=== PATIENT | female | born 1965 | race Caucasian/White ===

== ENCOUNTER 2016-11-21 22:14 | Emergency (ER) | payer SELFPAY ==
[2016-11-21] VITALS (10 sets, daily range): BP systolic 124–202; BP diastolic 68–98; PULSE 52–111; RESP 16–18; TEMP 97.3; O2SAT 96–100
[~2016-11-21] VITALS: Ht 165.1 cm; Wt 67.5 kg
[~2016-11-21 22:14] MED LIST: CIPR-9 PO; HYDR-3533 PO
[2016-11-21] MEDS ORDERED: levETIRAcetam INJ 500 MG in SODIUM CHLORIDE 0.9% INJ 100 ML IV SCH (22:30)
[2016-11-21] MEDS ORDERED: ETOMIDATE 20 MG/10 ML VIAL IV PUSH ONE (22:30)
[2016-11-21] MEDS ORDERED: SUCCINYLCHOLINE CHLORIDE 200 MG/10 ML VIAL IV PUSH ONE (22:30)
[2016-11-21] MEDS ORDERED: SODIUM CHLORIDE 0.9% FLUSH 10 ML FLUSH IVF PRN (22:30)
[2016-11-21] MEDS ORDERED: PROPOFOL 1000 MG/100 ML INJ 100 ML ONE (22:34)
--- NOTE | 2016-11-21 22:34 | RADRPT ---
EXAM DATE/TIME: 11/21/2016 22:20 [facility] COMPARISON: No previous studies available for comparison. INDICATIONS : Stroke alert. Left sided weakness. RADIATION DOSE: 56.77 CTDIvol (mGy) This report was called by Theron Nation at 2223 MEDICAL HISTORY : Non-responsive. SURGICAL HISTORY : Non-responsive. ENCOUNTER: Initial ACUITY: 1 day PAIN SCALE: 0/10 LOCATION: cranial TECHNIQUE: Multiple contiguous axial images were obtained of the head. Using automated exposure control and adj ustment of the mA and/or kV according to patient size, radiation dose was kept as low as reasonably a chievable to obtain optimal diagnostic quality images. FINDINGS: Significant intracranial hemorrhage is observed. The largest component is intraparenchymal in nature involving the right temporal lobe. There is subarachnoid hemorrhage overlying the right frontal lobe and left frontal lobe. Subarachnoid hemorrhage is seen filling the suprasellar cistern. A thin acute subdural hematoma is also seen overlying the right frontoparietal lobe reaching a maximum thickness o f 7 mm. There is right to left midline shift of 10 mm. The ventricles remain normal in size. The calv arium is intact. CONCLUSION: 1. Intraparenchymal, subarachnoid, and right-sided subdural hematoma with 10 mm of [id number] midl ine shift. Collin Crump Jr., MD on November 21, 2016 at 22:27 Board Certified Radiologist. This report was verified electronically.
[2016-11-21] MEDS ORDERED: IOHEXOL 350 MG/ML 10 ML VIAL (for RAD DIAG) IV ONE (22:39)
[2016-11-21 22:41] LABS: AUTOMATED NEUTROPHIL # 6.4 TH/MM3 (1.8-7.7); BASOPHIL # 0.1 TH/MM3 (0-0.2); BASOPHIL % 0.6 % (0.0-2.0); EOSINOPHIL # 0.2 TH/MM3 (0-0.4); HEMATOCRIT 37.4 % (35.0-46.0); HEMO FLAGS DIFF FINAL; LYMPH % 33.1 % (9.0-44.0); LYMPHOCYTE # 3.9 TH/MM3 (1.0-4.8); MEAN CELL VOLUME 110.7 FL (80.0-100.0); MEAN CORPUSCULAR HEMOGLOBIN 37.4 PG (27.0-34.0); MEAN CORPUSCULAR HGB CONC 33.8 % (32.0-36.0); MONO % 9.2 % (0.0-8.0); NEUT % 55.1 % (16.0-70.0); PLATELET COUNT 215 TH/MM3 (150-450); RED BLOOD COUNT 3.38 MIL/MM3 (4.00-5.30); WHITE BLOOD COUNT 11.7 TH/MM3 (4.0-11.0)
[2016-11-21] MEDS ORDERED: PROPOFOL 1000 MG/100 ML INJ 100 ML IV SCH (22:45)
[2016-11-21] MEDS ORDERED: levETIRAcetam 1000 MG INJ 100 ML IV ONE (22:45)
[2016-11-21] MEDS ORDERED: niCARdipine INJ 25 MG in SODIUM CHLOR 0.9% 250 ML INJ 250 ML IV SCH (22:45)
[2016-11-21] MEDS ORDERED: LIDOCAINE HCL 2% 100 MG/5 ML SYRINGE IV PUSH ONE (22:45)
[2016-11-21 22:48] LABS: I-STAT POTASSIUM 2.8 MMOL/L (3.5-4.9)
[2016-11-21 22:50] LABS: APTT (PATIENT) 22.2 SEC (24.3-30.1); PROTHROMBIN TIME - PATIENT 11.1 SEC (9.8-11.6)
--- NOTE | 2016-11-21 22:50 | MB ---
cc: MEHNAZ OVIEDO M.D. DATE OF CONSULTATION: 11/21/2016 REASON FOR CONSULTATION: Stroke alert HISTORY OF PRESENT ILLNESS Ms. Marino is a 51-year-old female previously healthy until this evening when she suddenly developed a severe headache began staring blankly into space and then had some what appeared to be seizure-like activity. She developed left-sided weakness. [facility] was called and found her to be hemiplegic on the left side. She had some witnessed activity which appeared to be seizure-like. PAST MEDICAL HISTORY: 1. History of nephrolithiasis. 2. Hypertension. ALLERGIES: NONE KNOWN. MEDICATIONS: Unknown at this time. NEUROLOGICAL EXAMINATION: Her blood pressure is 202/93, pulse 67, respiratory rate 18. Temperature is pending. Neurologic. She is minimally responive. She does follow simple commands. Cranial nerves: The right pupil is about 3 millimeter, left pupil 2 millimeters, right pupil is minimally reactive to light. She has mild ptosis on the right. She has left facial droop. On motor exam, she has severe weakness, left arm and left leg graded at 0/5 with normal strength on the right. Reflexes are symmetric. CT of the brain shows a large intraparenchymal hemorrhage as well as extensive subarachnoid hemorrhage. There is a 1.04 cm midline shift, right to left. There does appear to be some early uncal herniation as well. There does appear to be some subdural hematoma as well on the right hand side. LABORATORY DATA: Currently pending. IMPRESSION: Large subarachnoid hemorrhage as well as right temporal/parietal intraparenchymal hemorrhage and subdural hematoma. Rule out AVM, rule out aneurysm. RECOMMENDATIONS: Will obtain a stat CT angiogram of the brain, also recommend neurosurgical consultation. Although the patient did come in as a stroke alert she is obviously not a candidate for thrombolytic therapy given the extensive hemorrhage. Will also recommend blood pressure control per neurosurgery's recommendations. Will start the patient on Keppra as well for seizure prophylaxis. MD GRACE Meza/RIC /10:38 PM /10:44 PM
[2016-11-21] MEDS ORDERED: MANNITOL INJ 50 ML ONE (22:55)
[2016-11-21] MEDS ORDERED: MANNITOL 12.5 GM/50 ML VIAL IV ONE (23:00)
[2016-11-21] MEDS ORDERED: niMODipine 30 MG CAP OG-TUBE ONE (23:00)
--- NOTE | 2016-11-21 23:00 | PD ---
HPI Chief Complaint: Stroke Alert Time Seen by Provider: 22:21 Travel History International Travel<30 days: No Contact w/Intl Traveler<30days: No Traveled to known affect area: No History of Present Illness HPI The patient is a 51-year-old female who presents to the emergency department via EMS after an apparent seizure, altered mental status, and then was called a stroke alert in the field. According to EMS the patient had a staring episode approximately 9 PM tonight he complained of a headache to her coworkers at the [employer] where she works. The patient then had some lethargy and altered mental status, after one hour EMS was called. EMS arrived and stated the patient was incontinent of urine and appeared to be postictal, however, they noted she had a left facial droop and was not moving her left arm. Therefore, stroke alert was called in the field. According to EMS patient has no medical history and takes no chronic medications, however, upon arrival the patient is unable to answer any questions. No further information is obtained from the patient. [facility] Past Medical History Medical History: Unable to Obtain Hypertension: Yes Past Surgical History Surgical History: Unable to Obtain Section: Yes Social History Alcohol Use: Yes (daily) Tobacco Use: Yes (1 ppd) Substance Use: No Allergies-Medications (Allergen,Severity, Reaction): Coded Allergies: No Known Allergies (Unverified , 11/21/16) Reported Meds & Prescriptions Reported Meds & Active Scripts Active No Active Prescriptions or Reported Medications Review of Systems ROS Limitations: Clinical Condition, Altered Mental Status, Unresponsive Except as stated in HPI: all other systems reviewed are Neg Neurologic: Positive: Focal Abnormalities, Change in Mentation Physical Exam Narrative GENERAL: 51-year-old female who arrives with her eyes closed, nonverbal, only withdraws to pain. SKIN: Focused skin assessment warm/dry. HEAD: Atraumatic. Normocephalic. EYES: Right pupils 5 mm, left pupil is 2 mm, unable to assess EOMs.. ENT: No nasal bleeding or discharge. Snoring respirations. NECK: Trachea midline. No JVD. CARDIOVASCULAR: Regular rate and rhythm. No murmur appreciated. Heart rate in the 80s. RESPIRATORY: No accessory muscle use. Clear to auscultation. Breath sounds equal bilaterally. GASTROINTESTINAL: Abdomen soft, non-tender, nondistended. No obvious distention. MUSCULOSKELETAL: No obvious deformities. No clubbing. No cyanosis. No edema. NEUROLOGICAL: Eyes closed, nonverbal, withdraws to pain. Left arm is flaccid, minimal withdrawal of the left lower extremity. Withdrawals right upper extremity and right lower extremity to pain. There appears to be a left facial droop. PSYCHIATRIC: Unable to assess. Data Data Last Documented VS Vital Signs Date Time Temp Pulse Resp B/P Pulse Ox O2 Delivery O2 Flow Rate FiO2 11/21/16 23:59 111 16 124/68 100 Ventilator 50 11/21/16 22:59 97.3 11/21/16 22:[address] Brain W/O Iv Contrast(Rout) (11/21/16 ) Levetiracetam Inj (Keppra Inj) (11/21/16 22:30) Electrocardiogram (11/21/16 22:25) Prothrombin Time / Inr (Pt) (11/21/16 22:25) Act Partial Throm Time (Ptt) (11/21/16 22:25) Complete Blood Count With Diff (11/21/16 22:25) Comprehensive Metabolic Panel (11/21/16 22:25) Creatine Kinase (Cpk) (11/21/16 22:25) Troponin I (11/21/16 22:25) Cta Brain W Iv Contrast W 3d (11/21/16 22:25) Cta Neck W Iv Contrast W 3d (11/21/16 22:25) Chest, Single Ap (11/21/16 22:25) Ecg Monitoring (11/21/16 22:25) Iv Access Insert/Monitor (11/21/16 22:25) Oximetry (11/21/16 22:25) Sodium Chloride 0.9% Flush (Ns Flush) (11/21/16 22:30) Etomidate Inj (Amidate Inj) (11/21/16 22:30) Succinylcholine Inj (Quelicin Inj) (11/21/16 22:30) Lidocaine 2% Inj (Xylocaine 2% Inj) (11/21/16 22:45) Propofol 1000 Mg/100 Ml Inj (Diprivan 10 (11/21/16 22:34) I-Stat Creatinine (11/21/16 22:15) I-Stat Profile (11/21/16 22:15) Iohexol 350 Inj (Omnipaque 350 Inj) (11/21/16 22:39) Levetiracetam Inj (Keppra Inj) (11/22/16 00:00) Levetiracetam 1000 Mg Inj (Keppra 1000 M (11/21/16 22:45) Nicardipine Inj (Cardene Inj) (11/21/16 22:41) Propofol 1000 Mg/100 Ml Inj (Diprivan 10 (11/21/16 22:45) ^ Infusion (11/21/16 22:42) RASS (11/21/16 22:42) Neurological Rass Scale ARNOLD.Q2H (11/21/16 22:42) Nicardipine Inj (Cardene Inj) (11/21/16 22:45) Urinary Catheter Insert/Apply (11/21/16 22:42) Gertrude-Gastric Tube Insert/Mon (11/21/16 22:42) Mannitol Inj (Mannitol Inj) (11/21/16 23:00) Mannitol Inj (Mannitol Inj) (11/22/16 00:00) Nimodipine (Nimotop) (11/21/16 23:00) Mannitol Inj (Mannitol Inj) (11/21/16 22:55) Radiology Film Requests (11/21/16 ) Resp Ventilation- Volume (11/21/16 ) Potassium Chloride Eff (K-Lyte Cl Eff) (11/21/16 23:45) Potassium Chlor 20 Meq Premix (Kcl 20 Me (11/21/16 23:45) Radiology Film Requests (11/21/16 ) Arterial Blood Gas (Abg) (11/21/16 23:20) Mannitol Inj (Mannitol Inj) (11/22/16 00:22) Labs Laboratory Tests Test 11/21/16 11/21/16 22:15 23:20 White Blood Count 11.7 TH/MM3 Red Blood Count 3.38 MIL/MM3 Hemoglobin 12.6 GM/DL Bedside Hemoglobin 13.5 G/DL Hematocrit 37.4 % Bedside Hematocrit 40.0 % Mean Corpuscular Volume 110.7 FL Mean Corpuscular Hemoglobin 37.4 PG Mean Corpuscular Hemoglobin 33.8 % Concent Red Cell Distribution Width 14.0 % Platelet Count 215 TH/MM3 Mean Platelet Volume 8.7 FL Neutrophils (%) (Auto) 55.1 % Lymphocytes (%) (Auto) 33.1 % Monocytes (%) (Auto) 9.2 % Eosinophils (%) (Auto) 2.0 % Basophils (%) (Auto) 0.6 % Neutrophils # (Auto) 6.4 TH/MM3 Lymphocytes # (Auto) 3.9 TH/MM3 Monocytes # (Auto) 1.1 TH/MM3 Eosinophils # (Auto) 0.2 TH/MM3 Basophils # (Auto) 0.1 TH/MM3 CBC Comment DIFF FINAL Differential Comment Prothrombin Time 11.1 SEC Prothromb Time International 1.0 RATIO Ratio Activated Partial 22.2 SEC Thromboplast Time Bedside Sodium 133 MMOL/L Sodium Level 134 MEQ/L Bedside Potassium 2.8 MMOL/L Potassium Level 2.8 MEQ/L Bedside Chloride 95 MMOL/L Chloride Level 95 MEQ/L Carbon Dioxide Level 22.8 MEQ/L Anion Gap 16 MEQ/L Bedside Blood Urea Nitrogen 5 MG/DL Blood Urea Nitrogen 6 MG/DL Creatinine 0.57 MG/DL Bedside Creatinine 0.7 MG/DL Estimat Glomerular Filtration 112 ML/MIN Rate Bedside Glucose 162 MG/DL Random Glucose 155 MG/DL Calcium Level 8.4 MG/DL Total Bilirubin 0.5 MG/DL Aspartate Amino Transf 145 U/L (AST/SGOT) Alanine Aminotransferase 85 U/L (ALT/SGPT) Alkaline Phosphatase 163 U/L Total Creatine Kinase 109 U/L Troponin I LESS THAN 0.02 NG/ML Total Protein 7.2 GM/DL Albumin 3.4 GM/DL Blood Gas Puncture Site RT RADIAL Blood Gas Patient Temperature 98.6 Blood Gas HCO3 22 mmol/L Blood Gas Base Excess -2.5 mmol/L Blood Gas Oxygen Saturation 97 % Arterial Blood pH 7.41 Arterial Blood Partial 35 mmHg Pressure CO2 Arterial Blood Partial 169 mmHG Pressure O2 Arterial Blood Oxygen Content 17.7 Vol % Arterial Blood 2.1 % Carboxyhemoglobin Arterial Blood Methemoglobin 0.5 % Blood Gas Hemoglobin 12.8 G/DL Oxygen Delivery Device VENTILATOR Blood Gas Ventilator Setting AC/16/500/PEEP 5 Blood Gas Inspired Oxygen 50 % [facility] Medical Decision Making Medical Screen Exam Complete: Yes Emergency Medical Condition: Yes Medical Record Reviewed: Yes Interpretation(s) EKG reveals normal sinus rhythm with marked sinus arrhythmia. Nonspecific T- wave abnormality. Last Impressions Head CT 11/21/16 0000 Signed Impressions: Service Date/Time: Monday, November 21, 2016 22:20 - CONCLUSION: 1. Intraparenchymal, subarachnoid, and right-sided subdural hematoma with 10 mm of [id number] midline shift. Collin Crump Jr., MD CTA the head reveals bilateral posterior communicating artery aneurysms. A millimeter on the right and 7 mm on the left. Given the distribution of the hemorrhage the right aneurysm is likely the offending aneurysm. Differential Diagnosis Differential diagnoses includes CVA, TIA, intracranial hemorrhage, subarachnoid hemorrhage, aneurysmal bleed, complicated migraine, seizure. Narrative Course IV was established, labs are drawn and sent, and the patient was placed on cardiac telemetry monitoring continuous pulse ox imaging monitoring. A stroke alert was called prior to the patient's arrival, however, after assessment appear the patient was going to have an intracranial hemorrhage. The patient went immediately to CT which revealed subarachnoid hemorrhage, subdural hemorrhage, and intraparenchymal hemorrhage with possible aneurysmal bleed. Therefore, CT was performed which reveals bilateral aneurysm, possible right aneurysmal bleed based on the patient's intraparenchymal hemorrhage. I discussed the CT findings and CT findings with the radiologist, Dr. Crump. The patient was intubated using lidocaine, etomidate, succinylcholine, via rapid sequence intubation. The head of bed was placed up at 30, the patient was placed on propofol drip, Cardene drip, and administered Nimotop 60 mg via NG. I discussed the patient with the on-call neurosurgeon, Dr. Young, who recommends mannitol 50 mg intravenously every 6. Therefore, mannitol 50 mg was administered. A Maldonado catheter was placed. The patient had a postintubation chest x-ray obtained. Dr. Young called back at 2304 after reviewing the CTs and stated that the patient needs to be transferred to [facility] in [place] to the neurosurgeon, Dr. Crystal, as the aneurysms are too complicated for [facility] [place]. Therefore, a call was placed to Dr. Crystal at [facility] in [place], [place]. I discussed the patient with the neurosurgeon, Dr. Nam, who agrees with transfer emergently via helicopter. The patient will be transferred to [facility] in [place], [place]. The patient's potassium was replaced via NG and intravenously. The patient was placed on maintenance IV fluids. The Cardene was titrated down as the patient' s systolic blood pressure came down into the 140s. Air flight was unable to take the patient due to weather conditions, therefore, EMS and [facility] was notified for transfer. The patient will be transferred with the nurse secondary to complexity of illness and IV drips. Critical Care Narrative Aggregate critical care time was 45 minutes. Time to perform other separately billable procedures was not included in the critical care time. My time did not include minutes spent treating any other patients simultaneously or on activities that did not directly contribute to the patient's treatment. The services I provided to this patient were to treat and/or prevent clinically significant deterioration that could result in: Anoxia, hypoxia, aspiration, herniation, . I provided critical care services requiring my management, as noted below: Chart data review, documentation time, medication orders and management, vital sign assessments/reviewing monitor data, ordering and reviewing lab tests, ordering and interpreting/reviewing x-rays and diagnostic studies, care of the patient and discussion of the patient with the admitting physicians. Procedures Procedure Narrative INTUBATION: The patient was put in optimal position for the procedure. The patient was administered 100 mg of lidocaine intravenously. Rapid sequence intubation was initiated by me using 20 milligrams of etomidate IV and 100 milligrams of succinylcholine IV. The patient was intubated with a 7-5 cuffed endotracheal tube. Tube placement was confirmed by visualization of the tube and balloon passing through the cords, capnometry and subsequent chest x-ray. Breath sounds were equal and well aerated bilaterally postintubation. No breath sounds over stomach. Patient tolerated procedure well. Diagnosis Primary Impression: Subarachnoid hemorrhage Additional Impressions: Aneurysm Intraparenchymal hemorrhage of brain Scripts No Active Prescriptions or Reported Meds Disposition: 70 TRANSFER TO OTHER FACILITY Condition: Critical Brett Nation MD November 21, 2016 23:00
[2016-11-21 23:24] LABS: ALKALINE PHOSPHATASE 163 U/L (45-117); ALT (GPT) 85 U/L (10-53); ANION GAP 16 MEQ/L (5-15); AST (GOT) 145 U/L (15-37); BICARBONATE 22.8 MEQ/L (21.0-32.0); BLOOD UREA NITROGEN 6 MG/DL (7-18); CHLORIDE 95 MEQ/L (98-107); CREATINE KINASE 109 U/L (26-192); GLOMERULAR FILTRATION RATE 112 ML/MIN (>89); SODIUM (NA) 134 MEQ/L (136-145); TOTAL BILIRUBIN ADULT 0.5 MG/DL (0.2-1.0)
[2016-11-21 23:32] LABS: POTASSIUM 2.8 MEQ/L (3.5-5.1)
[2016-11-21] MEDS ORDERED: POTASSIUM CHLOR 20 MEQ PREMIX 100 ML IV ONE (23:45)
[2016-11-21] MEDS ORDERED: POTASSIUM CHLORIDE 25 MEQ EFFERVESCENT TAB NG SCH (23:45)
[2016-11-21 23:53] LABS: BLOOD GAS BASE EXCESS -2.5 mmol/L (-2-2); BLOOD GAS CARBOXYHEMOGLOBIN 2.1 % (0-4); BLOOD GAS HCO3 22 mmol/L (22-26); BLOOD GAS METHEMOGLOBIN 0.5 % (0-2); BLOOD GAS O2 HGB SATURATION 97 % (90-100); BLOOD GAS OXYGEN CONTENT 17.7 Vol % (12.0-20.0); BLOOD GAS PCO2 35 mmHg (38-42); BLOOD GAS PO2 169 mmHG (61-120); BLOOD GAS TOTAL HGB 12.8 G/DL (12.0-16.0); CRITICAL VALUE NO; OXYGEN DEVICE VENTILATOR; TEMP CORR TO 98.6
[2016-11-21 23:54] LABS: DRAW SITE RT RADIAL; FIO2 50 %; NUMBER OF ARTERIAL PUNCTURES 1; STAT NO; ULNAR PULSE PRESENT; VENT SETTINGS AC/16/500/PEEP 5
[2016-11-22] MEDS ORDERED: MANNITOL 12.5 GM/50 ML VIAL IV SCH
[2016-11-22] MEDS ORDERED: levETIRAcetam INJ 500 MG in SODIUM CHLORIDE 0.9% INJ 100 ML IV SCH ×2
[2016-11-22] MEDS ORDERED: MANNITOL INJ 50 ML ONE (00:22)
[2016-11-22 00:45] VITALS: BP 132/70; PULSE 104; RESP 16; O2SAT 100
[2016-11-22] MEDS ORDERED: SODIUM CHLOR 0.9% 1000 ML INJ 1,000 ML IV SCH (00:45)
[2016-11-22] MEDS ORDERED: SODIUM CHLORID 0.9% 500 ML INJ 500 ML IV ONE (01:00)
[2016-11-22 01:20] VITALS: BP 126/65; PULSE 108; RESP 16; O2SAT 100
[2016-11-22] MEDS ORDERED: ETOMIDATE 20 MG/10 ML VIAL ONE (01:47)
--- NOTE | 2016-11-22 08:23 | RADRPT ---
EXAM DATE/TIME: 11/21/2016 22:25 [facility] COMPARISON: No previous studies available for comparison. INDICATIONS : Stroke alert. Left sided weakness. IV CONTRAST: 85 cc Omnipaque 350 (iohexol) IV ; Cumulative dose for multiple exams. RADIATION DOSE: 15.59 CTDIvol (mGy) ; Combined studies MEDICAL HISTORY : Non-responsive. SURGICAL HISTORY : Non-responsive. ENCOUNTER: Initial ACUITY: 1 day PAIN SCALE: 0/10 LOCATION: cranial TECHNIQUE: Volumetric scanning was performed using a multi-row detector CT scanner. The data was post processed with a variety of visualization algorithms including full volume maximum intensity projection, multi -planar sliding thin slab reformation, curved planar reformation, and surface rendering techniques. Using automated exposure control and adjustment of the mA and/or kV according to patient size, radiat ion dose was kept as low as reasonably achievable to obtain optimal diagnostic quality images. FINDINGS: Bilateral posterior commuting artery aneurysms are observed. On the right this measures 8 x 8 mm and has minor lobulation to its contour. On the left this measures 7 mm x 5 mm and also has microlobulate d she in. No other aneurysms observed. No stenoses appreciated. CONCLUSION: Bilateral posterior communicating artery aneurysms. 8 mm on the right and 7 mm on the left. Given the distribution of the hemorrhage the right aneurysm is likely the offending aneurysm. Collin Crump Jr., MD on November 21, 2016 at 22:37 Board Certified Radiologist. This report was verified electronically.
--- NOTE | 2016-11-22 08:23 | RADRPT ---
EXAM DATE/TIME: 11/21/2016 22:25 [facility] COMPARISON: No previous studies available for comparison. INDICATIONS : Stroke alert; left sided weakness. IV CONTRAST: 85 cc Omnipaque 350 (iohexol) IV ; Cumulative dose for multiple exams. RADIATION DOSE: 15.59 CTDIvol (mGy) ; Combined studies MEDICAL HISTORY : Non-responsive. SURGICAL HISTORY : Non-responsive. ENCOUNTER: Initial ACUITY: 1 day PAIN SCALE: Non-responsive LOCATION: neck Elevated flow velocities and ICA/CCA ratios have been found to correlate with increased degrees of vessel stenosis, calculated as percentage of diameter relative to a normal segment of distal ICA/CCA. TECHNIQUE: Volumetric scanning was performed using a multirow detector CT scanner. The data was post processed with a variety of visualization algorithms including full-volume maximum intensity projection, multip lanar sliding thin-slab reformation, curved-planar reformation, and surface-rendering techniques. Us ing automated exposure control and adjustment of the mA and/or kV according to patient size, radiatio n dose was kept as low as reasonably achievable to obtain optimal diagnostic quality images. FINDINGS: AORTIC ARCH: There is a three-vessel origin of the great vessels from the aorta. No evidence of ostial narrowing. RIGHT CAROTID: The common carotid artery is intact. The carotid bulb has a normal configuration without ulceration o r narrowing. The internal carotid artery lumen is smooth without stenosis. The external carotid pushpa ry is intact. LEFT CAROTID: The common carotid artery is intact. The carotid bulb has a normal configuration without ulceration or narrowing. The internal carotid artery lumen is smooth without stenosis. The vessel pursues a pa rtially retropharyngeal course. The external carotid artery is intact. VERTEBRALS: The vertebral arteries have a symmetric diameter. No stenotic lesions are seen. CONCLUSION: Normal examination. Igor Dquue MD on November 21, 2016 at 23:18 Board Certified Radiologist. This report was verified electronically.
--- NOTE | 2016-11-22 08:23 | RADRPT ---
EXAM DATE/TIME: 11/21/2016 22:54 [facility] COMPARISON: CTA BRAIN W 3D RECON, November 21, 2016, 22:25. INDICATIONS : Stroke alert. MEDICAL HISTORY : Unobtainable. SURGICAL HISTORY : Unobtainable. ENCOUNTER: Initial ACUITY: 1 day PAIN SCORE: Non-responsive. LOCATION: Bilateral chest FINDINGS: Endotracheal tube is present with tip 2-3 cm above the marky. Nasogastric tube descends to the stoma ch. The lungs are symmetrically aerated and grossly clear. Cardiac contours are satisfactory. CONCLUSION: Satisfactory chest appearance Igor Duque MD on November 21, 2016 at 23:17 Board Certified Radiologist. This report was verified electronically.
--- NOTE | 2016-11-22 09:13 | EKG ---
Date Performed: 11/21/2016 Time Performed: 22:56:09 PTAGE: 51 years EKG: Sinus rhythm WITH MARKED SINUS ARRHYTHMIA NONSPECIFIC T-WAVE ABNORMALITY BORDERLINE ECG PREVIOUS TRACING : 11/18/2016 11.28 DOCTOR: Supa Ramirez Interpretating Date/Time 11/22/2016 09:12:07
== END 2016-11-22 01:41 | disposition short-term general hospital (02) ==
LOC: NEPC 22:14
DX: I60.9 Nontraumatic subarachnoid hemorrhage, unspecified (principal); I67.1 Cerebral aneurysm, nonruptured; I61.8 Other nontraumatic intracerebral hemorrhage; R29.810 Facial weakness; R47.01 Aphasia; R94.31 Abnormal electrocardiogram [ECG] [EKG]; I10 Essential (primary) hypertension; F17.200 Nicotine dependence, unspecified, uncomplicated
CPT/HCPCS: 31500; 36600; 51702; 70450; 70496; 70498; 71010; 80053; 82435; 82550; 82565; 82805; 82947; 84132; 84295; 84484; 84520; 85025; 85610; 85730; 93005; 96365; 96366; 96368; 96375; 96376; 99291; J0330; J1953; J2150; J3480; J7030; J7040; J7050; Q9967

== ENCOUNTER 2016-12-25 14:03 | Inpatient (IN) | payer OTHER ==
[2016-12-25] VITALS (7 sets, daily range): BP systolic 140–149; BP diastolic 76–78; PULSE 73–86; RESP 11–21; TEMP 98.7–98.9; O2SAT 98–99
[2016-12-25] MEDS ORDERED: SENNOSIDES 8.6 MG TAB PO PRN (17:30)
[2016-12-25] MEDS ORDERED: MAGNESIUM HYDROXIDE SUSP 30 ML CUP PO PRN (17:30)
[2016-12-25] MEDS ORDERED: LACTULOSE SYRUP 20 GM/30 ML CUP PO PRN (17:30)
[2016-12-25] MEDS ORDERED: BISACODYL 10 MG SUPP RECTAL PRN (17:30)
[2016-12-25] MEDS ORDERED: MISCELLANEOUS NURSING INFORMATION XX SCH (17:30)
[2016-12-25] MEDS ORDERED: ONDANSETRON HCL 4 MG/2 ML VIAL IV PRN (17:30)
[2016-12-25] MEDS ORDERED: CHLORHEXIDINE GLUCONATE 2 % 1 PACK (2 CLOTHS) TOP PRN (17:30)
--- NOTE | 2016-12-25 17:39 | HHI.HP ---
HPI Service Critical Care Medicine Primary Care Physician Unknown Admission Diagnosis S/P Right PCOM aneurysm clipping (HH4/F3/SAH). Bleed 11/21/16, clipping . Course complicated by an oral abscess requiring tooth extraction and left submandibular gland removal. Required V-P shunt for hydrocephalus. Tracheostomy 12/12, PEG 12/13. Right autologous cranioplasty and [employer] shunt 12/21. There was a another PCOM aneurysm on the left side on our initial CTA here at [facility]. Diagnosis: (1) Subarachnoid hemorrhage Diagnosis: Principal (2) Aneurysm Diagnosis: Principal (3) Breast mass, right Diagnosis: Secondary Chief Complaint: S/P operative clipping of PCOM at [facility] [place] [facility] on 11/22/16. Back now for continuing postoperative care. Travel History International Travel<30 Days: No Contact w/Intl Traveler <30 Da: No Traveled to Known Affected Are: No History of Present Illness Presented with SAH 11/21/16. Transferred to [facility] [place] [facility] for clipping 11/22/16. Returned to [facility] today. Right breast mass identified at . No workup to date. Review of Systems Constitutional: DENIES: Diaphoretic episodes, Fatigue, Fever, Weight gain, Weight loss, Chills, Dizziness, Change in appetite, Night Sweats Endocrine: DENIES: Abnorml menstrual pattern, Heat/cold intolerance, Polydipsia , Polyuria, Polyphagia Ears, nose, mouth, throat: DENIES: Tinnitus, Hearing loss, Vertigo, Nasal discharge, Oral lesions, Throat pain, Hoarseness, Ear Pain, Running Nose, Epistaxis, Sinus Pain, Toothache, Odynophagia Respiratory: DENIES: Apneas, Cough, Snoring, Wheezing, Hemoptysis, Sputum production, Shortness of breath Cardiovascular: DENIES: Chest pain, Palpitations, Syncope, Dyspnea on Exertion , PND, Lower Extremity Edema, Orthopnea, Claudication Gastrointestinal: DENIES: Abdominal pain, Black stools, Bloody stools, Constipation, Diarrhea, Nausea, Vomiting, Difficulty Swallowing, Anorexia Immunologic/allergic: DENIES: Eczema, Urticaria Neurologic: DENIES: Abnormal gait, Headache, Localized weakness, Paresthesias, Seizures, Speech Problems, Tremor, Poor Balance Past Family Social History Allergies: Coded Allergies: No Known Allergies (Unverified , 11/21/16) Physical Exam Vital Signs Vital Signs Date Time Temp Pulse Resp B/P Pulse Ox O2 Delivery O2 Flow Rate FiO2 12/25/16 16:46 98 Trach Collar 5.00 28 12/25/16 16:36 100 Trach Collar 28 12/25/16 16:20 86 12/25/16 16:15 98.7 86 11 140/76 99 Physical Exam P 78, SBP 162, R 14 nonlabored, sats 96% Head: Healing right crani scar. Neck: Supple, trach in place. Lungs: Clear, no adventitious sounds. Heart: NL S1S2, no m,r, no JVD. Abdomen: Soft, bs active, PEG in place. Extremities: Warm, well perfused. Neuro: Pupils 2 mm, react. Won't cooperate with cranial nerve exam. Right leg and arm move spontaneously. Left leg and arm weaker. DTRs patellar 4+ carla. No clonus. Opens eyes, tracks intermittently. Assessment and Plan Problem List: (1) Subarachnoid hemorrhage ICD Code: I60.9 Status: Chronic (2) Breast mass, right ICD Code: N63 Status: Acute Assessment and Plan Plan: 1. Continued rehab. 2. Bronchodilators. 3. Trach collar. 4. Pepcid. 5. Heparin 5000 q8h. 6. Keppra 7. Tube feeds. 8. Arrange for followup of right breast mass. Overall impression: Stable hemodynamic and respiratory function following ruptured aneurysm (HH4/F3) on 11/22/16. Right autologous cranioplasty and [employer] shunt 12/21. Gómez Azul MD Dec 25, 2016 17:38
[2016-12-25] MEDS ORDERED: GLUCAGON 1 MG/ML VIAL OTHER PRN (18:15)
[2016-12-25] MEDS ORDERED: DEXTROSE 50% IN WATER 50 ML VIAL(D50) IV PRN (18:15)
[2016-12-25] MEDS: INSULIN ASPART SUPPLEMENTAL SCALE SQ SCH (18:15)
[2016-12-25] MEDS: LANSOPRAZOLE SOLUTAB 30 MG TAB G-TUBE SCH (18:34)
[2016-12-25] MEDS: HEPARIN SODIUM - SQ 10,000 UNITS/ML VIAL SQ SCH (18:34)
[2016-12-25] MEDS: BENEPROTEIN POWDER 1 PACK G-TUBE SCH (18:34)
[2016-12-25] MEDS: DOCUSATE SODIUM 50 MG/SENNA 8.6 MG TAB PO SCH (21:30)
[2016-12-26] VITALS (12 sets, daily range): BP systolic 144–155; BP diastolic 70–97; PULSE 66–85; RESP 17–23; TEMP 97.1–98.8; O2SAT 95–100
[2016-12-26] MEDS: INSULIN ASPART SUPPLEMENTAL SCALE SQ SCH ×5 (00:09→23:58)
[2016-12-26] MEDS: HEPARIN SODIUM - SQ 10,000 UNITS/ML VIAL SQ SCH ×3 (01:53→17:28)
[2016-12-26] MEDS: CHLORHEXIDINE GLUCONATE 2 % 1 PACK (2 CLOTHS) TOP SCH (04:00)
[2016-12-26 06:36] LABS: BACTERIA, URINE MOD /hpf; COMMENT (UR) CATH-CULTURE IND; CULTURE IF INDICATED CATH CULTURE IND; MUCUS URINE FEW /lpf (OCC); RENAL EPITHELIAL CELLS 2 /hpf; SQUAMOUS EPITHELIAL CELL URINE 11 /hpf (0-5)
[2016-12-26 07:08] LABS: BLOOD, URINE SMALL (NEG); GLUCOSE,URINE NEG (NEG); KETONE, URINE NEG (NEG); NITRITE,URINE NEG (NEG); URINE COLOR YELLOW (YELLW/STRAW)
[2016-12-26] MEDS: BENEPROTEIN POWDER 1 PACK G-TUBE SCH ×3 (08:05→16:11)
[2016-12-26] MEDS: DOCUSATE SODIUM 50 MG/SENNA 8.6 MG TAB PO SCH ×2 (08:05→20:32)
[2016-12-26] MEDS: LANSOPRAZOLE SOLUTAB 30 MG TAB G-TUBE SCH (08:05)
--- NOTE | 2016-12-26 12:09 | HHI.PR ---
Subjective Remarks The patient is nonverbal but seems to understand and follows simple commands at bedside non verbal discussed case with RN, no major overnight events SBP in the 150's Objective Vitals Vital Signs Date Time Temp Pulse Resp B/P Pulse Ox O2 Delivery O2 Flow Rate FiO2 12/26/16 10:00 85 12/26/16 08:48 100 Trach Collar 28 12/26/16 08:00 73 12/26/16 08:00 97.1 76 18 144/70 99 12/26/16 07:00 99 Trach Collar 5.00 28 Aerosol Mask 12/26/16 06:00 74 12/26/16 04:00 98.0 66 17 155/72 95 12/26/16 04:00 66 12/26/16 02:00 77 12/26/16 00:00 98.5 79 21 152/97 100 12/25/16 23:23 73 12/25/16 20:19 98 Trach Collar 6.00 28 12/25/16 20:00 98.9 80 21 149/78 99 12/25/16 20:00 80 12/25/16 19:00 100 Trach Collar 28 12/25/16 18:00 85 12/25/16 16:46 98 Trach Collar 5.00 28 12/25/16 16:36 100 Trach Collar 28 12/25/16 16:20 86 12/25/16 16:15 98.7 86 11 140/76 99 I/O 12/25/16 12/25/16 12/25/16 12/26/16 12/26/16 12/26/16 06:59 14:59 22:59 06:59 14:59 22:59 Intake Total 87 ml 617 ml Output Total 300 ml 450 ml Balance -213 ml 167 ml Intake IV Total 0 ml Tube Feeding 37 ml 217 ml Tube Irrigant 50 ml Other 400 ml Output Urine Total 300 ml 450 ml Bladder Scan Volume Amount 596 ml # Bowel Movements 1 1 Objective Remarks Head: Healing right crani scar - no draining or erythema surrounding scar Neck: Supple, trach in place. Lungs: Clear, no adventitious sounds. Heart: NL S1S2, no m,r, no JVD. Abdomen: Soft, bs active, PEG in place, no discharge observed Extremities: Warm, well perfused. Neuro: Pupils 2 mm, react. Won't cooperate with cranial nerve exam. Right leg and arm move spontaneously. Left leg and arm weaker. DTRs patellar 4+ carla. No clonus. Opens eyes, tracks intermittently and seems to have a right gaze deviation. Medications and IVs Current Medications Medications (Trade) Dose Ordered Sig/Conor Route Start Time Stop Time Status Last Admin (Tylenol) 650 mg Q6H PRN PO 12/25/16 17:30 (Prevacid Odt) 30 mg DAILY G-TUBE 12/25/16 18:00 12/26/16 08:05 (Zofran Inj) 4 mg Q6H PRN IV 12/25/16 17:30 (Heparin Inj) 5,000 units Q8H SQ 12/25/16 18:00 12/26/16 08:04 Miscellaneous Information 1 Q361D XX 12/25/16 17:30 12/25/16 17:30 (Chlorhexidine 2% Cloth) 3 pack Taper DAILY@04 TOP 12/26/16 04:00 12/22/17 03:59 12/26/16 04:00 (Chlorhexidine 2% Cloth) 3 pack UNSCH PRN TOP 12/25/16 17:30 (Belen-Colace) 1 tab BID PO 12/25/16 21:00 12/26/16 08:05 (Milk Of Magnesia Liq) 30 ml Q12H PRN PO 12/25/16 17:30 (Senokot) 17.2 mg Q12H PRN PO 12/25/16 17:30 (Dulcolax Supp) 10 mg DAILY PRN RECTAL 12/25/16 17:30 (Lactulose Liq) 30 ml DAILY PRN PO 12/25/16 17:30 (Beneprotein Powder) 1 pack TID G-TUBE 12/25/16 18:00 12/26/16 11:27 (D50w (Vial) Inj) 50 ml UNSCH PRN IV 12/25/16 18:15 (Glucagon Inj) 1 mg UNSCH PRN OTHER 12/25/16 18:15 (NovoLOG SUPPLEMENTAL SCALE) 1 Q6H SQ 12/25/16 18:15 Urinary Catheter: Yes Assessment to: Continue Maldonado insert reason: Prolonged Immobilization Vascular Central Line Catheter: No A/P Problem List: (1) Subarachnoid hemorrhage ICD Code: I60.9 Status: Chronic (2) Aneurysm ICD Code: I72.9 Status: Acute (3) Breast mass, right ICD Code: N63 Status: Acute Assessment and Plan S/P Right PCOM aneurysm clipping (HH4/F3/SAH). Bleed 11/21/16, clipping . Course complicated by an oral abscess requiring tooth extraction and left submandibular gland removal. Required V-P shunt for hydrocephalus. Tracheostomy 12/12, PEG 12/13. Right autologous cranioplasty and RADIO TECHNICIAN shunt 12/21. There was a another PCOM aneurysm on the left side on our initial CTA here at [place]. 1. Subarachnoid hemorrhage. - S/P operative clipping of PCOM at [facility] on 11/22/16. - Continue Keppra. - Sp trach and PEG placement. - Tolerating the feeding, Jevity 1.5 at 45 m/hr. We'll consult dietitian for optimization of nutrition. - Continue trach care 2. Brain aneurysms - Head CTA obtained on 11/21/16 show bilateral posterior communicating artery aneurysms. 8 mm on the right side and 7 mm on the left. - S/P Right PCOM aneurysm clipping (HH4/F3/SAH) - Continue with blood pressure control - BP seems to be slightly elevated with a systolic blood pressure in the 150s. - Will continue to monitor BP and place on IV Vasotec for SBP >160. If BP continues to be elevated might need to have an antihypertensive medication to be started. - Will consult neurosurgery for follow up on 7mm aneurysm on the left which seems have not had definitive treatment. 3. Hyperglycemia - Labs ordered and pending. - Upper review. His records the patient had an elevated blood sugar. I will check hemoglobin A1c. Continue SSI and monitor Accu-Cheks. - Blood sugars stable on this admission. 4. Right Breast mass - Will consult oncology for further workup. - As per Discussion with Dr Barkley this was found accidentally on a CTA chest doen at [facility] however not worked up. 5. HTN - As per review of records patient not on any medications. - Patient's states patient should have been on an antihypertensive but she was not compliant. - Will start patient on Lisinopril 10 mg via PEG daily - Continue to monitor BP. GI Prophylaxis: On Bowel regime for prevention of constipation DVT Prophylaxis: SCD's, no chemoprophylaxis for now until cleared by neurosurgery to be on chemoprophylaxis. Discharge Planning ok to transfer to medical floor. Possible DC in 1 or 2 days. Patient with Mat Hernandez MD Dec 26, 2016 12:09
[2016-12-26] MEDS: LISINOPRIL 10 MG TAB PEG SCH (15:00)
[2016-12-26 16:33] LABS: AUTOMATED NEUTROPHIL # 5.2 TH/MM3 (1.8-7.7); BASOPHIL % 0.3 % (0.0-2.0); EOSINOPHIL # 0.2 TH/MM3 (0-0.4); EOSINOPHIL % 2.4 % (0.0-4.0); HEMATOCRIT 30.2 % (35.0-46.0); HEMO FLAGS DIFF FINAL; LYMPHOCYTE # 1.6 TH/MM3 (1.0-4.8); MEAN CELL VOLUME 98.6 FL (80.0-100.0); MEAN CORPUSCULAR HEMOGLOBIN 32.9 PG (27.0-34.0); MEAN CORPUSCULAR HGB CONC 33.4 % (32.0-36.0); MONO % 7.7 % (0.0-8.0); NEUT % 68.6 % (16.0-70.0); PLATELET COUNT 325 TH/MM3 (150-450); RED BLOOD COUNT 3.07 MIL/MM3 (4.00-5.30); RED CELL DISTRIBUTION WIDTH 15.8 % (11.6-17.2); WHITE BLOOD COUNT 7.6 TH/MM3 (4.0-11.0)
[2016-12-26 16:36] LABS: ANION GAP 7 MEQ/L (5-15); AST (GOT) 14 U/L (15-37); BICARBONATE 28.7 MEQ/L (21.0-32.0); BLOOD UREA NITROGEN 13 MG/DL (7-18); CHLORIDE 101 MEQ/L (98-107); GLOMERULAR FILTRATION RATE 155 ML/MIN (>89); MAGNESIUM 1.6 MG/DL (1.5-2.5); POTASSIUM 3.6 MEQ/L (3.5-5.1); SODIUM (NA) 137 MEQ/L (136-145)
[2016-12-26 16:38] LABS: ALT (GPT) 15 U/L (10-53)
[2016-12-26 16:39] LABS: ALKALINE PHOSPHATASE 119 U/L (45-117); TOTAL BILIRUBIN ADULT 0.3 MG/DL (0.2-1.0)
--- NOTE | 2016-12-26 19:52 | MB ---
cc: WM PERKINS DATE OF CONSULTATION 12/26/16 CHIEF COMPLAINT Breast mass. PATIENT PROFILE It is difficult to obtain a patient profile. The patient has had a subarachnoid and intracerebral hemorrhage. She is able to nod her head yes and no. She is not able to verbally communicate and there is very limited information available in the chart. She has a history of hypertension and presented to the emergency room at [facility] on 11/21/16 with a history of a severe headache, seizure-like activity, and severe left-sided weakness. She had a head CT scan performed on 11/21/2016 showing intraparenchymal and subarachnoid hemorrhage with a right-sided subdural hematoma with 10 mm of right to left midline shift. She had a head CTA and was found to have bilateral posterior communicating artery aneurysms, 8 mm on the right and 7 mm on the left. It was felt that the distribution of the hemorrhage suggested that it came from the right aneurysm. The patient was transferred to [facility] and had a right posterior communicating aneurysm clipping on 11/22/2016. Subsequent to this, she had an oral abscess requiring extraction of a tooth and left submandibular gland. She had a SET UP / OPERATOR shunt for hydronephrosis. She had tracheostomy on 12/12/2016 and a PEG tube on 12/13/2016. She still has a posterior communicating aneurysm on the left side. During the course of her evaluation at [facility], she was found to have radiographic evidence of a mass in the right breast. A consultation has been placed which reads "right breast mass". There is no previous history of a breast mass. The patient appears to not be aware of ever having had a right breast mass. She has had the following radiographic studies: Chest x-ray on 11/21/2016 showing an endotracheal tube and nasogastric tube. There is no notation of any metastatic disease. The x-ray was an AP film. She had a CAT scan of the abdomen and pelvis on 05/04/2016 for left flank pain which revealed a 4 mm calculus at the left ureteral vesicular junction with moderate to severe diffuse left hydroureter and moderate left hydroureter with prominent perinephric stranding. There was a 3.6 cm benign appearing left adrenal mass. There was bilateral sacroiliac joint arthrosis. There was a fat containing periumbilical hernia and hepatic steatosis. The patient cannot provide any information. She is bedridden. She can follow commands. PAST SURGICAL HISTORY 1. Clipping of right posterior communicating artery aneurysm at [facility] I believe November 22. 2. Extraction of tooth for recent oral abscess as well as left submandibular gland. 3. SET UP / OPERATOR shunt 4. Tracheostomy 5. PEG tube 6. Right autologous cranioplasty. PAST MEDICAL HISTORY 1. Subarachnoid intracerebral hemorrhage as described above. 2. Recent discovery of right breast mass at [facility] 3. hypertension 4. History of nephrolithiasis 5. Tobacco history- a pack per day. 6. Alcohol history. I am not sure to what extent. ALLERGIES No known allergies. MEDICATIONS Current, 1. Heparin 5000 units subcu q.8 h to. 2. Prinivil 3. Prevacid 4. Belen-Colace 5. Insulin coverage. 6. Keppra 500 q.12 h through the PEG 7. Lactulose. FAMILY HISTORY Unavailable. REVIEW OF SYSTEMS Unavailable. PHYSICAL EXAMINATION GENERAL: A chronically ill-appearing female. She has a trach. She has a PEG tube. She has a Maldonado catheter. She is able to follow simple commands such as lift right arm, left leg. Beyond that, communication is very difficult. VITAL SIGNS: Blood pressure 140/80, respiratory rate 20, pulse is 80 afebrile. O2 sat 100%. HEENT: Head shows evidence of previous recent surgery. Sclerae are unremarkable. Oropharynx - there may be early thrush. LYMPH NODE: No cervical, supraclavicular, axillary or inguinal adenopathy including careful examination the right axilla. HEART: Regular rhythm. LUNGS: Slightly decreased sounds at the bases. BREASTS: Left breast without masses. Right breast - there is an approximately firm 1 cm mass several centimeters above the areola and slightly medial. There is a small amount of puckering of the skin over the mass. ABDOMEN: Soft without hepatosplenomegaly. EXTREMITIES: No evidence of edema. MUSCULOSKELETAL: No obvious bone pain. NEUROLOGIC: She can move arms and legs but has had significant weakness, more so on the left than on the right. ASSESSMENT The patient is a 51-year-old female who suffered a devastating subarachnoid and intracerebral hemorrhage which has left her bedridden with a PEG tube, Maldonado catheter and a tracheostomy. It appears that she has a breast cancer. She has a firm nodular mass about a centimeter in size with puckering of the skin involving the right breast with a clinically normal axilla. RECOMMENDATIONS I would not recommend a mastectomy given the extent of her current illness. At the same time, I would not leave the cancer in place for any length of time. My inclination would be to do limited surgery removing the mass with an adequate margin and then, if possible, removing several lymph nodes in the axilla. Given her comorbid condition, I would not recommend chemotherapy. I very much doubt that she is a candidate for radiation therapy presently unless the radiation would be limited in scope and time. If the tumor turns out to be ER positive, then one can consider hormonal therapy but I would not entertain chemotherapy. I have placed a consult with general surgery. They can determine if they need any additional radiographic studies. Clinical stage pending path would be [id number]. MD GRISELDA Strong/ /6:53 PM /7:16 PM JORGE
[2016-12-26] MEDS: levETIRAcetam 500 MG/5 ML UDC PEG SCH (20:32)
[2016-12-27] VITALS (9 sets, daily range): BP systolic 142–158; BP diastolic 77–94; PULSE 58–80; RESP 18–24; TEMP 97.7–98.7; O2SAT 94–100
[2016-12-27] MEDS: HEPARIN SODIUM - SQ 10,000 UNITS/ML VIAL SQ SCH ×3 (02:09→18:25)
[2016-12-27] MEDS: CHLORHEXIDINE GLUCONATE 2 % 1 PACK (2 CLOTHS) TOP SCH (04:00)
[2016-12-27] MEDS: INSULIN ASPART SUPPLEMENTAL SCALE SQ SCH ×3 (05:12→18:15)
[2016-12-27] MEDS: levETIRAcetam 500 MG/5 ML UDC PEG SCH ×2 (08:30→20:22)
[2016-12-27] MEDS: BENEPROTEIN POWDER 1 PACK G-TUBE SCH ×3 (08:30→18:00)
[2016-12-27] MEDS: LANSOPRAZOLE SOLUTAB 30 MG TAB G-TUBE SCH (08:30)
[2016-12-27] MEDS: LISINOPRIL 10 MG TAB PEG SCH (08:30)
[2016-12-27] MEDS: DOCUSATE SODIUM 50 MG/SENNA 8.6 MG TAB PO SCH ×2 (09:00→20:22)
--- NOTE | 2016-12-27 11:57 | PD.CONS ---
HPI Service General Surgery Consult Requested By Dr. Acosta Reason for Consult Right breast mass Primary Care Physician Unknown History of Present Illness 51 yo F complicated recent medical history with incidental finding of right breast mass concerning for breast cancer. Her is at the bedside and the history is obtained from him as well as from computer records. At the end of October she was noted to have a subarachnoid hemorrhage and was transferred to [facility] where she underwent aneurysm clipping on 11/22/16. She underwent craniotomy and later cranioplasty with CHIEF OPERATOR LOCK TENDER shunt placement. She had a trach placed on 12/12/16 and PEG on 12/13/16. While at [facility] she underwent a CT of the chest which showed an incidental finding of a spiculated right breast mass. Her is not aware of any recent mammogram. He thinks she may have known about this mass prior to the hospitalization. Dr. Acosta has seen the patient and she'll not be a candidate for chemotherapy, although she could possibly receive endocrine therapy. I've been consulted for further recommendations. She currently is on trach collar and receiving nutrition enterally via PEG tube. Review of Systems ROS Limitations: Clinical Condition Past Family Social History Past Medical History Subarachnoid hemorrhage, brain aneurysm Adrenal mass Newly diagnosed right breast mass Past Surgical History Aneurysm clipping Cranioplasty and CHIEF OPERATOR LOCK TENDER shunt placement Tracheostomy PEG tube Reported Medications Current inpatient medications reviewed Allergies: Coded Allergies: No Known Allergies (Unverified , 11/21/16) Active Ordered Medications Current Medications Medications (Trade) Dose Ordered Sig/Conor Route Start Time Stop Time Status Last Admin (Tylenol) 650 mg Q6H PRN PO 12/25/16 17:30 (Prevacid Odt) 30 mg DAILY G-TUBE 12/25/16 18:00 12/27/16 08:30 (Zofran Inj) 4 mg Q6H PRN IV 12/25/16 17:30 (Heparin Inj) 5,000 units Q8H SQ 12/25/16 18:00 12/27/16 09:30 Miscellaneous Information 1 Q361D XX 12/25/16 17:30 12/25/16 17:30 (Chlorhexidine 2% Cloth) 3 pack Taper DAILY@04 [facility] 12/26/16 04:00 12/22/17 03:59 12/27/16 04:00 (Chlorhexidine 2% Cloth) 3 pack UNSCH PRN TOP 12/25/16 17:30 (Belen-Colace) 1 tab BID PO 12/25/16 21:00 12/26/16 08:05 (Milk Of Magnesia Liq) 30 ml Q12H PRN PO 12/25/16 17:30 (Senokot) 17.2 mg Q12H PRN PO 12/25/16 17:30 (Dulcolax Supp) 10 mg DAILY PRN RECTAL 12/25/16 17:30 (Lactulose Liq) 30 ml DAILY PRN PO 12/25/16 17:30 (Beneprotein Powder) 1 pack TID G-TUBE 12/25/16 18:00 12/27/16 08:30 (D50w (Vial) Inj) 50 ml UNSCH PRN IV 12/25/16 18:15 (Glucagon Inj) 1 mg UNSCH PRN OTHER 12/25/16 18:15 (NovoLOG SUPPLEMENTAL SCALE) 1 Q6H SQ 12/25/16 18:15 (Keppra Liq) 500 mg Q12HR PEG 12/26/16 21:00 12/27/16 08:30 (Prinivil) 10 mg DAILY PEG 12/26/16 13:30 12/27/16 08:30 Family History Noncontributory Social History She is . According to the chart she smoked a pack of cigarettes daily prior to hospitalization. Physical Exam Vital Signs Vital Signs Date Time Temp Pulse Resp B/P Pulse Ox O2 Delivery O2 Flow Rate FiO2 12/27/16 08:00 66 12/27/16 08:00 98.3 66 18 150/84 97 12/27/16 07:00 99 Trach Collar 28 Aerosol Mask 12/27/16 07:00 96 Trach Collar 4.00 28 12/27/16 04:00 98.3 80 22 151/79 95 12/27/16 04:00 80 12/27/16 01:15 94 Trach Collar 5.00 28 12/27/16 01:15 94 Trach Collar 28 Aerosol Mask 12/27/16 00:00 68 12/27/16 00:00 97.7 58 24 158/94 95 12/26/16 21:29 98 Trach Collar 21 12/26/16 21:00 97 Trach Collar Aerosol Mask 12/26/16 20:00 100 Trach Collar 5.00 28 12/26/16 20:00 98.8 72 17 148/77 98 12/26/16 20:00 72 12/26/16 19:00 98 Trach Collar 5.00 28 Aerosol Mask 12/26/16 16:00 80 12/26/16 16:00 98.8 80 23 148/84 100 12/26/16 14:00 85 12/26/16 12:00 97.3 66 19 150/86 100 12/26/16 12:00 66 Physical Exam GENERAL: Awake and alert. She makes eye contact and seems to be responding to interaction. HEAD: Garfield in place overlying cranioplasty incision NECK: Tracheostomy in place CHEST: Lungs clear to auscultation bilaterally with no wheezing or rhonchi. No respiratory distress. CARDIOVASCULAR: Regular rate and rhythm. ABDOMEN: Soft, PEG tube EXTREMITIES: No cyanosis or edema. SKIN: Warm, dry, nonjaundiced. Breast: Right breast with some skin retraction superior to the nipple. Deep to this skin area there is approximately 4 x 4 centimeter firm mass which is mobile. Left breast without abnormality. I was able to palpate one small node in the right axilla. No right supraclavicular nodes. Laboratory Laboratory Tests Test 12/26/16 12/26/16 15:33 15:40 White Blood Count 7.6 Red Blood Count 3.07 Hemoglobin 10.1 Hematocrit 30.2 Mean Corpuscular Volume 98.6 Mean Corpuscular Hemoglobin 32.9 Mean Corpuscular Hemoglobin 33.4 Concent Red Cell Distribution Width 15.8 Platelet Count 325 Mean Platelet Volume 7.9 Neutrophils (%) (Auto) 68.6 Lymphocytes (%) (Auto) 21.0 Monocytes (%) (Auto) 7.7 Eosinophils (%) (Auto) 2.4 Basophils (%) (Auto) 0.3 Neutrophils # (Auto) 5.2 Lymphocytes # (Auto) 1.6 Monocytes # (Auto) 0.6 Eosinophils # (Auto) 0.2 Basophils # (Auto) 0.0 CBC Comment DIFF FINAL Differential Comment Sodium Level 137 Potassium Level 3.6 Chloride Level 101 Carbon Dioxide Level 28.7 Anion Gap 7 Blood Urea Nitrogen 13 Creatinine 0.43 Estimat Glomerular Filtration 155 Rate Random Glucose 112 Calcium Level 9.4 Phosphorus Level 4.8 Magnesium Level 1.6 Total Bilirubin 0.3 Aspartate Amino Transf 14 (AST/SGOT) Alanine Aminotransferase 15 (ALT/SGPT) Alkaline Phosphatase 119 Total Protein 7.7 Albumin 2.7 Date/Time Procedure Status Source Growth 12/26/16 05:50 Urine Culture Received Urine Clean Catch Pending Result Diagram: 12/26/16 1533 12/26/16 1540 Assessment and Plan Assessment and Plan 51-year-old female with recent subarachnoid hemorrhage requiring aneurysm clipping and CHIEF OPERATOR LOCK TENDER shunt placement as well as trach and PEG with incidental right breast mass concerning for breast cancer. I will order an ultrasound of the breast and right axilla. I would like to have a biopsy done for tissue diagnosis. She will not be a candidate for chemotherapy. Based on imaging findings and her overall clinical status she may be a candidate for lumpectomy or mastectomy with possible lymphadenectomy. I will follow-up with further recommendations. Case was discussed in detail with the patient's . Jonny Tineo MD Dec 27, 2016 11:57
[2016-12-27 12:50] LABS: HEMOGLOBIN A1a 1.1 %; HEMOGLOBIN A1b 1.3 %; HEMOGLOBIN Ao 88.1 %; HEMOGLOBIN LA1C 1.2 %; HEMOGLOBIN P3 3.1 %
--- NOTE | 2016-12-27 14:40 | RADRPT ---
EXAM DATE/TIME: 12/27/2016 14:00 [place] COMPARISON: No previous studies available for comparison. INDICATIONS : Enlarged lymph node, right axilla. MEDICAL HISTORY : Hypertension. Subarachnoid hemorrhage. Aneurysm. SURGICAL HISTORY : section. Aneurysm clipping. Crainotomy. MOVIE MACHINE OPERATOR shunt. Trach placment. PEG tube placment. ENCOUNTER: Initial ACUITY: 1 day PAIN SCORE: Nonresponsive. LOCATION: Right axilla. AREA EVALUATED: Right axilla. FINDINGS: MASSES: None. FLUID COLLECTIONS: None. OTHER: There is evidence of several lymph nodes in the axillary area. The largest lymph node measures 2.2 x 1.3 cm. There is a smaller lymph node measuring 1.6 cm. There is a smaller lymph node measuring 1.1 c m. CONCLUSION: Several nonspecific right axillary lymph nodes are demonstrated. Will Rankin MD on December 27, 2016 at 14:36 Board Certified Radiologist. This report was verified electronically.
--- NOTE | 2016-12-27 17:37 | HHI.PR ---
Subjective Remarks Patient laying in bed closed eyes on a track O2 Not waking to verbal stimuli Is comfortable afebrile Objective Vitals Vital Signs Date Time Temp Pulse Resp B/P Pulse Ox O2 Delivery O2 Flow Rate FiO2 12/27/16 16:00 73 12/27/16 16:00 98.2 73 23 142/84 100 12/27/16 12:00 98.4 75 23 149/77 98 12/27/16 12:00 75 12/27/16 08:00 66 12/27/16 08:00 98.3 66 18 150/84 97 12/27/16 07:00 99 Trach Collar 28 Aerosol Mask 12/27/16 07:00 96 Trach Collar 4.00 28 12/27/16 04:00 98.3 80 22 151/79 95 12/27/16 04:00 80 12/27/16 01:15 94 Trach Collar 5.00 28 12/27/16 01:15 94 Trach Collar 28 Aerosol Mask 12/27/16 00:00 68 12/27/16 00:00 97.7 58 24 158/94 95 12/26/16 21:29 98 Trach Collar 21 12/26/16 21:00 97 Trach Collar Aerosol Mask 12/26/16 20:00 100 Trach Collar 5.00 28 12/26/16 20:00 98.8 72 17 148/77 98 12/26/16 20:00 72 12/26/16 19:00 98 Trach Collar 5.00 28 Aerosol Mask I/O 12/26/16 12/26/16 12/26/16 12/27/16 12/27/16 12/27/16 07:00 15:00 23:00 07:00 15:00 23:00 Intake Total 617 ml 400 ml 485 ml 436 ml 393 ml Output Total 450 ml 350 ml 400 ml 675 ml 650 ml Balance 167 ml 50 ml 85 ml -239 ml -257 ml Intake IV Total 2 ml Tube Feeding 217 ml 298 ml 365 ml 316 ml 393 ml Other 400 ml 100 ml 120 ml 120 ml Output Urine Total 450 ml 350 ml 400 ml 675 ml 550 ml Stool Total 100 ml Bladder Scan Volume Amount 596 ml # Bowel Movements 1 2 0 1 2 Result Diagram: 12/26/16 1533 12/26/16 1540 Objective Remarks - - GENERAL: Frail 51 years old female well-developed patient, in no apparent distress. SKIN: No rashes, warm and dry HEAD: Atraumatic. Normocephalic. EYES: Pupils equal round and reactive ENT: Nose without bleeding, NECK: Trach in place CARDIOVASCULAR: Regular rate and rhythm without murmurs, gallops, or rubs. RESPIRATORY: Fair air entry bilaterally. No wheezes, rales, or rhonchi. GASTROINTESTINAL: Abdomen soft, non-tender, nondistended. Positive bowel sounds MUSCULOSKELETAL: Extremities without clubbing, cyanosis, or edema. Pedal pulses appreciated NEUROLOGICAL: Closed eyes not awake me to verbal stimuli, no spontaneous limbs movement to me A/P Problem List: (1) Subarachnoid hemorrhage ICD Code: I60.9 Status: Chronic (2) Aneurysm ICD Code: I72.9 Status: Acute (3) Breast mass, right ICD Code: N63 Status: Acute Assessment and Plan 12/27: No change in clinical situation, closed eyes, continue current care, transfer to [facility] floor A/P: 51 years old female S/P Right PCOM aneurysm clipping (HH4/F3/SAH). Bleed , clipping 11/22/16. Course complicated by an oral abscess requiring tooth extraction and left submandibular gland removal. Required V-P shunt for hydrocephalus. Tracheostomy 12/12, PEG 12/13. Right autologous cranioplasty and SENIOR FINANCIAL ACCOUNTANT shunt 12/21. There was a another PCOM aneurysm on the left side on our initial CTA here at [place]. Subarachnoid hemorrhage. - S/P operative clipping of PCOM at [facility] on 11/22/16. - Continue Keppra. - Sp trach and PEG placement. - Tolerating the feeding, Jevity 1.5 at 45 m/hr. We'll consult dietitian for optimization of nutrition. - Continue trach care Brain aneurysms - Head CTA obtained on 11/21/16 show bilateral posterior communicating artery aneurysms. 8 mm on the right side and 7 mm on the left. - S/P Right PCOM aneurysm clipping (HH4/F3/SAH) - Continue with blood pressure control - BP seems to be slightly elevated with a systolic blood pressure in the 150s. - Will continue to monitor BP and place on IV Vasotec for SBP >160. If BP continues to be elevated might need to have an antihypertensive medication to be started. - Will consult neurosurgery for follow up on 7mm aneurysm on the left which seems have not had definitive treatment. Accidental Right Breast mass finding on CTA of the chest. -Oncology consulted, appreciate their input, general surgery consulted for biopsy, ordered ultrasound showed multiple axillary lymph nodes Klebsiella pneumoniae UTI: Showed on urine culture sensitive to ceftriaxone will start iv HTN on Lisinopril 10 mg via PEG daily - Continue to monitor BP. . Hyperglycemia - Labs ordered and pending. - Upper review. His records the patient had an elevated blood sugar. A1c 4.8. Continue SSI and monitor Accu-Cheks. - Blood sugars stable on this admission GI Prophylaxis: On Bowel regime for prevention of constipation DVT Prophylaxis: SCD's, no chemoprophylaxis for now until cleared by neurosurgery to be on chemoprophylaxis. Severo Valderrama MD Dec 27, 2016 17:37
[2016-12-28] VITALS (10 sets, daily range): BP systolic 116–161; BP diastolic 67–86; PULSE 64–101; RESP 18–24; TEMP 96.7–98.7; O2SAT 96–100
[2016-12-28] MEDS: INSULIN ASPART SUPPLEMENTAL SCALE SQ SCH ×4 (00:03→18:08)
[2016-12-28] MEDS: HEPARIN SODIUM - SQ 10,000 UNITS/ML VIAL SQ SCH ×3 (00:47→17:05)
[2016-12-28] MEDS: CHLORHEXIDINE GLUCONATE 2 % 1 PACK (2 CLOTHS) TOP SCH (04:00)
[2016-12-28] MEDS: BENEPROTEIN POWDER 1 PACK G-TUBE SCH ×3 (09:00→17:05)
[2016-12-28] MEDS: DOCUSATE SODIUM 50 MG/SENNA 8.6 MG TAB PO SCH ×2 (09:14→22:34)
[2016-12-28] MEDS: LANSOPRAZOLE SOLUTAB 30 MG TAB G-TUBE SCH (09:14)
[2016-12-28] MEDS: levETIRAcetam 500 MG/5 ML UDC PEG SCH ×2 (09:14→22:34)
[2016-12-28] MEDS: LISINOPRIL 10 MG TAB PEG SCH (09:14)
[2016-12-28] MEDS: cefTRIAXone INJ 1,000 MG in SODIUM CHLORIDE 0.9% INJ 100 ML IV SCH (17:05)
--- NOTE | 2016-12-28 19:23 | HHI.PR ---
Subjective Remarks Patient open eyes today, no traction Looks comfortable, afebrile Nurse at the bedside Objective Vitals Vital Signs Date Time Temp Pulse Resp B/P Pulse Ox O2 Delivery O2 Flow Rate FiO2 12/28/16 16:00 98.7 86 19 138/83 98 12/28/16 12:00 96.7 82 20 161/86 98 12/28/16 09:26 99 Trach Collar 28 12/28/16 08:20 98 Trach Collar 28 12/28/16 08:00 98.5 80 18 136/77 96 12/28/16 06:26 Trach Collar 28 Aerosol Mask 12/28/16 06:03 98.6 67 18 124/72 99 12/28/16 02:43 97.9 64 18 142/78 97 12/28/16 00:00 73 12/28/16 00:00 98.7 73 24 144/77 100 12/27/16 20:00 98.7 77 20 156/85 100 12/27/16 20:00 77 I/O 12/27/16 12/27/16 12/27/16 12/28/16 12/28/16 12/28/16 07:00 15:00 23:00 07:00 15:00 23:00 Intake Total 436 ml 393 ml 530 ml Output Total 675 ml 650 ml 350 ml 600 ml Balance -239 ml -257 ml 180 ml -600 ml Tube Feeding 316 ml 393 ml 290 ml Other 120 ml 240 ml Output Urine Total 675 ml 550 ml 350 ml 600 ml Stool Total 100 ml Tube Feeding Residual Discard 0 ml # Bowel Movements 1 2 1 2 Result Diagram: 12/26/16 1533 12/26/16 1540 Objective Remarks - - GENERAL: Frail 51 years old female well-developed patient, in no apparent distress. SKIN: No rashes, warm and dry HEAD: Atraumatic. Normocephalic. EYES: Pupils equal round and reactive ENT: Nose without bleeding, NECK: Trach in place CARDIOVASCULAR: Regular rate and rhythm without murmurs, gallops, or rubs. RESPIRATORY: Fair air entry bilaterally. No wheezes, rales, or rhonchi. GASTROINTESTINAL: Abdomen soft, non-tender, nondistended. Positive bowel sounds MUSCULOSKELETAL: Extremities without clubbing, cyanosis, or edema. Pedal pulses appreciated NEUROLOGICAL: Closed eyes not awake me to verbal stimuli, no spontaneous limbs movement to me A/P Problem List: (1) Subarachnoid hemorrhage ICD Code: I60.9 Status: Chronic (2) Aneurysm ICD Code: I72.9 Status: Acute (3) Breast mass, right ICD Code: N63 Status: Acute Assessment and Plan 12/27: No change in clinical situation, closed eyes, continue current care, transfer to [facility] floor 12/28: Open eyes today without tracking, afebrile, continue current care, special bed requested, A1c 4.8 no diabetes, right upper extremity ultrasound showed multiple right axilla lymph node, surgery following for biopsy Klebsiella pneumonia UTI>> start Rocephin A/P: 51 years old female S/P Right PCOM aneurysm clipping (HH4/F3/SAH). Bleed , clipping 11/22/16. Course complicated by an oral abscess requiring tooth extraction and left submandibular gland removal. Required V-P shunt for hydrocephalus. Tracheostomy 12/12, PEG 12/13. Right autologous cranioplasty and HARDWARE ENGINEER shunt 12/21. There was a another PCOM aneurysm on the left side on our initial CTA here at [place]. Subarachnoid hemorrhage. - S/P operative clipping of PCOM at [facility] on 11/22/16. - Continue Keppra. - Sp trach and PEG placement. - Tolerating the feeding, Jevity 1.5 at 45 m/hr. We'll consult dietitian for optimization of nutrition. - Continue trach care Brain aneurysms - Head CTA obtained on 11/21/16 show bilateral posterior communicating artery aneurysms. 8 mm on the right side and 7 mm on the left. - S/P Right PCOM aneurysm clipping (HH4/F3/SAH) - Continue with blood pressure control - BP seems to be slightly elevated with a systolic blood pressure in the 150s. - Will continue to monitor BP and place on IV Vasotec for SBP >160. If BP continues to be elevated might need to have an antihypertensive medication to be started. - Will consult neurosurgery for follow up on 7mm aneurysm on the left which seems have not had definitive treatment. Accidental Right Breast mass finding on CTA of the chest. -Oncology consulted, appreciate their input, general surgery consulted for biopsy, ordered ultrasound showed multiple axillary lymph nodes Klebsiella pneumoniae UTI: Showed on urine culture sensitive to ceftriaxone will start iv HTN on Lisinopril 10 mg via PEG daily - Continue to monitor BP. . Hyperglycemia - Labs ordered and pending. - Upper review. His records the patient had an elevated blood sugar. A1c 4.8. Continue SSI and monitor Accu-Cheks. - Blood sugars stable on this admission GI Prophylaxis: On Bowel regime for prevention of constipation DVT Prophylaxis: SCD's, no chemoprophylaxis for now until cleared by neurosurgery to be on chemoprophylaxis. Severo Valderrama MD Dec 28, 2016 19:23
[2016-12-29] VITALS (8 sets, daily range): BP systolic 133–158; BP diastolic 78–106; PULSE 80–90; RESP 18–20; TEMP 97.1–98.1; O2SAT 95–100
[2016-12-29] MEDS: INSULIN ASPART SUPPLEMENTAL SCALE SQ SCH ×4 (00:15→16:13)
[2016-12-29] MEDS: HEPARIN SODIUM - SQ 10,000 UNITS/ML VIAL SQ SCH ×3 (02:43→17:29)
[2016-12-29] MEDS: CHLORHEXIDINE GLUCONATE 2 % 1 PACK (2 CLOTHS) TOP SCH (04:00)
[2016-12-29] MEDS: cefTRIAXone INJ 1,000 MG in SODIUM CHLORIDE 0.9% INJ 100 ML IV SCH ×2 (05:58→16:10)
[2016-12-29] MEDS: BENEPROTEIN POWDER 1 PACK G-TUBE SCH ×3 (09:00→17:29)
[2016-12-29] MEDS: LISINOPRIL 10 MG TAB PEG SCH (10:27)
[2016-12-29] MEDS: LANSOPRAZOLE SOLUTAB 30 MG TAB G-TUBE SCH (10:27)
[2016-12-29] MEDS: DOCUSATE SODIUM 50 MG/SENNA 8.6 MG TAB PO SCH ×2 (10:27→21:35)
[2016-12-29] MEDS: levETIRAcetam 500 MG/5 ML UDC PEG SCH ×2 (10:28→21:00)
--- NOTE | 2016-12-29 14:42 | HHI.PR ---
Subjective Remarks pt closed eyes today , grimacing to sternal rub afebrile no acute issues Objective Vitals Vital Signs Date Time Temp Pulse Resp B/P Pulse Ox O2 Delivery O2 Flow Rate FiO2 12/29/16 12:00 98.1 90 20 139/83 97 12/29/16 10:30 97 Trach Collar 28 12/29/16 08:00 97.1 86 20 141/80 99 12/29/16 07:00 Trach Collar 28 12/29/16 04:00 97.5 85 18 142/78 95 12/29/16 00:20 Trach Collar 28 12/29/16 00:00 97.4 82 18 142/84 99 12/28/16 21:16 98 T-piece 5.00 28 12/28/16 20:00 96.9 101 18 116/67 96 12/28/16 19:30 97.4 82 18 142/84 99 12/28/16 16:00 98.7 86 19 138/83 98 I/O 12/28/16 12/28/16 12/28/16 12/29/16 12/29/16 12/29/16 07:00 15:00 23:00 07:00 15:00 23:00 Intake Total 445 ml Output Total 600 ml 2200 ml Balance -600 ml -1755 ml Tube Feeding 445 ml Output Urine Total 600 ml 2200 ml Tube Feeding Residual Discard 0 ml # Bowel Movements 2 Result Diagram: 12/26/16 1533 12/26/16 1540 Objective Remarks - - GENERAL: Frail 51 years old female well-developed patient, in no apparent distress. SKIN: No rashes, warm and dry HEAD: Atraumatic. Normocephalic. EYES: Pupils equal round and reactive ENT: Nose without bleeding, NECK: Trach in place CARDIOVASCULAR: Regular rate and rhythm without murmurs, gallops, or rubs. RESPIRATORY: Fair air entry bilaterally. No wheezes, rales, or rhonchi. GASTROINTESTINAL: Abdomen soft, non-tender, nondistended. Positive bowel sounds MUSCULOSKELETAL: Extremities without clubbing, cyanosis, or edema. Pedal pulses appreciated NEUROLOGICAL: Closed eyes not awake me to verbal stimuli, no spontaneous limbs movement to me A/P Problem List: (1) Subarachnoid hemorrhage ICD Code: I60.9 Status: Chronic (2) Aneurysm ICD Code: I72.9 Status: Acute (3) Breast mass, right ICD Code: N63 Status: Acute Assessment and Plan 12/27: No change in clinical situation, closed eyes, continue current care, transfer to [facility] floor 12/28: Open eyes today without tracking, afebrile, continue current care, special bed requested, A1c 4.8 no diabetes, right upper extremity ultrasound showed multiple right axilla lymph node, surgery following for biopsy Klebsiella pneumonia UTI>> start Rocephin A/P: 51 years old female S/P Right PCOM aneurysm clipping (HH4/F3/SAH). Bleed , clipping 11/22/16. Course complicated by an oral abscess requiring tooth extraction and left submandibular gland removal. Required V-P shunt for hydrocephalus. Tracheostomy 12/12, PEG 12/13. Right autologous cranioplasty and CONTOUR BAND SAW OPERATOR VERTICAL shunt 12/21. There was a another PCOM aneurysm on the left side on our initial CTA here at [place]. Subarachnoid hemorrhage. - S/P operative clipping of PCOM at [facility] on 11/22/16. - Continue Keppra. - Sp trach and PEG placement. - Tolerating the feeding, Jevity 1.5 at 45 m/hr. We'll consult dietitian for optimization of nutrition. - Continue trach care Brain aneurysms - Head CTA obtained on 11/21/16 show bilateral posterior communicating artery aneurysms. 8 mm on the right side and 7 mm on the left. - S/P Right PCOM aneurysm clipping (HH4/F3/SAH) - Continue with blood pressure control - BP seems to be slightly elevated with a systolic blood pressure in the 150s. - Will continue to monitor BP and place on IV Vasotec for SBP >160. If BP continues to be elevated might need to have an antihypertensive medication to be started. - Will consult neurosurgery for follow up on 7mm aneurysm on the left which seems have not had definitive treatment. Accidental Right Breast mass finding on CTA of the chest. -Oncology consulted, appreciate their input, general surgery consulted for biopsy, ordered ultrasound showed multiple axillary lymph nodes Klebsiella pneumoniae UTI: Showed on urine culture sensitive to ceftriaxone will start iv HTN on Lisinopril 10 mg via PEG daily - Continue to monitor BP. . Hyperglycemia - Labs ordered and pending. - Upper review. His records the patient had an elevated blood sugar. A1c 4.8. Continue SSI and monitor Accu-Cheks. - Blood sugars stable on this admission GI Prophylaxis: On Bowel regime for prevention of constipation DVT Prophylaxis: SCD's, no chemoprophylaxis for now until cleared by neurosurgery to be on chemoprophylaxis. Severo Valderrama MD Dec 29, 2016 14:42
[2016-12-30] VITALS (8 sets, daily range): BP systolic 138–171; BP diastolic 74–96; PULSE 80–92; RESP 18–20; TEMP 96.6–98; O2SAT 94–99
[2016-12-30] MEDS: INSULIN ASPART SUPPLEMENTAL SCALE SQ SCH ×4 (00:15→17:38)
[2016-12-30] MEDS: HEPARIN SODIUM - SQ 10,000 UNITS/ML VIAL SQ SCH ×3 (01:41→17:24)
[2016-12-30] MEDS: CHLORHEXIDINE GLUCONATE 2 % 1 PACK (2 CLOTHS) TOP SCH (03:39)
[2016-12-30] MEDS: cefTRIAXone INJ 1,000 MG in SODIUM CHLORIDE 0.9% INJ 100 ML IV SCH ×2 (06:58→17:24)
[2016-12-30] MEDS: BENEPROTEIN POWDER 1 PACK G-TUBE SCH ×3 (08:53→17:23)
[2016-12-30] MEDS: LANSOPRAZOLE SOLUTAB 30 MG TAB G-TUBE SCH (08:56)
[2016-12-30] MEDS: levETIRAcetam 500 MG/5 ML UDC PEG SCH ×2 (08:56→21:29)
[2016-12-30] MEDS: DOCUSATE SODIUM 50 MG/SENNA 8.6 MG TAB PO SCH ×2 (08:56→21:00)
[2016-12-30] MEDS: LISINOPRIL 10 MG TAB PEG SCH (08:56)
[2016-12-30] MEDS: RESP: ALBUTEROL 2.5 MG/IPRATROPIUM 0.5 MG NEB (PRN) INH (12:11)
[2016-12-30] MEDS: NYSTATIN 100,000 U/GM PWD 15 GM BTL TOPICAL SCH ×2 (12:43→21:29)
[2016-12-30 13:22] LABS: AUTOMATED NEUTROPHIL # 5.5 TH/MM3 (1.8-7.7); BASOPHIL % 0.6 % (0.0-2.0); EOSINOPHIL # 0.2 TH/MM3 (0-0.4); EOSINOPHIL % 1.9 % (0.0-4.0); HEMATOCRIT 30.3 % (35.0-46.0); HEMO FLAGS DIFF FINAL; LYMPH % 23.1 % (9.0-44.0); LYMPHOCYTE # 1.9 TH/MM3 (1.0-4.8); MEAN CELL VOLUME 97.6 FL (80.0-100.0); MEAN CORPUSCULAR HEMOGLOBIN 33.3 PG (27.0-34.0); MEAN CORPUSCULAR HGB CONC 34.1 % (32.0-36.0); MONO % 8.9 % (0.0-8.0); NEUT % 65.5 % (16.0-70.0); PLATELET COUNT 366 TH/MM3 (150-450); RED CELL DISTRIBUTION WIDTH 15.6 % (11.6-17.2); WHITE BLOOD COUNT 8.4 TH/MM3 (4.0-11.0)
[2016-12-30 13:52] LABS: BICARBONATE 31.8 MEQ/L (21.0-32.0); POTASSIUM 3.3 MEQ/L (3.5-5.1)
--- NOTE | 2016-12-30 14:36 | HHI.PR ---
Subjective Remarks She is more awake and alert today,Nonverbal Discussed with the and the previous boyfriend Also discussed with the nurse She was able to follow simple commands, make a fist, not with her head that She recognize that 2 gentlemen where in the room Objective Vitals Vital Signs Date Time Temp Pulse Resp B/P Pulse Ox O2 Delivery O2 Flow Rate FiO2 12/30/16 12:58 98.0 84 18 166/74 95 12/30/16 08:34 95 T-piece 12/30/16 08:08 97.8 80 18 171/78 96 12/30/16 04:00 97.2 86 18 170/87 98 12/30/16 00:00 97.0 85 20 138/85 94 12/29/16 22:25 96 T-piece 12/29/16 20:00 97.9 86 18 133/86 100 12/29/16 19:00 Trach Collar 12/29/16 16:00 97.9 80 20 137/83 96 I/O 12/29/16 12/29/16 12/29/16 12/30/16 12/30/16 12/30/16 07:00 15:00 23:00 07:00 15:00 23:00 Intake Total 445 ml 484 ml Output Total 2200 ml 975 ml Balance -1755 ml -491 ml Tube Feeding 445 ml 484 ml Output Urine Total 2200 ml 975 ml # Voids 3 # Bowel Movements 3 3 3 Result Diagram: 12/30/16 1253 12/30/16 1253 Objective Remarks - - GENERAL: Frail 51 years old female well-developed patient, in no apparent distress. SKIN: No rashes, warm and dry HEAD: Atraumatic. Normocephalic. EYES: Pupils equal round and reactive ENT: Nose without bleeding, NECK: Trach in place CARDIOVASCULAR: Regular rate and rhythm without murmurs, gallops, or rubs. RESPIRATORY: Fair air entry bilaterally. No wheezes, rales, or rhonchi. GASTROINTESTINAL: Abdomen soft, non-tender, nondistended. Positive bowel sounds MUSCULOSKELETAL: Extremities without clubbing, cyanosis, or edema. Pedal pulses appreciated NEUROLOGICAL: Open eyes nonverbal more alert the day able to follow simple commands A/P Problem List: (1) Subarachnoid hemorrhage ICD Code: I60.9 Status: Chronic (2) Aneurysm ICD Code: I72.9 Status: Acute (3) Breast mass, right ICD Code: N63 Status: Acute Assessment and Plan A/P: 51 years old female S/P Right PCOM aneurysm clipping (HH4/F3/SAH). Bleed , clipping 11/22/16. Course complicated by an oral abscess requiring tooth extraction and left submandibular gland removal. Required V-P shunt for hydrocephalus. Tracheostomy 12/12, PEG 12/13. Right autologous cranioplasty and PSYCHOLOGY DEPARTMENT CHAIR shunt 12/21. There was a another PCOM aneurysm on the left side on our initial CTA here at [place]. Subarachnoid hemorrhage. - S/P operative clipping of PCOM at [facility] on 11/22/16. - Continue Keppra. - Sp trach and PEG placement. - Tolerating the feeding, Jevity 1.5 at 45 m/hr. We'll consult dietitian for optimization of nutrition. - Continue trach care Brain aneurysms - Head CTA obtained on 11/21/16 show bilateral posterior communicating artery aneurysms. 8 mm on the right side and 7 mm on the left. - S/P Right PCOM aneurysm clipping (HH4/F3/SAH) - Continue with blood pressure control - BP seems to be slightly elevated with a systolic blood pressure in the 150s. - Will continue to monitor BP and place on IV Vasotec for SBP >160. If BP continues to be elevated might need to have an antihypertensive medication to be started. - Will consult neurosurgery for follow up on 7mm aneurysm on the left which seems have not had definitive treatment. Accidental Right Breast mass finding on CTA of the chest. -Oncology consulted, appreciate their input, general surgery consulted for biopsy, ordered ultrasound showed multiple axillary lymph nodes Klebsiella pneumoniae UTI: Showed on urine culture sensitive to ceftriaxone will start iv HTN on Lisinopril 10 mg via PEG daily - Continue to monitor BP. . Hyperglycemia - Labs ordered and pending. - Upper review. His records the patient had an elevated blood sugar. A1c 4.8. Continue SSI and monitor Accu-Cheks. - Blood sugars stable on this admission GI Prophylaxis: On Bowel regime for prevention of constipation DVT Prophylaxis: SCD's, no chemoprophylaxis for now until cleared by neurosurgery to be on chemoprophylaxis. Discussed with the , he told me he discussed with the surgeon and plan probably for dissection biopsy with possible lumpectomy Discharge Planning Patient is pending workup for the right breast tumor by surgery will probably need oncology to follow post procedure Severo Valderrama MD Dec 30, 2016 14:35
[2016-12-30 21:41] LABS: C. DIFF EPI 027 PRESUMPTIVE NEGATIVE (NEGATIVE); C. DIFF TOXIN PCR NEGATIVE (NEGATIVE)
[2016-12-31] VITALS (10 sets, daily range): BP systolic 121–170; BP diastolic 67–97; PULSE 70–96; RESP 18–20; TEMP 96.7–98.6; O2SAT 93–100
[2016-12-31] MEDS: INSULIN ASPART SUPPLEMENTAL SCALE SQ SCH ×4 (00:15→18:15)
[2016-12-31] MEDS: HEPARIN SODIUM - SQ 10,000 UNITS/ML VIAL SQ SCH ×3 (02:00→17:21)
[2016-12-31] MEDS: CHLORHEXIDINE GLUCONATE 2 % 1 PACK (2 CLOTHS) TOP SCH (04:00)
[2016-12-31] MEDS: NYSTATIN 100,000 U/GM PWD 15 GM BTL TOPICAL SCH ×3 (05:10→20:54)
[2016-12-31] MEDS: cefTRIAXone INJ 1,000 MG in SODIUM CHLORIDE 0.9% INJ 100 ML IV SCH ×2 (05:10→17:21)
[2016-12-31 07:02] LABS: AUTOMATED NEUTROPHIL # 6.4 TH/MM3 (1.8-7.7); BASOPHIL % 0.4 % (0.0-2.0); EOSINOPHIL # 0.2 TH/MM3 (0-0.4); EOSINOPHIL % 2.5 % (0.0-4.0); HEMATOCRIT 30.1 % (35.0-46.0); HEMO FLAGS DIFF FINAL; LYMPH % 17.3 % (9.0-44.0); LYMPHOCYTE # 1.6 TH/MM3 (1.0-4.8); MEAN CELL VOLUME 96.8 FL (80.0-100.0); MEAN CORPUSCULAR HEMOGLOBIN 32.7 PG (27.0-34.0); MEAN CORPUSCULAR HGB CONC 33.7 % (32.0-36.0); MONO % 11.7 % (0.0-8.0); NEUT % 68.1 % (16.0-70.0); PLATELET COUNT 381 TH/MM3 (150-450); RED BLOOD COUNT 3.11 MIL/MM3 (4.00-5.30); RED CELL DISTRIBUTION WIDTH 15.5 % (11.6-17.2); WHITE BLOOD COUNT 9.4 TH/MM3 (4.0-11.0)
[2016-12-31 07:36] LABS: POTASSIUM 3.4 MEQ/L (3.5-5.1)
[2016-12-31] MEDS: LISINOPRIL 10 MG TAB PEG SCH (08:26)
[2016-12-31] MEDS: BENEPROTEIN POWDER 1 PACK G-TUBE SCH ×3 (08:26→17:20)
[2016-12-31] MEDS: levETIRAcetam 500 MG/5 ML UDC PEG SCH ×2 (08:26→20:54)
[2016-12-31] MEDS: LANSOPRAZOLE SOLUTAB 30 MG TAB G-TUBE SCH (08:26)
[2016-12-31] MEDS: DOCUSATE SODIUM 50 MG/SENNA 8.6 MG TAB PO SCH ×2 (08:26→20:54)
[2016-12-31] MEDS ORDERED: POTASSIUM CHLORIDE 20 MEQ CONTROLLED RELEASE TAB PO ONE (10:00)
--- NOTE | 2016-12-31 10:04 | HHI.PR ---
Subjective Remarks No acute events overnight. Afebrile. Patient remains hypertensive with BP this morning of 170/97. Denies any pain. Follows commands. Able to answer questions with head nods. Objective Vitals Vital Signs Date Time Temp Pulse Resp B/P Pulse Ox O2 Delivery O2 Flow Rate FiO2 12/31/16 08:17 98.0 74 20 170/97 98 12/31/16 04:00 96.9 96 20 165/92 100 12/31/16 00:00 98.6 88 20 141/88 99 12/30/16 21:49 99 T-piece 28 12/30/16 20:00 99 T-Piece 28 12/30/16 20:00 96.6 90 20 166/90 97 12/30/16 16:50 97.0 92 20 160/96 95 12/30/16 12:58 98.0 84 18 166/74 95 I/O 12/30/16 12/30/16 12/30/16 12/31/16 12/31/16 12/31/16 07:00 15:00 23:00 07:00 15:00 23:00 Intake Total 484 ml 300 ml 442 ml Output Total 975 ml 1300 ml 500 ml Balance -491 ml -1000 ml -58 ml Tube Feeding 484 ml 180 ml 322 ml Other 120 ml 120 ml Output Urine Total 975 ml 1300 ml 300 ml Stool Total 200 ml # Bowel Movements 3 3 4 0 Result Diagram: 12/31/16 0607 12/31/16 0607 Objective Remarks GENERAL: 51 years old female well-developed patient, in no apparent distress. SKIN: No rashes, warm and dry HEAD: Atraumatic. Normocephalic. EYES: Pupils equal round and reactive ENT: Nose without bleeding, NECK: Trach in place CARDIOVASCULAR: Regular rate and rhythm without murmurs, gallops, or rubs. RESPIRATORY: Fair air entry bilaterally. No wheezes, rales, or rhonchi. GASTROINTESTINAL: Abdomen soft, non-tender, nondistended. Positive bowel sounds MUSCULOSKELETAL: Extremities without clubbing, cyanosis, or edema. Pedal pulses appreciated NEUROLOGICAL: Able to answer questions with head nods. Follows commands. A/P Problem List: (1) Subarachnoid hemorrhage ICD Code: I60.9 Status: Chronic (2) Aneurysm ICD Code: I72.9 Status: Acute (3) Breast mass, right ICD Code: N63 Status: Acute Assessment and Plan A/P: 51 years old female S/P Right PCOM aneurysm clipping (HH4/F3/SAH). Bleed , clipping 11/22/16. Course complicated by an oral abscess requiring tooth extraction and left submandibular gland removal. Required V-P shunt for hydrocephalus. Tracheostomy 12/12, PEG 12/13. Right autologous cranioplasty and COTTON PULLER shunt 12/21. There was a another PCOM aneurysm on the left side on our initial CTA here at [place]. Subarachnoid hemorrhage. - S/P operative clipping of PCOM at [facility] on 11/22/16. - Continue Keppra. - Sp trach and PEG placement. - Tolerating the feeding, Jevity 1.5 at 45 m/hr. We'll consult dietitian for optimization of nutrition. - Continue trach care Brain aneurysms - Head CTA obtained on 11/21/16 show bilateral posterior communicating artery aneurysms. 8 mm on the right side and 7 mm on the left. - S/P Right PCOM aneurysm clipping (HH4/F3/SAH) - Continue with blood pressure control - BP seems to be slightly elevated with a systolic blood pressure in the 150s. - Will continue to monitor BP and place on IV Vasotec for SBP >160. Added metoprolol as documented below for continued hypertension. - Will consult neurosurgery for follow up on 7mm aneurysm on the left which seems have not had definitive treatment. Accidental Right Breast mass finding on CTA of the chest. -Oncology consulted, appreciate their input, general surgery consulted for biopsy, ordered ultrasound showed multiple axillary lymph nodes. Patient will need biopsy and possible lumpectomy/vasectomy. Klebsiella pneumoniae UTI: Showed on urine culture sensitive to ceftriaxone will start iv (started 12/28) HTN on Lisinopril 10 mg via PEG daily Added metoprolol twice a day Vasotec when necessary SBP greater than 160 - Continue to monitor BP, may need to increase blood pressure meds. GI Prophylaxis: On Bowel regime for prevention of constipation DVT Prophylaxis: SCD's, no chemoprophylaxis for now until cleared by neurosurgery to be on chemoprophylaxis. Wnedy Felipe MD R3 Dec 31, 2016 10:04
[2016-12-31] MEDS ORDERED: PILL SPLITTER OTHER PRN (10:30)
[2016-12-31] MEDS: RESP: ALBUTEROL 2.5 MG/IPRATROPIUM 0.5 MG NEB (SCH) NEB ×3 (12:32→20:16)
[2016-12-31] MEDS: METOPROLOL TARTRATE 25 MG TAB PO SCH (20:54)
[2017-01-01] VITALS (8 sets, daily range): BP systolic 130–172; BP diastolic 75–93; PULSE 71–103; RESP 18–20; TEMP 96.7–99.1; O2SAT 92–100
[2017-01-01] MEDS: INSULIN ASPART SUPPLEMENTAL SCALE SQ SCH ×4 (00:15→17:56)
[2017-01-01] MEDS: ENALAPRILAT 1.25 MG/ML VIAL IV PUSH PRN (01:13)
[2017-01-01] MEDS: HEPARIN SODIUM - SQ 10,000 UNITS/ML VIAL SQ SCH ×3 (02:58→16:29)
[2017-01-01] MEDS: CHLORHEXIDINE GLUCONATE 2 % 1 PACK (2 CLOTHS) TOP SCH (04:00)
[2017-01-01] MEDS: cefTRIAXone INJ 1,000 MG in SODIUM CHLORIDE 0.9% INJ 100 ML IV SCH ×2 (05:59→16:29)
[2017-01-01] MEDS: NYSTATIN 100,000 U/GM PWD 15 GM BTL TOPICAL SCH ×3 (05:59→22:00)
[2017-01-01] MEDS: METOPROLOL TARTRATE 25 MG TAB PO SCH ×3 (08:27→22:25)
[2017-01-01] MEDS: LANSOPRAZOLE SOLUTAB 30 MG TAB G-TUBE SCH (08:28)
[2017-01-01] MEDS: LISINOPRIL 10 MG TAB PEG SCH (08:28)
[2017-01-01] MEDS: BENEPROTEIN POWDER 1 PACK G-TUBE SCH ×3 (08:28→16:31)
[2017-01-01] MEDS: levETIRAcetam 500 MG/5 ML UDC PEG SCH ×2 (08:28→22:24)
[2017-01-01] MEDS: DOCUSATE SODIUM 50 MG/SENNA 8.6 MG TAB PO SCH ×2 (08:28→21:00)
[2017-01-01] MEDS: RESP: ALBUTEROL 2.5 MG/IPRATROPIUM 0.5 MG NEB (SCH) NEB ×4 (09:51→21:42)
--- NOTE | 2017-01-01 10:26 | HHI.PR ---
Subjective Remarks awake and alert, tolerating tube feeedings good sats at room air minimla secretions on suctioning Objective Vitals Vital Signs Date Time Temp Pulse Resp B/P Pulse Ox O2 Delivery O2 Flow Rate FiO2 01/01/17 09:56 92 Trach Collar 6.00 21 01/01/17 08:42 97.8 85 18 170/77 94 01/01/17 07:00 98 Trach Collar 28 01/01/17 04:00 98.9 86 20 160/88 93 01/01/17 00:00 99.1 90 20 172/93 95 12/31/16 20:27 98 Trach Collar 21 12/31/16 20:00 98.0 90 18 161/97 95 12/31/16 19:00 98 Trach Collar 28 12/31/16 16:50 95 T-piece 5.00 12/31/16 16:22 97.6 80 20 139/79 99 12/31/16 12:38 98 T-piece 5.00 12/31/16 11:46 97.7 95 20 155/78 97 12/31/16 10:42 98 T-piece 5.00 28 I/O 12/31/16 12/31/16 12/31/16 01/01/17 01/01/17 01/01/17 07:00 15:00 23:00 07:00 15:00 23:00 Intake Total 442 ml 0 ml 1064 ml Output Total 500 ml 400 ml 550 ml Balance -58 ml -400 ml 514 ml Intake Oral 0 ml Tube Feeding 322 ml 1064 ml Other 120 ml Output Urine Total 300 ml 400 ml 550 ml Stool Total 200 ml # Bowel Movements 0 Result Diagram: 12/31/16 0607 12/31/16 0607 Imaging Last Impressions Upper Extremity Ultrasound 12/27/16 0000 Signed Impressions: Service Date/Time: Tuesday, December 27, 2016 14:00 - CONCLUSION: Several nonspecific right axillary lymph nodes are demonstrated. Will Rankin MD Objective Remarks awake and alet, ff commands + tracking + tracheostomy in place no rales, + right breast mass regular rhythm + PEG in place, good bowel sounds extrmeities no edema moves all extremities spontaneously Urinary Catheter: Yes Assessment to: Continue A/P Problem List: (1) Subarachnoid hemorrhage ICD Code: I60.9 Status: Chronic (2) Aneurysm ICD Code: I72.9 Status: Acute (3) Breast mass, right ICD Code: N63 Status: Acute Assessment and Plan 51 years old female S/P Right PCOM aneurysm clipping (HH4/F3/SAH). Bleed , clipping 11/22/16. Course complicated by an oral abscess requiring tooth extraction and left submandibular gland removal. Required V-P shunt for hydrocephalus. Tracheostomy 12/12, PEG 12/13. Right autologous cranioplasty and COGNOS ARCHITECT shunt 12/21. There was a another PCOM aneurysm on the left side on our initial CTA here at [place]. Subarachnoid hemorrhage. - S/P operative clipping of PCOM at [facility] on 11/22/16. - Continue Keppra. - Sp trach and PEG placement. - Tolerating the feeding, Jevity 1.5 at 45 m/hr. dietitian ff - Continue trach care - get neurosurgery consult- ff up. will need surgery for breast mass- neurological clearance Brain aneurysms - Head CTA obtained on 11/21/16 show bilateral posterior communicating artery aneurysms. 8 mm on the right side and 7 mm on the left. - S/P Right PCOM aneurysm clipping (HH4/F3/SAH) - Continue with blood pressure control - BP seems to be slightly elevated with a systolic blood pressure in the 150s. - Will continue to monitor BP and place on IV Vasotec for SBP >160. Added metoprolol as documented below for continued hypertension. - neurosurgery consulted for follow up on 7mm aneurysm on the left which seems have not had definitive treatment. Chronic respiratory failure S/P tracheostomy - doing very well - d/w RT- regarding trach capping Accidental Right Breast mass finding on CTA of the chest. -Oncology consulted, appreciate their input - general surgery consulted for biopsy, ordered ultrasound showed multiple axillary lymph nodes. - Patient will need biopsy and possible lumpectomy/vasectomy.- d/w Dr. Tineo Klebsiella pneumoniae UTI: Showed on urine culture sensitive to ceftriaxone will start iv (started 12/28) change to Ciprofloxacin/Peg x 2 days HTN on Lisinopril 20 mg via PEG daily Added metoprolol twice a day- increase to 25 mg po q 8 Vasotec when necessary SBP greater than 160 - GI Prophylaxis: On Bowel regime for prevention of constipation DVT Prophylaxis: SCD's, no chemoprophylaxis for now until cleared by neurosurgery to be on chemoprophylaxis. Skye Goodman MD Jan 01, 2017 10:26
[2017-01-01 12:26] LABS: AUTOMATED NEUTROPHIL # 5.9 TH/MM3 (1.8-7.7); BASOPHIL % 0.5 % (0.0-2.0); EOSINOPHIL # 0.2 TH/MM3 (0-0.4); EOSINOPHIL % 2.4 % (0.0-4.0); HEMATOCRIT 30.1 % (35.0-46.0); HEMO FLAGS DIFF FINAL; LYMPH % 19.5 % (9.0-44.0); LYMPHOCYTE # 1.7 TH/MM3 (1.0-4.8); MEAN CELL VOLUME 97.6 FL (80.0-100.0); MEAN CORPUSCULAR HEMOGLOBIN 32.1 PG (27.0-34.0); MEAN CORPUSCULAR HGB CONC 32.9 % (32.0-36.0); MONO % 9.6 % (0.0-8.0); PLATELET COUNT 389 TH/MM3 (150-450); RED BLOOD COUNT 3.09 MIL/MM3 (4.00-5.30); RED CELL DISTRIBUTION WIDTH 15.8 % (11.6-17.2); WHITE BLOOD COUNT 8.7 TH/MM3 (4.0-11.0)
[2017-01-01 13:12] LABS: BICARBONATE 31.5 MEQ/L (21.0-32.0); POTASSIUM 3.4 MEQ/L (3.5-5.1)
--- NOTE | 2017-01-01 13:24 | HHI.PR ---
Subjective Subjective Notes F/u for right breast mass, almost certainly cancer. I had another long discussion with the and also the boyfriend. I discussed the case with Dr. Acosta Sunday. We both recommend surgery. They are leaning toward agreeing to proceed with surgery, but are concerned there could be metastatic disease. I 'm going to request Dr. Acosta discuss this in further detail as he graciously offered. I also think neurosurgery may need to be consulted regarding the possible remaining aneurysm. I will ask palliative care to help with decision making. Noman,Jonny BERRIOS Jan 01, 2017 13:24
[2017-01-02] VITALS (10 sets, daily range): BP systolic 138–186; BP diastolic 82–96; PULSE 86–101; RESP 18–21; TEMP 96.5–98.5; O2SAT 92–97
[2017-01-02] MEDS: INSULIN ASPART SUPPLEMENTAL SCALE SQ SCH ×5 (00:09→23:34)
[2017-01-02] MEDS: ACETAMINOPHEN 325 MG TAB PO PRN (00:33)
[2017-01-02] MEDS: CHLORHEXIDINE GLUCONATE 2 % 1 PACK (2 CLOTHS) TOP SCH (01:47)
[2017-01-02] MEDS: HEPARIN SODIUM - SQ 10,000 UNITS/ML VIAL SQ SCH ×3 (01:47→17:13)
[2017-01-02] MEDS: METOPROLOL TARTRATE 25 MG TAB PO SCH ×3 (05:05→22:15)
[2017-01-02] MEDS: cefTRIAXone INJ 1,000 MG in SODIUM CHLORIDE 0.9% INJ 100 ML IV SCH (05:05)
[2017-01-02] MEDS: NYSTATIN 100,000 U/GM PWD 15 GM BTL TOPICAL SCH ×3 (05:14→22:00)
--- NOTE | 2017-01-02 07:48 | PD.CONS ---
Consult Service Palliative Care Consult Requested By Dr. Tineo Primary Care Physician Unknown Reason for Consultation a. To assist with evaluation and management of symptoms including:pain b. To assist medical decision maker(s) with: better understanding of current medical conditions; weighing benefits/burdens of medical treatment options; making medical treatment decisions. HPI History of Present Illness Patient is a 51-year-old female who has a past medical history significant for subarachnoid hemorrhage, right breast mass recently discovered [facility], hypertension. * She recently presented to the emergency room at [facility] on 11/21/2016 with history of severe headache, seizure-like activity, and severe left sided weakness. CT scanned performed on 11/21/2016 shows intraparenchymal and subarachnoid hemorrhage with right-sided subdural hematoma with a 10 mm right-to -left midline shift. She had a CTA that was performed, and was found to have bilateral posterior communicating artery aneurysms, 8 mm on the right and 7 mm on the left. It was felt the pattern seen was suggested that the aneurysm came from the right. * She was transferred to [facility] on 11/22/2016 and had a right posterior communicating aneurysm clipping. Her medical condition is also complicated by an oral abscess requiring extraction of a tooth and left submandibular gland. In [facility] she had a PEDIATRIC DIETICIAN shunt placed. She also had a tracheostomy and a PEG tube placed on 12/12/2016 and 12/13/2016 respectively. * During [facility] evaluation she was found to have radiographic evidence of a mass in the right breast. * She was transferred back to [place] 12/23/2016. Consultation to Dr. Acosta oncology was placed for evaluation of right breast mass. * On 12/26/2016 oncology came and evaluated patient. Recommendation by oncology at this time is given the extent of her current illness would not recommend a mastectomy. At the same time they would not want to leave the cancer in place for any length of time and recommendation is to do limited surgery removing the mass with adequate margin and then if possible removed several lymph nodes in the axilla. Due to patient's comorbid condition, oncology does not recommend chemotherapy and doubt very much that she is a candidate for radiation therapy. If tumor turns out to be ER positive stem one consideration is hormonal therapy but again oncology does not recommend chemotherapy. Consultation with Gen. surgery was placed. * Dr. Tineo of general surgery came and evaluated patient on 12/27/2016. Ultrasound of the breasts and right axilla was ordered. Biopsy is needed for tissue diagnosis. * On ultrasound 12/27/2016 Several nonspecific right axillary lymph nodes are demonstrated. * Course of hospitalization complicated by hypertension. There is difficulty communicating but she is able to answer questions with nods of her head. She is able to follow commands. * Dr. Tineo follow-up on 01/01/2017. Surgeon feels breast mass is almost certainly cancer. There is concern about metastatic disease. Gen. surgery also feels neurosurgery may be needed regarding the possible remaining aneurysm, and would need neurological clearance. Palliative care was consulted to help with pt/ / boyfriend with goals of care and decision making. Today on my visit pt was hard to arouse, but per pt was writing and communicating. Neurosurgery had just come, and I was able to be in the conversation. Neurosurgery endorse from neuro standpoint pt had made progress and should be able to make functional recovery. Neurosurgery said will get neuro to look at some the tremors pt is exhibiting, but he feels they are not seizures. I spent time discussing with pt's the challenges she face. He understands that pt likely has breast cancer with lymphadenopathy, and not a candidate for chemo or radiation at this point. Pt's endorse they have a 15 year old son, and would want to fight and try for him. He state, likely will opt for surgery, but would like to know if there is how far the mets have gone. He understands the PET scan is for outpatient only. Goals are aggressive. and endorse a full code. Function/Cognitive Trajectory Since aneurysm, has faced tremendous neuro, clincial challenges at [facility] and here. Pt is trach, peg , and dependent on all adls. Review of Systems ROS Limitations: Clinical Condition, Poor Historian Constitutional: COMPLAINS OF: Fatigue Respiratory: COMPLAINS OF: Sputum production Gastrointestinal: COMPLAINS OF: Difficulty Swallowing Psychiatric: COMPLAINS OF: Confusion Past Family Social History Coded Allergies: No Known Allergies (Unverified , 11/21/16) Past Medical History Subarachnoid intracerebral hemorrhage Right breast mass discovered at [facility], almost certainly has breast cancer Hypertension Nephrolithiasis Past Surgical History Clipping of the right posterior communicating artery at [facility] 11/22/2016 Extraction of tooth due to recent oral abscess PEDIATRIC DIETICIAN shunt placement Tracheostomy placement PEG tube Right auto longus cranioplasty Reported Medications Heparin 5000 units subcutaneous every 8 Prinivil Prevacid Belen-Colace Insulin coverage [facility] Current Medications Medications (Trade) Dose Ordered Sig/Conor Route Start Time Stop Time Status Last Admin (Tylenol) 650 mg Q6H PRN PO 12/25/16 17:30 01/02/17 00:33 (Prevacid Odt) 30 mg DAILY G-TUBE 12/25/16 18:00 01/01/17 08:28 (Zofran Inj) 4 mg Q6H PRN IV 12/25/16 17:30 (Heparin Inj) 5,000 units Q8H SQ 12/25/16 18:00 01/02/17 01:47 Miscellaneous Information 1 Q361D XX 12/25/16 17:30 12/25/16 17:30 (Chlorhexidine 2% Cloth) Taper DAILY@04 TOP 12/26/16 04:00 12/22/17 03:59 12/27/16 04:00 (Chlorhexidine 2% Cloth) 3 pack UNSCH PRN TOP 12/25/16 17:30 (Belen-Colace) 1 tab BID PO 12/25/16 21:00 12/31/16 20:54 (Milk Of Magnesia Liq) 30 ml Q12H PRN PO 12/25/16 17:30 (Senokot) 17.2 mg Q12H PRN PO 12/25/16 17:30 (Dulcolax Supp) 10 mg DAILY PRN RECTAL 12/25/16 17:30 (Lactulose Liq) 30 ml DAILY PRN PO 12/25/16 17:30 (Beneprotein Powder) 1 pack TID G-TUBE 12/25/16 18:00 01/01/17 16:31 (D50w (Vial) Inj) 50 ml UNSCH PRN IV 12/25/16 18:15 (Glucagon Inj) 1 mg UNSCH PRN OTHER 12/25/16 18:15 (NovoLOG SUPPLEMENTAL SCALE) 1 Q6H SQ 12/25/16 18:15 Levetriacetam 500 mg 500 mg Q12HR PEG 12/26/16 21:00 01/01/17 22:24 (Rocephin Inj/NS Inj) 100 ml @ 200 mls/hr Q12H IV 12/28/16 17:00 01/02/17 05:05 (Mycostatin Powder) 1 applic Q8HR TOPICAL 12/30/16 14:00 01/02/17 05:14 (Prinivil) 20 mg DAILY PEG 12/31/16 09:00 01/01/17 08:28 (Vasotec Inj) 1.25 mg Q6H PRN IV PUSH 12/30/16 11:15 01/01/17 01:13 (Pill Splitter) 1 ea UNSCH PRN OTHER 12/31/16 10:30 (Cipro) 500 mg Q12HR G-TUBE 01/02/17 09:00 01/03/17 21:01 (Lopressor) 25 mg Q8HR PO 01/01/17 14:00 01/02/17 05:05 Family History Unable to elicit at this time Substance Use Tobacco: A pack per day Alcohol: Some history of diffuse Prescription med abuse: No Illicits: No 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 Pt is living with both , 15 year old son, and boyfriend (Gavin) Spiritual/Cultural Factors Cheondoism Living Will: Never completed Health Care Surrogate: Never completed Durable Power of Tire Sorter: Never completed Physical Exam Vital Signs Date Time Temp Pulse Resp B/P Pulse Ox O2 Delivery O2 Flow Rate FiO2 01/02/17 04:00 96.5 96 20 138/84 95 01/02/17 00:00 97.8 89 20 157/84 96 01/01/17 22:41 Trach Collar 6.00 21 01/01/17 21:47 100 T-piece 21 01/01/17 20:00 98.2 84 20 139/75 96 01/01/17 16:00 96.7 71 20 155/91 95 01/01/17 12:00 98.3 103 18 130/84 98 01/01/17 09:56 92 Trach Collar 6.00 21 01/01/17 08:42 97.8 85 18 170/77 94 01/01/17 01/02/17 19:00 07:00 Intake Total 1293 ml Output Total 300 ml 0 ml Balance -300 ml 1293 ml IV Total 100 ml Tube Feeding 993 ml Other 200 ml Output Urine Total 300 ml Tube Feeding Residual Discard 0 ml Exam CONSTITUTIONAL/GENERAL: This is an adequately nourished patient, in no apparent distress, sleepy difficult to arrouse. TUBES/LINES/DRAINS: trach, peg SKIN: No jaundice, rashes, or lesions. Ecchymoses on upper extremities. No wounds seen anteriorly. Skin temperature appropriate. Not diaphoretic. HEAD: Atraumatic. Normocephalic. EYES: eyes remains closed.. ENT: Hearing grossly normal. Nose without bleeding or purulent drainage. Throat without visible erythema, exudates, masses, or lesions. NECK: Tracheostomy, CARDIOVASCULAR: Regular rate and rhythm without murmurs, gallops, or rubs. No JVD. Peripheral pulses symmetric. RESPIRATORY/CHEST: Symmetric, unlabored respirations. Clear to auscultation. secretions. GASTROINTESTINAL: Abdomen soft, non-tender, nondistended. Peg in place. GENITOURINARY: Without palpable bladder distension. Maldonado catheter in place. MUSCULOSKELETAL: Extremities without clubbing, cyanosis, or edema. No joint tenderness or effusion noted. No calf tenderness. No mottling or clubbing. LYMPHATICS: No palpable cervical or supraclavicular adenopathy. NEUROLOGICAL: difficult to arrouse on my visit.. Motor and sensory grossly within normal limits. P PSYCHIATRIC: Hard to arous today, no signs of anxiety. Diagnostic Tests Laboratory Laboratory Tests Test 12/30/16 12/30/16 12/31/16 01/01/17 12:53 19:32 06:07 11:44 White Blood Count 8.4 TH/MM3 9.4 TH/MM3 (4.0-11.0) (4.0-11.0) Red Blood Count 3.10 MIL/MM3 3.11 MIL/MM3 (4.00-5.30) (4.00-5.30) Hemoglobin 10.3 GM/DL 10.1 GM/DL (11.6-15.3) (11.6-15.3) Hematocrit 30.3 % 30.1 % (35.0-46.0) (35.0-46.0) Mean Corpuscular Volume 97.6 FL 96.8 FL (80.0-100.0) (80.0-100.0) Mean Corpuscular Hemoglobin 33.3 PG 32.7 PG (27.0-34.0) (27.0-34.0) Mean Corpuscular Hemoglobin 34.1 % 33.7 % Concent (32.0-36.0) (32.0-36.0) Red Cell Distribution Width 15.6 % 15.5 % (11.6-17.2) (11.6-17.2) Platelet Count 366 TH/MM3 381 TH/MM3 (150-450) (150-450) Mean Platelet Volume 7.6 FL 7.5 FL (7.0-11.0) (7.0-11.0) Neutrophils (%) (Auto) 65.5 % 68.1 % (16.0-70.0) (16.0-70.0) Lymphocytes (%) (Auto) 23.1 % 17.3 % (9.0-44.0) (9.0-44.0) Monocytes (%) (Auto) 8.9 % (0.0-8.0) 11.7 % (0.0-8.0) Eosinophils (%) (Auto) 1.9 % (0.0-4.0) 2.5 % (0.0-4.0) Basophils (%) (Auto) 0.6 % (0.0-2.0) 0.4 % (0.0-2.0) Neutrophils # (Auto) 5.5 TH/MM3 6.4 TH/MM3 (1.8-7.7) (1.8-7.7) Lymphocytes # (Auto) 1.9 TH/MM3 1.6 TH/MM3 (1.0-4.8) (1.0-4.8) Monocytes # (Auto) 0.7 TH/MM3 1.1 TH/MM3 (0-0.9) (0-0.9) Eosinophils # (Auto) 0.2 TH/MM3 0.2 TH/MM3 (0-0.4) (0-0.4) Basophils # (Auto) 0.0 TH/MM3 0.0 TH/MM3 (0-0.2) (0-0.2) CBC Comment DIFF FINAL DIFF FINAL Differential Comment Sodium Level 142 MEQ/L 141 MEQ/L 142 MEQ/L (136-145) (136-145) (136-145) Potassium Level 3.3 MEQ/L 3.4 MEQ/L 3.4 MEQ/L (3.5-5.1) (3.5-5.1) (3.5-5.1) Chloride Level 103 MEQ/L 103 MEQ/L 104 MEQ/L (98-107) (98-107) (98-107) Carbon Dioxide Level 31.8 MEQ/L 30.0 MEQ/L 31.5 MEQ/L (21.0-32.0) (21.0-32.0) (21.0-32.0) Anion Gap 7 MEQ/L (5-15) 8 MEQ/L (5-15) 7 MEQ/L (5-15) Blood Urea Nitrogen 9 MG/DL (7-18) 9 MG/DL (7-18) 8 MG/DL (7-18) Creatinine 0.51 MG/DL 0.47 MG/DL 0.56 MG/DL (0.50-1.00) (0.50-1.00) (0.50-1.00) Estimat Glomerular Filtration 128 ML/MIN 140 ML/MIN 115 ML/MIN Rate (>89) (>89) (>89) Random Glucose 114 MG/DL 121 MG/DL 124 MG/DL (74-106) (74-106) (74-106) Calcium Level 9.7 MG/DL 9.9 MG/DL 10.0 MG/DL (8.5-10.1) (8.5-10.1) (8.5-10.1) Stool C. difficile Toxin (PCR) NEGATIVE (NEGATIVE) Stl C. difficile Toxin PRESUMPTIVE Epiderm 027 NEGATIVE (NEGATIVE) Magnesium Level 2.0 MG/DL (1.5-2.5) Test 01/01/17 11:46 White Blood Count 8.7 TH/MM3 (4.0-11.0) Red Blood Count 3.09 MIL/MM3 (4.00-5.30) Hemoglobin 9.9 GM/DL (11.6-15.3) Hematocrit 30.1 % (35.0-46.0) Mean Corpuscular Volume 97.6 FL (80.0-100.0) Mean Corpuscular Hemoglobin 32.1 PG (27.0-34.0) Mean Corpuscular Hemoglobin 32.9 % Concent (32.0-36.0) Red Cell Distribution Width 15.8 % (11.6-17.2) Platelet Count 389 TH/MM3 (150-450) Mean Platelet Volume 7.7 FL (7.0-11.0) Neutrophils (%) (Auto) 68.0 % (16.0-70.0) Lymphocytes (%) (Auto) 19.5 % (9.0-44.0) Monocytes (%) (Auto) 9.6 % (0.0-8.0) Eosinophils (%) (Auto) 2.4 % (0.0-4.0) Basophils (%) (Auto) 0.5 % (0.0-2.0) Neutrophils # (Auto) 5.9 TH/MM3 (1.8-7.7) Lymphocytes # (Auto) 1.7 TH/MM3 (1.0-4.8) Monocytes # (Auto) 0.8 TH/MM3 (0-0.9) Eosinophils # (Auto) 0.2 TH/MM3 (0-0.4) Basophils # (Auto) 0.0 TH/MM3 (0-0.2) CBC Comment DIFF FINAL Differential Comment Result Diagram: 01/01/17 1146 01/01/17 1144 Imaging Last Impressions Upper Extremity Ultrasound 12/27/16 0000 Signed Impressions: Service Date/Time: Tuesday, December 27, 2016 14:00 - CONCLUSION: Several nonspecific right axillary lymph nodes are demonstrated. Will Rankin MD Patient/Family Conference Present at Family Conference: Family Conference Time (mins): 45 Family Conference Location: Bedside Issues Discussed: * Palliative care role, purpose, approach * Additional medical, psychosocial, and spiritual history * Patients general health, functional status, and cognitive changes in the months leading up to the current hospitalization * Patient/family understanding of the current medical problems * Patient/family understanding of prognosis * Patients goals of care as best understood from advance directives and/or conversations and/or values * Current medical treatment options and benefits/burdens of those options * Likely scenarios comparing ongoing aggressive care with a transition to comfort measures only * Questions answered to the best of my ability * Palliative care contact information provided Assessment and Plan Disease Oriented Problem List: (1) Breast mass, right Comment: Likely breast cancer with adenopathy (2) Intraparenchymal hemorrhage of brain (3) Aneurysm (4) Subarachnoid hemorrhage Symptom Scale: (1) Anxiety 0-10 Scale: Unable to quantify (2) Pain 0-10 Scale: Unable to quantify Pertinent Non-Medical Issues Psychosocial: Spiritual: Legal: Ethical issues impacting care: Important Contacts Julio Marino [phone]. Gavin (boyfriend) Prognosis 51-year-old had a right posterior communicating right aneurysm , s/p clipping , performed at [facility]. Incidental breast mass found, further workup is highly suspicious for breast cancer with lymphadenopathy. Patient is PEG and trach. Difficulty with communication although she is following commands. Patient likely has breast cancer and is not candidate for chemotherapy or radiation due to functional status; tracheostomy risk of aspiration remains; infection and multiple hospitalization, medical hardware malfucntion risk remains.. Patient will still need biopsy to determine stage of cancer. Possible lumpectomy versus mastectomy. We'll need further information for prognostication, but given functional status, comorbidities prognosis is guarded. Code Status: Full Code Plan == Capacity to make decision. Not as engaging today on my visit. Difficult to arouse. show me writing she use to communicate. Will reassess == Pt still legally . If pt does not have capacity, Proxy would be . Pt never completed any advance directives. == Code: Full == Goals of care-Today on my visit pt was hard to arouse, but per pt was writing and communicating. Neurosurgery had just come, and I was able to be in the conversation. Neurosurgery endorse from neurological standpoint,pt had made progress and should be able to make functional recovery. Neurosurgery said will get neuro to look at the tremors pt is exhibiting, but he feels they are not seizures. I spent time discussing with pt's the challenges she face. He understands that pt likely has breast cancer with lymphadenopathy, and not a candidate for chemo or radiation at this point. Pt's endorse they have a 15 year old son, and pt would want to fight and try to get better for him. He state, likely family will opt for surgery, but would like to know if there are any other mets, and if they could order more imaging? He understands the PET scan is for outpatient only. ==Goals are aggressive. and endorse a full code. == Pain, anxiety, does not appear to be in pain or anxious on my visit. ==Palliative Care will follow up. Time Spent Total Floor Time (mins): 66 Face to Face Time (mins): 45 Thank you for the opportunity to participate in the care of Ms. Marino. Attestation To help prompt me to consider important information that might be impacting today's encounter and assessment, information from prior notes written by myself or my colleagues may have been "brought forward" into today's note. My signature on this note, however, is an attestation that I personally performed the exam, history, and/or decision-making noted today, and, unless otherwise indicated, the interactions with patient, family, and staff as well as the review of records all occurred today. I also attest that the listed assessment and stated plan reflect my best clinical judgment today based on the combination of historical information, prior notes, and today's exam/ interactions. When time spent is documented, it refers only to time spent today by the signer, or if indicated, combined time spent today by collaborating physician/nurse practitioner. Jose Johnson MD Jan 02, 2017 07:47
[2017-01-02] MEDS: levETIRAcetam 500 MG/5 ML UDC PEG SCH ×2 (07:56→22:15)
[2017-01-02] MEDS: LISINOPRIL 10 MG TAB PEG SCH (07:56)
[2017-01-02] MEDS: CIPROFLOXACIN 500 MG TAB G-TUBE SCH ×2 (07:56→22:16)
[2017-01-02] MEDS: LANSOPRAZOLE SOLUTAB 30 MG TAB G-TUBE SCH (07:57)
[2017-01-02] MEDS: DOCUSATE SODIUM 50 MG/SENNA 8.6 MG TAB PO SCH ×2 (07:57→22:15)
[2017-01-02] MEDS: BENEPROTEIN POWDER 1 PACK G-TUBE SCH ×3 (07:58→17:13)
[2017-01-02] MEDS: RESP: ALBUTEROL 2.5 MG/IPRATROPIUM 0.5 MG NEB (SCH) NEB ×4 (08:47→20:59)
[2017-01-02] MEDS: ENALAPRILAT 1.25 MG/ML VIAL IV PUSH PRN (10:16)
--- NOTE | 2017-01-02 11:54 | HHI.PR ---
Subjective Remarks tolerating tube feedings appears ocmfortable minimal secretions staff nurse reported some focal tremors right UE Objective Vitals Vital Signs Date Time Temp Pulse Resp B/P Pulse Ox O2 Delivery O2 Flow Rate FiO2 01/02/17 11:00 101 174/94 96 01/02/17 10:18 96 186/91 97 01/02/17 08:50 96 Trach Collar 5.00 21 01/02/17 08:00 Trach Collar 6.00 21 01/02/17 08:00 98.5 94 21 186/96 94 01/02/17 04:00 96.5 96 20 138/84 95 01/02/17 00:00 97.8 89 20 157/84 96 01/01/17 22:41 Trach Collar 6.00 21 01/01/17 21:47 100 T-piece 21 01/01/17 20:00 98.2 84 20 139/75 96 01/01/17 16:00 96.7 71 20 155/91 95 01/01/17 12:00 98.3 103 18 130/84 98 I/O 01/01/17 01/01/17 01/01/17 01/02/17 01/02/17 01/02/17 07:00 15:00 23:00 07:00 15:00 23:00 Intake Total 1064 ml 1293 ml Output Total 550 ml 300 ml 0 ml 400 ml Balance 514 ml -300 ml 0 ml 893 ml IV Total 100 ml Tube Feeding 1064 ml 993 ml Other 200 ml Output Urine Total 550 ml 300 ml 400 ml Tube Feeding Residual Discard 0 ml Result Diagram: 01/01/17 1146 01/01/17 1144 Imaging Last Impressions Upper Extremity Ultrasound 12/27/16 0000 Signed Impressions: Service Date/Time: Tuesday, December 27, 2016 14:00 - CONCLUSION: Several nonspecific right axillary lymph nodes are demonstrated. Will Rankin MD Objective Remarks awake and alert, ff commands + tracking + tracheostomy in place no rales, + right breast mass regular rhythm + PEG in place, good bowel sounds extremeties no edema moves all extremities spontaneously A/P Problem List: (1) Subarachnoid hemorrhage ICD Code: I60.9 Status: Chronic (2) Aneurysm ICD Code: I72.9 Status: Acute (3) Breast mass, right ICD Code: N63 Status: Acute Assessment and Plan 51 years old female S/P Right PCOM aneurysm clipping (HH4/F3/SAH). Bleed , clipping 11/22/16. Course complicated by an oral abscess requiring tooth extraction and left submandibular gland removal. Required V-P shunt for hydrocephalus. Tracheostomy 12/12, PEG 12/13. Right autologous cranioplasty and MEMORIAL DESIGNER shunt 12/21. There was a another PCOM aneurysm on the left side on our initial CTA here at [place]. Subarachnoid hemorrhage. - S/P operative clipping of PCOM at [facility] on 11/22/16. - Continue Keppra. - Sp trach and PEG placement. - Tolerating the feeding, Jevity 1.5 at 45 m/hr. dietitian ff - Continue trach care - get neurosurgery consult- ff up. will need surgery for breast mass- neurological clearance Brain aneurysms - Head CTA obtained on 11/21/16 show bilateral posterior communicating artery aneurysms. 8 mm on the right side and 7 mm on the left. - S/P Right PCOM aneurysm clipping (HH4/F3/SAH) - Continue with blood pressure control - BP seems to be slightly elevated with a systolic blood pressure in the 150s. - Will continue to monitor BP and place on IV Vasotec for SBP >160. Added metoprolol as documented below for continued hypertension. - neurosurgery consulted for follow up on 7mm aneurysm on the left which seems have not had definitive treatment. Chronic respiratory failure S/P tracheostomy - doing very well - d/w RT- regarding trach capping Accidental Right Breast mass finding on CTA of the chest. -Oncology consulted, appreciate their input - general surgery consulted for biopsy, ordered ultrasound showed multiple axillary lymph nodes. - Patient will need biopsy and possible lumpectomy/vasectomy.- d/w Dr. Tineo Klebsiella pneumoniae UTI: Showed on urine culture sensitive to ceftriaxone will start iv (started 12/28) change to Ciprofloxacin/Peg x 2 days HTN on Lisinopril 10 mg via PEG daily Added metoprolol twice a day- increase to 25 mg po q 8 Vasotec when necessary SBP greater than 160 - GI Prophylaxis: On Bowel regime for prevention of constipation DVT Prophylaxis: SCD's, no chemoprophylaxis for now until cleared by neurosurgery to be on chemoprophylaxis. Skye Goodmna MD Jan 02, 2017 11:54
[2017-01-02] MEDS: cloNIDine HCL 0.1 MG TAB PO PRN ×3 (12:18→23:38)
--- NOTE | 2017-01-02 19:42 | PD.ONC.PN ---
Subjective Subjective Remarks patient much more alert and able to easily follow conversations Objective Data Date Time Temp Pulse Resp B/P Pulse Ox O2 Delivery O2 Flow Rate FiO2 01/02/17 16:00 98.5 86 19 156/84 92 01/02/17 12:00 98.0 97 20 176/94 92 01/02/17 11:00 101 174/94 96 01/02/17 10:18 96 186/91 97 01/02/17 08:50 96 Trach Collar 5.00 21 01/02/17 08:00 Trach Collar 6.00 21 01/02/17 08:00 98.5 94 21 186/96 94 01/02/17 04:00 96.5 96 20 138/84 95 01/02/17 00:00 97.8 89 20 157/84 96 01/01/17 22:41 Trach Collar 6.00 21 01/01/17 21:47 100 T-piece 21 01/01/17 20:00 98.2 84 20 139/75 96 01/02/17 01/02/17 01/02/17 07:00 15:00 23:00 Intake Total 1293 ml Output Total 400 ml 350 ml Balance 893 ml -350 ml Result Diagram: 01/01/17 1146 01/01/17 1144 Administered Medications Medications (Trade) Dose Ordered Sig/Conor Route PRN Reason Start Time Stop Time Status Last Admin Dose Admin Acetaminophen (Tylenol) 650 mg Q6H PRN PO PAIN 1-10 AND/OR FEVER >101F 12/25/16 17:30 01/02/17 00:33 Lansoprazole (Prevacid Odt) 30 mg DAILY G-TUBE 12/25/16 18:00 01/02/17 07:57 Heparin Sodium (Porcine) (Heparin Inj) 5,000 units Q8H SQ 12/25/16 18:00 01/02/17 17:13 Miscellaneous Information 1 Q361D XX 12/25/16 17:30 12/25/16 17:30 Chlorhexidine Gluconate (Chlorhexidine 2% Cloth) Taper DAILY@04 TOP 12/26/16 04:00 12/22/17 03:59 12/27/16 04:00 Senna/Docusate Sodium (Belen-Colace) 1 tab BID PO 12/25/16 21:00 01/02/17 07:57 Protein (Beneprotein Powder) 1 pack TID G-TUBE 12/25/16 18:00 01/02/17 17:13 Levetriacetam (Keppra Liq) 500 mg Q12HR PEG 12/26/16 21:00 01/02/17 07:56 Nystatin (Mycostatin Powder) 1 applic Q8HR TOPICAL 12/30/16 14:00 01/02/17 13:56 Lisinopril (Prinivil) 20 mg DAILY PEG 12/31/16 09:00 01/02/17 07:56 Enalaprilat (Vasotec Inj) 1.25 mg Q6H PRN IV PUSH bp>160/90 12/30/16 11:15 01/02/17 10:16 Ciprofloxacin (Cipro) 500 mg Q12HR G-TUBE 01/02/17 09:00 01/03/17 21:01 01/02/17 07:56 Metoprolol Tartrate (Lopressor) 25 mg Q8HR PO 01/01/17 14:00 01/02/17 13:56 Clonidine (Catapres) 0.1 mg Q6H PRN PO SBP>160, DBP>90 01/02/17 12:00 01/02/17 17:50 Objective Remarks GENERAL: frail with trach and g tube SKIN: Warm and dry. HEAD: Normocephalic. EYES: No scleral icterus. No injection or drainage. NECK: Supple, trachea midline. No JVD or lymphadenopathy. LYMPHATIC: No adenopathy. CARDIOVASCULAR: Regular rate and rhythm without murmurs. RESPIRATORY: Breath sounds equal bilaterally. No accessory muscle use. GASTROINTESTINAL: Abdomen soft, non-tender, nondistended. EXTREMITIES: No cyanosis, or edema. MUSCULOSKELETAL: poor muscle tone. NEUROLOGICAL: . Awake, alert, and oriented generalized weakness PSYCHIATRIC: tearful. right breast- mass ? 2-3 cm nodes in axilla not palpable. Assessment/Plan Assessment 1: BREAST MASS I spoke with Dr. Siu and he feels that with time the patient will make an excellent and functional recovery. Under these circumstance It is appropriate to proceed with surgery. She had a chest film which is normal. In April of [address] of abd and ct of plevis which did not show metastatic disease. LFTs are normal except for a minimal elevation of the alk phos (119) which is less then previous values. At this point she does not appear to require further evaluation and surgery can be performed in near future. I spoke with patient's by phone and he is agreeable and situation discussed with Dr. Tineo. I explained to patient that we are optimistic that she will recover and that surgery would be appropriate assuming bx shows breast cancer. At this point nothing further to add until pathology is back. Ahsan Acosta MD Jan 02, 2017 19:42
--- NOTE | 2017-01-02 20:02 | MG ---
cc: [facility] EEG [id number] Sex: F Hyperventilation not performed. Status post aneurysm clipping two weeks ago. Hypertension. Alcohol. Tobacco. MEDICATIONS: Catapres Vasotec Keppra Heparin. DESCRIPTION: Some mild right hemisphere theta slowing is seen. Background of a 9 hertz 60 microvolt posterior and diffuse rhythm. I do not see any spikes, epileptiform or seizure activity. Photic stimulation is performed without significant posterior driving. IMPRESSION: Some theta slowing over the right hemisphere, possibly due to a breach effect versus some underlying cerebral damage but no seizure activity was noted. No epileptiform activity was seen. MD NOLAN Ahmadi/RIC /5:17 PM /8:00 PM
[2017-01-03] VITALS (8 sets, daily range): BP systolic 120–169; BP diastolic 64–89; PULSE 63–81; RESP 18–19; TEMP 97.2–98.4; O2SAT 94–99
[2017-01-03] MEDS: HEPARIN SODIUM - SQ 10,000 UNITS/ML VIAL SQ SCH ×3 (01:38→18:04)
[2017-01-03] MEDS: CHLORHEXIDINE GLUCONATE 2 % 1 PACK (2 CLOTHS) TOP SCH (01:38)
[2017-01-03] MEDS: NYSTATIN 100,000 U/GM PWD 15 GM BTL TOPICAL SCH ×2 (06:00→13:52)
[2017-01-03] MEDS: INSULIN ASPART SUPPLEMENTAL SCALE SQ SCH ×3 (06:15→17:57)
[2017-01-03] MEDS: cloNIDine HCL 0.1 MG TAB PO PRN (06:32)
[2017-01-03] MEDS: METOPROLOL TARTRATE 25 MG TAB PO SCH ×3 (06:32→21:23)
[2017-01-03] MEDS: RESP: ALBUTEROL 2.5 MG/IPRATROPIUM 0.5 MG NEB (SCH) NEB ×4 (07:41→19:48)
[2017-01-03] MEDS: CIPROFLOXACIN 500 MG TAB G-TUBE SCH ×2 (08:49→21:22)
[2017-01-03] MEDS: LANSOPRAZOLE SOLUTAB 30 MG TAB G-TUBE SCH (08:49)
[2017-01-03] MEDS: levETIRAcetam 500 MG/5 ML UDC PEG SCH ×2 (08:49→21:22)
[2017-01-03] MEDS: DOCUSATE SODIUM 50 MG/SENNA 8.6 MG TAB PO SCH ×2 (08:49→21:00)
[2017-01-03] MEDS: LISINOPRIL 10 MG TAB PEG SCH (08:49)
[2017-01-03] MEDS: BENEPROTEIN POWDER 1 PACK G-TUBE SCH ×3 (08:54→18:00)
--- NOTE | 2017-01-03 12:09 | HHI.NSPN ---
(Ivania Hussein) Note Status Status: Progress Note (Ivania Hussein) Interval History Interval History 01/02: pt remains alert, starting to communicate more via writing. Son in room. (Ivania Hussein) Labs, Micro, & Vital Signs Results Date Time Temp Pulse Resp B/P Pulse Ox O2 Delivery O2 Flow Rate FiO2 01/03/17 09:10 98 Trach Collar 28 01/03/17 08:01 98.4 73 18 142/81 98 01/03/17 07:46 99 Trach Collar 21 01/03/17 05:06 97.2 81 19 167/89 95 01/03/17 00:25 97.3 81 19 169/84 97 01/02/17 23:18 97 Trach Collar 5.00 01/02/17 20:59 96 Trach Collar 21 01/02/17 20:09 97.8 95 18 141/82 96 01/02/17 16:00 98.5 86 19 156/84 92 01/03/17 07:00 Intake Total 802 ml Output Total 1350 ml Balance -548 ml Constitutional Vital Signs Date Time Temp Pulse Resp B/P Pulse Ox O2 Delivery O2 Flow Rate FiO2 01/03/17 09:10 98 Trach Collar 28 01/03/17 08:01 98.4 73 18 142/81 98 01/03/17 07:46 99 Trach Collar 21 01/03/17 05:06 97.2 81 19 167/89 95 01/03/17 00:25 97.3 81 19 169/84 97 01/02/17 23:18 97 Trach Collar 5.00 21 01/02/17 20:59 96 Trach Collar 21 01/02/17 20:09 97.8 95 18 141/82 96 01/02/17 16:00 98.5 86 19 156/84 92 01/03/17 07:00 Intake Total 802 ml Output Total 1350 ml Balance -548 ml (Ivania Hussein) Medical Decision Making MDM Remarks 51 y/o female SAH due to aneurysm rupture, s/p right craniotomy for clipping of right PCOM aneurysm clipping, right cranioplasty, placement of TETRYL DISSOLVER OPERATOR shunt at [facility] left PCOM aneurysm breast lesion (Ivania Hussein) Plan Plan Remarks Dr. Young recommends continuing nonsurgical management of remaining left PCOM aneurysm, pt clear to proceed with breast lesion biopsy/resection, continue therapy and rehab dc scalp wilbur discussed with son in room in detail, all his questions answered (Ivania Hussein) Attending Statement Continue neuro checks in a serial fashion. Pulmonary. Continue aggressive pulmonary toilette, nasotracheal suction, and breathing treatments with nebulizers. PT and OT evaluation Nutrition. NPO after midnoght Renal. Continue monitor closely urine output, BUN and creatinine Endocrine. Continue Monitor serial Acu checks and SSI as needed in detail ID Continue monitor for signs of infection Continue Protonix for stress ulcer prophylaxis Continue Heriberto hose and SCD's for DVT prophylaxis The exam, history, and the medical decision-making described in the above note were completed with the assistance of the mid-level provider. I reviewed and agree with the findings presented. I attest that I had a [id number] encounter with the patient on the same day, and personally performed and documented my assessment and findings in the medical record. (Tyler Young MD) Ivania Hussein Jan 03, 2017 12:09 Tyler Young MD Jan 08, 2017 12:23
--- NOTE | 2017-01-03 12:46 | HHI.PR ---
Subjective Subjective Notes Mrs. Marino is sleeping. I spoke again with her . He would like to have her trach changed to fenestrated to see if she will be able to speak. I discussed this with Dr. Goodman. He does not want to proceed with surgery yet. I will f/u tomorrow. I think we will be able to proceed next week most likely. Jonny Tineo MD Jan 03, 2017 12:45
--- NOTE | 2017-01-03 14:05 | HHI.PR ---
Subjective Remarks tolerating tube feedings minimal secretions on suctioning westbrook draining clear urine Objective Vitals Vital Signs Date Time Temp Pulse Resp B/P Pulse Ox O2 Delivery O2 Flow Rate FiO2 01/03/17 12:08 97.8 63 18 132/64 97 01/03/17 09:10 98 Trach Collar 28 01/03/17 08:01 98.4 73 18 142/81 98 01/03/17 07:46 99 Trach Collar 21 01/03/17 05:06 97.2 81 19 167/89 95 01/03/17 00:25 97.3 81 19 169/84 97 01/02/17 23:18 97 Trach Collar 5.00 21 01/02/17 20:59 96 Trach Collar 21 01/02/17 20:09 97.8 95 18 141/82 96 01/02/17 16:00 98.5 86 19 156/84 92 I/O 01/02/17 01/02/17 01/02/17 01/03/17 01/03/17 01/03/17 06:59 14:59 22:59 06:59 14:59 22:59 Intake Total 1293 ml 802 ml Output Total 400 ml 350 ml 1000 ml 500 ml Balance 893 ml -350 ml -198 ml -500 ml IV Total 100 ml Tube Feeding 993 ml 702 ml Other 200 ml 100 ml Output Urine Total 400 ml 350 ml 1000 ml 500 ml Result Diagram: 01/01/17 1146 01/01/17 1144 Imaging Last Impressions Upper Extremity Ultrasound 12/27/16 0000 Signed Impressions: Service Date/Time: Tuesday, December 27, 2016 14:00 - CONCLUSION: Several nonspecific right axillary lymph nodes are demonstrated. Will Rankin MD Objective Remarks awake and alert, ff commands + tracking + tracheostomy in place no rales, + right breast mass regular rhythm + PEG in place, good bowel sounds extremities no edema moves all extremities spontaneously A/P Problem List: (1) Subarachnoid hemorrhage ICD Code: I60.9 Status: Chronic (2) Aneurysm ICD Code: I72.9 Status: Acute (3) Breast mass, right ICD Code: N63 Status: Acute Assessment and Plan 51 years old female S/P Right PCOM aneurysm clipping (HH4/F3/SAH). Bleed , clipping 11/22/16. Course complicated by an oral abscess requiring tooth extraction and left submandibular gland removal. Required V-P shunt for hydrocephalus. Tracheostomy 12/12, PEG 12/13. Right autologous cranioplasty and ESTIMATE CLERK shunt 12/21. There was a another PCOM aneurysm on the left side on our initial CTA here at [place]. Subarachnoid hemorrhage. - S/P operative clipping of PCOM at [facility] on 11/22/16. - Continue Keppra. - Sp trach and PEG placement. - Tolerating the feeding, Jevity 1.5 at 45 m/hr. dietitian ff - Continue trach care - get neurosurgery consult- ff up. will need surgery for breast mass- neurological clearance Brain aneurysms - Head CTA obtained on 11/21/16 show bilateral posterior communicating artery aneurysms. 8 mm on the right side and 7 mm on the left. - S/P Right PCOM aneurysm clipping (HH4/F3/SAH) - Continue with blood pressure control - BP seems to be slightly elevated with a systolic blood pressure in the 150s. - Will continue to monitor BP and place on IV Vasotec for SBP >160. Added metoprolol as documented below for continued hypertension. - neurosurgery consulted for follow up on 7mm aneurysm on the left which seems have not had definitive treatment. Chronic respiratory failure S/P tracheostomy - doing very well - d/w RT- regarding trach capping- change to fenestrated cap Accidental Right Breast mass finding on CTA of the chest. -Oncology consulted, appreciate their input - general surgery consulted for biopsy, ordered ultrasound showed multiple axillary lymph nodes. - Patient will need biopsy and possible lumpectomy/vasectomy.- d/w Dr. Tineo Klebsiella pneumoniae UTI: Showed on urine culture sensitive to ceftriaxone will start iv (started 12/28) changed to Ciprofloxacin/Peg x 2 days HTN on Lisinopril 10 mg via PEG daily Added metoprolol twice a day- increase to 25 mg po q 8 Vasotec when necessary SBP greater than 160 - GI Prophylaxis: On Bowel regime for prevention of constipation DVT Prophylaxis: SCD's, no chemoprophylaxis for now until cleared by neurosurgery to be on chemoprophylaxis. Skye Goodman MD Jan 03, 2017 14:05
[2017-01-03 16:07] LABS: BICARBONATE 26.2 MEQ/L (21.0-32.0)
[2017-01-04] VITALS (8 sets, daily range): BP systolic 107–149; BP diastolic 67–88; PULSE 56–101; RESP 18; TEMP 97–98.4; O2SAT 94–99
[2017-01-04] MEDS: INSULIN ASPART SUPPLEMENTAL SCALE SQ SCH ×4 (00:15→18:15)
[2017-01-04] MEDS: NYSTATIN 100,000 U/GM PWD 15 GM BTL TOPICAL SCH ×3 (00:39→14:00)
[2017-01-04] MEDS: HEPARIN SODIUM - SQ 10,000 UNITS/ML VIAL SQ SCH ×3 (00:46→18:18)
[2017-01-04] MEDS: CHLORHEXIDINE GLUCONATE 2 % 1 PACK (2 CLOTHS) TOP SCH (04:00)
[2017-01-04] MEDS: METOPROLOL TARTRATE 25 MG TAB PO SCH ×3 (05:17→22:55)
[2017-01-04] MEDS: RESP: ALBUTEROL 2.5 MG/IPRATROPIUM 0.5 MG NEB (SCH) NEB (07:50)
--- NOTE | 2017-01-04 08:20 | HHI.PR ---
Subjective Remarks awake and alert, tolerating tube feedings maintaining good sats- trach- to be changed to fenestrated- hopefully today Objective Vitals Vital Signs Date Time Temp Pulse Resp B/P Pulse Ox O2 Delivery O2 Flow Rate FiO2 01/04/17 07:51 97 Trach Collar 6.00 21 01/04/17 04:00 97.2 76 18 149/79 95 01/04/17 00:00 98.0 73 18 144/88 95 01/04/17 00:00 98.0 73 18 144/88 95 01/03/17 20:00 98.3 81 18 120/75 94 01/03/17 19:50 98 Trach Collar 21 01/03/17 16:11 97.6 65 18 126/70 97 01/03/17 12:08 97.8 63 18 132/64 97 01/03/17 09:10 98 Trach Collar 28 I/O 01/03/17 01/03/17 01/03/17 01/04/17 01/04/17 01/04/17 07:00 15:00 23:00 07:00 15:00 23:00 Intake Total 802 ml 695 ml Output Total 1000 ml 500 ml 600 ml 500 ml Balance -198 ml -500 ml 95 ml -500 ml Tube Feeding 702 ml 495 ml Other 100 ml 200 ml Output Urine Total 1000 ml 500 ml 600 ml 500 ml Result Diagram: 01/01/17 1146 01/03/17 1531 Imaging Last Impressions Upper Extremity Ultrasound 12/27/16 0000 Signed Impressions: Service Date/Time: Tuesday, December 27, 2016 14:00 - CONCLUSION: Several nonspecific right axillary lymph nodes are demonstrated. Will Rankin MD Objective Remarks awake and alert, ff commands + tracking + tracheostomy in place no rales, no wheezes regular rhythm + PEG in place, good bowel sounds extremities no edema moves all extremities spontaneously westbrook- grossly clear urine Urinary Catheter: Yes Assessment to: Continue [place] insert reason: Prolonged Immobilization A/P Problem List: (1) Subarachnoid hemorrhage ICD Code: I60.9 Status: Chronic (2) Aneurysm ICD Code: I72.9 Status: Acute (3) Breast mass, right ICD Code: N63 Status: Acute Assessment and Plan 51 years old female S/P Right PCOM aneurysm clipping (HH4/F3/SAH). Bleed , clipping 11/22/16. Course complicated by an oral abscess requiring tooth extraction and left submandibular gland removal. Required V-P shunt for hydrocephalus. Tracheostomy 12/12, PEG 12/13. Right autologous cranioplasty and INTERTYPE OPERATOR shunt 12/21. There was a another PCOM aneurysm on the left side on our initial CTA here at [place]. Subarachnoid hemorrhage- neurologically stable - S/P operative clipping of PCOM at [facility] on 11/22/16. - Continue Keppra. - Sp trach and PEG placement. - Tolerating the feeding, Jevity 1.5 at 45 m/hr. dietitian ff - Continue trach care- plan to change to fenestrated tube= Dr. Tineo ff - neurosurgery consult- ff up. will need surgery for breast mass- neurological clearance- cleared Brain aneurysms - Head CTA obtained on 11/21/16 show bilateral posterior communicating artery aneurysms. 8 mm on the right side and 7 mm on the left. - S/P Right PCOM aneurysm clipping (HH4/F3/SAH) - Continue with blood pressure control - BP seems to be slightly elevated with a systolic blood pressure in the 150s. - Will continue to monitor BP and place on IV Vasotec for SBP >160. Added metoprolol as documented below for continued hypertension. - neurosurgery consulted for follow up on 7mm aneurysm on the left which seems have not had definitive treatment. Chronic respiratory failure S/P tracheostomy - doing very well - d/w RT- regarding trach capping- change to fenestrated cap- hopefully today Accidental Right Breast mass finding on CTA of the chest. -Oncology consulted, appreciate their input - general surgery consulted for biopsy, ordered ultrasound showed multiple axillary lymph nodes. - Patient will need biopsy and possible lumpectomy/mastectomy.- Dr. Noman quick Klebsiella pneumoniae UTI: S/P antibiotic course- 01/03 Showed on urine culture sensitive to ceftriaxone will start iv (started 12/28) changed to Ciprofloxacin/Peg x 2 days HTN on Lisinopril 20 mg via PEG daily metoprolol- increased to 25 mg po q 8= 01/01 Vasotec when necessary SBP greater than 160/Clonidine prn - GI Prophylaxis: On Bowel regime for prevention of constipation DVT Prophylaxis: SCD's, no chemoprophylaxis for now until cleared by neurosurgery to be on chemoprophylaxis. Lacierda,Alfea M. MD Jan 04, 2017 08:20
[2017-01-04] MEDS: DOCUSATE SODIUM 50 MG/SENNA 8.6 MG TAB PO SCH ×2 (09:00→21:00)
[2017-01-04] MEDS: BENEPROTEIN POWDER 1 PACK G-TUBE SCH ×3 (09:00→18:00)
[2017-01-04] MEDS: levETIRAcetam 500 MG/5 ML UDC PEG SCH ×2 (09:28→22:54)
[2017-01-04] MEDS: LANSOPRAZOLE SOLUTAB 30 MG TAB G-TUBE SCH (09:28)
[2017-01-04] MEDS: LISINOPRIL 10 MG TAB PEG SCH (09:29)
[2017-01-04] MEDS ORDERED: HYDROmorphone HCL PF 1 MG/ML VIAL IV PUSH ONE (12:15)
[2017-01-05] VITALS (10 sets, daily range): BP systolic 140–167; BP diastolic 76–85; PULSE 69–76; RESP 16–19; TEMP 97.9–99; O2SAT 93–98
[2017-01-05] MEDS: INSULIN ASPART SUPPLEMENTAL SCALE SQ SCH ×4 (00:15→16:56)
[2017-01-05] MEDS: NYSTATIN 100,000 U/GM PWD 15 GM BTL TOPICAL SCH ×4 (00:34→21:00)
[2017-01-05] MEDS: CHLORHEXIDINE GLUCONATE 2 % 1 PACK (2 CLOTHS) TOP SCH (04:00)
[2017-01-05] MEDS: HEPARIN SODIUM - SQ 10,000 UNITS/ML VIAL SQ SCH ×3 (04:14→17:01)
[2017-01-05] MEDS: METOPROLOL TARTRATE 25 MG TAB PO SCH ×3 (06:20→21:00)
[2017-01-05] MEDS: DOCUSATE SODIUM 50 MG/SENNA 8.6 MG TAB PO SCH ×2 (09:00→21:00)
[2017-01-05] MEDS: BENEPROTEIN POWDER 1 PACK G-TUBE SCH ×3 (09:00→17:01)
[2017-01-05] MEDS: levETIRAcetam 500 MG/5 ML UDC PEG SCH ×2 (09:12→21:00)
[2017-01-05] MEDS: LISINOPRIL 10 MG TAB PEG SCH (09:13)
[2017-01-05] MEDS: LANSOPRAZOLE SOLUTAB 30 MG TAB G-TUBE SCH (09:14)
--- NOTE | 2017-01-05 10:14 | HHI.PR ---
Subjective Subjective Notes She is awake and alert. She stated her name clearly when I placed my finger over the trach opening. She now has #[address] at bedside. He requests I do not discuss breast cancer with her right now. Objective Vitals/I&O Vital Signs Date Time Temp Pulse Resp B/P Pulse Ox O2 Delivery O2 Flow Rate FiO2 01/05/17 09:32 93 6.00 21 01/05/17 08:12 99.0 69 18 165/85 01/04/17 17:58 Trach Collar Narrative Exam NAD Comfortable in bed Trach in place A/P Assessment and Plan 51 yo F with recent SAH and aneurysm clipping with right breast mass almost certainly cancer. Recommend try capping trach so she can speak. Discuss surgical options in detail with her early next week. Noman,Jonny BERRIOS Jan 05, 2017 10:14
--- NOTE | 2017-01-05 11:01 | HHI.PR ---
Subjective Remarks patient awake and alert, waved and smiled appears comfortable Objective Vitals Vital Signs Date Time Temp Pulse Resp B/P Pulse Ox O2 Delivery O2 Flow Rate FiO2 01/05/17 09:32 93 6.00 21 01/05/17 08:12 99.0 69 18 165/85 95 01/05/17 04:00 98.4 76 16 159/76 98 01/05/17 00:35 98.4 73 18 142/76 97 01/04/17 21:03 98.4 73 18 132/73 96 01/04/17 17:58 94 Trach Collar 6.00 21 01/04/17 16:01 98.1 81 18 126/70 94 01/04/17 13:47 18 01/04/17 12:10 97.7 101 18 107/67 99 I/O 01/04/17 01/04/17 01/04/17 01/05/17 01/05/17 01/05/17 07:00 15:00 23:00 07:00 15:00 23:00 Output Total 0 ml 1100 ml 350 ml 450 ml Balance 0 ml -1100 ml -350 ml -450 ml Output Urine Total 1100 ml 350 ml 450 ml Tube Feeding Residual Discard 0 ml Result Diagram: 01/01/17 1146 01/03/17 1531 Imaging Last Impressions Upper Extremity Ultrasound 12/27/16 0000 Signed Impressions: Service Date/Time: Tuesday, December 27, 2016 14:00 - CONCLUSION: Several nonspecific right axillary lymph nodes are demonstrated. Will Rankin MD Objective Remarks awake and alert, ff commands + tracking + tracheostomy in place no rales, no wheezes regular rhythm + PEG in place, good bowel sounds extremities no edema moves all extremities spontaneously westbrook- grossly clear urine A/P Problem List: (1) Subarachnoid hemorrhage ICD Code: I60.9 Status: Chronic (2) Aneurysm ICD Code: I72.9 Status: Acute (3) Breast mass, right ICD Code: N63 Status: Acute Assessment and Plan 51 years old female S/P Right PCOM aneurysm clipping (HH4/F3/SAH). Bleed , clipping 11/22/16. Course complicated by an oral abscess requiring tooth extraction and left submandibular gland removal. Required V-P shunt for hydrocephalus. Tracheostomy 12/12, PEG 12/13. Right autologous cranioplasty and DRAWBENCH OPERATOR shunt 12/21. There was a another PCOM aneurysm on the left side on our initial CTA here at [place]. Subarachnoid hemorrhage- neurologically stable - S/P operative clipping of PCOM at [facility] on 11/22/16. - Continue Keppra. - Sp trach and PEG placement. - Tolerating the feeding, Jevity 1.5 at 45 m/hr. dietitian ff - Continue trach care- plan to change to fenestrated tube= Dr. Tineo ff - neurosurgery consult- ff up. will need surgery for breast mass- neurological clearance- cleared Brain aneurysms - Head CTA obtained on 11/21/16 show bilateral posterior communicating artery aneurysms. 8 mm on the right side and 7 mm on the left. - S/P Right PCOM aneurysm clipping (HH4/F3/SAH) - Continue with blood pressure control - BP seems to be slightly elevated with a systolic blood pressure in the 150s. - Will continue to monitor BP and place on IV Vasotec for SBP >160. Added metoprolol as documented below for continued hypertension. - neurosurgery consulted for follow up on 7mm aneurysm on the left which seems have not had definitive treatment. Chronic respiratory failure S/P tracheostomy - doing very well - d/w RT- regarding trach capping- change to fenestrated cap- hopefully today Accidental Right Breast mass finding on CTA of the chest. -Oncology consulted, appreciate their input - general surgery consulted for biopsy, ordered ultrasound showed multiple axillary lymph nodes. - Patient will need biopsy and possible lumpectomy/mastectomy.- Dr. Noman quick Klebsiella pneumoniae UTI: S/P antibiotic course- 01/03 with Ceftriaxone inittially then quinolones HTN on Lisinopril 20 mg via PEG daily metoprolol- increased to 25 mg po q 8= 01/01 Vasotec when necessary SBP greater than 160/Clonidine prn - GI Prophylaxis: On Bowel regime for prevention of constipation DVT Prophylaxis: SCD's, no chemoprophylaxis for now until cleared by neurosurgery to be on chemoprophylaxis. Skye Goodman MD Jan 05, 2017 11:01 Skye Goodman MD Jan 05, 2017 11:01
--- NOTE | 2017-01-05 14:16 | HHI.HCPN ---
Reason for visit a. To assist with evaluation and management of symptoms including:pain b. To assist medical decision maker(s) with: better understanding of current medical conditions; weighing benefits/burdens of medical treatment options; making medical treatment decisions. Subjective/Interval History Patient is a 51-year-old female who has a past medical history significant for subarachnoid hemorrhage, right breast mass recently discovered [facility], hypertension. Pt is more alert and oriented, changed to fenestrated tube for trach. Since pt just had procedure, Gavin (boyfriend) ask we review goals and breast cancer diagnosis with her Sunday. Dr. Tineo will also review surgical options with her next week. Gavin state, pt will not be surpirse and knowing her she would want to fight for him, and undergo mastectomy. Family would also like to prepare her for her diagnosis. Pt previously seen by Dr. Ureña, who feel she will have good functional recovery. Dr. Acosta and Dr. Tineo recommends surgery / mastectomy. Pt on my visit is currently sleeping comfortably. Family/friend interactions see above Advance Directives Living Will: Never completed Health Care Surrogate: Never completed Durable Power of Paste Up Artist: Never completed Objective Vital Signs Date Time Temp Pulse Resp B/P Pulse Ox O2 Delivery O2 Flow Rate FiO2 01/05/17 12:55 98.3 76 18 155/83 97 01/05/17 09:32 93 6.00 21 01/05/17 09:30 95 Trach Collar 6.00 28 01/05/17 08:12 99.0 69 18 165/85 95 01/05/17 04:00 98.4 76 16 159/76 98 01/05/17 00:35 98.4 73 18 142/76 97 01/04/17 21:03 98.4 73 18 132/73 96 01/04/17 17:58 94 Trach Collar 6.00 21 01/04/17 16:01 98.1 81 18 126/70 94 Intake & Output 01/05/17 01/05/17 06:59 18:59 Output Total 800 ml Balance -800 ml Output Urine Total 800 ml Physical Exam CONSTITUTIONAL/GENERAL: This is an adequately nourished patient, in no apparent distress, sleeping comfortably. TUBES/LINES/DRAINS: trach, peg SKIN: No jaundice, rashes, or lesions. Ecchymoses on upper extremities. No wounds seen anteriorly. Skin temperature appropriate. Not diaphoretic. HEAD: Atraumatic. Normocephalic. EYES: eyes remains closed.. ENT: Hearing grossly normal. Nose without bleeding or purulent drainage. Throat without visible erythema, exudates, masses, or lesions. NECK: Tracheostomy, CARDIOVASCULAR: Regular rate and rhythm without murmurs, gallops, or rubs. No JVD. Peripheral pulses symmetric. RESPIRATORY/CHEST: Symmetric, unlabored respirations. Clear to auscultation. secretions. GASTROINTESTINAL: Abdomen soft, non-tender, nondistended. Peg in place. GENITOURINARY: Without palpable bladder distension. Maldonado catheter in place. MUSCULOSKELETAL: Extremities without clubbing, cyanosis, or edema. No joint tenderness or effusion noted. No calf tenderness. No mottling or clubbing. LYMPHATICS: No palpable cervical or supraclavicular adenopathy. NEUROLOGICAL: sleeping and has become more clear. PSYCHIATRIC: Hard to arous today, no signs of anxiety. Diagnostic Tests Laboratory Laboratory Tests Test 01/03/17 15:31 Sodium Level 137 MEQ/L (136-145) Potassium Level 4.0 MEQ/L (3.5-5.1) Chloride Level 102 MEQ/L (98-107) Carbon Dioxide Level 26.2 MEQ/L (21.0-32.0) Anion Gap 9 MEQ/L (5-15) Blood Urea Nitrogen 9 MG/DL (7-18) Creatinine 0.49 MG/DL (0.50-1.00) Estimat Glomerular Filtration 134 ML/MIN Rate (>89) Random Glucose 105 MG/DL (74-106) Calcium Level 9.3 MG/DL (8.5-10.1) Result Diagram: 01/01/17 1146 01/03/17 1531 Imaging Last Impressions Upper Extremity Ultrasound 12/27/16 0000 Signed Impressions: Service Date/Time: Tuesday, December 27, 2016 14:00 - CONCLUSION: Several nonspecific right axillary lymph nodes are demonstrated. Will Rankin MD Assessment and Plan Disease Oriented Problem List: (1) Breast mass, right Comment: Likely breast cancer with adenopathy (2) Intraparenchymal hemorrhage of brain (3) Aneurysm (4) Subarachnoid hemorrhage Symptom Scale: (1) Anxiety 0-10 Scale: Unable to quantify (2) Pain 0-10 Scale: Unable to quantify Pertinent Non-Medical Issues Psychosocial: Spiritual: Legal: Ethical issues impacting care: Important Contacts Julio Marino [phone]. Prognosis 51-year-old had a right posterior communicating right aneurysm , s/p clipping , performed at [facility]. Incidental breast mass found, further workup is highly suspicious for breast cancer with lymphadenopathy. Patient is PEG and trach. Difficulty with communication although she is following commands. Patient likely has breast cancer and is not candidate for chemotherapy or radiation due to functional status; tracheostomy risk of aspiration remains; infection and multiple hospitalization, medical hardware malfucntion risk remains.. Patient will still need biopsy to determine stage of cancer. Possible lumpectomy versus mastectomy. We'll need further information for prognostication, but given functional status, comorbidities prognosis is guarded to poor. Code Status: Full Code Plan == Capacity, more alert and communicating. Appears to have capacity. == Pt still legally . If pt does not have capacity, Proxy would be . Pt never completed any advance directives. == Code: Full == Goals of care-Patient is a 51-year-old female who has a past medical history significant for subarachnoid hemorrhage, right breast mass recently discovered [facility], hypertension. Pt is more alert and oriented, changed to fenestrated tube for trach. Since pt just had procedure, Gavin (boyfriend) ask we review goals and breast cancer diagnosis with her Sunday around 945 to 10:[address] Tineo will also review surgical options with her next week. Gavin state, pt will not be surpirse and knowing her she would want to fight for him, and undergo mastectomy. Family would also like to prepare her for her diagnosis. Pt previously seen by Dr. Ureña, who feel very optamistic she will have good functional recovery, during our meeting together with pt. Dr. Acosta and Dr. Tineo recommends surgery / mastectomy. From both the pt's () and boyfriend (Gavin) both feel she would want to fight, especially considering her 15 year old. ==Goals are aggressive. == Pain, anxiety, does not appear to be in pain or anxious on my visit. ==Palliative Care will follow up. Time Spent Total Floor Time (mins): 35 Face to Face Time (mins): 20 Attestation To help prompt me to consider important information that might be impacting today's encounter and assessment, information from prior notes written by myself or my colleagues may have been "brought forward" into today's note. My signature on this note, however, is an attestation that I personally performed the exam, history, and/or decision-making noted today, and, unless otherwise indicated, the interactions with patient, family, and staff as well as the review of records all occurred today. I also attest that the listed assessment and stated plan reflect my best clinical judgment today based on the combination of historical information, prior notes, and today's exam/ interactions. When time spent is documented, it refers only to time spent today by the signer, or if indicated, combined time spent today by collaborating physician/nurse practitioner. Jose Johnson MD Jan 05, 2017 14:15
[2017-01-05] MEDS: ENALAPRILAT 1.25 MG/ML VIAL IV PUSH PRN (17:08)
[2017-01-05] MEDS: ACETAMINOPHEN 325 MG TAB PO PRN (21:41)
[2017-01-06] VITALS (8 sets, daily range): BP systolic 136–175; BP diastolic 76–98; PULSE 63–84; RESP 18–20; TEMP 96.6–98.7; O2SAT 93–97
[2017-01-06] MEDS: INSULIN ASPART SUPPLEMENTAL SCALE SQ SCH ×5 (00:15→23:50)
[2017-01-06] MEDS: cloNIDine HCL 0.1 MG TAB PO PRN (02:32)
[2017-01-06] MEDS: HEPARIN SODIUM - SQ 10,000 UNITS/ML VIAL SQ SCH ×3 (02:32→18:21)
[2017-01-06] MEDS: CHLORHEXIDINE GLUCONATE 2 % 1 PACK (2 CLOTHS) TOP SCH (04:00)
[2017-01-06] MEDS: METOPROLOL TARTRATE 25 MG TAB PO SCH ×3 (05:55→22:54)
[2017-01-06] MEDS: NYSTATIN 100,000 U/GM PWD 15 GM BTL TOPICAL SCH ×3 (05:55→22:55)
[2017-01-06] MEDS: DOCUSATE SODIUM 50 MG/SENNA 8.6 MG TAB PO SCH ×2 (09:00→21:00)
[2017-01-06] MEDS: levETIRAcetam 500 MG/5 ML UDC PEG SCH ×2 (09:15→22:54)
[2017-01-06] MEDS: LANSOPRAZOLE SOLUTAB 30 MG TAB G-TUBE SCH (09:15)
[2017-01-06] MEDS: BENEPROTEIN POWDER 1 PACK G-TUBE SCH ×3 (09:16→18:15)
[2017-01-06] MEDS: LISINOPRIL 10 MG TAB PEG SCH (09:16)
--- NOTE | 2017-01-06 11:54 | HHI.PR ---
Subjective Remarks awake and alert, identified her and know sshe is in [place] ff all commands state that her is anxious tolerating tube feedings elevated BP readings at [facility] Objective Vitals Vital Signs Date Time Temp Pulse Resp B/P Pulse Ox O2 Delivery O2 Flow Rate FiO2 01/06/17 11:16 Room Air 01/06/17 08:39 94 21 01/06/17 08:16 97.7 63 18 136/78 93 01/06/17 04:49 98.7 80 20 169/82 97 01/06/17 01:40 98.6 79 20 167/98 95 01/05/17 19:00 98.5 74 18 156/80 96 01/05/17 18:02 97 21 01/05/17 18:00 140/80 01/05/17 16:12 97.9 69 19 167/78 97 01/05/17 14:43 95 01/05/17 12:55 98.3 76 18 155/83 97 I/O 01/05/17 01/05/17 01/05/17 01/06/17 01/06/17 01/06/17 07:00 15:00 23:00 07:00 15:00 23:00 Intake Total 768 ml 550 ml Output Total 450 ml 450 ml 200 ml Balance -450 ml 768 ml -450 ml 350 ml IV Total 0 ml 350 ml Tube Feeding 568 ml Other 200 ml 200 ml Output Urine Total 450 ml 450 ml 200 ml Result Diagram: 01/03/17 1531 Imaging Last Impressions Upper Extremity Ultrasound 12/27/16 0000 Signed Impressions: Service Date/Time: Tuesday, December 27, 2016 14:00 - CONCLUSION: Several nonspecific right axillary lymph nodes are demonstrated. Will Rankin MD Objective Remarks awake and alert, ff commands, stated her name "hospital" more interactive today , told me her is anxious + tracheostomy in place no rales, no wheezes regular rhythm + PEG in place, good bowel sounds extremities no edema moves all extremities spontaneously [place]- grossly clear urine Urinary Catheter: Yes Assessment to: Continue [place] insert reason: Prolonged Immobilization A/P Problem List: (1) Subarachnoid hemorrhage ICD Code: I60.9 Status: Chronic (2) Aneurysm ICD Code: I72.9 Status: Acute (3) Breast mass, right ICD Code: N63 Status: Acute Assessment and Plan 51 years old female S/P Right PCOM aneurysm clipping (HH4/F3/SAH). Bleed , clipping 11/22/16. Course complicated by an oral abscess requiring tooth extraction and left submandibular gland removal. Required V-P shunt for hydrocephalus. Tracheostomy 12/12, PEG 12/13. Right autologous cranioplasty and W[employer] shunt 12/21. There was a another PCOM aneurysm on the left side on our initial CTA here at [place]. Subarachnoid hemorrhage- neurologically stable - S/P operative clipping of PCOM at [facility] on 11/22/16. - Continue Keppra. - Sp trach and PEG placement. - Tolerating the feeding, Jevity 1.5 at 45 m/hr. dietitian ff - Continue trach care- plan to change to fenestrated tube= Dr. Tineo ff - neurosurgery consult- ff up. will need surgery for breast mass- neurological clearance- cleared Brain aneurysms - Head CTA obtained on 11/21/16 show bilateral posterior communicating artery aneurysms. 8 mm on the right side and 7 mm on the left. - S/P Right PCOM aneurysm clipping (HH4/F3/SAH) - Continue with blood pressure control - BP seems to be slightly elevated with a systolic blood pressure in the 150s. - Will continue to monitor BP and place on IV Vasotec for SBP >160. Added metoprolol as documented below for continued hypertension. - neurosurgery consulted for follow up on 7mm aneurysm on the left which seems have not had definitive treatment. Chronic respiratory failure S/P tracheostomy - doing very well - d/w RT- regarding trach capping- change to fenestrated cap- 01/05 Accidental Right Breast mass finding on CTA of the chest. -Oncology consulted, appreciate their input - general surgery consulted for biopsy, ordered ultrasound showed multiple axillary lymph nodes. - Patient will need biopsy and possible lumpectomy/mastectomy.- Dr. Tineo ff Klebsiella pneumoniae UTI: S/P antibiotic course- 01/03 with Ceftriaxone inittially then quinolones HTN- some elevated readings at night on Lisinopril 20 mg via PEG daily add Lisinipril 10 mg hs metoprolol- increased to 25 mg po q 8= 01/01 Vasotec when necessary SBP greater than 160/Clonidine prn - GI Prophylaxis: On Bowel regime for prevention of constipation DVT Prophylaxis: SCD's, no chemoprophylaxis for now until cleared by neurosurgery to be on chemoprophylaxis. Skye Goodman MD Jan 06, 2017 11:53
[2017-01-06] MEDS: LISINOPRIL 10 MG TAB PO SCH (22:54)
[2017-01-07] VITALS (9 sets, daily range): BP systolic 133–181; BP diastolic 82–106; PULSE 70–89; RESP 17–21; TEMP 97.2–98.7; O2SAT 94–98
[2017-01-07] MEDS: cloNIDine HCL 0.1 MG TAB PO PRN (00:52)
[2017-01-07] MEDS: HEPARIN SODIUM - SQ 10,000 UNITS/ML VIAL SQ SCH ×3 (01:01→17:08)
[2017-01-07] MEDS: CHLORHEXIDINE GLUCONATE 2 % 1 PACK (2 CLOTHS) TOP SCH (03:23)
[2017-01-07] MEDS: ENALAPRILAT 1.25 MG/ML VIAL IV PUSH PRN (04:48)
[2017-01-07] MEDS: METOPROLOL TARTRATE 25 MG TAB PO SCH ×3 (06:04→22:42)
[2017-01-07] MEDS: NYSTATIN 100,000 U/GM PWD 15 GM BTL TOPICAL SCH ×3 (06:05→22:42)
[2017-01-07] MEDS: DOCUSATE SODIUM 50 MG/SENNA 8.6 MG TAB PO SCH ×3 (09:00→22:41)
[2017-01-07] MEDS: levETIRAcetam 500 MG/5 ML UDC PEG SCH ×2 (09:52→22:41)
[2017-01-07] MEDS: LANSOPRAZOLE SOLUTAB 30 MG TAB G-TUBE SCH (09:52)
[2017-01-07] MEDS: BENEPROTEIN POWDER 1 PACK G-TUBE SCH ×3 (09:52→17:08)
[2017-01-07] MEDS: LISINOPRIL 10 MG TAB PEG SCH (09:52)
--- NOTE | 2017-01-07 11:50 | HHI.PR ---
Subjective Remarks patient talking trace capped tolerating tube feedings family wants her to eat- d/w - will d/w speech- have to be careful- trach been capped Objective Vitals Vital Signs Date Time Temp Pulse Resp B/P Pulse Ox O2 Delivery O2 Flow Rate FiO2 01/07/17 10:01 Room Air 01/07/17 09:46 98 21 01/07/17 08:13 97.2 71 18 158/83 95 01/07/17 06:03 82 181/91 01/07/17 04:30 98.0 89 21 164/89 95 01/07/17 00:00 97.9 81 17 180/106 94 01/06/17 20:05 96 21 01/06/17 20:00 96.6 78 18 174/93 96 175/91 01/06/17 16:44 98.2 84 18 153/95 93 01/06/17 12:16 97.1 65 19 157/76 96 I/O 01/06/17 01/06/17 01/06/17 01/07/17 01/07/17 01/07/17 07:00 15:00 23:00 07:00 15:00 23:00 Intake Total 550 ml 520 ml 1100 ml Output Total 200 ml 500 ml 100 ml 150 ml Balance 350 ml -500 ml 420 ml -150 ml 1100 ml IV Total 350 ml Tube Feeding 370 ml 540 ml Tube Irrigant 150 ml 200 ml Other 200 ml 360 ml Output Urine Total 200 ml 100 ml 150 ml Stool Total 500 ml Result Diagram: 01/03/17 1531 Imaging Last Impressions Upper Extremity Ultrasound 12/27/16 0000 Signed Impressions: Service Date/Time: Tuesday, December 27, 2016 14:00 - CONCLUSION: Several nonspecific right axillary lymph nodes are demonstrated. Will Rankin MD Objective Remarks awake and alert, ff commands, stated her name "hospital" more interactive today , told me her is anxious + tracheostomy in place no rales, no wheezes regular rhythm + PEG in place, good bowel sounds extremities no edema moves all extremities spontaneously [place]- grossly clear urine A/P Problem List: (1) Subarachnoid hemorrhage ICD Code: I60.9 Status: Chronic (2) Aneurysm ICD Code: I72.9 Status: Acute (3) Breast mass, right ICD Code: N63 Status: Acute Assessment and Plan 51 years old female S/P Right PCOM aneurysm clipping (HH4/F3/SAH). Bleed , clipping 11/22/16. Course complicated by an oral abscess requiring tooth extraction and left submandibular gland removal. Required V-P shunt for hydrocephalus. Tracheostomy 12/12, PEG 12/13. Right autologous cranioplasty and SNOW BLOWER shunt 12/21. There was a another PCOM aneurysm on the left side on our initial CTA here at [place]. Subarachnoid hemorrhage- neurologically stable - S/P operative clipping of PCOM at [facility] on 11/22/16. - Continue Keppra. - Sp trach and PEG placement. - Tolerating the feeding, Jevity 1.5 at 45 m/hr. dietitian ff - Continue trach care- plan to change to fenestrated tube= Dr. Tineo ff - neurosurgery consult- ff up. will need surgery for breast mass- neurological clearance- cleared Brain aneurysms - Head CTA obtained on 11/21/16 show bilateral posterior communicating artery aneurysms. 8 mm on the right side and 7 mm on the left. - S/P Right PCOM aneurysm clipping (HH4/F3/SAH) - Continue with blood pressure control - BP seems to be slightly elevated with a systolic blood pressure in the 150s. - Will continue to monitor BP and place on IV Vasotec for SBP >160. Added metoprolol as documented below for continued hypertension. - neurosurgery consulted for follow up on 7mm aneurysm on the left which seems have not had definitive treatment. Chronic respiratory failure S/P tracheostomy - doing very well - fenestrated cap- - capped since 01/06 - tolerating so far Accidental Right Breast mass finding on CTA of the chest. -Oncology consulted, appreciate their input - general surgery consulted for biopsy, ordered ultrasound showed multiple axillary lymph nodes. - Patient will need biopsy and possible lumpectomy/mastectomy.- Dr. Tineo ff - plan for surgery this week per Klebsiella pneumoniae UTI: S/P antibiotic course- 01/03 HTN- elevated readings on Lisinopril 20 mg via PEG daily metoprolol- increased to 25 mg po q 8= 01/01 add clondine 0.1 mg po tid/GT Vasotec when necessary SBP greater than 160/Clonidine prn - GI Prophylaxis: On Bowel regime for prevention of constipation DVT Prophylaxis: SCD's, no chemoprophylaxis for now until cleared by neurosurgery to be on chemoprophylaxis. speech therapy ff DC Skye Gastelum MD Jan 07, 2017 11:50 Skye Goodman MD Jan 07, 2017 11:50
[2017-01-07] MEDS: cloNIDine HCL 0.1 MG TAB G-TUBE SCH ×2 (14:37→22:41)
[2017-01-07] MEDS: LISINOPRIL 10 MG TAB PO SCH (22:41)
[2017-01-08] VITALS (8 sets, daily range): BP systolic 115–168; BP diastolic 73–98; PULSE 62–84; RESP 17–19; TEMP 96.1–98; O2SAT 93–97
[2017-01-08] MEDS: HEPARIN SODIUM - SQ 10,000 UNITS/ML VIAL SQ SCH ×3 (02:03→17:11)
[2017-01-08] MEDS: CHLORHEXIDINE GLUCONATE 2 % 1 PACK (2 CLOTHS) TOP SCH (03:38)
[2017-01-08] MEDS: NYSTATIN 100,000 U/GM PWD 15 GM BTL TOPICAL SCH ×3 (06:00→22:00)
[2017-01-08] MEDS: cloNIDine HCL 0.1 MG TAB G-TUBE SCH ×3 (06:11→23:27)
[2017-01-08] MEDS: METOPROLOL TARTRATE 25 MG TAB PO SCH ×3 (06:11→23:27)
[2017-01-08] MEDS: BENEPROTEIN POWDER 1 PACK G-TUBE SCH ×3 (08:55→17:07)
[2017-01-08] MEDS: DOCUSATE SODIUM 50 MG/SENNA 8.6 MG TAB PO SCH ×2 (08:55→21:00)
[2017-01-08] MEDS: levETIRAcetam 500 MG/5 ML UDC PEG SCH ×2 (08:55→23:28)
[2017-01-08] MEDS: LISINOPRIL 10 MG TAB PEG SCH (08:55)
[2017-01-08] MEDS: LANSOPRAZOLE SOLUTAB 30 MG TAB G-TUBE SCH (08:55)
--- NOTE | 2017-01-08 12:49 | HHI.HCPN ---
Reason for visit a. To assist with evaluation and management of symptoms including: pain b. To assist medical decision maker(s) with: better understanding of current medical conditions; weighing benefits/burdens of medical treatment options; making medical treatment decisions. . Subjective/Interval History Patient is a 51-year-old female who has a past medical history significant for subarachnoid hemorrhage, right breast mass recently discovered [facility], hypertension. Patient post right posterior communicating aneurysm clipping on at [facility]. Her medical course complicated by an oral abscess requiring extraction of a tooth and left submandibular gland. In [facility] she had a CATALYST RECOVERY OPERATOR shunt placed. She also had a tracheostomy and a PEG tube placed on and 12/13/2016 respectively. Patient was found to have radiographic evidence of a mass in the right breast. She was transferred back to [place] 2016 for evaluation of right breast mass. Palliative care has been consulted to assist in medical decision-making/goals of care. Patient was seen in her room, she was resting in bed in no acute distress. Fenestrated tracheostomy in place. Patient alert to self, following commands. Able to verbalize a few words. Denies pain or discomfort this time. Patient afebrile, stable hemodynamically. Currently on T-piece, tolerating well. Oxygen saturation in the mid to high 90s. Most recent labs 01/03/17 revealing sodium 137, potassium 4.0, BUN/creatinine 9/0.49. No new imaging for review. Patient seen by speech therapy on 01/07/17, NPO diet recommended. Julio Carrillo at bedside. He asked palliative care not to discuss goals of care at this time, pending remaining with Dr. Tineo on 01/09/17 to discuss surgical options. Reviewed that patient has previously seen by Dr. Siu, who feel she will have good functional recovery. Dr. Acosta and Dr. Tineo recommends surgery /mastectomy assuming biopsy shows breast cancer. tells me that patient is aware of breast mass; however, would like to discuss with Dr. Tineo before goals of care conversation. requesting palliative care to return tomorrow for support. . Family/friend interactions See interval note. . Advance Directives Living Will: Never completed Health Care Surrogate: Never completed Durable Power of Motorcycle Sales Associate: Never completed Advance Directive Specifics Health Care Surrogate(s): No advance directives completed. As per [place] law, patient's Julio Marino is healthcare proxy decision maker. . Documented care wishes: No living will completed. . Significant change in goals: Full code. Continue aggressive management. . Objective Vital Signs Date Time Temp Pulse Resp B/P Pulse Ox O2 Delivery O2 Flow Rate FiO2 01/08/17 08:06 95 T-piece 21 01/08/17 08:05 95 Trach Collar 5.00 28 Humidified 01/08/17 08:04 97.3 66 18 139/80 93 01/08/17 06:09 84 168/98 01/08/17 05:15 97.3 65 18 115/75 97 01/08/17 01:52 Trach Collar 28 Humidified 01/08/17 00:00 98.0 62 17 116/73 95 01/07/17 22:06 98 21 01/07/17 22:00 97.7 75 19 133/88 98 01/07/17 16:14 98.3 70 19 154/82 95 Intake & Output 01/08/17 01/08/17 07:00 19:00 Intake Total 890 ml Balance 890 ml Intake Oral 0 ml Tube Feeding 540 ml Other 350 ml # Voids 3 # Bowel Movements 1 Physical Exam CONSTITUTIONAL/GENERAL: This is an adequately nourished patient, in no apparent distress. TUBES/LINES/DRAINS: trach, peg, Maldonado catheter. SKIN: No jaundice, rashes, or lesions. Ecchymoses on upper extremities. No wounds seen anteriorly. Skin temperature appropriate. Not diaphoretic. HEAD: Atraumatic. Normocephalic. EYES: No icterus, no drainage or discharge. ENT: Hearing grossly normal. Nose without bleeding or purulent drainage. Moist oral mucosa. NECK: Tracheostomy, trachea midline. CARDIOVASCULAR: Regular rate and rhythm without murmurs, gallops, or rubs. No JVD. Peripheral pulses symmetric. RESPIRATORY/CHEST: Symmetric, unlabored respirations. Clear to auscultation. secretions. GASTROINTESTINAL: Abdomen soft, non-tender, nondistended. Peg in place. GENITOURINARY: Without palpable bladder distension. Maldonado catheter in place. MUSCULOSKELETAL: Extremities without clubbing, cyanosis, or edema. NEUROLOGICAL: Alert to self, limited speech secondary to tracheostomy. Following commands. PSYCHIATRIC: Appears calm. . Diagnostic Tests Procedures * 11/22/16 -Right PCOM aneurysm clipping * 12/12/16 -tracheostomy * 12/13/16 -PEG tube placement * 12/21/16 -Right autologous cranioplasty and CATALYST RECOVERY OPERATOR shunt . Assessment and Plan Disease Oriented Problem List: (1) Breast mass, right Comment: Likely breast cancer with adenopathy (2) Intraparenchymal hemorrhage of brain (3) Aneurysm (4) Subarachnoid hemorrhage Symptom Scale: (1) Anxiety 0-10 Scale: 0 (2) Pain 0-10 Scale: 0 Pertinent Non-Medical Issues Psychosocial: Patient is legally but . Residing with , 15-year-old son and boyfriend Gavin. 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 Spiritual: Shinto david. Legal: No advance directives completed. Ethical issues impacting care: No advance directives completed. . Important Contacts /HCP -Jamila Julio Carrillo . Gavin (boyfriend) -Pending contact information. . Prognosis 51-year-old had a right posterior communicating right aneurysm , s/p clipping , performed at [facility]. Incidental breast mass found, further workup is highly suspicious for breast cancer with lymphadenopathy. Patient is PEG and trach. Difficulty with communication although she is following commands. Patient likely has breast cancer and is not candidate for chemotherapy or radiation due to functional status; tracheostomy risk of aspiration remains; infection and multiple hospitalization, medical hardware malfunction risk remains. Patient will still need biopsy to determine stage of cancer. Possible lumpectomy versus mastectomy. We'll need further information for prognostication, but given functional status, comorbidities prognosis is guarded. . Code Status: Full Code Plan * CODE STATUS: FULL code. * MEDICAL DECISION-MAKING: Patient regaining medical decision-making capacity, fenestrated tracheostomy in place which allows her to talk. No advance directives completed. As per [place] law, patient's Julio Marino is proxy decision maker. * GOALS OF THERAPY: Ongoing discussion. Julio Carrillo at bedside. He asked palliative care not to discuss goals of care today, pending meeting/ medical update with Dr. Tineo on 01/09/17 to discuss surgical options. Reviewed that patient has previously seen by Dr. Siu, who feel she will have good functional recovery. Dr. Acosta and Dr. Tineo recommends surgery /mastectomy assuming biopsy shows breast cancer. tells me that patient is aware of breast mass; however, would like to discuss with Dr. Tineo before goals of care conversation. As per , patient likely to proceed with surgical intervention as they have a 15 year old son, and pt would want to fight and try to get better for him. Goals of care remain aggressive. * SYMPTOMS: = Pain; secondary to surgical intervention, trach, PEG, prolonged hospitalization. Tylenol available as needed. = Constipation, exacerbated by prolonged bedrest. Belen-Colace twice a day. = Debility, secondary to prolonged hospitalization. PT following. * requesting palliative care to return tomorrow for support. Palliative care to follow-up 01/09/17. * Palliative care contact information has been provided to patient and . * Palliative care will continue to follow-up for further clarifications of goals of care as patient's clinical course continue to evolve. . Time Spent Total Floor Time (mins): 38 (Total time to include review medical records, physical exam, conversation with patient and .) >50% Counseling/Coord of Care: Yes Attestation To help prompt me to consider important information that might be impacting today's encounter and assessment, information from prior notes written by myself or my colleagues may have been "brought forward" into today's note. My signature on this note, however, is an attestation that I personally performed the exam, history, and/or decision-making noted today, and, unless otherwise indicated, the interactions with patient, family, and staff as well as the review of records all occurred today. I also attest that the listed assessment and stated plan reflect my best clinical judgment today based on the combination of historical information, prior notes, and today's exam/ interactions. When time spent is documented, it refers only to time spent today by the signer, or if indicated, combined time spent today by collaborating physician/nurse practitioner. Roselyn Wilks Jan 08, 2017 12:49
--- NOTE | 2017-01-08 14:01 | HHI.PR ---
Subjective Remarks awake and alert, tolerating tube feedings Objective Vitals Vital Signs Date Time Temp Pulse Resp B/P Pulse Ox O2 Delivery O2 Flow Rate FiO2 01/08/17 12:23 96.1 64 18 142/84 95 01/08/17 08:06 95 T-piece 21 01/08/17 08:05 95 Trach Collar 5.00 28 Humidified 01/08/17 08:04 97.3 66 18 139/80 93 01/08/17 06:09 84 168/98 01/08/17 05:15 97.3 65 18 115/75 97 01/08/17 01:52 Trach Collar 28 Humidified 01/08/17 00:00 98.0 62 17 116/73 95 01/07/17 22:06 98 21 01/07/17 22:00 97.7 75 19 133/88 98 01/07/17 16:14 98.3 70 19 154/82 95 I/O 01/07/17 01/07/17 01/07/17 01/08/17 01/08/17 01/08/17 06:59 14:59 22:59 06:59 14:59 22:59 Intake Total 1250 ml 1000 ml 890 ml Output Total 150 ml Balance -150 ml 1250 ml 1000 ml 890 ml Intake Oral 0 ml 0 ml Tube Feeding 540 ml 800 ml 540 ml Tube Irrigant 350 ml 200 ml Other 360 ml 350 ml Output Urine Total 150 ml # Voids 1 2 # Bowel Movements 0 1 Imaging Last Impressions Upper Extremity Ultrasound 12/27/16 0000 Signed Impressions: Service Date/Time: Tuesday, December 27, 2016 14:00 - CONCLUSION: Several nonspecific right axillary lymph nodes are demonstrated. Will Rankin MD Objective Remarks awake and alert, ff commands, stated her name [facility]", more interactive each day + tracheostomy in place no rales, no wheezes regular rhythm + PEG in place, good bowel sounds extremities no edema moves all extremities spontaneously westbrook- grossly clear urine Urinary Catheter: Yes Assessment to: Continue [place] insert reason: Prolonged Immobilization A/P Problem List: (1) Subarachnoid hemorrhage ICD Code: I60.9 Status: Chronic (2) Aneurysm ICD Code: I72.9 Status: Acute (3) Breast mass, right ICD Code: N63 Status: Acute Assessment and Plan 51 years old female S/P Right PCOM aneurysm clipping (4/F3/SAH). Bleed , clipping 11/22/16. Course complicated by an oral abscess requiring tooth extraction and left submandibular gland removal. Required V-P shunt for hydrocephalus. Tracheostomy 12/12, PEG 12/13. Right autologous cranioplasty and VETERANS EMPLOYMENT REPRESENTATIVE shunt 12/21. There was a another PCOM aneurysm on the left side on our initial CTA here at [place]. Subarachnoid hemorrhage- neurologically stable - S/P operative clipping of PCOM at [facility] on 11/22/16. - Continue Keppra. - Sp trach and PEG placement. - Tolerating the feeding, Jevity 1.5 at 45 m/hr. dietitian ff - Continue trach care- plan to change to fenestrated tube= Dr. Tineo ff - neurosurgery consult- ff up. will need surgery for breast mass- Brain aneurysms - Head CTA obtained on 11/21/16 show bilateral posterior communicating artery aneurysms. 8 mm on the right side and 7 mm on the left. - S/P Right PCOM aneurysm clipping (HH4/F3/SAH) - Continue with blood pressure control - BP seems to be slightly elevated with a systolic blood pressure in the 150s. - Will continue to monitor BP and place on IV Vasotec for SBP >160. Added metoprolol as documented below for continued hypertension. - neurosurgery ff- follow up on 7mm aneurysm on the left which seems have not had definitive treatment. Chronic respiratory failure S/P tracheostomy - doing very well - fenestrated cap- - capped since 01/06 - tolerating so far Accidental Right Breast mass finding on CTA of the chest. -Oncology consulted, appreciate their input - general surgery consulted for biopsy, ordered ultrasound showed multiple axillary lymph nodes. - Patient will need biopsy and possible lumpectomy/mastectomy.- Dr. Tineo ff - plan for surgery this week per Klebsiella pneumoniae UTI: S/P antibiotic course- 01/03 HTN- elevated readings- improving- continue to adjust on Lisinopril 20 mg via PEG daily metoprolol- increased to 25 mg po q 8= 01/01 added clondine 0.1 mg po tid/GT Vasotec when necessary SBP greater than 160/Clonidine prn - GI Prophylaxis: On Bowel regime for prevention of constipation DVT Prophylaxis: SCD's, no chemoprophylaxis for now until cleared by neurosurgery to be on chemoprophylaxis. speech therapy ff Skye Goodman MD Jan 08, 2017 14:01 Skye Goodman MD Jan 08, 2017 14:01
[2017-01-08] MEDS: LISINOPRIL 10 MG TAB PO SCH (23:27)
[2017-01-09] VITALS (7 sets, daily range): BP systolic 132–158; BP diastolic 68–85; PULSE 63–91; RESP 18–20; TEMP 96.2–98.4; O2SAT 92–98
[2017-01-09] MEDS: HEPARIN SODIUM - SQ 10,000 UNITS/ML VIAL SQ SCH ×3 (03:05→18:13)
[2017-01-09] MEDS: CHLORHEXIDINE GLUCONATE 2 % 1 PACK (2 CLOTHS) TOP SCH (04:00)
[2017-01-09] MEDS: NYSTATIN 100,000 U/GM PWD 15 GM BTL TOPICAL SCH ×3 (06:00→20:42)
[2017-01-09] MEDS: cloNIDine HCL 0.1 MG TAB G-TUBE SCH ×3 (06:21→20:42)
[2017-01-09] MEDS: METOPROLOL TARTRATE 25 MG TAB PO SCH ×3 (06:21→20:42)
[2017-01-09] MEDS: DOCUSATE SODIUM 50 MG/SENNA 8.6 MG TAB PO SCH ×2 (09:11→20:42)
[2017-01-09] MEDS: levETIRAcetam 500 MG/5 ML UDC PEG SCH ×2 (09:11→20:42)
[2017-01-09] MEDS: LANSOPRAZOLE SOLUTAB 30 MG TAB G-TUBE SCH (09:11)
[2017-01-09] MEDS: LISINOPRIL 10 MG TAB PEG SCH (09:12)
[2017-01-09] MEDS: BENEPROTEIN POWDER 1 PACK G-TUBE SCH ×3 (09:14→18:13)
[2017-01-09] MEDS: RESP: ALBUTEROL 2.5 MG/IPRATROPIUM 0.5 MG NEB (PRN) INH (11:20)
--- NOTE | 2017-01-09 12:01 | HHI.PR ---
Subjective Remarks Patient in bed, she doesn't appear in distress. Family at bedside. Patient is more awake and alert today. No n/v/d/c. Denies chest pain or sob. No n/v/d/c. Having a BM. Objective Vitals Vital Signs Date Time Temp Pulse Resp B/P Pulse Ox O2 Delivery O2 Flow Rate FiO2 01/09/17 09:10 97 Trach Collar 21 01/09/17 09:10 97 Trach Collar 21 01/09/17 08:15 96.6 91 18 140/79 92 01/09/17 05:56 96.2 67 20 132/78 94 01/09/17 00:37 97.6 72 19 156/85 96 01/08/17 23:20 Trach Collar 28 01/08/17 20:29 98.0 75 19 162/91 94 01/08/17 16:17 96.5 75 17 127/77 96 01/08/17 12:23 96.1 64 18 142/84 95 I/O 01/08/17 01/08/17 01/08/17 01/09/17 01/09/17 01/09/17 07:00 15:00 23:00 07:00 15:00 23:00 Intake Total 890 ml 663 ml Output Total 3 ml Balance 890 ml 660 ml Intake Oral 0 ml Tube Feeding 540 ml 463 ml Tube Irrigant 200 ml Other 350 ml Output Urine Total 3 ml # Voids 2 1 # Bowel Movements 1 Imaging Last Impressions Upper Extremity Ultrasound 12/27/16 0000 Signed Impressions: Service Date/Time: Tuesday, December 27, 2016 14:00 - CONCLUSION: Several nonspecific right axillary lymph nodes are demonstrated. Will Rankin MD Objective Remarks GENERAL: 51 yo F awake and alert, following some commands, doesn't appear in acute distress. NECK: Trach in place CARDIOVASCULAR: Regular rate and rhythm. RESPIRATORY: No accessory muscle use. Clear to auscultation. Breath sounds equal bilaterally. GASTROINTESTINAL: PEG in place, some redness around the peg tube. Abdomen soft, non-tender, nondistended. Hepatic and splenic margins not palpable. MUSCULOSKELETAL: Extremities without clubbing, cyanosis, or edema. No obvious deformities. NEUROLOGICAL: Awake and alert. No obvious cranial nerve deficits. Skilled Laborer extremities spontaneously. A/P Problem List: (1) Subarachnoid hemorrhage ICD Code: I60.9 Status: Chronic (2) Aneurysm ICD Code: I72.9 Status: Acute (3) Breast mass, right ICD Code: N63 Status: Acute Assessment and Plan 51 years old female S/P Right PCOM aneurysm clipping (HH4/F3/SAH). Bleed , clipping 11/22/16. Course complicated by an oral abscess requiring tooth extraction and left submandibular gland removal. Required V-P shunt for hydrocephalus. Tracheostomy 12/12, PEG 12/13. Right autologous cranioplasty and SAP BW DEVELOPER shunt 12/21. There was a another PCOM aneurysm on the left side on our initial CTA here at [place]. Subarachnoid hemorrhage- neurologically stable - S/P operative clipping of PCOM at [facility] on 11/22/16. - Continue Keppra. - Sp trach and PEG placement. - Tolerating the feeding, Jevity 1.5 at 45 m/hr. dietitian ff - Continue trach care- plan to change to fenestrated tube= Dr. Tineo ff - neurosurgery consult- ff up. will need surgery for breast mass- Brain aneurysms - Head CTA obtained on 11/21/16 show bilateral posterior communicating artery aneurysms. 8 mm on the right side and 7 mm on the left. - S/P Right PCOM aneurysm clipping (HH4/F3/SAH) - Continue with blood pressure control - BP seems to be slightly elevated with a systolic blood pressure in the 150s. - Will continue to monitor BP and place on IV Vasotec for SBP >160. Added metoprolol as documented below for continued hypertension. - neurosurgery ff- follow up on 7mm aneurysm on the left which seems have not had definitive treatment. Chronic respiratory failure S/P tracheostomy - doing very well - fenestrated cap- - capped since 01/06 - tolerating so far Accidental Right Breast mass finding on CTA of the chest. -Oncology consulted, appreciate their input - general surgery consulted for biopsy, ordered ultrasound showed multiple axillary lymph nodes. - Patient will need biopsy and possible lumpectomy/mastectomy.- Dr. Tineo ff - plan for surgery this week per Klebsiella pneumoniae UTI: S/P antibiotic course- 01/03 HTN- elevated readings- improving- continue to adjust on Lisinopril 20 mg via PEG daily metoprolol- increased to 25 mg po q 8= 01/01 added clondine 0.1 mg po tid/GT Vasotec when necessary SBP greater than 160/Clonidine prn GI Prophylaxis: On Bowel regime for prevention of constipation DVT Prophylaxis: SCD's, no chemoprophylaxis for now until cleared by neurosurgery to be on chemoprophylaxis. speech therapy ff Melissa Suarez MD Jan 09, 2017 12:01
--- NOTE | 2017-01-09 15:36 | HHI.HCPN ---
Reason for visit a. To assist with evaluation and management of symptoms including: pain b. To assist medical decision maker(s) with: better understanding of current medical conditions; weighing benefits/burdens of medical treatment options; making medical treatment decisions. . Subjective/Interval History Patient is a 51-year-old female who has a past medical history significant for subarachnoid hemorrhage, right breast mass recently discovered [facility], hypertension. Patient post right posterior communicating aneurysm clipping on at [facility]. Her medical course complicated by an oral abscess requiring extraction of a tooth and left submandibular gland. In [facility] she had a ASSISTANT RESEARCH SCIENTIST shunt placed. She also had a tracheostomy and a PEG tube placed on and 12/13/2016 respectively. Patient was found to have radiographic evidence of a mass in the right breast. She was transferred back to [place] 2016 for evaluation of right breast mass. Palliative care has been consulted to assist in medical decision-making/goals of care. Patient was seen in her room, she was resting in bed in no acute distress. Fenestrated tracheostomy in place. Patient alert to self, following commands. Able to verbalize a few words. Appears of confusion/hallucinations has been reported by family. Patient denies pain or discomfort this time. Patient afebrile, stable hemodynamically. Currently on T-piece, tolerating well. Oxygen saturation in the mid to high 90s. No recent laboratory or imaging for review. Speech therapy following, patient was placed on mechanical soft diet and liquids today. Julio Carrillo and BETTY Alonso at bedside. Medical update has been provided. Pending meeting with Dr. Tineo to discuss surgical options. Patient' s family asking for palliative care to be present during meeting. Discussed with family that it's unclear at this time if patient retains medical decision making capacity secondary to intermittent confusion/hallucinations. Discussed with that in the event patient is unable to participate in medical decision-making, he is the proxy decision maker. Family likely to proceed with biopsy and depending on pathology results, lobectomy/mastectomy likely sometime this week. Case discussed with Dr. Tineo. Family meeting is scheduled for tomorrow 01/10/17 at noon. Palliative care to follow-up for support. . Family/friend interactions See interval note. . Advance Directives Living Will: Never completed Health Care Surrogate: Never completed Durable Power of Water/Wastewater Engineer: Never completed Advance Directive Specifics Health Care Surrogate(s): No advance directives completed. As per [place] law, patient's Julio Marino is healthcare proxy decision maker. . Documented care wishes: No living will completed. . Significant change in goals: Full code. Continue aggressive management, likely to proceed with surgical intervention sometime this week. Objective Vital Signs Date Time Temp Pulse Resp B/P Pulse Ox O2 Delivery O2 Flow Rate FiO2 01/09/17 12:36 98.4 83 18 142/68 95 01/09/17 09:10 97 Trach Collar 21 01/09/17 09:10 97 Trach Collar 21 01/09/17 08:15 96.6 91 18 140/79 92 01/09/17 05:56 96.2 67 20 132/78 94 01/09/17 00:37 97.6 72 19 156/85 96 01/08/17 23:20 Trach Collar 28 01/08/17 20:29 98.0 75 19 162/91 94 01/08/17 16:17 96.5 75 17 127/77 96 Intake & Output 01/09/17 01/09/17 07:00 19:00 # Voids 1 1 Physical Exam CONSTITUTIONAL/GENERAL: This is an adequately nourished patient, in no apparent distress. TUBES/LINES/DRAINS: trach, peg, Maldonado catheter. SKIN: No jaundice, rashes, or lesions. Ecchymoses on upper extremities. No wounds seen anteriorly. Skin temperature appropriate. Not diaphoretic. HEAD: Atraumatic. Normocephalic. EYES: No icterus, no drainage or discharge. ENT: Hearing grossly normal. Nose without bleeding or purulent drainage. Moist oral mucosa. NECK: Tracheostomy, trachea midline. Fenestrated tracking place. CARDIOVASCULAR: Regular rate and rhythm without murmurs, gallops, or rubs. No JVD. Peripheral pulses symmetric. RESPIRATORY/CHEST: Symmetric, unlabored respirations. Clear to auscultation. secretions. GASTROINTESTINAL: Abdomen soft, non-tender, nondistended. Peg in place. GENITOURINARY: Without palpable bladder distension. Maldonado catheter in place. MUSCULOSKELETAL: Extremities without clubbing, cyanosis, or edema. NEUROLOGICAL: Alert to self, limited speech secondary to tracheostomy. Following commands. Appears of confusion. PSYCHIATRIC: Appears calm. . Diagnostic Tests Microbiology Microbiology Date/Time Procedure Status Source Growth 01/09/17 14:15 Gram Stain Received Wound Abdomen Pending 01/09/17 14:15 Wound Culture Received Wound Abdomen Pending Procedures * 11/22/16 -Right PCOM aneurysm clipping * 12/12/16 -tracheostomy * 12/13/16 -PEG tube placement * 12/21/16 -Right autologous cranioplasty and ASSISTANT RESEARCH SCIENTIST shunt . Assessment and Plan Disease Oriented Problem List: (1) Breast mass, right Comment: Likely breast cancer with adenopathy (2) Intraparenchymal hemorrhage of brain (3) Aneurysm (4) Subarachnoid hemorrhage Symptom Scale: (1) Anxiety 0-10 Scale: 0 (2) Pain 0-10 Scale: 0 Pertinent Non-Medical Issues Psychosocial: Patient is legally but . Residing with , 15-year-old son and boyfriend Gavin. 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 Spiritual: Taoist david. Legal: No advance directives completed. Ethical issues impacting care: No advance directives completed. . Important Contacts /HCP -Julio Marino . Gavin (boyfriend) -Pending contact information. . Prognosis 51-year-old had a right posterior communicating right aneurysm , s/p clipping , performed at [facility]. Incidental breast mass found, further workup is highly suspicious for breast cancer with lymphadenopathy. Patient is PEG and trach. Difficulty with communication although she is following commands. Patient likely has breast cancer and is not candidate for chemotherapy or radiation due to functional status; tracheostomy risk of aspiration remains; infection and multiple hospitalization, medical hardware malfunction risk remains. Patient will still need biopsy to determine stage of cancer. Possible lumpectomy versus mastectomy. We'll need further information for prognostication, but given functional status, comorbidities prognosis is guarded. . Code Status: Full Code Plan * CODE STATUS: FULL code. * MEDICAL DECISION-MAKING: Patient unable to participate in medical decision- making secondary to clinical condition, intermittent confusion/hallucinations. Hopefully she will regain. No advance directives completed. As per [place] law , patient's Julio Marino is proxy decision maker. * GOALS OF THERAPY: Ongoing goals of care discussion. As per patient's who is serving as healthcare proxy, goal of therapy is to continue with aggressive management to include full code at this time. Pending family meeting with Dr. Tineo scheduled for 01/10/17 at noon to discuss surgical options. Patient's family asking for palliative care to be present during meeting for emotional support. Discussed with family that it's unclear at this time if patient will be able to participate in goals of care conversation secondary to confusion/hallucinations. Family in favor of proceeding with surgical intervention to include biopsy and depending on pathology results, lumpectomy/mastectomy. * SYMPTOMS: = Pain; secondary to surgical intervention, trach, PEG, prolonged hospitalization. Tylenol available as needed. = Constipation, exacerbated by prolonged bedrest. Belen-Colace twice a day. = Debility, secondary to prolonged hospitalization. PT following. Patient will likely require acute rehabilitation at discharge. * Case discussed with Dr. Tineo. * Palliative care contact information has been provided to patient and . * Palliative care will continue to follow-up for further clarifications of goals of care as patient's clinical course continue to evolve. . Time Spent Total Floor Time (mins): 38 (Total time to include review medical records, physical exam, goals of care conversation with patient and family, case discussion with Dr. Tineo. ) >50% Counseling/Coord of Care: Yes Attestation To help prompt me to consider important information that might be impacting today's encounter and assessment, information from prior notes written by myself or my colleagues may have been "brought forward" into today's note. My signature on this note, however, is an attestation that I personally performed the exam, history, and/or decision-making noted today, and, unless otherwise indicated, the interactions with patient, family, and staff as well as the review of records all occurred today. I also attest that the listed assessment and stated plan reflect my best clinical judgment today based on the combination of historical information, prior notes, and today's exam/ interactions. When time spent is documented, it refers only to time spent today by the signer, or if indicated, combined time spent today by collaborating physician/nurse practitioner. Roselyn Wilks Jan 09, 2017 15:36
[2017-01-09] MEDS: NICOTINE 14 MG/24 HR PATCH T-DERMAL SCH (18:13)
[2017-01-09] MEDS: BACITRACIN TOP OINT 15 GM TUBE TOPICAL SCH (20:42)
[2017-01-09] MEDS: LISINOPRIL 10 MG TAB PO SCH (20:42)
[2017-01-09] MEDS: REMOVE OLD NICODERM (NICOTINE) PATCH T-DERMAL SCH (21:00)
[2017-01-10 00:31] VITALS: BP 134/75; PULSE 70; RESP 18; TEMP 98.5; O2SAT 95
[2017-01-10] MEDS: HEPARIN SODIUM - SQ 10,000 UNITS/ML VIAL SQ SCH ×3 (02:20→17:28)
[2017-01-10] MEDS: CHLORHEXIDINE GLUCONATE 2 % 1 PACK (2 CLOTHS) TOP SCH (04:00)
[2017-01-10 04:37] VITALS: BP 137/69; PULSE 65; RESP 18; TEMP 98.1; O2SAT 98
[2017-01-10] MEDS: NYSTATIN 100,000 U/GM PWD 15 GM BTL TOPICAL SCH ×3 (06:00→21:29)
[2017-01-10] MEDS: cloNIDine HCL 0.1 MG TAB G-TUBE SCH ×3 (06:29→21:27)
[2017-01-10] MEDS: METOPROLOL TARTRATE 25 MG TAB PO SCH ×3 (06:29→21:27)
[2017-01-10 08:00] VITALS: BP 115/64; PULSE 57; RESP 16; TEMP 97.7; O2SAT 93
[2017-01-10] MEDS: LISINOPRIL 10 MG TAB PEG SCH (09:06)
[2017-01-10] MEDS: LANSOPRAZOLE SOLUTAB 30 MG TAB G-TUBE SCH (09:06)
[2017-01-10] MEDS: NICOTINE 14 MG/24 HR PATCH T-DERMAL SCH (09:07)
[2017-01-10] MEDS: BACITRACIN TOP OINT 15 GM TUBE TOPICAL SCH ×2 (09:07→21:28)
[2017-01-10] MEDS: levETIRAcetam 500 MG/5 ML UDC PEG SCH ×2 (09:07→21:27)
[2017-01-10] MEDS: DOCUSATE SODIUM 50 MG/SENNA 8.6 MG TAB PO SCH ×2 (09:07→21:27)
[2017-01-10] MEDS: BENEPROTEIN POWDER 1 PACK G-TUBE SCH ×3 (09:08→17:28)
--- NOTE | 2017-01-10 09:31 | HHI.PR ---
Subjective Remarks The patient is in bed she appears in not acute distress. However she is sleepy at this time. She denies having any chest pain or shortness of breath. No nausea, vomiting, diarrhea or constipation she had a bowel movement. No fever or chills feels tired. She is satting well Objective Vitals Vital Signs Date Time Temp Pulse Resp B/P Pulse Ox O2 Delivery O2 Flow Rate FiO2 01/10/17 08:00 97.7 57 16 115/64 93 01/10/17 04:37 98.1 65 18 137/69 98 01/10/17 04:10 Trach Collar 28 01/10/17 00:31 98.5 70 18 134/75 95 01/09/17 23:38 98 Trach Collar 28 01/09/17 20:24 98.3 72 18 158/78 98 01/09/17 16:30 98.3 63 18 133/68 96 01/09/17 12:36 98.4 83 18 142/68 95 01/09/17 11:45 Nasal Cannula 2.00 I/O 01/09/17 01/09/17 01/09/17 01/10/17 01/10/17 01/10/17 06:59 14:59 22:59 06:59 14:59 22:59 Intake Total 843 ml 120 ml 120 ml Balance 843 ml 120 ml 120 ml Intake Oral 120 ml 120 ml Tube Feeding 753 ml Tube Irrigant 90 ml # Voids 1 1 2 2 # Bowel Movements 1 Imaging Last Impressions Upper Extremity Ultrasound 12/27/16 0000 Signed Impressions: Service Date/Time: Tuesday, December 27, 2016 14:00 - CONCLUSION: Several nonspecific right axillary lymph nodes are demonstrated. Will Rankin MD Objective Remarks GENERAL: 51 yo F awake and alert, following some commands, doesn't appear in acute distress. NECK: Trach in place CARDIOVASCULAR: Regular rate and rhythm. RESPIRATORY: No accessory muscle use. Clear to auscultation. Breath sounds equal bilaterally. GASTROINTESTINAL: PEG in place, some redness around the peg tube. Abdomen soft, non-tender, nondistended. Hepatic and splenic margins not palpable. MUSCULOSKELETAL: Extremities without clubbing, cyanosis, or edema. No obvious deformities. NEUROLOGICAL: Awake and alert. No obvious cranial nerve deficits. Equity Director extremities spontaneously. A/P Problem List: (1) Subarachnoid hemorrhage ICD Code: I60.9 Status: Chronic (2) Aneurysm ICD Code: I72.9 Status: Acute (3) Breast mass, right ICD Code: N63 Status: Acute Assessment and Plan 51 years old female S/P Right PCOM aneurysm clipping (HH4/F3/SAH). Bleed , clipping 11/22/16. Course complicated by an oral abscess requiring tooth extraction and left submandibular gland removal. Required V-P shunt for hydrocephalus. Tracheostomy 12/12, PEG 12/13. Right autologous cranioplasty and HEAD TENNIS PROFESSIONAL shunt 12/21. There was a another PCOM aneurysm on the left side on our initial CTA here at [place]. Subarachnoid hemorrhage- neurologically stable - S/P operative clipping of PCOM at [facility] on 11/22/16. - Continue Keppra. - Sp trach and PEG placement. - Tolerating the feeding, Jevity 1.5 at 45 m/hr. dietitian ff - Continue trach care- plan to change to fenestrated tube= Dr. Tineo ff - neurosurgery consult- ff up. will need surgery for breast mass- Brain aneurysms - Head CTA obtained on 11/21/16 show bilateral posterior communicating artery aneurysms. 8 mm on the right side and 7 mm on the left. - S/P Right PCOM aneurysm clipping (HH4/F3/SAH) - Continue with blood pressure control - BP seems to be slightly elevated with a systolic blood pressure in the 150s. - Will continue to monitor BP and place on IV Vasotec for SBP >160. Added metoprolol as documented below for continued hypertension. - neurosurgery ff- follow up on 7mm aneurysm on the left which seems have not had definitive treatment. Chronic respiratory failure S/P tracheostomy - doing very well - fenestrated cap- - capped since 01/06 - tolerating so far Accidental Right Breast mass finding on CTA of the chest. -Oncology consulted, appreciate their input - general surgery consulted for biopsy, ordered ultrasound showed multiple axillary lymph nodes. - Patient will need biopsy and possible lumpectomy/mastectomy.- Dr. Tineo ff - Dr Noman yanez recommends modified radical mastectomy as she will not likely be a candidate for radiation or chemotherapy - Family /patient to decide Klebsiella pneumoniae UTI: S/P antibiotic course- 01/03 HTN- elevated readings- improving- continue to adjust on Lisinopril 20 mg via PEG daily metoprolol- increased to 25 mg po q 8= 01/01 added clondine 0.1 mg po tid/GT Vasotec when necessary SBP greater than 160/Clonidine prn GI Prophylaxis: On Bowel regime for prevention of constipation DVT Prophylaxis: SCD's, no chemoprophylaxis for now until cleared by neurosurgery to be on chemoprophylaxis. speech therapy ff Melissa Suarez MD Jan 10, 2017 09:31
[2017-01-10 10:37] VITALS: O2SAT 98
[2017-01-10 12:11] VITALS: BP 147/72; PULSE 62; RESP 16; TEMP 96.3; O2SAT 98
--- NOTE | 2017-01-10 12:29 | HHI.PR ---
Subjective Subjective Notes Family is at bedside. She has no complaints. Objective Vitals/I&O Vital Signs Date Time Temp Pulse Resp B/P Pulse Ox O2 Delivery O2 Flow Rate FiO2 01/10/17 12:11 96.3 62 16 147/72 98 01/10/17 10:37 21 01/10/17 04:10 Trach Collar 01/09/17 11:45 2.00 Labs Date/Time Procedure Status Source Growth 01/09/17 14:15 Gram Stain - Final Resulted Wound Abdomen 01/09/17 14:15 Wound Culture Resulted Wound Abdomen Pending Narrative Exam NAD Comfortable in bed Trach in place, capped, and she is speaking well A/P Assessment and Plan I had a long discussion with Roselyn MANTILLA from palliative care with the patient and her and sig other regarding her right breast cancer. I discussed evaluations, findings, and recommendations from Dr. Acosta and Dr. Young with the patient. I recommend modified radical mastectomy as she will not likely be a candidate for radiation or chemotherapy. She has a few questions and is obviously upset regarding the diagnosis and conversation. I will allow her time to process the information and return to discuss further with her tomorrow. Noman,Jonny BERRIOS Jan 10, 2017 12:28
--- NOTE | 2017-01-10 13:47 | HHI.HCPN ---
Reason for visit a. To assist with evaluation and management of symptoms including: pain b. To assist medical decision maker(s) with: better understanding of current medical conditions; weighing benefits/burdens of medical treatment options; making medical treatment decisions. . Subjective/Interval History Patient is a 51-year-old female who has a past medical history significant for subarachnoid hemorrhage, right breast mass recently discovered [facility], hypertension. Patient post right posterior communicating aneurysm clipping on at [facility]. Her medical course complicated by an oral abscess requiring extraction of a tooth and left submandibular gland. In [facility] she had a PAINT STOCK CLERK shunt placed. She also had a tracheostomy and a PEG tube placed on and 12/13/2016 respectively. Patient was found to have radiographic evidence of a mass in the right breast. She was transferred back to [place] 2016 for evaluation of right breast mass. Palliative care has been consulted to assist in medical decision-making/goals of care. Patient was seen in her room, she was resting in bed in no acute distress. Tracheostomy capped. Patient alert to self, place and situation. Verbal and able to communicate needs. Patient denies pain or discomfort this time. Patient afebrile, stable hemodynamically. Oxygen saturation in the high 90s. No recent laboratory or imaging for review. Speech therapy following, patient was placed on mechanical soft diet and liquids. Meeting held with patient, Dr. Tineo, patient's Julio and boyfriend Gavin. Patient able to participating medical decision-making. Slow response but appears to have a good insight into her medical condition. asking appropriate questions. Patient was aware of breast mass previously discovered at [facility]. During this meeting, surgical options and rationale were discussed with patient. Patient tearful at time, verbalizing feeling overwhelmed. Patient was encourage to continue discussion with her family. Dr. Tineo to follow-up with patient tomorrow morning. Ongoing emotional support and active listening provided. Palliative care assisted in completion of designation of healthcare surrogate. . Family/friend interactions See intervals note. . Advance Directives Living Will: Never completed Health Care Surrogate: Copy in medical record Durable Power of Transit Vehicle Inspector: Never completed Advance Directive Specifics Date completed: 01/10/17. . Health Care Surrogate(s): Designation of healthcare surrogate completed. Patient designated her Julio Marino as HCS, alternate surrogate is Wanda Bradford (sister) . . Documented care wishes: No living will completed. . Significant change in goals: Full code. Continue aggressive management. . Objective Vital Signs Date Time Temp Pulse Resp B/P Pulse Ox O2 Delivery O2 Flow Rate FiO2 01/10/17 12:36 Trach Collar 21 01/10/17 12:11 96.3 62 16 147/72 98 01/10/17 10:37 98 21 01/10/17 08:00 97.7 57 16 115/64 93 01/10/17 04:37 98.1 65 18 137/69 98 01/10/17 04:10 Trach Collar 28 01/10/17 00:31 98.5 70 18 134/75 95 01/09/17 23:38 98 Trach Collar 28 01/09/17 20:24 98.3 72 18 158/78 98 01/09/17 16:30 98.3 63 18 133/68 96 Intake & Output 01/10/17 01/10/17 06:59 18:59 Intake Total 240 ml Balance 240 ml Intake Oral 240 ml # Voids 4 3 # Bowel Movements 1 1 Physical Exam CONSTITUTIONAL/GENERAL: This is an adequately nourished patient, in no apparent distress. TUBES/LINES/DRAINS: trach, peg. SKIN: No jaundice, rashes, or lesions. Ecchymoses on upper extremities. No wounds seen anteriorly. Skin temperature appropriate. Not diaphoretic. HEAD: Surgical incision to cranium with stitches in place. EYES: No icterus, no drainage or discharge. ENT: Hearing grossly normal. Nose without bleeding or purulent drainage. Moist oral mucosa. NECK: Tracheostomy, trachea midline. CARDIOVASCULAR: Regular rate and rhythm without murmurs, gallops, or rubs. No JVD. Peripheral pulses symmetric. RESPIRATORY/CHEST: Symmetric, unlabored respirations. Intermittent wheezes with Tracheostomy GASTROINTESTINAL: Abdomen soft, non-tender, nondistended. Peg in place. GENITOURINARY: Without palpable bladder distension. MUSCULOSKELETAL: Extremities without clubbing, cyanosis, or edema. NEUROLOGICAL: Alert to self, place and situation. Verbal, communicating. Following commands. PSYCHIATRIC: Appears calm. . Diagnostic Tests Microbiology Microbiology Date/Time Procedure Status Source Growth 01/09/17 14:15 Gram Stain - Final Resulted Wound Abdomen 7/18/17 14:15 Wound Culture Resulted Wound Abdomen Pending Procedures * 11/22/16 -Right PCOM aneurysm clipping * 12/12/16 -tracheostomy * 12/13/16 -PEG tube placement * 12/21/16 -Right autologous cranioplasty and PAINT STOCK CLERK shunt . Assessment and Plan Disease Oriented Problem List: (1) Breast mass, right Comment: Likely breast cancer with adenopathy (2) Intraparenchymal hemorrhage of brain (3) Aneurysm (4) Subarachnoid hemorrhage Symptom Scale: (1) Anxiety 0-10 Scale: 0 (2) Pain 0-10 Scale: 0 Pertinent Non-Medical Issues Psychosocial: Patient is legally but . Residing with , 15-year-old son and boyfriend Gavin. 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 Spiritual: Nondenominational david. Legal: No advance directives completed. Ethical issues impacting care: No advance directives completed. . Important Contacts /HCP -Julio Marino . Gavin (boyfriend) -Pending contact information. . Prognosis 51-year-old had a right posterior communicating right aneurysm , s/p clipping , performed at [facility]. Incidental breast mass found, further workup is highly suspicious for breast cancer with lymphadenopathy. Patient is PEG and trach. Difficulty with communication although she is following commands. Patient likely has breast cancer and is not candidate for chemotherapy or radiation due to functional status; tracheostomy risk of aspiration remains; infection and multiple hospitalization, medical hardware malfunction risk remains. Patient will still need biopsy to determine stage of cancer. Possible lumpectomy versus mastectomy. We'll need further information for prognostication, but given functional status, comorbidities prognosis is guarded. . Code Status: Full Code Plan * CODE STATUS: FULL code. * MEDICAL DECISION-MAKING: Patient participating in medical decision-making. Slow response but able to communicate. Patient demonstrates a fair understanding of her medical condition and the ability to weight the benefits and burdens of treatment options. Asking appropriate questions regarding diagnosis, prognosis and treatment options. Designation of healthcare surrogate completed today, she designated her Julio Marino as HCS, alternate surrogate is Wanda Bradford (sister). * GOALS OF THERAPY: Ongoing goals of care conversation at this time. Family meeting today with pt, zoë, Dr. Tineo and [facility]. Patient currently evaluating surgical interventions to include biopsy and depending on pathology results, mastectomy. Will follow-up tomorrow 01/11/17. * SYMPTOMS: = Pain; secondary to surgical intervention, trach, PEG, prolonged hospitalization. Tylenol available as needed. = Constipation, exacerbated by prolonged bedrest. Belen-Colace twice a day. = Debility, secondary to prolonged hospitalization. PT following. Patient will likely require acute rehabilitation at discharge. * Case discussed with Dr. Tineo. * Palliative care contact information has been provided to patient and . * Palliative care will continue to follow-up for further clarifications of goals of care as patient's clinical course continue to evolve. . Time Spent Total Floor Time (mins): 38 (Total time to include review and summarization of medical records, physical exam, goals of care conversation with patient and family, case discussion with Dr. Tineo.) >50% Counseling/Coord of Care: Yes Attestation To help prompt me to consider important information that might be impacting today's encounter and assessment, information from prior notes written by myself or my colleagues may have been "brought forward" into today's note. My signature on this note, however, is an attestation that I personally performed the exam, history, and/or decision-making noted today, and, unless otherwise indicated, the interactions with patient, family, and staff as well as the review of records all occurred today. I also attest that the listed assessment and stated plan reflect my best clinical judgment today based on the combination of historical information, prior notes, and today's exam/ interactions. When time spent is documented, it refers only to time spent today by the signer, or if indicated, combined time spent today by collaborating physician/nurse practitioner. Roselyn Wilks Jan 10, 2017 13:47
[2017-01-10 16:22] VITALS: BP_SYST 137; PULSE 68; RESP 16; TEMP 98.2; O2SAT 97
[2017-01-10] MEDS: ACETAMINOPHEN 325 MG TAB PO PRN (17:29)
[2017-01-10] MEDS: LISINOPRIL 10 MG TAB PO SCH (21:27)
[2017-01-10] MEDS: REMOVE OLD NICODERM (NICOTINE) PATCH T-DERMAL SCH (21:28)
[2017-01-11] VITALS (8 sets, daily range): BP systolic 94–160; BP diastolic 55–86; PULSE 61–82; RESP 18–20; TEMP 97.3–98.4; O2SAT 92–99
[2017-01-11] MEDS: HEPARIN SODIUM - SQ 10,000 UNITS/ML VIAL SQ SCH ×3 (03:03→18:05)
[2017-01-11] MEDS: CHLORHEXIDINE GLUCONATE 2 % 1 PACK (2 CLOTHS) TOP SCH (03:04)
[2017-01-11] MEDS: cloNIDine HCL 0.1 MG TAB G-TUBE SCH ×3 (06:05→22:18)
[2017-01-11] MEDS: METOPROLOL TARTRATE 25 MG TAB PO SCH ×3 (06:05→22:18)
[2017-01-11] MEDS: NYSTATIN 100,000 U/GM PWD 15 GM BTL TOPICAL SCH ×3 (06:05→22:00)
[2017-01-11] MEDS: LISINOPRIL 10 MG TAB PEG SCH (09:17)
[2017-01-11] MEDS: NICOTINE 14 MG/24 HR PATCH T-DERMAL SCH (09:17)
[2017-01-11] MEDS: BENEPROTEIN POWDER 1 PACK G-TUBE SCH ×3 (09:17→18:05)
[2017-01-11] MEDS: DOCUSATE SODIUM 50 MG/SENNA 8.6 MG TAB PO SCH ×2 (09:18→20:49)
[2017-01-11] MEDS: levETIRAcetam 500 MG/5 ML UDC PEG SCH ×2 (09:18→20:49)
[2017-01-11] MEDS: BACITRACIN TOP OINT 15 GM TUBE TOPICAL SCH ×2 (09:18→20:50)
[2017-01-11] MEDS: LANSOPRAZOLE SOLUTAB 30 MG TAB G-TUBE SCH (09:18)
[2017-01-11 12:06] LABS: HEMATOCRIT 30.7 % (35.0-46.0); MEAN CORPUSCULAR HEMOGLOBIN 31.4 PG (27.0-34.0); MEAN CORPUSCULAR HGB CONC 33.1 % (32.0-36.0); PLATELET COUNT 278 TH/MM3 (150-450); RED BLOOD COUNT 3.23 MIL/MM3 (4.00-5.30); RED CELL DISTRIBUTION WIDTH 15.1 % (11.6-17.2); REVIEW FLAG FINAL; WHITE BLOOD COUNT 7.6 TH/MM3 (4.0-11.0)
[2017-01-11 12:38] LABS: BICARBONATE 29.2 MEQ/L (21.0-32.0); POTASSIUM 3.1 MEQ/L (3.5-5.1)
--- NOTE | 2017-01-11 12:49 | HHI.PR ---
Subjective Remarks Had a loose bowel movement the morning. She is on laxatives. Denies fever or chills. No abdominal pain. No nausea, vomiting. Shortness of breath at baseline. She has more secretions today suctioned by the nurse. Objective Vitals Vital Signs Date Time Temp Pulse Resp B/P Pulse Ox O2 Delivery O2 Flow Rate FiO2 01/11/17 11:54 98.1 80 18 160/79 97 01/11/17 08:46 94 21 01/11/17 08:00 98.3 67 18 127/75 98 01/11/17 04:00 97.9 71 18 144/86 96 01/11/17 01:18 92 21 01/11/17 00:00 97.3 61 18 94/55 98 01/10/17 17:49 Nasal Cannula 2.00 01/10/17 16:22 98.2 68 16 137/ 97 I/O 01/10/17 01/10/17 01/10/17 01/11/17 01/11/17 01/11/17 06:59 14:59 22:59 06:59 14:59 22:59 Intake Total 120 ml 480 ml 660 ml Balance 120 ml 480 ml 660 ml Intake Oral 120 ml 480 ml Tube Feeding 540 ml Other 120 ml # Voids 2 3 3 # Bowel Movements 1 1 1 Result Diagram: 01/11/17 1129 01/11/17 1129 Imaging Last Impressions Upper Extremity Ultrasound 12/27/16 0000 Signed Impressions: Service Date/Time: Tuesday, December 27, 2016 14:00 - CONCLUSION: Several nonspecific right axillary lymph nodes are demonstrated. Will Rankin MD Objective Remarks GENERAL: 51 yo F awake and alert, following some commands, doesn't appear in acute distress. NECK: Trach in place CARDIOVASCULAR: Regular rate and rhythm. RESPIRATORY: No accessory muscle use. Clear to auscultation. Breath sounds equal bilaterally. GASTROINTESTINAL: PEG in place, some redness around the peg tube. Abdomen soft, non-tender, nondistended. Hepatic and splenic margins not palpable. MUSCULOSKELETAL: Extremities without clubbing, cyanosis, or edema. No obvious deformities. NEUROLOGICAL: Awake and alert. No obvious cranial nerve deficits. Creative Services Intern extremities spontaneously. A/P Problem List: (1) Subarachnoid hemorrhage ICD Code: I60.9 Status: Chronic (2) Aneurysm ICD Code: I72.9 Status: Acute (3) Breast mass, right ICD Code: N63 Status: Acute Assessment and Plan 51 years old female S/P Right PCOM aneurysm clipping (HH4/F3/SAH). Bleed , clipping 11/22/16. Course complicated by an oral abscess requiring tooth extraction and left submandibular gland removal. Required V-P shunt for hydrocephalus. Tracheostomy 12/12, PEG 12/13. Right autologous cranioplasty and ENVIRONMENTAL SERVICES MANAGER shunt 12/21. There was a another PCOM aneurysm on the left side on our initial CTA here at [place]. Subarachnoid hemorrhage- neurologically stable - S/P operative clipping of PCOM at [facility] on 11/22/16. - Continue Keppra. - Sp trach and PEG placement. - Tolerating the feeding, Jevity 1.5 at 45 m/hr. dietitian ff - Continue trach care- plan to change to fenestrated tube= Dr. Tineo ff - neurosurgery consult- ff up. will need surgery for breast mass- Brain aneurysms - Head CTA obtained on 11/21/16 show bilateral posterior communicating artery aneurysms. 8 mm on the right side and 7 mm on the left. - S/P Right PCOM aneurysm clipping (HH4/F3/SAH) - Continue with blood pressure control - BP seems to be slightly elevated with a systolic blood pressure in the 150s. - Will continue to monitor BP and place on IV Vasotec for SBP >160. Added metoprolol as documented below for continued hypertension. - neurosurgery ff- follow up on 7mm aneurysm on the left which seems have not had definitive treatment. Chronic respiratory failure S/P tracheostomy - doing very well - fenestrated cap- - capped since 01/06 - tolerating so far Accidental Right Breast mass finding on CTA of the chest. -Oncology consulted, appreciate their input - general surgery consulted for biopsy, ordered ultrasound showed multiple axillary lymph nodes. - Patient will need biopsy and possible lumpectomy/mastectomy.- Dr. Tineo ff - Dr Noman yanez recommends modified radical mastectomy as she will not likely be a candidate for radiation or chemotherapy - Family /patient to decide Klebsiella pneumoniae UTI: S/P antibiotic course- 01/03 HTN- elevated readings- improving- continue to adjust on Lisinopril 20 mg via PEG daily metoprolol- increased to 25 mg po q 8= 01/01 added clondine 0.1 mg po tid/GT Vasotec when necessary SBP greater than 160/Clonidine prn GI Prophylaxis: On Bowel regime for prevention of constipation DVT Prophylaxis: SCD's, no chemoprophylaxis for now until cleared by neurosurgery to be on chemoprophylaxis. speech therapy ff Melissa Suarez MD Jan 11, 2017 12:49
[2017-01-11] MEDS: ACETAMINOPHEN 325 MG TAB PO PRN (12:50)
--- NOTE | 2017-01-11 14:17 | HHI.HCPN ---
Reason for visit a. To assist with evaluation and management of symptoms including: pain b. To assist medical decision maker(s) with: better understanding of current medical conditions; weighing benefits/burdens of medical treatment options; making medical treatment decisions. . Subjective/Interval History Patient is a 51-year-old female who has a past medical history significant for subarachnoid hemorrhage, right breast mass recently discovered [facility], hypertension. Patient post right posterior communicating aneurysm clipping on at Located within [facility]. Her medical course complicated by an oral abscess requiring extraction of a tooth and left submandibular gland. In [facility] she had a MACHINE REPAIR PERSON shunt placed. She also had a tracheostomy and a PEG tube placed on and 12/13/2016 respectively. Patient was found to have radiographic evidence of a mass in the right breast. She was transferred back to [place] 2016 for evaluation of right breast mass. Palliative care has been consulted to assist in medical decision-making/goals of care. Patient was seen in her room, she sitting up in a recliner chair in no acute distress. Tracheostomy capped. Patient alert and oriented x person, place and situation. Intermittent confusion/forgetfulness today. Patient able to verbalize needs. Patient denies any pain or shortness of breath this time. Endorsing frequent loose stools since this morning. She remained afebrile, stable hemodynamically. Oxygen saturation in the mid to high 90s. Tolerating mechanical soft diet and thin liquids. Laboratory workup today showing WBC 7.6 , Hgb 10.1, platelet count 278. Sodium 139, potassium 3.1, BUN/creatinine 7/ 0.56. Culture of wound/PEG site positive for group D enterococcus. Spoke with patient and Julio at bedside. Patient tells me that after further consideration and discussion with her family, she has elected to proceed with surgical intervention to include breast lump biopsy and radical mastectomy if biopsy is positive for malignancy. Family supportive of patient' s decision. Ongoing active listening and emotional support provided. Palliative care will continue to follow-up as needed for support. . Family/friend interactions See interval note. . Advance Directives Living Will: Never completed Health Care Surrogate: Copy in medical record Durable Power of Diesel Engine Specialist: Never completed Advance Directive Specifics Date completed: 01/10/17. . Health Care Surrogate(s): Designation of healthcare surrogate completed. Patient designated her Julio Marino as HCS, alternate surrogate is Wanda Bradford (sister) . . Documented care wishes: No living will completed. . Significant change in goals: Goals of care remain unchanged. . Objective Vital Signs Date Time Temp Pulse Resp B/P Pulse Ox O2 Delivery O2 Flow Rate FiO2 01/11/17 11:54 98.1 80 18 160/79 97 01/11/17 08:46 94 21 01/11/17 08:00 98.3 67 18 127/75 98 01/11/17 04:00 97.9 71 18 144/86 96 01/11/17 01:18 92 21 01/11/17 00:00 97.3 61 18 94/55 98 01/10/17 17:49 Nasal Cannula 2.00 01/10/17 16:22 98.2 68 16 137/ 97 Intake & Output 01/11/17 01/11/17 07:00 19:00 Intake Total 660 ml Balance 660 ml Tube Feeding 540 ml Other 120 ml # Voids 3 # Bowel Movements 1 Physical Exam CONSTITUTIONAL/GENERAL: This is an adequately nourished patient, in no apparent distress. TUBES/LINES/DRAINS: trach, peg. SKIN: No jaundice, rashes, or lesions. Ecchymoses on upper extremities. No wounds seen anteriorly. Skin temperature appropriate. Not diaphoretic. HEAD: Surgical incision to cranium with stitches in place. EYES: No icterus, no drainage or discharge. ENT: Hearing grossly normal. Nose without bleeding or purulent drainage. Moist oral mucosa. NECK: Tracheostomy, trachea midline. CARDIOVASCULAR: Regular rate and rhythm without murmurs, gallops, or rubs. No JVD. Peripheral pulses symmetric. RESPIRATORY/CHEST: Symmetric, unlabored respirations. Intermittent wheezes with Tracheostomy GASTROINTESTINAL: Abdomen soft, non-tender, nondistended. Peg in place. GENITOURINARY: Without palpable bladder distension. MUSCULOSKELETAL: Extremities without clubbing, cyanosis, or edema. NEUROLOGICAL: Alert to self, place and situation. Verbal, communicating. Following commands. PSYCHIATRIC: Appears calm. . Diagnostic Tests Laboratory Laboratory Tests Test 01/11/17 11:29 White Blood Count 7.6 TH/MM3 (4.0-11.0) Red Blood Count 3.23 MIL/MM3 (4.00-5.30) Hemoglobin 10.1 GM/DL (11.6-15.3) Hematocrit 30.7 % (35.0-46.0) Mean Corpuscular Volume 95.0 FL (80.0-100.0) Mean Corpuscular Hemoglobin 31.4 PG (27.0-34.0) Mean Corpuscular Hemoglobin 33.1 % Concent (32.0-36.0) Red Cell Distribution Width 15.1 % (11.6-17.2) Platelet Count 278 TH/MM3 (150-450) Mean Platelet Volume 8.1 FL (7.0-11.0) Prothrombin Time 11.0 SEC (9.8-11.6) Prothromb Time International 1.0 RATIO Ratio Sodium Level 139 MEQ/L (136-145) Potassium Level 3.1 MEQ/L (3.5-5.1) Chloride Level 99 MEQ/L (98-107) Carbon Dioxide Level 29.2 MEQ/L (21.0-32.0) Anion Gap 11 MEQ/L (5-15) Blood Urea Nitrogen 7 MG/DL (7-18) Creatinine 0.56 MG/DL (0.50-1.00) Estimat Glomerular Filtration 115 ML/MIN Rate (>89) Random Glucose 120 MG/DL (74-106) Calcium Level 9.5 MG/DL (8.5-10.1) Result Diagram: 01/11/17 1129 01/11/17 1129 Microbiology Microbiology Date/Time Procedure Status Source Growth 01/09/17 14:15 Gram Stain - Final Resulted Wound Abdomen 01/09/17 14:15 Wound Culture - Preliminary Resulted Group D Enterococcus Procedures * 11/22/16 -Right PCOM aneurysm clipping * 12/12/16 -tracheostomy * 12/13/16 -PEG tube placement * 12/21/16 -Right autologous cranioplasty and MACHINE REPAIR PERSON shunt . Assessment and Plan Disease Oriented Problem List: (1) Breast mass, right Comment: Likely breast cancer with adenopathy (2) Intraparenchymal hemorrhage of brain (3) Aneurysm (4) Subarachnoid hemorrhage Symptom Scale: (1) Anxiety 0-10 Scale: 0 (2) Pain 0-10 Scale: 0 Pertinent Non-Medical Issues Psychosocial: Patient is legally but . Residing with , 15-year-old son and boyfriend Gavin. 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 Spiritual: Episcopalian david. Legal: No advance directives completed. Ethical issues impacting care: No advance directives completed. . Important Contacts /HCP -Jamila, Julio Carrillo . Gavin (boyfriend) -Pending contact information. . Prognosis 51-year-old had a right posterior communicating right aneurysm , s/p clipping , performed at [facility]. Incidental breast mass found, further workup is highly suspicious for breast cancer with lymphadenopathy. Patient is PEG and trach. Difficulty with communication although she is following commands. Patient likely has breast cancer and is not candidate for chemotherapy or radiation due to functional status; tracheostomy risk of aspiration remains; infection and multiple hospitalization, medical hardware malfunction risk remains. Patient will still need biopsy to determine stage of cancer. Possible lumpectomy versus mastectomy. We'll need further information for prognostication, but given functional status, comorbidities prognosis is guarded. . Code Status: Full Code Plan * CODE STATUS: FULL code. * MEDICAL DECISION-MAKING: Patient participating in medical decision-making. Slow response but able to communicate. Patient demonstrates a fair understanding of her medical condition and the ability to weight the benefits and burdens of treatment options. Asking appropriate questions regarding diagnosis, prognosis and treatment options. Designation of healthcare surrogate completed today, she designated her Julio Marino as HCS, alternate surrogate is Wanda Bradford (sister). * GOALS OF THERAPY: Patient tells me that after further consideration and discussion with her family, she has elected to proceed with surgical intervention to include breast lump biopsy and radical mastectomy if biopsy is positive for malignancy. Family supportive of patient's decision. * SYMPTOMS: = Pain; secondary to surgical intervention, trach, PEG, prolonged hospitalization. Tylenol available as needed. = Constipation, exacerbated by prolonged bedrest. Belen-Colace twice a day. Now with frequent loose stools. Belen-Colace on hold. = Debility, secondary to prolonged hospitalization. Patient participating in PT. She will likely require acute rehabilitation at discharge, [place] rehabilitation following. * Palliative care contact information has been provided to patient and . * Palliative care will continue to follow-up as needed for further clarifications of goals of care and provide emotional support as patient's clinical course continue to evolve. . Time Spent Total Floor Time (mins): 38 (Total time to include review medical records, physical exam, goals of care conversation with patient and .) >50% Counseling/Coord of Care: Yes Attestation To help prompt me to consider important information that might be impacting today's encounter and assessment, information from prior notes written by myself or my colleagues may have been "brought forward" into today's note. My signature on this note, however, is an attestation that I personally performed the exam, history, and/or decision-making noted today, and, unless otherwise indicated, the interactions with patient, family, and staff as well as the review of records all occurred today. I also attest that the listed assessment and stated plan reflect my best clinical judgment today based on the combination of historical information, prior notes, and today's exam/ interactions. When time spent is documented, it refers only to time spent today by the signer, or if indicated, combined time spent today by collaborating physician/nurse practitioner. Roselyn Wilks Jan 11, 2017 14:17
--- NOTE | 2017-01-11 17:53 | HHI.PR ---
Subjective Subjective Notes She is sleeping comfortably. Her is at the bedside. Objective Vitals/I&O Vital Signs Date Time Temp Pulse Resp B/P Pulse Ox O2 Delivery O2 Flow Rate FiO2 01/11/17 16:00 98.4 76 18 126/62 96 01/11/17 08:46 21 01/10/17 17:49 Nasal Cannula 2.00 Labs Laboratory Tests Test 01/11/17 11:29 White Blood Count 7.6 Red Blood Count 3.23 Hemoglobin 10.1 Hematocrit 30.7 Mean Corpuscular Volume 95.0 Mean Corpuscular Hemoglobin 31.4 Mean Corpuscular Hemoglobin 33.1 Concent Red Cell Distribution Width 15.1 Platelet Count 278 Mean Platelet Volume 8.1 Prothrombin Time 11.0 Prothromb Time International 1.0 Ratio Sodium Level 139 Potassium Level 3.1 Chloride Level 99 Carbon Dioxide Level 29.2 Anion Gap 11 Blood Urea Nitrogen 7 Creatinine 0.56 Estimat Glomerular Filtration 115 Rate Random Glucose 120 Calcium Level 9.5 Date/Time Procedure Status Source Growth 01/09/17 14:15 Gram Stain - Final Resulted Wound Abdomen 01/09/17 14:15 Wound Culture - Preliminary Resulted Group D Enterococcus Narrative Exam NAD Trach in place sleeping comfortably A/P Assessment and Plan I had another discussion with the . The patient has expressed that she desires to proceed with modified radical right mastectomy. We'll plan to perform the operation tomorrow. Prior to the operation a biopsy will be obtained. NomanJonny MD Jan 11, 2017 17:52
[2017-01-11] MEDS: LISINOPRIL 10 MG TAB PO SCH (20:49)
[2017-01-11] MEDS: REMOVE OLD NICODERM (NICOTINE) PATCH T-DERMAL SCH (20:50)
[2017-01-12] VITALS: BP 136/72; PULSE 76; RESP 18; TEMP 97.3; O2SAT 96
[2017-01-12] MEDS: HEPARIN SODIUM - SQ 10,000 UNITS/ML VIAL SQ SCH ×3 (03:09→17:33)
[2017-01-12 04:00] VITALS: BP 127/64; PULSE 85; RESP 18; TEMP 97.5; O2SAT 97
[2017-01-12] MEDS: CHLORHEXIDINE GLUCONATE 2 % 1 PACK (2 CLOTHS) TOP SCH (04:00)
[2017-01-12] MEDS: cloNIDine HCL 0.1 MG TAB G-TUBE SCH ×3 (06:00→21:34)
[2017-01-12] MEDS: NYSTATIN 100,000 U/GM PWD 15 GM BTL TOPICAL SCH ×3 (06:00→21:34)
[2017-01-12] MEDS: METOPROLOL TARTRATE 25 MG TAB PO SCH ×4 (06:00→21:32)
[2017-01-12] MEDS: BACITRACIN TOP OINT 15 GM TUBE TOPICAL SCH ×2 (08:30→21:00)
[2017-01-12 08:35] VITALS: BP 143/85; PULSE 78; RESP 18; TEMP 98.7; O2SAT 97
[2017-01-12] MEDS: LISINOPRIL 10 MG TAB PEG SCH (09:00)
[2017-01-12] MEDS: BENEPROTEIN POWDER 1 PACK G-TUBE SCH ×3 (09:00→17:33)
[2017-01-12] MEDS: DOCUSATE SODIUM 50 MG/SENNA 8.6 MG TAB PO SCH ×2 (09:00→21:00)
[2017-01-12] MEDS: levETIRAcetam 500 MG/5 ML UDC PEG SCH ×2 (09:00→21:32)
[2017-01-12] MEDS: LANSOPRAZOLE SOLUTAB 30 MG TAB G-TUBE SCH (09:00)
[2017-01-12] MEDS: NICOTINE 14 MG/24 HR PATCH T-DERMAL SCH (09:00)
[2017-01-12] MEDS ORDERED: BUPIVACAINE HCL PF 0.5% 30 ML VIAL ONE (09:43)
[2017-01-12] MEDS ORDERED: FAMOTIDINE 20 MG/2 ML VIAL ONE (10:29)
[2017-01-12] MEDS ORDERED: MIDAZOLAM HCL 2 MG/2 ML VIAL ONE (10:29)
[2017-01-12] MEDS ORDERED: ACETAMINOPHEN 1000 MG/100 ML VIAL IV ONE (10:29)
[2017-01-12] MEDS ORDERED: VANCOMYCIN HCL 1000 MG VIAL ONE (10:44)
--- NOTE | 2017-01-12 10:45 | HHI.PR ---
Subjective Remarks Went for breast biopsy. The patient was seen in PACU later. She complaints of some pain at the surgical site right breast. No fever or chills. No n/v/d/c. VSS. No sob. Objective Vitals Vital Signs Date Time Temp Pulse Resp B/P Pulse Ox O2 Delivery O2 Flow Rate FiO2 01/12/17 08:35 98.7 78 18 143/85 97 01/12/17 04:00 97.5 85 18 127/64 97 01/12/17 00:00 97.3 76 18 136/72 96 01/11/17 20:00 98.3 82 20 143/67 99 01/11/17 16:00 98.4 76 18 126/62 96 01/11/17 11:54 98.1 80 18 160/79 97 I/O 01/11/17 01/11/17 01/11/17 01/12/17 01/12/17 01/12/17 07:00 15:00 23:00 07:00 15:00 23:00 Intake Total 1500 ml Balance 1500 ml Intake Oral 480 ml Tube Feeding 900 ml Other 120 ml # Voids 3 3 4 1 # Bowel Movements 1 2 2 1 Result Diagram: 01/11/17 1129 01/11/17 1129 Imaging Last Impressions Upper Extremity Ultrasound 12/27/16 0000 Signed Impressions: Service Date/Time: Tuesday, December 27, 2016 14:00 - CONCLUSION: Several nonspecific right axillary lymph nodes are demonstrated. Will Rankin MD Objective Remarks GENERAL: 51 yo F awake and alert, following some commands, doesn't appear in acute distress. NECK: Trach in place CARDIOVASCULAR: Regular rate and rhythm. RESPIRATORY: No accessory muscle use. Clear to auscultation. Breath sounds equal bilaterally. GASTROINTESTINAL: PEG in place. Abdomen soft, non-tender, nondistended. MUSCULOSKELETAL: Extremities without clubbing, cyanosis, or edema. No obvious deformities. NEUROLOGICAL: Awake and alert. No obvious cranial nerve deficits. Lead Generation Specialist extremities spontaneously. SKIN: Right breast with dressing on c/d/i. A/P Problem List: (1) Subarachnoid hemorrhage ICD Code: I60.9 Status: Chronic (2) Aneurysm ICD Code: I72.9 Status: Acute (3) Breast mass, right ICD Code: N63 Status: Acute Assessment and Plan 51 years old female S/P Right PCOM aneurysm clipping (HH4/F3/SAH). Bleed , clipping 11/22/16. Course complicated by an oral abscess requiring tooth extraction and left submandibular gland removal. Required V-P shunt for hydrocephalus. Tracheostomy 12/12, PEG 12/13. Right autologous cranioplasty and RADIO INTERFERENCE SUPERVISOR shunt 12/21. There was a another PCOM aneurysm on the left side on our initial CTA here at [place]. Subarachnoid hemorrhage- neurologically stable - S/P operative clipping of PCOM at [facility] on 11/22/16. - Continue Keppra. - Sp trach and PEG placement. - Tolerating the feeding, Jevity 1.5 at 45 m/hr. dietitian ff - Continue trach care- plan to change to fenestrated tube, capped since 01/06, pulm ff - neurosurgery consult- ff up. will need surgery for breast mass- Dr Noman quick. S/ P right breast biopsy on 01/12/17. Brain aneurysms - Head CTA obtained on 11/21/16 show bilateral posterior communicating artery aneurysms. 8 mm on the right side and 7 mm on the left. - S/P Right PCOM aneurysm clipping (HH4/F3/SAH) - Continue with blood pressure control - BP seems to be slightly elevated with a systolic blood pressure in the 150s. - Will continue to monitor BP and place on IV Vasotec for SBP >160. Added metoprolol as documented below for continued hypertension. - neurosurgery ff- follow up on 7mm aneurysm on the left which seems have not had definitive treatment. Chronic respiratory failure S/P tracheostomy - doing well - fenestrated cap- - capped since 01/06 - tolerating so far. Pulmonology ff Accidental Right Breast mass finding on CTA of the chest. -Oncology consulted, appreciate their input - general surgery consulted for biopsy, ordered ultrasound showed multiple axillary lymph nodes. - Patient will need biopsy and possible lumpectomy/mastectomy.- Dr. Tineo ff - Dr Noman yanez recommends modified radical mastectomy as she will not likely be a candidate for radiation or chemotherapy - S/P breast bx by Dr Noman hart surgery Klebsiella pneumoniae UTI: S/P antibiotic course- 01/03 HTN- elevated readings- improving- continue to adjust on Lisinopril 20 mg via PEG daily metoprolol- increased to 25 mg po q 8= 7/10 added clondine 0.1 mg po tid/GT Vasotec when necessary SBP greater than 160/Clonidine prn GI Prophylaxis: On Bowel regime for prevention of constipation DVT Prophylaxis: heparin sq per neurosurgery speech therapy ff DC plan: pending improvement and clearance by consultants. Had R breast bx . Also CM following for DC plan. Melissa Suarez MD Jan 12, 2017 10:45 Melissa Suarez MD Jan 12, 2017 10:45
[2017-01-12] MEDS ORDERED: PROPOFOL 200 MG/20 ML AMP IV ONE (12:00)
[2017-01-12] MEDS ORDERED: ONDANSETRON HCL 4 MG/2 ML VIAL IV PUSH ONE (12:00)
[2017-01-12] MEDS ORDERED: LACTATED RINGER'S 1000 ML INJ 1,000 ML IV ONE (12:00)
[2017-01-12] MEDS ORDERED: SODIUM CHLOR 0.9% 250 ML INJ 250 ML IV ONE (12:00)
[2017-01-12] MEDS ORDERED: NEOSTIGMINE 3 MG/3 ML SYR IV ONE (12:00)
[2017-01-12] MEDS ORDERED: DO NOT ADM ANY ANTICOAGULANT DRUGS PRN (13:58)
[2017-01-12] MEDS ORDERED: HYDROmorphone HCL PF 1 MG/ML VIAL IV PUSH PRN (14:00)
[2017-01-12] MEDS ORDERED: MORPHINE SULFATE 4 MG/ML INJ ONE (14:20)
[2017-01-12] MEDS ORDERED: fentaNYL CITRATE 250 MCG/5 ML AMP ONE (14:20)
[2017-01-12] MEDS ORDERED: *morphine SULFATE 8 MG/ML PERIprocedure ONLY ONE (14:27)
[2017-01-12 16:20] VITALS: BP 154/92; PULSE 87; RESP 20; TEMP 97.8; O2SAT 94
[2017-01-12 20:05] VITALS: BP 120/78; PULSE 82; RESP 20; TEMP 98.1; O2SAT 95
[2017-01-12] MEDS: REMOVE OLD NICODERM (NICOTINE) PATCH T-DERMAL SCH (21:00)
[2017-01-12] MEDS: oxyCODONE/ACETAMINOPHEN 5 MG/325 MG TAB PO PRN (21:33)
[2017-01-12] MEDS: LISINOPRIL 10 MG TAB PO SCH (21:33)
[2017-01-13] VITALS (9 sets, daily range): BP systolic 132–175; BP diastolic 79–103; PULSE 72–100; RESP 18–20; TEMP 98.1–98.8; O2SAT 94–98
[2017-01-13] MEDS: HEPARIN SODIUM - SQ 10,000 UNITS/ML VIAL SQ SCH ×3 (02:00→17:23)
[2017-01-13] MEDS: CHLORHEXIDINE GLUCONATE 2 % 1 PACK (2 CLOTHS) TOP SCH (04:00)
[2017-01-13] MEDS: NYSTATIN 100,000 U/GM PWD 15 GM BTL TOPICAL SCH ×3 (06:00→21:21)
[2017-01-13] MEDS: METOPROLOL TARTRATE 25 MG TAB PO SCH ×3 (06:31→21:19)
[2017-01-13] MEDS: oxyCODONE/ACETAMINOPHEN 5 MG/325 MG TAB PO PRN ×2 (06:31→22:21)
[2017-01-13] MEDS: cloNIDine HCL 0.1 MG TAB G-TUBE SCH ×3 (06:31→21:19)
[2017-01-13] MEDS: BENEPROTEIN POWDER 1 PACK G-TUBE SCH ×3 (09:00→17:24)
[2017-01-13] MEDS: BACITRACIN TOP OINT 15 GM TUBE TOPICAL SCH ×2 (09:00→21:00)
--- NOTE | 2017-01-13 10:15 | HHI.PR ---
Subjective Remarks awake and alert, oriented x 3 no pain complaints ff all commands, interactive and appropriate Objective Vitals Vital Signs Date Time Temp Pulse Resp B/P Pulse Ox O2 Delivery O2 Flow Rate FiO2 01/13/17 08:18 98.1 78 18 132/79 98 01/13/17 04:16 98.5 84 20 146/84 94 01/13/17 00:12 98.3 88 20 143/84 95 01/12/17 20:05 98.1 82 20 120/78 95 01/12/17 16:20 97.8 87 20 154/92 94 01/12/17 15:00 98.9 79 20 117/66 93 Room Air 01/12/17 14:45 69 20 133/73 94 Room Air 01/12/17 14:30 78 20 120/64 96 Trach Collar 3 01/12/17 14:15 62 24 127/70 96 Trach Collar 3 01/12/17 14:00 67 24 130/70 100 Trach Collar 6 01/12/17 13:53 99.1 66 22 121/67 100 Trach Collar 6 I/O 01/12/17 01/12/17 01/12/17 01/13/17 01/13/17 01/13/17 07:00 15:00 23:00 07:00 15:00 23:00 Intake Total 1900 ml 240 ml Output Total 60 ml 100 ml Balance 1840 ml 240 ml -100 ml Intake Oral 240 ml IV Total 100 ml Other 1800 ml Drainage Total 10 ml 100 ml Estimated Blood Loss 50 ml # Voids 4 1 1 # Bowel Movements 2 1 Result Diagram: 01/11/17 1129 01/11/17 1129 Imaging Last Impressions Upper Extremity Ultrasound 12/27/16 0000 Signed Impressions: Service Date/Time: Tuesday, December 27, 2016 14:00 - CONCLUSION: Several nonspecific right axillary lymph nodes are demonstrated. Will Rankin MD Objective Remarks awake and alert, oriented x 3 , interactive + tracheostomy in place no rales, no wheezes S/P mastectomy right- VONNIE bulb x [address] regular rhythm + PEG in place, good bowel sounds extremities no edema moves all extremities spontaneously [place]- grossly clear urine Procedures 01/12- right modified radical mastectomy A/P Problem List: (1) Subarachnoid hemorrhage ICD Code: I60.9 Status: Chronic (2) Aneurysm ICD Code: I72.9 Status: Acute (3) Breast mass, right ICD Code: N63 Status: Acute Assessment and Plan 51 years old female S/P Right PCOM aneurysm clipping (HH4/F3/SAH). Bleed , clipping 11/22/16. Course complicated by an oral abscess requiring tooth extraction and left submandibular gland removal. Required V-P shunt for hydrocephalus. Tracheostomy 12/12, PEG 12/13. Right autologous cranioplasty and VOLCANOLOGY TEACHER shunt 12/21. There was a another PCOM aneurysm on the left side on our initial CTA here at [place]. Subarachnoid hemorrhage- neurologically stable/improved - S/P operative clipping of PCOM at [facility] on 11/22/16. - Continue Keppra. - Sp trach and PEG placement. - on mechanical soft + Jevity 1.5 at 45 m/hr. dietitian ff. tolerating po as well- consider PEG removal next few days - Continue trach care- capped since 01/06, pulm ff - ? trach removal- next few days - neurosurgery ff - continue PT/OT efforts Brain aneurysms - Head CTA obtained on 11/21/16 show bilateral posterior communicating artery aneurysms. 8 mm on the right side and 7 mm on the left. - S/P Right PCOM aneurysm clipping (HH4/F3/SAH) - Continue with blood pressure control - BP seems to be slightly elevated with a systolic blood pressure in the 150s. - neurosurgery ff- follow up on 7mm aneurysm on the left which seems have not had definitive treatment. Chronic respiratory failure S/P tracheostomy - doing well - fenestrated cap- - capped since 01/06 - tolerating so far. Pulmonology ff S/P right radical mastectomy 01/12 - general surgery ff- VONNIE bulb x [address] Klebsiella pneumoniae UTI: S/P antibiotic course- 01/03 HTN- elevated readings- improving- continue to adjust on Lisinopril 20 mg via PEG daily metoprolol- increased to 25 mg po q 8= 01/01 clondine 0.1 mg po tid/GT Vasotec when necessary SBP greater than 160/Clonidine prn GI Prophylaxis: On Bowel regime for prevention of constipation DVT Prophylaxis: heparin sq per neurosurgery speech therapy ff Out of bed to chair bid Skye Goodman MD Jan 13, 2017 10:15
[2017-01-13] MEDS: levETIRAcetam 500 MG/5 ML UDC PEG SCH ×2 (10:20→21:19)
[2017-01-13] MEDS: LISINOPRIL 10 MG TAB PEG SCH (10:21)
[2017-01-13] MEDS: DOCUSATE SODIUM 50 MG/SENNA 8.6 MG TAB PO SCH ×2 (10:21→21:00)
[2017-01-13] MEDS: LANSOPRAZOLE SOLUTAB 30 MG TAB G-TUBE SCH (10:21)
[2017-01-13] MEDS: NICOTINE 14 MG/24 HR PATCH T-DERMAL SCH (10:22)
[2017-01-13] MEDS: RESP: ALBUTEROL 2.5 MG/IPRATROPIUM 0.5 MG NEB (PRN) INH ×2 (10:54→18:48)
[2017-01-13 11:50] LABS: BICARBONATE 31.6 MEQ/L (21.0-32.0); POTASSIUM 3.2 MEQ/L (3.5-5.1)
--- NOTE | 2017-01-13 12:15 | HHI.PR ---
Subjective Subjective Notes She is awake and alert and denies any significant pain. at bedside. Objective Vitals/I&O Vital Signs Date Time Temp Pulse Resp B/P Pulse Ox O2 Delivery O2 Flow Rate FiO2 01/13/17 10:58 96 21 01/13/17 08:18 98.1 78 18 132/79 01/12/17 15:00 Room Air 01/12/17 14:30 3 Labs Laboratory Tests Test 01/13/17 11:11 Sodium Level 141 Potassium Level 3.2 Chloride Level 103 Carbon Dioxide Level 31.6 Anion Gap 6 Blood Urea Nitrogen 6 Creatinine 0.56 Estimat Glomerular Filtration 115 Rate Random Glucose 133 Calcium Level 9.2 Date/Time Procedure Status Source Growth 01/09/17 14:15 Gram Stain - Final Complete Wound Abdomen 01/09/17 14:15 Wound Culture - Final Complete Enterococcus Faecalis Narrative Exam NAD Trach in place, capped. Breathing and speaking comfortably. Bandage in place right breast, c/d/i. JPs with 160cc output ss drainage A/P Assessment and Plan 51 yo F POD 1 s/p mod radical right mastectomy for invasive ductal carcinoma. Trach in place, capped, s/p recent SAH and repaired aneurysm. Cont VONNIE drains. Likely can remove trach Sunday. Jonny Tineo MD Jan 13, 2017 12:14
[2017-01-13] MEDS ORDERED: POTASSIUM CHLOR 20 MEQ PREMIX 100 ML IV ONE (17:45)
[2017-01-13] MEDS ORDERED: POTASSIUM CHLOR 10 MEQ PREMIX 100 ML IV ONE (18:00)
[2017-01-13] MEDS ORDERED: POTASSIUM CHLORIDE 25 MEQ EFFERVESCENT TAB J-TUBE ONE (18:00)
[2017-01-13] MEDS: cloNIDine HCL 0.1 MG TAB PO PRN (18:51)
[2017-01-13] MEDS: REMOVE OLD NICODERM (NICOTINE) PATCH T-DERMAL SCH (21:00)
[2017-01-13] MEDS: LISINOPRIL 10 MG TAB PO SCH (21:20)
[2017-01-14] VITALS (7 sets, daily range): BP systolic 120–183; BP diastolic 63–83; PULSE 56–93; RESP 16–19; TEMP 98.1–99.5; O2SAT 93–96
[2017-01-14] MEDS: HEPARIN SODIUM - SQ 10,000 UNITS/ML VIAL SQ SCH ×3 (02:35→18:00)
[2017-01-14] MEDS: CHLORHEXIDINE GLUCONATE 2 % 1 PACK (2 CLOTHS) TOP SCH (04:00)
[2017-01-14] MEDS: NYSTATIN 100,000 U/GM PWD 15 GM BTL TOPICAL SCH ×3 (05:44→21:08)
[2017-01-14] MEDS: METOPROLOL TARTRATE 25 MG TAB PO SCH ×3 (05:44→21:06)
[2017-01-14] MEDS: cloNIDine HCL 0.1 MG TAB G-TUBE SCH ×3 (05:44→21:06)
[2017-01-14] MEDS: oxyCODONE/ACETAMINOPHEN 5 MG/325 MG TAB PO PRN ×2 (05:44→21:23)
[2017-01-14 08:49] LABS: BICARBONATE 29.4 MEQ/L (21.0-32.0); POTASSIUM 3.6 MEQ/L (3.5-5.1)
[2017-01-14] MEDS: BENEPROTEIN POWDER 1 PACK G-TUBE SCH ×3 (09:00→18:00)
[2017-01-14] MEDS: BACITRACIN TOP OINT 15 GM TUBE TOPICAL SCH ×2 (09:00→21:08)
[2017-01-14] MEDS: DOCUSATE SODIUM 50 MG/SENNA 8.6 MG TAB PO SCH ×2 (09:00→21:00)
[2017-01-14] MEDS: LANSOPRAZOLE SOLUTAB 30 MG TAB G-TUBE SCH (09:51)
[2017-01-14] MEDS: NICOTINE 14 MG/24 HR PATCH T-DERMAL SCH (09:53)
[2017-01-14] MEDS: LISINOPRIL 10 MG TAB PEG SCH (09:53)
[2017-01-14] MEDS: levETIRAcetam 500 MG/5 ML UDC PEG SCH ×2 (09:56→21:06)
--- NOTE | 2017-01-14 13:55 | HHI.PR ---
Subjective Subjective Notes The patient is awake and alert. She is moderately conversive although has a flat affect. She denies any pain. Objective Vitals/I&O Vital Signs Date Time Temp Pulse Resp B/P Pulse Ox O2 Delivery O2 Flow Rate FiO2 01/14/17 12:04 98.7 56 19 139/83 96 01/14/17 09:29 21 01/13/17 20:41 capped 01/12/17 14:30 3 Labs Laboratory Tests Test 01/14/17 07:02 Sodium Level 140 Potassium Level 3.6 Chloride Level 103 Carbon Dioxide Level 29.4 Anion Gap 8 Blood Urea Nitrogen 6 Creatinine 0.50 Estimat Glomerular Filtration 131 Rate Random Glucose 130 Calcium Level 9.1 Date/Time Procedure Status Source Growth 01/09/17 14:15 Gram Stain - Final Complete Wound Abdomen 01/09/17 14:15 Wound Culture - Final Complete Enterococcus Faecalis Cardiovascular: Regular Lungs: Clear Abdomen: Non-distended, Non-tender, BS normal Extremities: No edema Narrative Exam The Mikel-Hoff drains remained serosanguineous and have too much drainage to remove at this time. 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 Overall she is stable from a surgical standpoint and continues to improve. Plan: Surgical care per Dr. Tineo. It appears that her tracheostomy may be able to be removed tomorrow. Manish Rock MD Jan 14, 2017 13:54
--- NOTE | 2017-01-14 15:45 | HHI.PR ---
Subjective Remarks tolerating po well no complains of pain TF held as she taking po well Objective Vitals Vital Signs Date Time Temp Pulse Resp B/P Pulse Ox O2 Delivery O2 Flow Rate FiO2 01/14/17 12:04 98.7 56 19 139/83 96 01/14/17 09:29 94 21 01/14/17 08:30 99.0 74 18 131/63 96 01/14/17 00:00 98.7 93 16 120/70 96 01/13/17 20:41 96 capped 21 01/13/17 20:00 98.8 100 18 163/84 97 01/13/17 18:43 175/92 01/13/17 16:52 98.6 72 18 156/103 97 I/O 01/13/17 01/13/17 01/13/17 01/14/17 01/14/17 01/14/17 07:00 15:00 23:00 07:00 15:00 23:00 Output Total 160 ml 20 ml 40 ml 30 ml Balance -160 ml -20 ml -40 ml -30 ml Drainage Total 160 ml 20 ml 40 ml 30 ml # Voids 1 2 1 # Bowel Movements 1 2 Result Diagram: 01/11/17 1129 01/14/17 0702 Imaging Last Impressions Upper Extremity Ultrasound 12/27/16 0000 Signed Impressions: Service Date/Time: Tuesday, December 27, 2016 14:00 - CONCLUSION: Several nonspecific right axillary lymph nodes are demonstrated. Will Rankin MD Objective Remarks awake and alert, oriented x 3 , interactive + tracheostomy in place- capped no rales, no wheezes S/P mastectomy right- VONNIE bulb x [address] regular rhythm + PEG in place, good bowel sounds extremities no edema moves all extremities spontaneously westbrook- grossly clear urine Procedures 01/12- right modified radical mastectomy Urinary Catheter: Yes Assessment to: Continue [place] insert reason: Surgical/Invasive Proced A/P Problem List: (1) Subarachnoid hemorrhage ICD Code: I60.9 Status: Chronic (2) Aneurysm ICD Code: I72.9 Status: Acute (3) Breast mass, right ICD Code: N63 Status: Acute Assessment and Plan 51 years old female S/P Right PCOM aneurysm clipping (HH4/F3/SAH). Bleed , clipping 11/22/16. Course complicated by an oral abscess requiring tooth extraction and left submandibular gland removal. Required V-P shunt for hydrocephalus. Tracheostomy 12/12, PEG 12/13. Right autologous cranioplasty and COMMERCIAL AGENT shunt 12/21. There was a another PCOM aneurysm on the left side on our initial CTA here at [place]. Subarachnoid hemorrhage- neurologically stable/improved - S/P operative clipping of PCOM at [facility] on 11/22/16. - Continue Keppra. - Sp trach and PEG placement. - on mechanical soft. Jevity 1.5 at 45 m/hr.- on hold. dietitian ff. tolerating po as well- consider PEG removal next few days- - Continue trach care- capped since 01/06, pulm ff - ? trach removal- next few days - neurosurgery ff - continue PT/OT efforts Brain aneurysms - Head CTA obtained on 11/21/16 show bilateral posterior communicating artery aneurysms. 8 mm on the right side and 7 mm on the left. - S/P Right PCOM aneurysm clipping (HH4/F3/SAH) - Continue with blood pressure control - BP seems to be slightly elevated with a systolic blood pressure in the 150s. - neurosurgery ff- follow up on 7mm aneurysm on the left which seems have not had definitive treatment. Chronic respiratory failure S/P tracheostomy - doing well - fenestrated cap- - capped since 01/06 - tolerating so far. Pulmonology ff -remove soon ? S/P right radical mastectomy 01/12 - general surgery ff- VONNIE bulb x [address] Klebsiella pneumoniae UTI: S/P antibiotic course- 01/03 HTN- elevated readings- improving- continue to adjust on Lisinopril 20 mg via PEG daily metoprolol- increased to 25 mg po q 8= 01/01 clondine 0.1 mg po tid/GT Vasotec when necessary SBP greater than 160/Clonidine prn GI Prophylaxis: On Bowel regime for prevention of constipation DVT Prophylaxis: heparin sq per neurosurgery speech therapy ff Out of bed to chair bid Skye Goodman MD Jan 14, 2017 15:45
[2017-01-14] MEDS: LISINOPRIL 10 MG TAB PO SCH (21:06)
[2017-01-14] MEDS: REMOVE OLD NICODERM (NICOTINE) PATCH T-DERMAL SCH (21:07)
[2017-01-15] VITALS (8 sets, daily range): BP systolic 102–168; BP diastolic 63–89; PULSE 62–74; RESP 16–18; TEMP 98.3–99.1; O2SAT 92–99
[2017-01-15] MEDS: HEPARIN SODIUM - SQ 10,000 UNITS/ML VIAL SQ SCH ×3 (02:43→19:09)
[2017-01-15] MEDS: CHLORHEXIDINE GLUCONATE 2 % 1 PACK (2 CLOTHS) TOP SCH (03:27)
[2017-01-15] MEDS: NYSTATIN 100,000 U/GM PWD 15 GM BTL TOPICAL SCH ×3 (05:21→21:57)
[2017-01-15] MEDS: cloNIDine HCL 0.1 MG TAB G-TUBE SCH ×3 (05:21→21:54)
[2017-01-15] MEDS: METOPROLOL TARTRATE 25 MG TAB PO SCH ×3 (05:21→21:54)
[2017-01-15] MEDS: NICOTINE 14 MG/24 HR PATCH T-DERMAL SCH (08:50)
[2017-01-15] MEDS: LISINOPRIL 10 MG TAB PEG SCH (08:51)
[2017-01-15] MEDS: DOCUSATE SODIUM 50 MG/SENNA 8.6 MG TAB PO SCH ×2 (08:53→21:00)
[2017-01-15] MEDS: BENEPROTEIN POWDER 1 PACK G-TUBE SCH ×3 (09:00→18:00)
[2017-01-15] MEDS: BACITRACIN TOP OINT 15 GM TUBE TOPICAL SCH ×2 (09:00→21:00)
[2017-01-15] MEDS: levETIRAcetam 500 MG/5 ML UDC PEG SCH ×2 (12:03→21:55)
--- NOTE | 2017-01-15 12:03 | HHI.PR ---
Subjective Subjective Notes Alert today. Denies pain. Objective Vitals/I&O Vital Signs Date Time Temp Pulse Resp B/P Pulse Ox O2 Delivery O2 Flow Rate FiO2 01/15/17 11:16 Room Air 01/15/17 08:00 98.4 70 17 143/89 96 01/14/17 21:00 3.00 21 Narrative Exam NAD Trach in place, capped. Breathing and speaking comfortably. Bandage right breast changed- skin near incision with epidermolysis/ecchymosis. JPs with 90cc output ss drainage A/P Assessment and Plan 51 yo F POD 3 s/p mod radical right mastectomy for invasive ductal carcinoma. Trach in place, capped, s/p recent SAH and repaired aneurysm. Cont VONNIE drains. Monitor skin of flaps. remove trach. Remove scalp sutures. Jonny Tineo MD Jan 15, 2017 12:02
[2017-01-15] MEDS: LANSOPRAZOLE SOLUTAB 30 MG TAB G-TUBE SCH (12:04)
--- NOTE | 2017-01-15 13:46 | HHI.PR ---
Subjective Remarks awake and alert, spoke clearly oriented x 3, more interactive but affect blunt d./w family- pathology pending Objective Vitals Vital Signs Date Time Temp Pulse Resp B/P Pulse Ox O2 Delivery O2 Flow Rate FiO2 01/15/17 12:17 98.7 68 18 168/89 97 01/15/17 11:16 Room Air 01/15/17 08:00 98.4 70 17 143/89 96 01/15/17 05:16 99.1 74 17 127/76 99 01/15/17 00:57 95 01/15/17 00:00 98.4 63 16 102/63 94 01/15/17 00:00 71 114/70 92 01/14/17 21:02 156/68 01/14/17 21:00 Room Air 3.00 21 01/14/17 20:00 98.1 69 18 183/77 93 01/14/17 16:41 99.5 73 18 131/65 95 I/O 01/14/17 01/14/17 01/14/17 01/15/17 01/15/17 01/15/17 07:00 15:00 23:00 07:00 15:00 23:00 Output Total 40 ml 30 ml 90 ml Balance -40 ml -30 ml -90 ml Drainage Total 40 ml 30 ml 90 ml # Voids 1 6 # Bowel Movements 1 Result Diagram: 01/11/17 1129 01/14/17 0702 Imaging Last Impressions Upper Extremity Ultrasound 12/27/16 0000 Signed Impressions: Service Date/Time: Tuesday, December 27, 2016 14:00 - CONCLUSION: Several nonspecific right axillary lymph nodes are demonstrated. Will Rankin MD Objective Remarks awake and alert, oriented x 3 , interactive + tracheostomy in place- capped no rales, no wheezes S/P mastectomy right- VONNIE bulb in place regular rhythm + PEG in place, good bowel sounds extremities no edema moves all extremities spontaneously westbrook- grossly clear urine moves all extremiteis equally Procedures 01/12- right modified radical mastectomy A/P Problem List: (1) Subarachnoid hemorrhage ICD Code: I60.9 Status: Chronic (2) Aneurysm ICD Code: I72.9 Status: Acute (3) Breast mass, right ICD Code: N63 Status: Acute Assessment and Plan 51 years old female S/P Right PCOM aneurysm clipping (HH4/F3/SAH). Bleed , clipping 11/22/16. Course complicated by an oral abscess requiring tooth extraction and left submandibular gland removal. Required V-P shunt for hydrocephalus. Tracheostomy 12/12, PEG 12/13. Right autologous cranioplasty and CAMP DINING ROOM ATTENDANT shunt 12/21. There was a another PCOM aneurysm on the left side on our initial CTA here at [place]. Subarachnoid hemorrhage- neurologically stable/improved - S/P operative clipping of PCOM at [facility] on 11/22/16. - Continue Keppra. - Sp trach and PEG placement. - on mechanical soft. Jevity 1.5 at 45 m/hr.-- dietitian ff. tolerating po as well. HOld TF - consider PEG removal next few days- - Continue trach care- capped since 01/06, ? trach removal- next few days - neurosurgery ff - continue PT/OT efforts Brain aneurysms - Head CTA obtained on 11/21/16 show bilateral posterior communicating artery aneurysms. 8 mm on the right side and 7 mm on the left. - S/P Right PCOM aneurysm clipping (HH4/F3/SAH) - Continue with blood pressure control - BP seems to be slightly elevated with a systolic blood pressure in the 150s. - neurosurgery ff- follow up on 7mm aneurysm on the left which seems have not had definitive treatment. Chronic respiratory failure S/P tracheostomy - doing well - fenestrated cap- - capped since 01/06 - tolerating so far. RT ff- possibly removal by Dr. Tineo - remove soon ? S/P right radical mastectomy 01/12 - general surgery ff- VONNIE bulb x [address] Klebsiella pneumoniae UTI: S/P antibiotic course- 01/03 HTN- elevated readings- improving- continue to adjust on Lisinopril 20 mg via PEG daily, 10 mg hs. Increase Lisinopril to 20 mg bid metoprolol- increased to 25 mg po q 8= 01/01 clondine 0.1 mg po tid/GT Vasotec when necessary SBP greater than 160/Clonidine prn GI Prophylaxis: On Bowel regime for prevention of constipation DVT Prophylaxis: heparin sq per neurosurgery speech therapy ff Out of bed to chair bid Skye Goodman MD Jan 15, 2017 13:45 Skye Goodman MD Jan 15, 2017 13:45
[2017-01-15] MEDS: oxyCODONE/ACETAMINOPHEN 5 MG/325 MG TAB PO PRN ×2 (14:13→22:21)
[2017-01-15] MEDS: REMOVE OLD NICODERM (NICOTINE) PATCH T-DERMAL SCH (21:00)
[2017-01-15] MEDS: LISINOPRIL 20 MG TAB PEG SCH (21:54)
[2017-01-16] VITALS: BP 110/67; PULSE 70; RESP 18; TEMP 98.4; O2SAT 96
[2017-01-16] MEDS: HEPARIN SODIUM - SQ 10,000 UNITS/ML VIAL SQ SCH ×3 (02:35→17:50)
[2017-01-16 04:00] VITALS: BP 132/80; PULSE 63; RESP 18; TEMP 97.2; O2SAT 96
[2017-01-16] MEDS: CHLORHEXIDINE GLUCONATE 2 % 1 PACK (2 CLOTHS) TOP SCH (04:00)
[2017-01-16] MEDS: NYSTATIN 100,000 U/GM PWD 15 GM BTL TOPICAL SCH ×3 (06:00→22:00)
[2017-01-16] MEDS: cloNIDine HCL 0.1 MG TAB G-TUBE SCH ×3 (06:14→22:04)
[2017-01-16] MEDS: METOPROLOL TARTRATE 25 MG TAB PO SCH ×3 (06:14→22:04)
[2017-01-16 08:00] VITALS: BP 125/73; PULSE 61; RESP 17; TEMP 98.4; O2SAT 95
[2017-01-16] MEDS: DOCUSATE SODIUM 50 MG/SENNA 8.6 MG TAB PO SCH ×2 (09:00→22:04)
[2017-01-16] MEDS: BACITRACIN TOP OINT 15 GM TUBE TOPICAL SCH (09:00)
[2017-01-16] MEDS: BENEPROTEIN POWDER 1 PACK G-TUBE SCH ×3 (09:00→17:50)
[2017-01-16] MEDS: levETIRAcetam 500 MG/5 ML UDC PEG SCH ×2 (10:43→22:03)
[2017-01-16] MEDS: LANSOPRAZOLE SOLUTAB 30 MG TAB G-TUBE SCH (10:44)
[2017-01-16] MEDS: LISINOPRIL 20 MG TAB PEG SCH ×2 (10:45→22:04)
[2017-01-16] MEDS: NICOTINE 14 MG/24 HR PATCH T-DERMAL SCH (10:47)
[2017-01-16 12:00] VITALS: BP 127/63; PULSE 66; RESP 18; TEMP 98.7; O2SAT 100
[2017-01-16] MEDS: oxyCODONE/ACETAMINOPHEN 5 MG/325 MG TAB PO PRN ×2 (12:21→22:11)
--- NOTE | 2017-01-16 13:20 | HHI.PR ---
Subjective Remarks awake and alert, interactive no pain complains po intake tolerating well Objective Vitals Vital Signs Date Time Temp Pulse Resp B/P Pulse Ox O2 Delivery O2 Flow Rate FiO2 01/16/17 12:00 98.7 66 18 127/63 100 01/16/17 08:00 98.4 61 17 125/73 95 01/16/17 04:00 97.2 63 18 132/80 96 01/16/17 00:00 98.4 70 18 110/67 96 01/15/17 23:15 94 01/15/17 20:00 Room Air 01/15/17 20:00 98.6 64 18 145/74 94 01/15/17 16:00 98.3 62 18 148/82 96 I/O 01/15/17 01/15/17 01/15/17 01/16/17 01/16/17 01/16/17 07:00 15:00 23:00 07:00 15:00 23:00 Output Total 140 ml Balance -140 ml Chest Tube Drainage Total 50 ml Drainage Total 90 ml # Voids 4 2 1 # Bowel Movements 1 Result Diagram: 01/14/17 0702 Imaging Last Impressions Upper Extremity Ultrasound 12/27/16 0000 Signed Impressions: Service Date/Time: Tuesday, December 27, 2016 14:00 - CONCLUSION: Several nonspecific right axillary lymph nodes are demonstrated. Will Rankin MD Objective Remarks head incision- dry and no erythema awake and alert, oriented x 3 , interactive neck - trach scar clean no rales, no wheezes S/P mastectomy right- VONNIE bulb in place regular rhythm + PEG in place, good bowel sounds extremities no edema moves all extremities spontaneously west[place]- grossly clear urine moves all extremities equally Procedures 01/12- right modified radical mastectomy A/P Problem List: (1) Subarachnoid hemorrhage ICD Code: I60.9 Status: Chronic (2) Aneurysm ICD Code: I72.9 Status: Acute (3) Breast mass, right ICD Code: N63 Status: Acute Assessment and Plan 51 years old female S/P Right PCOM aneurysm clipping (HH4/F3/SAH). Bleed , clipping 11/22/16. Course complicated by an oral abscess requiring tooth extraction and left submandibular gland removal. Required V-P shunt for hydrocephalus. Tracheostomy 12/12, PEG 12/13. Right autologous cranioplasty and [employer] PATIENTS shunt 12/21. There was a another PCOM aneurysm on the left side on our initial CTA here at [place]. Subarachnoid hemorrhage- neurologically stable/improved - S/P operative clipping of PCOM at [facility] on 11/22/16. - Continue Keppra. - Sp trach and PEG placement. - on mechanical soft. Jevity 1.5 at 45 m/hr.-- dietitian ff. tolerating po as well. HOld TF- ongoing calorie count - consider PEG removal next few days- - Continue trach care- capped since 01/06, trach removed 01/15 - neurosurgery ff - continue PT/OT efforts Brain aneurysms - Head CTA obtained on 11/21/16 show bilateral posterior communicating artery aneurysms. 8 mm on the right side and 7 mm on the left. - S/P Right PCOM aneurysm clipping (HH4/F3/SAH) - Continue with blood pressure control - BP seems to be slightly elevated with a systolic blood pressure in the 150s. - neurosurgery ff- follow up on 7mm aneurysm on the left which seems have not had definitive treatment. Chronic respiratory failure S/P tracheostomy -- removed- 01/15- good sats at room air S/P right radical mastectomy 01/12 - general surgery ff- VONNIE bulb x [address] Klebsiella pneumoniae UTI: S/P antibiotic course- 01/03 HTN- elevated readings- improving- continue to adjust- on Lisinopril 20 mg via PEG daily, 10 mg hs. Increase Lisinopril to 20 mg bid metoprolol- increased to 25 mg po q 8= 01/01 clondine 0.1 mg po tid/GT Vasotec when necessary SBP greater than 160/Clonidine prn GI Prophylaxis: On Bowel regime for prevention of constipation DVT Prophylaxis: heparin sq per neurosurgery speech therapy ff Out of bed to chair bid Skye Goodman MD Jan 16, 2017 13:20
--- NOTE | 2017-01-16 13:50 | HHI.PR ---
Subjective Subjective Notes No complaints. Trach was removed yesterday. Objective Vitals/I&O Vital Signs Date Time Temp Pulse Resp B/P Pulse Ox O2 Delivery O2 Flow Rate FiO2 01/16/17 12:00 98.7 66 18 127/63 100 01/15/17 20:00 Room Air 01/14/17 21:00 3.00 21 Narrative Exam NAD Trach in place, capped. Breathing and speaking comfortably. Bandage right breast in place- skin near incision with epidermolysis/ ecchymosis. JPs without recorded output A/P Assessment and Plan 51 yo F POD 4 s/p mod radical right mastectomy for invasive ductal carcinoma. Trach in place, capped, s/p recent SAH and repaired aneurysm. Cont VONNIE drains. Monitor skin of flaps. Jonny Tineo MD Jan 16, 2017 13:49
[2017-01-16 16:00] VITALS: BP 134/72; PULSE 60; RESP 18; TEMP 97.5; O2SAT 98
[2017-01-16] MEDS: REMOVE OLD NICODERM (NICOTINE) PATCH T-DERMAL SCH (21:00)
[2017-01-16 21:10] VITALS: BP 140/84; PULSE 64; RESP 18; TEMP 98.4; O2SAT 96
[2017-01-17 00:20] VITALS: BP 128/80; PULSE 66; RESP 20; TEMP 98.4; O2SAT 97
[2017-01-17] MEDS: HEPARIN SODIUM - SQ 10,000 UNITS/ML VIAL SQ SCH ×3 (02:21→17:11)
[2017-01-17] MEDS: CHLORHEXIDINE GLUCONATE 2 % 1 PACK (2 CLOTHS) TOP SCH (04:00)
[2017-01-17] MEDS: METOPROLOL TARTRATE 25 MG TAB PO SCH ×3 (05:18→22:04)
[2017-01-17] MEDS: cloNIDine HCL 0.1 MG TAB G-TUBE SCH ×3 (05:18→22:00)
[2017-01-17] MEDS: NYSTATIN 100,000 U/GM PWD 15 GM BTL TOPICAL SCH ×3 (05:22→22:05)
[2017-01-17 05:45] VITALS: BP 131/66; PULSE 61; RESP 18; TEMP 97.3; O2SAT 99
[2017-01-17 08:00] VITALS: BP 123/61; PULSE 77; RESP 18; TEMP 98.2; O2SAT 98
[2017-01-17] MEDS: BENEPROTEIN POWDER 1 PACK G-TUBE SCH ×3 (08:47→17:09)
[2017-01-17] MEDS: LANSOPRAZOLE SOLUTAB 30 MG TAB G-TUBE SCH (08:54)
[2017-01-17] MEDS: LISINOPRIL 20 MG TAB PEG SCH ×2 (08:54→21:00)
[2017-01-17] MEDS: DOCUSATE SODIUM 50 MG/SENNA 8.6 MG TAB PO SCH ×2 (08:54→21:00)
[2017-01-17] MEDS: levETIRAcetam 500 MG/5 ML UDC PEG SCH ×2 (08:55→22:04)
[2017-01-17] MEDS: NICOTINE 14 MG/24 HR PATCH T-DERMAL SCH (08:58)
[2017-01-17] MEDS: oxyCODONE/ACETAMINOPHEN 5 MG/325 MG TAB PO PRN ×3 (09:10→22:04)
[2017-01-17 12:00] VITALS: BP 123/70; PULSE 68; RESP 16; TEMP 97.9; O2SAT 95
--- NOTE | 2017-01-17 13:29 | HHI.PR ---
Subjective Subjective Notes She continues to do well. Objective Vitals/I&O Vital Signs Date Time Temp Pulse Resp B/P Pulse Ox O2 Delivery O2 Flow Rate FiO2 01/17/17 12:00 97.9 68 16 123/70 95 01/15/17 20:00 Room Air 01/14/17 21:00 3.00 21 Narrative Exam NAD Trach in place, capped. Breathing and speaking comfortably. Bandage right breast in place- skin near incision with epidermolysis/ ecchymosis. JPs ss output A/P Assessment and Plan 51 yo F POD 5 s/p mod radical right mastectomy for invasive ductal carcinoma. Path reviewed with , will d/w patient and boyfriend tomorrow. Cont VONNIE drains. Monitor skin of flaps. Jonny Tinoe MD Jan 17, 2017 13:28
--- NOTE | 2017-01-17 14:48 | HHI.PR ---
Subjective Remarks doing very well po solis tolerating regular diet with gusto voiding spontaenously no headaches Objective Vitals Vital Signs Date Time Temp Pulse Resp B/P Pulse Ox O2 Delivery O2 Flow Rate FiO2 01/17/17 12:00 97.9 68 16 123/70 95 01/17/17 08:00 98.2 77 18 123/61 98 01/17/17 05:45 97.3 61 18 131/66 99 01/17/17 00:20 98.4 66 20 128/80 97 01/16/17 21:10 98.4 64 18 140/84 96 01/16/17 16:00 97.5 60 18 134/72 98 I/O 01/16/17 01/16/17 01/16/17 01/17/17 01/17/17 01/17/17 07:00 15:00 23:00 07:00 15:00 23:00 Intake Total 400 ml 100 ml Output Total 40 ml 18 ml Balance 360 ml 100 ml -18 ml Intake Oral 400 ml 100 ml Drainage Total 40 ml 18 ml # Voids 1 3 1 1 # Bowel Movements 1 0 0 Result Diagram: 01/14/17 0702 Imaging Last Impressions Upper Extremity Ultrasound 12/27/16 0000 Signed Impressions: Service Date/Time: Tuesday, December 27, 2016 14:00 - CONCLUSION: Several nonspecific right axillary lymph nodes are demonstrated. Will Rankin MD Objective Remarks head incision- dry and no erythema awake and alert, oriented x 3 , interactive neck - trach scar clean no rales, no wheezes S/P mastectomy right- VONNIE bulb in place- minimal light serosanguinous drainage regular rhythm + PEG in place, good bowel sounds extremities no edema moves all extremities spontaneously moves all extremities equally Procedures 01/12- right modified radical mastectomy A/P Problem List: (1) Subarachnoid hemorrhage ICD Code: I60.9 Status: Chronic (2) Aneurysm ICD Code: I72.9 Status: Acute (3) Breast mass, right ICD Code: N63 Status: Acute Assessment and Plan 51 years old female S/P Right PCOM aneurysm clipping (HH4/F3/SAH). Bleed , clipping 11/22/16. Course complicated by an oral abscess requiring tooth extraction and left submandibular gland removal. Required V-P shunt for hydrocephalus. Tracheostomy 12/12, PEG 12/13. Right autologous cranioplasty and TAPE FASTENER MACHINE OPERATOR shunt 12/21. There was a another PCOM aneurysm on the left side on our initial CTA here at [place]. Subarachnoid hemorrhage- neurologically stable/improved - S/P operative clipping of PCOM at [facility] on 11/22/16. - Continue Keppra. - Sp trach and PEG placement. - on mechanical soft. Jevity 1.5 at 45 m/hr.-- dietitian ff. tolerating po as well. HOld TF- ongoing calorie count till 01/19 - consider PEG removal next few days- - Continue trach care- capped since 01/06, trach removed 01/15 - neurosurgery ff - continue PT/OT efforts Brain aneurysms - Head CTA obtained on 11/21/16 show bilateral posterior communicating artery aneurysms. 8 mm on the right side and 7 mm on the left. - S/P Right PCOM aneurysm clipping (HH4/F3/SAH) - Continue with blood pressure control - BP seems to be slightly elevated with a systolic blood pressure in the 150s. - neurosurgery ff- follow up on 7mm aneurysm on the left which seems have not had definitive treatment. Chronic respiratory failure S/P tracheostomy -- removed- 01/15- good sats at room air S/P right radical mastectomy 01/12- for invasive ductal carcinoma - general surgery ff- VONNIE bulb x [address] - will inform Oncology on this patient's neurologic progress- for further treatment plan Klebsiella pneumoniae UTI: S/P antibiotic course- 01/03 HTN- elevated readings- improving- continue to adjust- on Lisinopril 20 mg via PEG daily, 10 mg hs. Increase Lisinopril to 20 mg bid metoprolol- increased to 25 mg po q 8= 01/01 clondine 0.1 mg po tid Vasotec when necessary SBP greater than 160/Clonidine prn GI Prophylaxis: On Bowel regime for prevention of constipation DVT Prophylaxis: heparin sq per neurosurgery speech therapy ff Out of bed to chair bid Skye Goodman MD Jan 17, 2017 14:48
[2017-01-17 16:00] VITALS: BP 91/55; PULSE 71; RESP 17; TEMP 97.6; O2SAT 96
[2017-01-17 20:40] VITALS: BP 120/63; PULSE 71; RESP 18; TEMP 98.5; O2SAT 98
[2017-01-17] MEDS: REMOVE OLD NICODERM (NICOTINE) PATCH T-DERMAL SCH (22:09)
[2017-01-18] VITALS: BP 118/69; PULSE 69; RESP 19; TEMP 98.1; O2SAT 97
[2017-01-18] MEDS: CHLORHEXIDINE GLUCONATE 2 % 1 PACK (2 CLOTHS) TOP SCH (02:53)
[2017-01-18] MEDS: HEPARIN SODIUM - SQ 10,000 UNITS/ML VIAL SQ SCH ×3 (02:53→17:27)
[2017-01-18 04:15] VITALS: BP 121/65; PULSE 65; RESP 18; TEMP 98.8; O2SAT 98
[2017-01-18] MEDS: oxyCODONE/ACETAMINOPHEN 5 MG/325 MG TAB PO PRN ×5 (04:19→20:53)
[2017-01-18] MEDS: cloNIDine HCL 0.1 MG TAB G-TUBE SCH ×3 (05:47→20:54)
[2017-01-18] MEDS: METOPROLOL TARTRATE 25 MG TAB PO SCH ×3 (05:48→20:54)
[2017-01-18] MEDS: NYSTATIN 100,000 U/GM PWD 15 GM BTL TOPICAL SCH ×3 (05:48→20:56)
[2017-01-18 08:10] VITALS: BP 133/64; PULSE 65; RESP 18; TEMP 98.6; O2SAT 98
[2017-01-18] MEDS: BENEPROTEIN POWDER 1 PACK G-TUBE SCH ×3 (08:26→17:27)
[2017-01-18] MEDS: levETIRAcetam 500 MG/5 ML UDC PEG SCH ×2 (08:26→20:53)
[2017-01-18] MEDS: DOCUSATE SODIUM 50 MG/SENNA 8.6 MG TAB PO SCH ×2 (08:26→20:55)
[2017-01-18] MEDS: NICOTINE 14 MG/24 HR PATCH T-DERMAL SCH (08:27)
[2017-01-18] MEDS: LISINOPRIL 20 MG TAB PEG SCH ×2 (08:27→20:57)
[2017-01-18] MEDS: LANSOPRAZOLE SOLUTAB 30 MG TAB G-TUBE SCH (08:27)
--- NOTE | 2017-01-18 13:29 | HHI.PR ---
Subjective Subjective Notes No complaints. Objective Vitals/I&O Vital Signs Date Time Temp Pulse Resp B/P Pulse Ox O2 Delivery O2 Flow Rate FiO2 01/18/17 08:10 98.6 65 18 133/64 98 01/17/17 21:15 Room Air 01/14/17 21:00 3.00 21 Narrative Exam NAD Bandage right breast in place- skin near incision with epidermolysis/ ecchymosis. JPs ss output A/P Assessment and Plan 51 yo F POD s/p mod radical right mastectomy for invasive ductal carcinoma. Path reviewed with patient and . Cont VONNIE drains. Monitor skin of flaps. Jonny Tineo MD Jan 18, 2017 13:29
[2017-01-18 13:38] VITALS: BP 148/66; PULSE 99; RESP 19; TEMP 97.8; O2SAT 96
--- NOTE | 2017-01-18 13:48 | HHI.PR ---
Subjective Remarks No complaints today. Patient wishes to take a shower. She had a mastectomy performed 6 days ago. Tolerating diet thus far. Objective Vital Signs Date Time Temp Pulse Resp B/P Pulse Ox O2 Delivery O2 Flow Rate FiO2 01/18/17 08:10 98.6 65 18 133/64 98 01/18/17 04:15 98.8 65 18 121/65 98 01/18/17 00:00 98.1 69 19 118/69 97 01/17/17 21:15 Room Air 01/17/17 20:40 98.5 71 18 120/63 98 01/17/17 16:00 97.6 71 17 91/55 96 I/O 01/17/17 01/17/17 01/17/17 01/18/17 01/18/17 01/18/17 06:59 14:59 22:59 06:59 14:59 22:59 Intake Total 100 ml 230 ml 660 ml Output Total 18 ml 43 ml 21 ml Balance 100 ml -18 ml 187 ml 639 ml Intake Oral 100 ml 200 ml 660 ml Tube Irrigant 30 ml Drainage Total 18 ml 43 ml 21 ml # Voids 1 3 1 3 2 # Bowel Movements 0 0 0 Result Diagram: 01/14/17 0702 Objective Remarks GENERAL: NAD, A&Ox3 HEAD: Normocephalic. Incisional scar at scalp NECK: Supple, trachea midline. No lymphadenopathy. EYES: No scleral icterus. No injection or drainage. CARDIOVASCULAR: Regular rate and rhythm without murmurs, gallops, or rubs. RESPIRATORY: Breath sounds equal bilaterally. No accessory muscle use. GASTROINTESTINAL: Abdomen soft, non-tender, nondistended. MUSCULOSKELETAL: No cyanosis, or edema. SKIN: Warm and dry. Dressings of anterior base of neck secondary to tracheostomy and a chest secondary to mastectomy, no signs of erythema at either site. NEURO: No focal neurological deficitis. A/P Problem List: (1) Intraparenchymal hemorrhage of brain ICD Code: I61.9 (2) Subarachnoid hemorrhage ICD Code: I60.9 (3) Breast mass, right ICD Code: N63 (4) Aneurysm ICD Code: I72.9 Assessment and Plan Assessment and Plan 51-year-old female admitted secondary to intracranial hemorrhage on 11/21/16, status post aneurysmal clipping on 11/22/16. WOMEN'S LACROSSE COACH shunt placed for hydrocephalus. She also had a breast mass which was removed 01/12/17. Subarachnoid hemorrhage Right autologous cranioplasty and WOMEN'S LACROSSE COACH shunt 12/21/16 Slow improvements Aneurysm clipping at [facility] on 11/22/16 Tracheostomy placed 12/12/16 secondary to respiratory failure and removed PEG placed 12/13/16 Improving diet, PEG remains in place Will consider PEG removal early next week Continue [facility] Neurosurgery following Continue PT and OT Plan for discharge to inpatient rehabilitation once stable Brain aneurysms Continue blood pressure control Neurosurgery following Aneurysm clipping at [facility] on 11/22/16 S/P right radical mastectomy Mastectomy performed on 01/12/17 for invasive ductal carcinoma Output remains at bulb Surgery following Pathology shows invasive ductal carcinoma Hypertension Lisinopril Metoprolol Clonidine As needed clonidine (additional) As needed Vasotec Intention is to maintain tight control secondary to intracranial hemorrhage and aneurysms Klebsiella pneumoniae UTI Tooth abscess All these infections are Resolved Tooth abscess Treated via tooth removal UTI and Klebsiella pneumonia treated with antibiotics, course completed DVT prophylaxis Heparin Discharge planning Will need inpatient rehabilitation at discharge Shaheed Reza MD Jan 18, 2017 13:47
--- NOTE | 2017-01-18 14:19 | MP ---
cc: LYDIA WESTFALL MD DATE OF SURGERY: 01/12/2017 PREOPERATIVE DIAGNOSIS Right breast mass. POSTOPERATIVE DIAGNOSIS Invasive right breast cancer. PROCEDURE 1. Incisional biopsy right breast mass. 2. Modified radical right mastectomy SURGEON Lydia Westfall CO-SURGEON [place] [employer] Pascale WEN and Kandy MS III ANESTHESIA General endotracheal. COMPLICATIONS None apparent. SPECIMENS Frozen section right breast mass biopsy. Permanent section right breast and axillary contents. INDICATIONS This is a 51-year-old female who in late October suffered from a subarachnoid hemorrhage secondary to ruptured aneurysm and required a craniotomy with aneurysm clipping at [facility]. She was noted to have a right breast mass on CT scan there. Due to the emergent nature of her neurologic condition this was noted but was not treated. On transfer back to [facility] I was consulted for the right breast mass. On exam this was quite clearly breast cancer. I had multiple discussions with the patient and her boyfriend. Dr. Acosta of oncology provided input recommending surgical treatment. Dr. Young of neurosurgery felt that the patient had a high likelihood for good recovery neurologically and agreed with the recommendation to proceed with surgery for the breast mass. Finally after multiple discussions we did opt to proceed to the operating room for planned modified right radical mastectomy after a breast biopsy to confirm the tissue diagnosis. In addition, the patient had a probable axillary node and also on ultrasound multiple nodes visualized, the largest was 2.2 x 1.3 cm. PROCEDURE IN DETAIL The patient was taken to the operating room and placed in supine position. General anesthesia was induced via the tracheostomy tube. The right chest and axilla were prepped and draped in usual sterile fashion and a surgical timeout was performed to verify correct patient, procedure and site. She was administered appropriate preoperative antibiotics. Overlying the palpable mass which was in the 12 o'clock position approximately 3 cm from the nipple an incision was made and an incisional biopsy was performed. This was sent for frozen section and the incision was closed with a running locking 3-0 nylon suture. Frozen section returned as invasive cancer and therefore we proceeded with the planned operation. A skin incision was made encompassing the nipple-areolar complex and the previous incision and mass. It was oriented generally transverse across the breast. Flaps were raised in the avascular plane between the subcutaneous tissue and breast tissue initially superiorly to the clavicle and the sternal medially. Next, the breast tissue and underlying pectoralis fascia was excised from the pectoralis major muscle from medial to lateral using electrocautery. After the majority of the breast had been elevated off the pectoralis major muscle the inferior flap was completed down to the inframammary fold. At the lateral border of the pectoralis major muscle the right breast tissue was swung laterally and dissection progressed under the muscle. The axillary tail was fully dissected free from superolaterally. The clavipectoral fascia was incised alongside the pectoralis major muscle. The breast was again brought medially and the axillary vein identified in the superior portion of the axilla and laterally. The vein was followed medially an axillary vein branch was noted and divided with the Harmonic scalpel. Deep to this branch the thoracodorsal bundle was identified and preserved. The long thoracic nerve was then also identified along the edge of the latissimus dorsi on the chest wall and preserved. Mel tissue between the nerves was removed with the mel specimen. The specimen consisting of breast and attached mel tissue was excised and divided and sent for permanent pathology. The axillary dissection included from the chest wall to the lateral border of the latissimus dorsi and up to axillary vein as specified. There was appropriate hemostasis in the operative field. Two closed suction drains were placed through separate stab incisions. One was placed in the axilla and one along the inferior portion of the mastectomy site. The incision was then closed with deep dermal 3-0 Vicryl sutures in an interrupted fashion. Skin was closed with 4-0 subcuticular Monocryl. Sterile dressing was applied. The patient tolerated the procedure well, was extubated and taken to PACU in stable condition. Lydia Westfall MD JPRaudel/BT /12:13 PM /1:52 PM
[2017-01-18 15:56] VITALS: BP 107/65; PULSE 67; RESP 16; TEMP 98.4; O2SAT 96
[2017-01-18] MEDS: REMOVE OLD NICODERM (NICOTINE) PATCH T-DERMAL SCH (20:54)
[2017-01-18 21:07] VITALS: BP 122/69; PULSE 76; RESP 20; TEMP 98.1; O2SAT 96
[2017-01-19 01:02] VITALS: BP 125/67; PULSE 64; RESP 20; TEMP 97.8; O2SAT 98
[2017-01-19] MEDS: oxyCODONE/ACETAMINOPHEN 5 MG/325 MG TAB PO PRN ×3 (02:52→22:16)
[2017-01-19] MEDS: HEPARIN SODIUM - SQ 10,000 UNITS/ML VIAL SQ SCH ×3 (02:52→16:29)
[2017-01-19] MEDS: CHLORHEXIDINE GLUCONATE 2 % 1 PACK (2 CLOTHS) TOP SCH (04:00)
[2017-01-19 05:51] VITALS: BP 120/59; PULSE 68; RESP 20; TEMP 98.2; O2SAT 97
[2017-01-19] MEDS: NYSTATIN 100,000 U/GM PWD 15 GM BTL TOPICAL SCH ×3 (06:00→22:00)
[2017-01-19] MEDS: cloNIDine HCL 0.1 MG TAB G-TUBE SCH ×3 (06:34→22:14)
[2017-01-19] MEDS: METOPROLOL TARTRATE 25 MG TAB PO SCH ×3 (06:34→22:14)
[2017-01-19] MEDS: BENEPROTEIN POWDER 1 PACK G-TUBE SCH ×3 (08:19→15:50)
[2017-01-19] MEDS: DOCUSATE SODIUM 50 MG/SENNA 8.6 MG TAB PO SCH ×2 (08:19→21:00)
[2017-01-19] MEDS: levETIRAcetam 500 MG/5 ML UDC PEG SCH ×2 (08:20→22:13)
[2017-01-19] MEDS: LISINOPRIL 20 MG TAB PEG SCH ×2 (08:20→22:14)
[2017-01-19] MEDS: LANSOPRAZOLE SOLUTAB 30 MG TAB G-TUBE SCH (08:20)
[2017-01-19] MEDS: NICOTINE 14 MG/24 HR PATCH T-DERMAL SCH (08:21)
[2017-01-19 08:37] VITALS: BP 114/61; PULSE 57; RESP 16; TEMP 98.2; O2SAT 96
--- NOTE | 2017-01-19 08:48 | HHI.PR ---
Subjective Subjective Notes No complaints. Objective Vitals/I&O Vital Signs Date Time Temp Pulse Resp B/P Pulse Ox O2 Delivery O2 Flow Rate FiO2 01/19/17 08:37 98.2 57 16 114/61 96 01/19/17 03:31 Room Air Narrative Exam NAD Bandage right breast in place- skin near incision with epidermolysis/ ecchymosis. JPs ss output A/P Assessment and Plan 51 yo F POD s/p mod radical right mastectomy for invasive ductal carcinoma. Cont VONNIE drains. Monitor skin of flaps. Place bacitracin daily. NomanJonny MD Jan 19, 2017 08:48
[2017-01-19] MEDS: BACITRACIN TOP OINT 15 GM TUBE TOPICAL SCH ×2 (09:00→21:00)
--- NOTE | 2017-01-19 09:47 | HHI.PR ---
Subjective Remarks Difficulty sleeping last night, reported by the patient. No complaints of nausea. She is trying to take oral intake and doing well thus far. Objective Vital Signs Date Time Temp Pulse Resp B/P Pulse Ox O2 Delivery O2 Flow Rate FiO2 01/19/17 08:37 98.2 57 16 114/61 96 01/19/17 05:51 98.2 68 20 120/59 97 01/19/17 03:31 Room Air 01/19/17 01:02 97.8 64 20 125/67 98 01/18/17 21:07 98.1 76 20 122/69 96 01/18/17 15:56 98.4 67 16 107/65 96 01/18/17 13:38 97.8 99 19 148/66 96 I/O 01/18/17 01/18/17 01/18/17 01/19/17 01/19/17 01/19/17 07:00 15:00 23:00 07:00 15:00 23:00 Intake Total 660 ml 60 ml Output Total 21 ml 100 ml 40 ml Balance 639 ml -40 ml -40 ml Intake Oral 660 ml Other 60 ml Drainage Total 21 ml 100 ml 40 ml # Voids 3 2 3 # Bowel Movements 0 2 Objective Remarks GENERAL: NAD, A&Ox3 HEAD: Normocephalic. Incisional scar at scalp NECK: Supple, trachea midline. No lymphadenopathy. EYES: No scleral icterus. No injection or drainage. CARDIOVASCULAR: Regular rate and rhythm without murmurs, gallops, or rubs. RESPIRATORY: Breath sounds equal bilaterally. No accessory muscle use. GASTROINTESTINAL: Abdomen soft, non-tender, nondistended. MUSCULOSKELETAL: No cyanosis, or edema. SKIN: Warm and dry. Dressings of anterior base of neck secondary to tracheostomy and a chest secondary to mastectomy, no signs of erythema at either site. NEURO: No focal neurological deficitis. A/P Problem List: (1) Intraparenchymal hemorrhage of brain ICD Code: I61.9 (2) Subarachnoid hemorrhage ICD Code: I60.9 (3) Breast mass, right ICD Code: N63 (4) Aneurysm ICD Code: I72.9 Assessment and Plan Assessment and Plan 51-year-old female admitted secondary to intracranial hemorrhage on 11/21/16, status post aneurysmal clipping on 11/22/16. S3B MULTI SENSOR OPERATOR shunt placed for hydrocephalus. She also had a breast mass which was removed 01/12/17. Start and as needed trazodone nightly for any insomnia. Tentative plan for transfer to an inpatient rehabilitation facility potentially in 4 days. Follow neurological status, no recent seizures. Subarachnoid hemorrhage Right autologous cranioplasty and S3B MULTI SENSOR OPERATOR shunt 12/21/16 Slow improvements Aneurysm clipping at [facility] on 11/22/16 Tracheostomy placed 12/12/16 secondary to respiratory failure and removed PEG placed 12/13/16 Improving diet, PEG remains in place Will consider PEG removal early next week Continue [facility] following Continue PT and OT Plan for discharge to inpatient rehabilitation once stable Brain aneurysms Continue blood pressure control Neurosurgery following Aneurysm clipping at [facility] on 11/22/16 S/P right radical mastectomy Mastectomy performed on 01/12/17 for invasive ductal carcinoma Output remains at bulb Surgery following Pathology shows invasive ductal carcinoma Hypertension Lisinopril Metoprolol Clonidine As needed clonidine (additional) As needed Vasotec Intention is to maintain tight control secondary to intracranial hemorrhage and aneurysms Klebsiella pneumoniae UTI Tooth abscess All these infections are Resolved Tooth abscess Treated via tooth removal UTI and Klebsiella pneumonia treated with antibiotics, course completed DVT prophylaxis Heparin Discharge planning Will need inpatient rehabilitation at discharge Shaheed Reza MD Jan 19, 2017 09:46
--- NOTE | 2017-01-19 12:07 | HHI.PR ---
Subjective Remarks no SOB Tracheostomy ok Objective Vital Signs Date Time Temp Pulse Resp B/P Pulse Ox O2 Delivery O2 Flow Rate FiO2 01/19/17 08:37 98.2 57 16 114/61 96 01/19/17 05:51 98.2 68 20 120/59 97 01/19/17 03:31 Room Air 01/19/17 01:02 97.8 64 20 125/67 98 01/18/17 21:07 98.1 76 20 122/69 96 01/18/17 15:56 98.4 67 16 107/65 96 01/18/17 13:38 97.8 99 19 148/66 96 I/O 01/18/17 01/18/17 01/18/17 01/19/17 01/19/17 01/19/17 07:00 15:00 23:00 07:00 15:00 23:00 Intake Total 660 ml 60 ml Output Total 21 ml 100 ml 40 ml Balance 639 ml -40 ml -40 ml Intake Oral 660 ml Other 60 ml Drainage Total 21 ml 100 ml 40 ml # Voids 3 2 3 1 # Bowel Movements 0 2 1 Objective Remarks GENERAL: SKIN: Warm and dry. HEAD: Atraumatic. Normocephalic. EYES: Pupils equal and round. No scleral icterus. No injection or drainage. ENT: No nasal bleeding or discharge. Mucous membranes pink and moist. NECK: Trachea midline. No JVD. trach. in place CARDIOVASCULAR: Regular rate and rhythm. RESPIRATORY: No accessory muscle use. Clear to auscultation. Breath sounds equal bilaterally. GASTROINTESTINAL: Abdomen soft, non-tender, nondistended. Hepatic and splenic margins not palpable. MUSCULOSKELETAL: Extremities without clubbing, cyanosis, or edema. No obvious deformities. NEUROLOGICAL: Awake and alert. No obvious cranial nerve deficits. Motor grossly within normal limits. Five out of 5 muscle strength in the arms and legs. Normal speech. PSYCHIATRIC: Appropriate mood and affect; insight and judgment normal. Assessment and Plan Assessment and Plan ass: respiratory failure S/P Tracheostomy S/P CVA PLAN O2 as needed pulm toilet PT Ken Rogers MD Jan 19, 2017 12:07
[2017-01-19 12:57] VITALS: BP 115/63; PULSE 62; RESP 16; TEMP 98.2; O2SAT 98
[2017-01-19 15:59] VITALS: BP 90/53; PULSE 65; RESP 16; TEMP 98.4; O2SAT 94
[2017-01-19] MEDS: REMOVE OLD NICODERM (NICOTINE) PATCH T-DERMAL SCH (21:00)
[2017-01-19 21:59] VITALS: BP 139/74; PULSE 65; RESP 18; TEMP 98.6; O2SAT 100
[2017-01-20 02:55] VITALS: BP 140/60; PULSE 69; RESP 18; TEMP 98.7; O2SAT 100
[2017-01-20] MEDS: HEPARIN SODIUM - SQ 10,000 UNITS/ML VIAL SQ SCH ×3 (03:12→17:09)
[2017-01-20] MEDS: CHLORHEXIDINE GLUCONATE 2 % 1 PACK (2 CLOTHS) TOP SCH (03:28)
[2017-01-20 04:59] VITALS: BP 138/60; PULSE 69; RESP 18; TEMP 98.7; O2SAT 100
[2017-01-20] MEDS: cloNIDine HCL 0.1 MG TAB G-TUBE SCH ×4 (06:00→22:35)
[2017-01-20] MEDS: NYSTATIN 100,000 U/GM PWD 15 GM BTL TOPICAL SCH ×3 (06:00→22:00)
[2017-01-20] MEDS: METOPROLOL TARTRATE 25 MG TAB PO SCH ×4 (06:00→22:36)
[2017-01-20 08:08] VITALS: BP 118/60; PULSE 61; RESP 18; TEMP 98.5; O2SAT 97
[2017-01-20] MEDS: LISINOPRIL 20 MG TAB PEG SCH ×2 (09:56→22:35)
[2017-01-20] MEDS: levETIRAcetam 500 MG/5 ML UDC PEG SCH ×2 (09:56→22:36)
[2017-01-20] MEDS: LANSOPRAZOLE SOLUTAB 30 MG TAB G-TUBE SCH (09:56)
[2017-01-20] MEDS: BACITRACIN TOP OINT 15 GM TUBE TOPICAL SCH ×2 (09:57→22:38)
[2017-01-20] MEDS: DOCUSATE SODIUM 50 MG/SENNA 8.6 MG TAB PO SCH ×2 (09:57→21:00)
[2017-01-20] MEDS: BENEPROTEIN POWDER 1 PACK G-TUBE SCH ×3 (09:57→17:09)
[2017-01-20] MEDS: NICOTINE 14 MG/24 HR PATCH T-DERMAL SCH (09:57)
--- NOTE | 2017-01-20 10:04 | HHI.PR ---
Subjective Remarks Improved sleep last night with trazodone. Calorie monitoring in process. Patient has no new complaints. Objective Vital Signs Date Time Temp Pulse Resp B/P Pulse Ox O2 Delivery O2 Flow Rate FiO2 01/20/17 08:08 98.5 61 18 118/60 97 01/20/17 06:09 Room Air 01/20/17 04:59 98.7 69 18 138/60 100 01/20/17 02:55 98.7 69 18 140/60 100 01/19/17 21:59 98.6 65 18 139/74 100 01/19/17 15:59 98.4 65 16 90/53 94 01/19/17 12:57 98.2 62 16 115/63 98 I/O 01/19/17 01/19/17 01/19/17 01/20/17 01/20/17 01/20/17 06:59 14:59 22:59 06:59 14:59 22:59 Intake Total 240 ml 200 ml Output Total 40 ml 45 ml 20 ml Balance -40 ml 195 ml 180 ml Intake Oral 240 ml 200 ml Drainage Total 40 ml 45 ml 20 ml # Voids 3 1 2 2 # Bowel Movements 2 1 1 Objective Remarks GENERAL: NAD, A&Ox3 HEAD: Normocephalic. Incisional scar at scalp NECK: Supple, trachea midline. No lymphadenopathy. EYES: No scleral icterus. No injection or drainage. CARDIOVASCULAR: Regular rate and rhythm without murmurs, gallops, or rubs. RESPIRATORY: Breath sounds equal bilaterally. No accessory muscle use. GASTROINTESTINAL: Abdomen soft, non-tender, nondistended. MUSCULOSKELETAL: No cyanosis, or edema. SKIN: Warm and dry. Dressings of anterior base of neck secondary to tracheostomy and a chest secondary to mastectomy, no signs of erythema at either site. NEURO: No focal neurological deficitis. A/P Problem List: (1) Intraparenchymal hemorrhage of brain ICD Code: I61.9 (2) Subarachnoid hemorrhage ICD Code: I60.9 (3) Breast mass, right ICD Code: N63 (4) Aneurysm ICD Code: I72.9 Assessment and Plan Assessment and Plan 51-year-old female admitted secondary to intracranial hemorrhage on 11/21/16, status post aneurysmal clipping on 11/22/16. BIOMETRICS CONSULTANT shunt placed for hydrocephalus. She also had a breast mass which was removed 01/12/17. Improved sleep with trazodone. Continue trazodone. Obtain CBC and BMP, to evaluate baseline. If calorie count is adequate plan for feeding tube removal on Sunday. Subarachnoid hemorrhage Right autologous cranioplasty and BIOMETRICS CONSULTANT shunt 12/21/16 Slow improvements Aneurysm clipping at [facility] on 11/22/16 Tracheostomy placed 12/12/16 secondary to respiratory failure and removed PEG placed 12/13/16 Improving diet, PEG remains in place Will consider PEG removal early next week Continue [facility] following Continue PT and OT Plan for discharge to inpatient rehabilitation once stable Brain aneurysms Continue blood pressure control Neurosurgery following Aneurysm clipping at [facility] on 11/22/16 S/P right radical mastectomy Mastectomy performed on 01/12/17 for invasive ductal carcinoma Output remains at bulb Surgery following Pathology shows invasive ductal carcinoma Hypertension Lisinopril Metoprolol Clonidine As needed clonidine (additional) As needed Vasotec Intention is to maintain tight control secondary to intracranial hemorrhage and aneurysms Klebsiella pneumoniae UTI Tooth abscess All these infections are Resolved Tooth abscess Treated via tooth removal UTI and Klebsiella pneumonia treated with antibiotics, course completed DVT prophylaxis Heparin Discharge planning Will need inpatient rehabilitation at discharge Shaheed Reza MD Jan 20, 2017 10:04
[2017-01-20 11:45] VITALS: BP 127/61; PULSE 54; RESP 17; TEMP 98.4; O2SAT 95
--- NOTE | 2017-01-20 15:11 | HHI.PR ---
Subjective Remarks 51 YOAA female with CVA,ICH, s/p trach removal Feels better Denies sob Objective Vital Signs Vital Signs Date Time Temp Pulse Resp B/P Pulse Ox O2 Delivery O2 Flow Rate FiO2 01/20/17 11:45 98.4 54 17 127/61 95 01/20/17 08:08 98.5 61 18 118/60 97 01/20/17 06:09 Room Air 01/20/17 04:59 98.7 69 18 138/60 100 01/20/17 02:55 98.7 69 18 140/60 100 01/19/17 21:59 98.6 65 18 139/74 100 01/19/17 15:59 98.4 65 16 90/53 94 I/O 01/19/17 01/19/17 01/19/17 01/20/17 01/20/17 01/20/17 07:00 15:00 23:00 07:00 15:00 23:00 Intake Total 240 ml 200 ml 480 ml Output Total 40 ml 45 ml 20 ml Balance -40 ml 195 ml 180 ml 480 ml Intake Oral 240 ml 200 ml 480 ml Drainage Total 40 ml 45 ml 20 ml # Voids 3 1 2 2 2 # Bowel Movements 2 1 1 Objective Remarks GENERAL: MBMN WF,NAD SKIN: Warm and dry. HEAD: Normocephalic. EYES: No scleral icterus. No injection or drainage. NECK: Supple, trachea midline. No JVD or lymphadenopathy. CARDIOVASCULAR: Regular rate and rhythm without murmurs, gallops, or rubs. RESPIRATORY: Breath sounds equal bilaterally. No accessory muscle use. GASTROINTESTINAL: Abdomen soft, non-tender, nondistended. MUSCULOSKELETAL: No cyanosis, or edema. BACK: Nontender without obvious deformity. No CVA tenderness. A/P Assessment and Plan Resp failure, s/p trach removal HTN CVA PLAN: Stable on RA Monitor BP Encourage po Manuel Campa MD Jan 20, 2017 15:11
[2017-01-20 16:21] VITALS: BP 132/61; PULSE 68; RESP 18; TEMP 98.1; O2SAT 97
[2017-01-20] MEDS: oxyCODONE/ACETAMINOPHEN 5 MG/325 MG TAB PO PRN (17:09)
[2017-01-20] MEDS: REMOVE OLD NICODERM (NICOTINE) PATCH T-DERMAL SCH (21:00)
[2017-01-20 21:13] VITALS: BP 139/72; PULSE 59; RESP 18; TEMP 98.1; O2SAT 100
[2017-01-20] MEDS: traZODone HCL 50 MG TAB PO PRN (22:46)
[2017-01-21 00:47] VITALS: BP 140/65; PULSE 59; RESP 18; TEMP 98.4; O2SAT 100
[2017-01-21] MEDS: HEPARIN SODIUM - SQ 10,000 UNITS/ML VIAL SQ SCH ×3 (02:57→18:13)
[2017-01-21] MEDS: CHLORHEXIDINE GLUCONATE 2 % 1 PACK (2 CLOTHS) TOP SCH (03:05)
[2017-01-21 04:00] VITALS: BP 108/62; PULSE 66; RESP 18; TEMP 98; O2SAT 98
[2017-01-21] MEDS: METOPROLOL TARTRATE 25 MG TAB PO SCH ×3 (06:00→21:48)
[2017-01-21] MEDS: NYSTATIN 100,000 U/GM PWD 15 GM BTL TOPICAL SCH ×3 (06:00→23:04)
[2017-01-21] MEDS: cloNIDine HCL 0.1 MG TAB G-TUBE SCH ×3 (06:00→21:48)
[2017-01-21 07:36] LABS: HEMATOCRIT 28.9 % (35.0-46.0); MEAN CELL VOLUME 93.4 FL (80.0-100.0); MEAN CORPUSCULAR HEMOGLOBIN 30.8 PG (27.0-34.0); PLATELET COUNT 254 TH/MM3 (150-450); RED CELL DISTRIBUTION WIDTH 14.9 % (11.6-17.2); REVIEW FLAG FINAL; WHITE BLOOD COUNT 5.8 TH/MM3 (4.0-11.0)
[2017-01-21 07:57] LABS: BICARBONATE 24.9 MEQ/L (21.0-32.0); POTASSIUM 3.5 MEQ/L (3.5-5.1)
[2017-01-21 08:32] VITALS: BP 131/60; PULSE 58; RESP 18; TEMP 99.2; O2SAT 95
[2017-01-21] MEDS: LANSOPRAZOLE SOLUTAB 30 MG TAB G-TUBE SCH (09:16)
[2017-01-21] MEDS: LISINOPRIL 20 MG TAB PEG SCH ×2 (09:17→21:00)
[2017-01-21] MEDS: DOCUSATE SODIUM 50 MG/SENNA 8.6 MG TAB PO SCH ×2 (09:17→21:00)
[2017-01-21] MEDS: BACITRACIN TOP OINT 15 GM TUBE TOPICAL SCH ×2 (09:18→23:04)
[2017-01-21] MEDS: BENEPROTEIN POWDER 1 PACK G-TUBE SCH ×3 (09:18→18:13)
[2017-01-21] MEDS: NICOTINE 14 MG/24 HR PATCH T-DERMAL SCH (09:18)
[2017-01-21] MEDS: levETIRAcetam 500 MG/5 ML UDC PEG SCH ×2 (09:18→23:04)
--- NOTE | 2017-01-21 11:20 | HHI.PR ---
Subjective Remarks By mouth intake is adequate at this point. Plan for removal of feeding tube tomorrow. Tentative discharge to inpatient rehabilitation in 2-3 days. Objective Vital Signs Date Time Temp Pulse Resp B/P Pulse Ox O2 Delivery O2 Flow Rate FiO2 01/21/17 08:32 99.2 58 18 131/60 95 01/21/17 04:00 98.0 66 18 108/62 98 01/21/17 00:47 98.4 59 18 140/65 100 01/20/17 21:13 98.1 59 18 139/72 100 01/20/17 16:21 98.1 68 18 132/61 97 01/20/17 11:45 98.4 54 17 127/61 95 I/O 01/20/17 01/20/17 01/20/17 01/21/17 01/21/17 01/21/17 06:59 14:59 22:59 06:59 14:59 22:59 Intake Total 200 ml 480 ml Output Total 20 ml 36 ml Balance 180 ml 480 ml -36 ml Intake Oral 200 ml 480 ml Drainage Total 20 ml 36 ml # Voids 2 2 1 Result Diagram: 01/21/17 0702 01/21/17 0702 Objective Remarks GENERAL: NAD, A&Ox3 HEAD: Normocephalic. Incisional scar at scalp NECK: Supple, trachea midline. No lymphadenopathy. EYES: No scleral icterus. No injection or drainage. CARDIOVASCULAR: Regular rate and rhythm without murmurs, gallops, or rubs. RESPIRATORY: Breath sounds equal bilaterally. No accessory muscle use. GASTROINTESTINAL: Abdomen soft, non-tender, nondistended. MUSCULOSKELETAL: No cyanosis, or edema. SKIN: Warm and dry. Dressings of anterior base of neck secondary to tracheostomy and a chest secondary to mastectomy, no signs of erythema at either site. NEURO: No focal neurological deficitis. A/P Problem List: (1) Intraparenchymal hemorrhage of brain ICD Code: I61.9 (2) Subarachnoid hemorrhage ICD Code: I60.9 (3) Breast mass, right ICD Code: N63 (4) Aneurysm ICD Code: I72.9 Assessment and Plan Assessment and Plan 51-year-old female admitted secondary to intracranial hemorrhage on 11/21/16, status post aneurysmal clipping on 11/22/16. SPARERIBS TRIMMER shunt placed for hydrocephalus. She also had a breast mass which was removed 01/12/17. Continue by mouth intake. CBC and BMP are stable without signs of electrolyte disturbance, blood loss, or infection. No further need for CBC and BMP monitoring. Plan for feeding tube removal tomorrow. Subarachnoid hemorrhage Right autologous cranioplasty and SPARERIBS TRIMMER shunt 12/21/16 Slow improvements Aneurysm clipping at [facility] on 11/22/16 Tracheostomy placed 12/12/16 secondary to respiratory failure and removed PEG placed 12/13/16 Improving diet, PEG remains in place Will consider PEG removal early next week Continue [facility] following Continue PT and OT Plan for discharge to inpatient rehabilitation once stable Brain aneurysms Continue blood pressure control Neurosurgery following Aneurysm clipping at [facility] on 11/22/16 S/P right radical mastectomy Mastectomy performed on 01/12/17 for invasive ductal carcinoma Output remains at bulb Surgery following Pathology shows invasive ductal carcinoma Hypertension Lisinopril Metoprolol Clonidine As needed clonidine (additional) As needed Vasotec Intention is to maintain tight control secondary to intracranial hemorrhage and aneurysms Klebsiella pneumoniae UTI Tooth abscess All these infections are Resolved Tooth abscess Treated via tooth removal UTI and Klebsiella pneumonia treated with antibiotics, course completed DVT prophylaxis Heparin Discharge planning Will need inpatient rehabilitation at discharge Shaheed Reza MD Jan 21, 2017 11:20
[2017-01-21 12:15] VITALS: BP 119/56; PULSE 74; RESP 18; TEMP 98.2; O2SAT 94
[2017-01-21] MEDS: oxyCODONE/ACETAMINOPHEN 5 MG/325 MG TAB PO PRN (13:38)
--- NOTE | 2017-01-21 15:49 | HHI.PR ---
Subjective Remarks 51 YOAA female with CVA,ICH, s/p trach removal Feels better Denies sob Family at BS Objective Vital Signs Vital Signs Date Time Temp Pulse Resp B/P Pulse Ox O2 Delivery O2 Flow Rate FiO2 01/21/17 12:15 98.2 74 18 119/56 94 01/21/17 08:32 99.2 58 18 131/60 95 01/21/17 04:00 98.0 66 18 108/62 98 01/21/17 00:47 98.4 59 18 140/65 100 01/20/17 21:13 98.1 59 18 139/72 100 01/20/17 16:21 98.1 68 18 132/61 97 I/O 01/20/17 01/20/17 01/20/17 01/21/17 01/21/17 01/21/17 07:00 15:00 23:00 07:00 15:00 23:00 Intake Total 200 ml 480 ml Output Total 20 ml 36 ml 1 ml Balance 180 ml 480 ml -36 ml -1 ml Intake Oral 200 ml 480 ml Output Urine Total 1 ml Drainage Total 20 ml 36 ml # Voids 2 2 1 Result Diagram: 01/21/17 0702 01/21/17 0702 Objective Remarks GENERAL: MBMN WF,NAD SKIN: Warm and dry. HEAD: Normocephalic. EYES: No scleral icterus. No injection or drainage. NECK: Supple, trachea midline. No JVD or lymphadenopathy. CARDIOVASCULAR: Regular rate and rhythm without murmurs, gallops, or rubs. RESPIRATORY: Breath sounds equal bilaterally. No accessory muscle use. GASTROINTESTINAL: Abdomen soft, non-tender, nondistended. MUSCULOSKELETAL: No cyanosis, or edema. BACK: Nontender without obvious deformity. No CVA tenderness. A/P Assessment and Plan Resp failure, s/p trach removal HTN CVA PLAN: Stable on RA Monitor BP Encourage po Dr.Wahba ross FU in AM Manuel Campa MD Jan 21, 2017 15:49
[2017-01-21 16:23] VITALS: BP 136/70; PULSE 58; RESP 18; TEMP 98.1; O2SAT 98
[2017-01-21 20:00] VITALS: BP 106/68; PULSE 75; RESP 18; TEMP 98.4; O2SAT 94
[2017-01-21] MEDS: traZODone HCL 50 MG TAB PO PRN (23:03)
[2017-01-21] MEDS: REMOVE OLD NICODERM (NICOTINE) PATCH T-DERMAL SCH (23:05)
[2017-01-22] VITALS: BP 104/67; PULSE 72; RESP 18; TEMP 98.6; O2SAT 95
[2017-01-22] MEDS: HEPARIN SODIUM - SQ 10,000 UNITS/ML VIAL SQ SCH ×3 (03:13→17:19)
[2017-01-22 04:00] VITALS: BP 159/70; PULSE 82; RESP 18; TEMP 98.5; O2SAT 95
[2017-01-22] MEDS: CHLORHEXIDINE GLUCONATE 2 % 1 PACK (2 CLOTHS) TOP SCH (04:00)
[2017-01-22] MEDS: METOPROLOL TARTRATE 25 MG TAB PO SCH ×3 (06:25→22:50)
[2017-01-22] MEDS: cloNIDine HCL 0.1 MG TAB G-TUBE SCH ×2 (06:25→13:41)
[2017-01-22] MEDS: NYSTATIN 100,000 U/GM PWD 15 GM BTL TOPICAL SCH ×3 (06:25→22:52)
[2017-01-22 08:00] VITALS: BP 113/67; PULSE 62; RESP 19; TEMP 98.1; O2SAT 95
[2017-01-22] MEDS: BENEPROTEIN POWDER 1 PACK G-TUBE SCH ×3 (09:00→17:13)
[2017-01-22] MEDS: DOCUSATE SODIUM 50 MG/SENNA 8.6 MG TAB PO SCH ×2 (09:00→21:00)
[2017-01-22] MEDS: LANSOPRAZOLE SOLUTAB 30 MG TAB G-TUBE SCH (09:08)
[2017-01-22] MEDS: LISINOPRIL 20 MG TAB PEG SCH ×2 (09:11→22:50)
[2017-01-22] MEDS: levETIRAcetam 500 MG/5 ML UDC PEG SCH ×2 (09:12→22:50)
[2017-01-22] MEDS: BACITRACIN TOP OINT 15 GM TUBE TOPICAL SCH ×2 (09:13→22:52)
[2017-01-22] MEDS: NICOTINE 14 MG/24 HR PATCH T-DERMAL SCH (09:16)
[2017-01-22 12:00] VITALS: BP 141/73; PULSE 61; RESP 19; TEMP 97.1; O2SAT 97
--- NOTE | 2017-01-22 13:03 | HHI.PR ---
Subjective Subjective Notes Just got back from a walk. No complaints. Wants to take a shower. Objective Vitals/I&O Vital Signs Date Time Temp Pulse Resp B/P Pulse Ox O2 Delivery O2 Flow Rate FiO2 01/22/17 12:00 97.1 61 19 141/73 97 01/21/17 20:00 Room Air Narrative Exam NAD Bandage right breast in place- skin near incision with epidermolysis/ ecchymosis. JPs ss output- low output on #2 A/P Assessment and Plan 51 yo F POD s/p mod radical right mastectomy for invasive ductal carcinoma. D/c VONNIE # 2. Monitor skin of flaps. Place bacitracin daily. Ok for transfer to rehab from my standpoint. Noman,Jonny BERRIOS Jan 22, 2017 13:03
--- NOTE | 2017-01-22 13:23 | HHI.PR ---
Subjective Remarks Physical abilities continued to improve. She has good by mouth intake over the past week. Plan for removal of feeding tube. Objective Vital Signs Date Time Temp Pulse Resp B/P Pulse Ox O2 Delivery O2 Flow Rate FiO2 01/22/17 12:00 97.1 61 19 141/73 97 01/22/17 08:00 98.1 62 19 113/67 95 01/22/17 04:00 98.5 82 18 159/70 95 01/22/17 00:00 98.6 72 18 104/67 95 01/21/17 20:00 98.4 75 18 106/68 94 01/21/17 20:00 Room Air 01/21/17 16:23 98.1 58 18 136/70 98 I/O 01/21/17 01/21/17 01/21/17 01/22/17 01/22/17 01/22/17 07:00 15:00 23:00 07:00 15:00 23:00 Intake Total 60 ml Output Total 1 ml 43 ml 12 ml Balance -1 ml 17 ml -12 ml Intake Oral 60 ml Output Urine Total 1 ml Drainage Total 43 ml 12 ml # Voids 1 Result Diagram: 01/21/17 0702 01/21/17 0702 Objective Remarks GENERAL: NAD, A&Ox3 HEAD: Normocephalic. Incisional scar at scalp NECK: Supple, trachea midline. No lymphadenopathy. EYES: No scleral icterus. No injection or drainage. CARDIOVASCULAR: Regular rate and rhythm without murmurs, gallops, or rubs. RESPIRATORY: Breath sounds equal bilaterally. No accessory muscle use. GASTROINTESTINAL: Abdomen soft, non-tender, nondistended. MUSCULOSKELETAL: No cyanosis, or edema. SKIN: Warm and dry. Dressings of anterior base of neck secondary to tracheostomy and a chest secondary to mastectomy, no signs of erythema at either site. NEURO: No focal neurological deficitis. A/P Problem List: (1) Intraparenchymal hemorrhage of brain ICD Code: I61.9 (2) Subarachnoid hemorrhage ICD Code: I60.9 (3) Breast mass, right ICD Code: N63 (4) Aneurysm ICD Code: I72.9 Assessment and Plan Assessment and Plan 51-year-old female admitted secondary to intracranial hemorrhage on 11/21/16, status post aneurysmal clipping on 11/22/16. AUTOMOBILE WASHER STEAM shunt placed for hydrocephalus. She also had a breast mass which was removed 01/12/17. Continue by mouth intake. CBC and BMP are stable without signs of electrolyte disturbance, blood loss, or infection. No further need for CBC and BMP monitoring. Plan for feeding tube removal today. Subarachnoid hemorrhage Right autologous cranioplasty and AUTOMOBILE WASHER STEAM shunt 12/21/16 Slow improvements Aneurysm clipping at [facility] on 11/22/16 Tracheostomy placed 12/12/16 secondary to respiratory failure and removed PEG placed 12/13/16 Improving diet, PEG remains in place Will consider PEG removal early next week Continue [facility] following Continue PT and OT Plan for discharge to inpatient rehabilitation once stable Brain aneurysms Continue blood pressure control Neurosurgery following Aneurysm clipping at [facility] on 11/22/16 S/P right radical mastectomy Mastectomy performed on 01/12/17 for invasive ductal carcinoma Output remains at bulb Surgery following Pathology shows invasive ductal carcinoma Hypertension Lisinopril Metoprolol Clonidine As needed clonidine (additional) As needed Vasotec Intention is to maintain tight control secondary to intracranial hemorrhage and aneurysms Klebsiella pneumoniae UTI Tooth abscess All these infections are Resolved Tooth abscess Treated via tooth removal UTI and Klebsiella pneumonia treated with antibiotics, course completed DVT prophylaxis Heparin Discharge planning Will need inpatient rehabilitation at discharge Shaheed Reza MD Jan 22, 2017 13:23
[2017-01-22 16:00] VITALS: BP 149/78; PULSE 74; RESP 18; TEMP 98.5; O2SAT 97
--- NOTE | 2017-01-22 16:55 | HHI.PR ---
Subjective Remarks no SOB Tracheostomy ok Objective Vital Signs Date Time Temp Pulse Resp B/P Pulse Ox O2 Delivery O2 Flow Rate FiO2 01/22/17 12:00 97.1 61 19 141/73 97 01/22/17 08:00 98.1 62 19 113/67 95 01/22/17 04:00 98.5 82 18 159/70 95 01/22/17 00:00 98.6 72 18 104/67 95 01/21/17 20:00 98.4 75 18 106/68 94 01/21/17 20:00 Room Air I/O 01/21/17 01/21/17 01/21/17 01/22/17 01/22/17 01/22/17 06:59 14:59 22:59 06:59 14:59 22:59 Intake Total 60 ml Output Total 1 ml 43 ml 12 ml Balance -1 ml 17 ml -12 ml Intake Oral 60 ml Output Urine Total 1 ml Drainage Total 43 ml 12 ml # Voids 1 Result Diagram: 01/21/17 0702 01/21/17 0702 Objective Remarks GENERAL: SKIN: Warm and dry. HEAD: Atraumatic. Normocephalic. EYES: Pupils equal and round. No scleral icterus. No injection or drainage. ENT: No nasal bleeding or discharge. Mucous membranes pink and moist. NECK: Trachea midline. No JVD. trach. in place CARDIOVASCULAR: Regular rate and rhythm. RESPIRATORY: No accessory muscle use. Clear to auscultation. Breath sounds equal bilaterally. GASTROINTESTINAL: Abdomen soft, non-tender, nondistended. Hepatic and splenic margins not palpable. MUSCULOSKELETAL: Extremities without clubbing, cyanosis, or edema. No obvious deformities. NEUROLOGICAL: Awake and alert. No obvious cranial nerve deficits. Motor grossly within normal limits. Five out of 5 muscle strength in the arms and legs. Normal speech. PSYCHIATRIC: Appropriate mood and affect; insight and judgment normal. Assessment and Plan Assessment and Plan ass: respiratory failure S/P Tracheostomy S/P CVA PLAN O2 as needed pulm toilet PT Ken Rogers MD Jan 22, 2017 16:55
[2017-01-22] MEDS: oxyCODONE/ACETAMINOPHEN 5 MG/325 MG TAB PO PRN (18:01)
[2017-01-22 20:00] VITALS: BP 118/74; PULSE 77; RESP 20; TEMP 98.1; O2SAT 98
[2017-01-22] MEDS ORDERED: TEMAZEPAM 15 MG CAP PO ONE (22:15)
[2017-01-22] MEDS: REMOVE OLD NICODERM (NICOTINE) PATCH T-DERMAL SCH (22:51)
[2017-01-23] VITALS (7 sets, daily range): BP systolic 113–166; BP diastolic 62–84; PULSE 56–72; RESP 16–20; TEMP 97.6–98.7; O2SAT 93–98
[2017-01-23] MEDS: cloNIDine HCL 0.1 MG TAB G-TUBE SCH ×2 (01:29→05:30)
[2017-01-23] MEDS: HEPARIN SODIUM - SQ 10,000 UNITS/ML VIAL SQ SCH ×3 (01:32→18:09)
[2017-01-23] MEDS: CHLORHEXIDINE GLUCONATE 2 % 1 PACK (2 CLOTHS) TOP SCH (04:00)
[2017-01-23] MEDS: METOPROLOL TARTRATE 25 MG TAB PO SCH ×3 (05:29→23:10)
[2017-01-23] MEDS: NYSTATIN 100,000 U/GM PWD 15 GM BTL TOPICAL SCH ×2 (05:30→15:05)
[2017-01-23] MEDS: DOCUSATE SODIUM 50 MG/SENNA 8.6 MG TAB PO SCH ×2 (09:00→21:00)
[2017-01-23] MEDS: BENEPROTEIN POWDER 1 PACK G-TUBE SCH ×3 (09:00→17:49)
--- NOTE | 2017-01-23 10:05 | RADRPT ---
EXAM DATE/TIME: 01/23/2017 00:00 [place] COMPARISON: No previous studies available for comparison. INDICATIONS : TRAUMA TUBE REMOVAL MEDICAL HISTORY : SURGICAL HISTORY : ENCOUNTER: Initial ACUITY: 2 months PAIN SCORE: 0/10 IMAGE SERIES: None PROCEDURE : 1. Removal of gastrostomy catheter The patient's gastrostomy catheter was removed by RN on the floor. Patient tolerated the procedure we ll. CONCLUSION: 1. Uncomplicated gastrostomy catheter removal. Malcolm Escoto MD on January 23, 2017 at 10:01 Board Certified Radiologist. This report was verified electronically.
[2017-01-23] MEDS: LISINOPRIL 20 MG TAB PO SCH ×2 (10:34→21:20)
[2017-01-23] MEDS: levETIRAcetam 500 MG/5 ML UDC PO SCH ×2 (10:35→21:21)
[2017-01-23] MEDS: NICOTINE 14 MG/24 HR PATCH T-DERMAL SCH (10:36)
[2017-01-23] MEDS: BACITRACIN TOP OINT 15 GM TUBE TOPICAL SCH ×2 (10:37→21:00)
[2017-01-23] MEDS: cloNIDine HCL 0.1 MG TAB PO SCH ×2 (13:39→23:10)
[2017-01-23] MEDS: oxyCODONE/ACETAMINOPHEN 5 MG/325 MG TAB PO PRN (14:53)
--- NOTE | 2017-01-23 16:26 | HHI.PR ---
Subjective Remarks no SOB Tracheostomy site healing well Objective Vital Signs Date Time Temp Pulse Resp B/P Pulse Ox O2 Delivery O2 Flow Rate FiO2 01/23/17 15:35 98.1 62 16 113/62 95 01/23/17 12:12 98.1 62 18 116/69 95 01/23/17 08:17 97.6 56 18 133/66 94 01/23/17 04:00 97.6 60 18 135/71 98 01/23/17 00:00 98.7 68 18 114/70 93 01/22/17 21:15 Room Air 01/22/17 20:00 98.1 77 20 118/74 98 I/O 01/22/17 01/22/17 01/22/17 01/23/17 01/23/17 01/23/17 07:00 15:00 23:00 07:00 15:00 23:00 Output Total 12 ml 10 ml Balance -12 ml -10 ml Drainage Total 12 ml 10 ml # Voids 2 # Bowel Movements 0 Result Diagram: 01/21/17 0701/21/17 07 Objective Remarks GENERAL: SKIN: Warm and dry. HEAD: Atraumatic. Normocephalic. EYES: Pupils equal and round. No scleral icterus. No injection or drainage. ENT: No nasal bleeding or discharge. Mucous membranes pink and moist. NECK: Trachea midline. No JVD. trach. in place CARDIOVASCULAR: Regular rate and rhythm. RESPIRATORY: No accessory muscle use. Clear to auscultation. Breath sounds equal bilaterally. GASTROINTESTINAL: Abdomen soft, non-tender, nondistended. Hepatic and splenic margins not palpable. MUSCULOSKELETAL: Extremities without clubbing, cyanosis, or edema. No obvious deformities. NEUROLOGICAL: Awake and alert. No obvious cranial nerve deficits. Motor grossly within normal limits. Five out of 5 muscle strength in the arms and legs. Normal speech. PSYCHIATRIC: Appropriate mood and affect; insight and judgment normal. Assessment and Plan Assessment and Plan ass: respiratory failure S/P Tracheostomy ,removed S/P CVA PLAN O2 as needed pulm toilet PT Ken Rogers MD Jan 23, 2017 16:26
--- NOTE | 2017-01-23 17:06 | HHI.PR ---
Subjective Remarks denies cp/sob denies fevers/chills denies abdominal pain afebrile - stable vital signs Objective Vitals Vital Signs Date Time Temp Pulse Resp B/P Pulse Ox O2 Delivery O2 Flow Rate FiO2 01/23/17 15:35 98.1 62 16 113/62 95 01/23/17 12:12 98.1 62 18 116/69 95 01/23/17 08:17 97.6 56 18 133/66 94 01/23/17 04:00 97.6 60 18 135/71 98 01/23/17 00:00 98.7 68 18 114/70 93 01/22/17 21:15 Room Air 01/22/17 20:00 98.1 77 20 118/74 98 I/O 01/22/17 01/22/17 01/22/17 01/23/17 01/23/17 01/23/17 07:00 15:00 23:00 07:00 15:00 23:00 Output Total 12 ml 10 ml Balance -12 ml -10 ml Drainage Total 12 ml 10 ml # Voids 2 # Bowel Movements 0 Result Diagram: 01/21/17 0702 01/21/17 0702 Imaging Last Impressions Gastrostomy Tube Removal 01/23/17 0000 Signed Impressions: Service Date/Time: Monday, January 23, 2017 00:00 - CONCLUSION: 1. Uncomplicated gastrostomy catheter removal. Malcolm Escoto MD Upper Extremity Ultrasound 12/27/16 0000 Signed Impressions: Service Date/Time: Tuesday, December 27, 2016 14:00 - CONCLUSION: Several nonspecific right axillary lymph nodes are demonstrated. Will Rankin MD Objective Remarks AAOx3 trach removed still vangie drain in right chest clear lungs BL S1S2 RRR no M, R, G] abdomen, soft, non tender, PEG removal site covered by dressing Procedures 01/12- right modified radical mastectomy Medications and IVs Current Medications Medications (Trade) Dose Ordered Sig/Conor Route Start Time Stop Time Status Last Admin (Tylenol) 650 mg Q6H PRN PO 12/25/16 17:30 01/11/17 12:50 (Zofran Inj) 4 mg Q6H PRN IV 12/25/16 17:30 (Heparin Inj) 5,000 units Q8H SQ 12/25/16 18:00 01/23/17 18:09 Miscellaneous Information 1 Q361D XX 12/25/16 17:30 12/25/16 17:30 (Chlorhexidine 2% Cloth) Taper DAILY@04 TOP 12/26/16 04:00 12/22/17 03:59 12/27/16 04:00 (Chlorhexidine 2% Cloth) 3 pack UNSCH PRN TOP 12/25/16 17:30 (Belen-Colace) 1 tab BID PO 12/25/16 21:00 01/18/17 08:26 (Milk Of Magndavide Liq) 30 ml Q12H PRN PO 12/25/16 17:30 (Dulcolax Supp) 10 mg DAILY PRN RECTAL 12/25/16 17:30 (Beneprotein Powder) 1 pack TID G-TUBE 12/25/16 18:00 01/16/17 09:00 (Mycostatin Powder) 1 applic Q8HR TOPICAL 12/30/16 14:00 01/22/17 22:52 (Vasotec Inj) 1.25 mg Q6H PRN IV PUSH 12/30/16 11:15 01/07/17 04:48 (Pill Splitter) 1 ea UNSCH PRN OTHER 12/31/16 10:30 (Lopressor) 25 mg Q8HR PO 01/01/17 14:00 01/23/17 23:10 (Catapres) 0.1 mg Q6H PRN PO 01/02/17 12:00 01/13/17 18:51 (Habitrol 14 Mg Patch.24 Hr) 1 patch DAILY T-DERMAL 01/09/17 16:45 01/23/17 10:36 Miscellaneous Information 1 HS T-DERMAL 01/09/17 21:00 01/23/17 21:00 (Percocet 5-325 Mg) 1 tab Q4H PRN PO 01/12/17 14:00 01/23/17 14:53 (Dilaudid Pf Inj) 0.2 mg Q3H PRN IV PUSH 01/12/17 14:00 (Baciguent Oint) 1 applic Q12HR TOPICAL 01/19/17 09:00 01/23/17 21:00 (Desyrel) 50 mg HS PRN PO 01/19/17 10:00 01/23/17 21:21 (Keppra Liq) 500 mg Q12HR PO 01/23/17 09:00 01/23/17 21:21 (Prinivil) 20 mg BID PO 01/23/17 09:00 01/23/17 21:20 (Prevacid Odt) 30 mg DAILY PO 01/24/17 09:00 (Catapres) 0.1 mg Q8HR PO 01/23/17 14:00 01/23/17 23:10 Urinary Catheter: No Vascular Central Line Catheter: No A/P Assessment and Plan 51-year-old female admitted secondary to intracranial hemorrhage on 11/21/16, status post aneurysmal clipping on 11/22/16. CLAIM TRAINEE shunt placed for hydrocephalus. She also had a breast mass which was removed 01/12/17. Subarachnoid hemorrhage Right autologous cranioplasty and CLAIM TRAINEE shunt 12/21/16 Slow improvements Aneurysm clipping at [facility] on 11/22/16 Tracheostomy placed 12/12/16 secondary to respiratory failure and removed PEG placed 12/13/16 Continue Keppra Neurosurgery following Continue PT and OT Plan for discharge to inpatient rehabilitation once stable 01/23 sp PEG removal today. Consult rehab medicine. Brain aneurysms Continue blood pressure control Neurosurgery following Aneurysm clipping at [facility] on 11/22/16 S/P right radical mastectomy Mastectomy performed on 01/12/17 for invasive ductal carcinoma Output remains at bulb Surgery following Pathology shows invasive ductal carcinoma Hypertension Lisinopril Metoprolol Clonidine As needed clonidine (additional) As needed Vasotec Intention is to maintain tight control secondary to intracranial hemorrhage and aneurysms Klebsiella pneumoniae UTI Tooth abscess All these infections are Resolved Tooth abscess Treated via tooth removal UTI and Klebsiella pneumonia treated with antibiotics, course completed DVT prophylaxis Heparin Discharge Planning Will Dc patient in am if stable. Mat Hernandez MD Jan 23, 2017 17:06
--- NOTE | 2017-01-23 19:01 | PD.CONS ---
[facility] Service Rehabilitation Medicine Consult Requested By Dr. Bradford Reason for Consult Comprehensive rehabilitation evaluation. Primary Care Physician Unknown History of Present Illness Odalis Marino is a 51 year old right had dominant female initially admitted to [facility] 11/21/16 with severe headache, left sided weakness and possible seizure. Head CT showed large SAH, right temporal/parietal ICH and SDH. CTA showed bilateral p-comm aneurysm 8mm right and 7 mm left. She was transferred to [facility] and underwent p-comm aneurysm clipping 11/22/16. Trach was placed 12/12/16. PEG placed 12/13/16. She subsequently underwent SAP CRM DEVELOPER shunt 12/21/16 due to hydrocephalus. She also required tooth extraction and left submandibular gland removal for oral abscess. She was transferred to [facility] 12/25/16 and noted to have right breast mass. On 01/12/17 she underwent incisional biospy of right breast mass with modified radical mastectomy. Found to have ductal carcinoma. Review of Systems Constitutional: COMPLAINS OF: Fatigue Eyes: DENIES: Diplopia Ears, nose, mouth, throat: DENIES: Throat pain Respiratory: DENIES: Shortness of breath Cardiovascular: DENIES: Chest pain Gastrointestinal: DENIES: Constipation, Diarrhea Genitourinary: DENIES: Urinary incontinence Integumentary: DENIES: Pruritus Hematologic/lymphatic: DENIES: Bruising Immunologic/allergic: DENIES: Urticaria Neurologic: COMPLAINS OF: Poor Balance, DENIES: Headache, Localized weakness, Paresthesias Psychiatric: DENIES: Confusion Past Family Social History Allergies: Coded Allergies: No Known Allergies (Unverified , 11/21/16) Past Medical History HTN Nephrolithiasis Past Surgical History As Above Current Medications Current Medications Medications (Trade) Dose Ordered Sig/Conor Route Start Time Stop Time Status Last Admin (Tylenol) 650 mg Q6H PRN PO 12/25/16 17:30 01/11/17 12:50 (Zofran Inj) 4 mg Q6H PRN IV 12/25/16 17:30 (Heparin Inj) 5,000 units Q8H SQ 12/25/16 18:00 01/23/17 18:09 Miscellaneous Information 1 Q361D XX 12/25/16 17:30 12/25/16 17:30 (Chlorhexidine 2% Cloth) Taper DAILY@04 TOP 12/26/16 04:00 12/22/17 03:59 12/27/16 04:00 (Chlorhexidine 2% Cloth) 3 pack UNSCH PRN TOP 12/25/16 17:30 (Belen-Colace) 1 tab BID PO 12/25/16 21:00 01/18/17 08:26 (Milk Of Magnesia Liq) 30 ml Q12H PRN PO 12/25/16 17:30 (Dulcolax Supp) 10 mg DAILY PRN RECTAL 12/25/16 17:30 (Beneprotein Powder) 1 pack TID G-TUBE 12/25/16 18:00 01/16/17 09:00 (Mycostatin Powder) 1 applic Q8HR TOPICAL 12/30/16 14:00 01/22/17 22:52 (Vasotec Inj) 1.25 mg Q6H PRN IV PUSH 12/30/16 11:15 01/07/17 04:48 (Pill Splitter) 1 ea UNSCH PRN OTHER 12/31/16 10:30 (Lopressor) 25 mg Q8HR PO 01/01/17 14:00 01/23/17 13:38 (Catapres) 0.1 mg Q6H PRN PO 01/02/17 12:00 01/13/17 18:51 (Habitrol 14 Mg Patch.24 Hr) 1 patch DAILY T-DERMAL 01/09/17 16:45 01/23/17 10:36 Miscellaneous Information 1 HS T-DERMAL 01/09/17 21:00 01/22/17 22:51 (Percocet 5-325 Mg) 1 tab Q4H PRN PO 01/12/17 14:00 01/23/17 14:53 (Dilaudid Pf Inj) 0.2 mg Q3H PRN IV PUSH 01/12/17 14:00 (Baciguent Oint) 1 applic Q12HR TOPICAL 01/19/17 09:00 01/23/17 10:37 (Desyrel) 50 mg HS PRN PO 01/19/17 10:00 01/21/17 23:03 (Keppra Liq) 500 mg Q12HR PO 01/23/17 09:00 01/23/17 10:35 (Prinivil) 20 mg BID PO 01/23/17 09:00 01/23/17 10:34 (Prevacid Odt) 30 mg DAILY PO 01/24/17 09:00 (Catapres) 0.1 mg Q8HR PO 01/23/17 14:00 01/23/17 13:39 Family History Noncontributory Social History Prior to admission lived in [place], [place] with and 15 year old son. 1 ppd tobacco Exam I&O / VS 01/22/17 01/22/17 01/23/17 14:59 22:59 06:59 Output Total 10 ml Balance -10 ml Drainage Total 10 ml # Voids 2 # Bowel Movements 0 Vital Signs Date Time Temp Pulse Resp B/P Pulse Ox O2 Delivery O2 Flow Rate FiO2 01/23/17 15:35 98.1 62 16 113/62 95 01/23/17 12:12 98.1 62 18 116/69 95 01/23/17 08:17 97.6 56 18 133/66 94 01/23/17 04:00 97.6 60 18 135/71 98 01/23/17 00:00 98.7 68 18 114/70 93 01/22/17 21:15 Room Air 01/22/17 20:00 98.1 77 20 118/74 98 General: No acute distress Respiratory: Lungs CTA, Non-labored respirations, BS equal Gastrointestinal: Positive Bowel Sounds, Non-Distended, Non-Tender Cardiovascular: Normal rate, Regular Rhythm Skin: Incision (Intact) Musculoskeletal: Swelling (None in distal LE) Psychiatric: Cooperative, Appropriate mood & affect (Affect flat) Orientation: oriented to Self, oriented to Place, oriented to Time, oriented to Situation Neurologic: Cranial Nerves (Intact 2-12), Speech (Clear) Motor: Right Upper Extremity (5/5), Left Upper Extremity (4+/5), Right Lower Extremity (5/5), Left Lower Extremity (5/5) Sensory Intact to light touch both UE and LE DTRs: Normal Babinski: Negative Clonus: Negative Exam Comments 3/3 immediate and delayed recall. Assessment and Plan Diagnosis: (1) Posterior communicating artery aneurysm (2) Subarachnoid hemorrhage (3) Breast mass, right Assessment 1. P-comm aneurysm clip after SAH/ICH 2. SAP CRM DEVELOPER shunt 3. Trach now decannulated 4. PEG S/P removal 5. Right breast mass S/P modified radical mastectomy 6. HTN 7. History of nephrolithiasis Plan 1. Progressing with PT and CG for transfers and gait with fair to fair plus balance 200-500 feet 2. OT addressing ADL's and min assist for LE dressing and toileting 3. ST for cognitive eval and treatment 4. Case management working on discharge planning. Will need to clarify whether patient's sister will be available to assist at discharge in order to provide ongoing inpatient rehabilitation. 5. Careful supervision for fall prevention 6. Will follow while hospitalized and at discharge Thanks for this consult. Vernell Kwok MD Jan 23, 2017 19:01
[2017-01-23] MEDS: REMOVE OLD NICODERM (NICOTINE) PATCH T-DERMAL SCH (21:00)
[2017-01-23] MEDS: traZODone HCL 50 MG TAB PO PRN (21:21)
[2017-01-24] MEDS: cloNIDine HCL 0.1 MG TAB PO PRN (00:23)
[2017-01-24] MEDS: oxyCODONE/ACETAMINOPHEN 5 MG/325 MG TAB PO PRN ×2 (00:23→12:22)
[2017-01-24 00:29] VITALS: BP_SYST 170; BP_DIAS 55; BP_DIAS 88
[2017-01-24] MEDS: HEPARIN SODIUM - SQ 10,000 UNITS/ML VIAL SQ SCH ×3 (01:47→17:23)
[2017-01-24 01:49] VITALS: BP 114/67; PULSE 58
[2017-01-24 04:00] VITALS: BP 120/70; PULSE 60; RESP 20; TEMP 98.5; O2SAT 94
[2017-01-24] MEDS: CHLORHEXIDINE GLUCONATE 2 % 1 PACK (2 CLOTHS) TOP SCH (04:00)
[2017-01-24] MEDS: NYSTATIN 100,000 U/GM PWD 15 GM BTL TOPICAL SCH ×2 (06:00→14:00)
[2017-01-24] MEDS: METOPROLOL TARTRATE 25 MG TAB PO SCH ×2 (06:23→13:58)
[2017-01-24] MEDS: cloNIDine HCL 0.1 MG TAB PO SCH ×2 (06:23→13:58)
[2017-01-24] MEDS: BACITRACIN TOP OINT 15 GM TUBE TOPICAL SCH (07:36)
[2017-01-24 08:08] VITALS: BP 108/58; PULSE 56; RESP 18; TEMP 97.6; O2SAT 96
[2017-01-24] MEDS: NICOTINE 14 MG/24 HR PATCH T-DERMAL SCH (09:00)
[2017-01-24] MEDS: BENEPROTEIN POWDER 1 PACK G-TUBE SCH ×3 (09:00→17:23)
[2017-01-24] MEDS: DOCUSATE SODIUM 50 MG/SENNA 8.6 MG TAB PO SCH (09:00)
[2017-01-24] MEDS ORDERED: LANSOPRAZOLE SOLUTAB 30 MG TAB PO SCH (09:00)
[2017-01-24] MEDS: LISINOPRIL 20 MG TAB PO SCH (09:34)
[2017-01-24] MEDS: levETIRAcetam 500 MG/5 ML UDC PO SCH (09:35)
[2017-01-24 12:00] VITALS: BP 108/55; PULSE 56; RESP 18; TEMP 97.6; O2SAT 96
--- NOTE | 2017-01-24 12:28 | HHI.HCPN ---
Reason for visit a. To assist with evaluation and management of symptoms including: pain b. To assist medical decision maker(s) with: better understanding of current medical conditions; weighing benefits/burdens of medical treatment options; making medical treatment decisions. . Subjective/Interval History Patient is a 51-year-old female who has a past medical history significant for subarachnoid hemorrhage, right breast mass recently discovered [facility], hypertension. Patient post right posterior communicating aneurysm clipping on at [facility]. Her medical course complicated by an oral abscess requiring extraction of a tooth and left submandibular gland. In [facility] she had a POST OFFICE MARKUP CLERK shunt placed. She also had a tracheostomy and a PEG tube placed on and 12/13/2016 respectively. Patient was found to have radiographic evidence of a mass in the right breast. She was transferred back to [place] 2016 for evaluation of right breast mass. Palliative care has been consulted to assist in medical decision-making/goals of care. Patient underwent incisional biopsy of right breast mass followed by modified radical right mastectomy on 01/12/17, no complications reported. 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 Tracheostomy was removed on 01/15/17, PEG tube removed on 01/23/17. Patient seen in her room, she was resting in bed in no acute distress. Alert and oriented x self, place and situation. Verbal, able to communicate needs. Denies shortness of breath, pain, nausea/vomiting or abdominal discomfort. Tolerating regular consistency diet, no swallowing difficulties reported. Patient has been evaluated by rehabilitation medicine on 01/23/17, plan to discharge to acute rehabilitation once bed is available. Patient afebrile, stable hemodynamically, tolerating room air. No new imaging for review. Spoke with patient and Julio at bedside. They both tell me that the decision to proceed with primary mastectomy was to right decision for them, patient is feeling much improved. She verbalized being optimistic about her future, wishing to discharge to rehabilitation for physical straightening. tells me that plan is for acute rehabilitation x 7 days, likely discharge home with home health upon completion. tells me that patient' s sister will be providing assistance once patient is discharged home. Ongoing emotional support and active listening provided to patient and . They were both appreciative of my visit today. . Family/friend interactions See interval note. . Advance Directives Living Will: Never completed Health Care Surrogate: Copy in medical record Durable Power of Accountant Property: Never completed Advance Directive Specifics Date completed: 01/10/17. . Health Care Surrogate(s): Designation of healthcare surrogate completed. Patient designated her Julio Marino as HCS, alternate surrogate is Wanda Bradford (sister) . . Documented care wishes: No living will completed. . Significant change in goals: Goals of care remain unchanged. . Objective Vital Signs Date Time Temp Pulse Resp B/P Pulse Ox O2 Delivery O2 Flow Rate FiO2 01/24/17 08:08 97.6 56 18 108/58 96 01/24/17 04:00 98.5 60 20 120/70 94 01/24/17 01:49 58 114/67 01/24/17 00:54 Room Air 01/24/17 00:29 170/88 01/23/17 23:00 98.1 60 20 166/84 97 01/23/17 20:00 98.0 72 20 118/64 94 01/23/17 15:35 98.1 62 16 113/62 95 01/23/17 12:12 98.1 62 18 116/69 95 Intake & Output 01/24/17 01/24/17 06:59 18:59 Output Total 45 ml Balance -45 ml Drainage Total 45 ml # Voids 2 # Bowel Movements 1 Physical Exam CONSTITUTIONAL/GENERAL: This is an adequately nourished patient, in no apparent distress. TUBES/LINES/DRAINS: PIV, VONNIE drain to right chest. SKIN: No jaundice, rashes, or lesions. Ecchymoses on upper extremities. Skin temperature appropriate. Not diaphoretic. HEAD: Surgical incision to cranium with stitches in place. EYES: No icterus, no drainage or discharge. ENT: Hearing grossly normal. Nose without bleeding or purulent drainage. Moist oral mucosa. NECK: Tracheostomy, trachea midline. CARDIOVASCULAR: Regular rate and rhythm without murmurs, gallops, or rubs. No JVD. Peripheral pulses symmetric. RESPIRATORY/CHEST: Symmetric, unlabored respirations. Clear breath sounds bilaterally. GASTROINTESTINAL: Abdomen soft, non-tender, nondistended. MUSCULOSKELETAL: Extremities without clubbing, cyanosis, or edema. NEUROLOGICAL: Alert to self, place and situation. Verbal, communicating. Following commands. PSYCHIATRIC: Calm, pleasant. . Diagnostic Tests Result Diagram: 01/21/17 0702 01/21/17 0702 Procedures * 11/22/16 -Right PCOM aneurysm clipping * 12/12/16 -tracheostomy * 12/13/16 -PEG tube placement * 12/21/16 -Right autologous cranioplasty and POST OFFICE MARKUP CLERK shunt * 01/12/17 - incisional biopsy of right breast mass, modified radical right mastectomy. * 01/15/17 - tracheostomy decannulation * 01/23/17 - PEG tube removal . Assessment and Plan Disease Oriented Problem List: (1) Breast mass, right Comment: Likely breast cancer with adenopathy s/p modified radical right mastectomy. (2) Intraparenchymal hemorrhage of brain (3) Aneurysm (4) Subarachnoid hemorrhage Symptom Scale: (1) Anxiety 0-10 Scale: 0 (2) Pain 0-10 Scale: 0 Pertinent Non-Medical Issues Psychosocial: Patient is legally but . Residing with , 15-year-old son and boyfriend Gavin. 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 Spiritual: Restorationism david. Legal: No advance directives completed. Ethical issues impacting care: No advance directives completed. . Important Contacts /HCP -Julio Marino . Gavin (boyfriend) -Pending contact information. . Prognosis 51-year-old had a right posterior communicating right aneurysm , s/p clipping , performed at [facility]. Incidental breast mass found, further workup is highly suspicious for breast cancer with lymphadenopathy. Patient status post radical right mastectomy for breast mass, pathology confirmed invasive well- differentiated ductal carcinoma. Patient has continued to show clinical improvement throughout this hospitalization, her tracheostomy and PEG tube has been discontinued. Patient is expected to be discharged to acute rehabilitation for physical strengthening. . Code Status: Full Code Plan * CODE STATUS: FULL code. * MEDICAL DECISION-MAKING: Patient participating in medical decision-making. Designation of healthcare surrogate completed, Pt designated her Julio Marino as HCS, alternate surrogate is Wanda Bradford (sister). * GOALS OF THERAPY: Patient electing to continue current medical management, she wishes to discharge to acute rehabilitation for physical strengthening. Plan to discharge home once rehab has been completed, her sister will be traveling from out of state to assist patient. Family is very supportive of patient's goals of care. Julio has been at the bedside throughout this hospitalization. Palliative care has continued to follow-up for support. * Spoke with patient and Julio at bedside. They both tell me that the decision to proceed with radical rt mastectomy was to right decision for them, patient is feeling much improved. She verbalized being optimistic about her future, wishing to discharge to rehabilitation for physical straightening. tells me that plan is for acute rehabilitation x 7 days, likely discharge home with home health upon completion. * SYMPTOMS: = Pain; secondary to surgical intervention, prolonged hospitalization. Percocet 5/325mg available as needed. Patient feels that current pain management is effective. = Debility, secondary to prolonged hospitalization. Patient participating in PT. Pending discharge acute rehabilitation, has been evaluated by rehabilitation medicine. * Palliative care contact information has been provided to patient and . Ongoing emotional support and active listening provided. Patient and verbalize appreciation for palliative care support throughout this hospitalization. * Palliative care will continue to follow-up as needed for further clarifications of goals of care and provide emotional support as patient's clinical course continue to evolve. . Time Spent Total Floor Time (mins): 39 (Total time to include review medical records, physical exam, goals of care conversation with patient and Julio. ) >50% Counseling/Coord of Care: Yes Attestation To help prompt me to consider important information that might be impacting today's encounter and assessment, information from prior notes written by myself or my colleagues may have been "brought forward" into today's note. My signature on this note, however, is an attestation that I personally performed the exam, history, and/or decision-making noted today, and, unless otherwise indicated, the interactions with patient, family, and staff as well as the review of records all occurred today. I also attest that the listed assessment and stated plan reflect my best clinical judgment today based on the combination of historical information, prior notes, and today's exam/ interactions. When time spent is documented, it refers only to time spent today by the signer, or if indicated, combined time spent today by collaborating physician/nurse practitioner. Roselyn Wilks Jan 24, 2017 12:28
[2017-01-24 16:00] VITALS: BP 137/76; PULSE 55; RESP 18; TEMP 98.1; O2SAT 96
[2017-01-24] MEDS ORDERED: ACET1TAB86 PO (16:59)
[2017-01-24] MEDS ORDERED: NICO14DI23 T-DERMAL (16:59)
[2017-01-24] MEDS ORDERED: LISI-515 PO (16:59)
[2017-01-24] MEDS ORDERED: METO25TA3 PO (16:59)
[2017-01-24] MEDS ORDERED: CLON.1 PO (16:59)
[2017-01-24] MEDS ORDERED: LEVE500 PO (16:59)
[2017-01-24] MEDS ORDERED: SENN1TAB PO (16:59)
--- NOTE | 2017-01-24 17:02 | HHI.DCPOC ---
Discharge Care Plan Diagnosis: (1) Posterior communicating artery aneurysm (2) Anxiety (3) Intraparenchymal hemorrhage of brain (4) Subarachnoid hemorrhage (5) Breast mass, right (6) Invasive ductal carcinoma of breast (7) HTN (hypertension) (8) Klebsiella cystitis Goals to Promote Your Health * To prevent worsening of your condition and complications * To maintain your health at the optimal level Directions to Meet Your Goals Take your medications as prescribed Follow your dietary instruction Follow activity as directed Keep your appointments as scheduled Take your immunizations and boosters as scheduled If your symptoms worsen call your PCP, if no PCP go to Urgent Care Center or Emergency Room Smoking is Dangerous to Your Health. Avoid second hand smoke Call the 24-hour hour crisis hotline for domestic abuse at Mat Hernandez MD Jan 24, 2017 17:02
--- NOTE | 2017-01-24 17:07 | HHI.DS ---
Discharge Summary Admission Date Dec 25, 2016 at 16:14 Discharge Date: Jan 24, 2017 Admitting Diagnosis S/P Right PCOM aneurysm clipping (HH4/F3/SAH). Bleed 11/21/16, clipping . Course complicated by an oral abscess requiring tooth extraction and left submandibular gland removal. Required V-P shunt for hydrocephalus. Tracheostomy 12/12, PEG 12/13. Right autologous cranioplasty and DIGITAL PRESS OPERATOR shunt 12/21. There was a another PCOM aneurysm on the left side on our initial CTA here at [place]. (1) Subarachnoid hemorrhage ICD Code: I60.9 Diagnosis: Principal (2) Aneurysm ICD Code: I72.9 Diagnosis: Principal (3) Breast mass, right ICD Code: N63 Diagnosis: Secondary (4) Intraparenchymal hemorrhage of brain ICD Code: I61.9 (5) CVA (cerebrovascular accident due to intracerebral hemorrhage) ICD Code: I61.9 (6) Invasive ductal carcinoma of breast ICD Code: C50.919 (7) Klebsiella cystitis ICD Code: N30.90 (8) HTN (hypertension) ICD Code: I10 (9) Anxiety ICD Code: F41.9 Procedures 01/12- right modified radical mastectomy Brief History - From Admission Presented with SAH 11/21/16. Transferred to [facility] for clipping 11/22/16. Returned to [place] today. Right breast mass identified at . No workup to date. CBC/BMP: 01/21/17 0702 01/21/17 0702 Imaging Last Impressions Gastrostomy Tube Removal 01/23/17 0000 Signed Impressions: Service Date/Time: Monday, January 23, 2017 00:00 - CONCLUSION: 1. Uncomplicated gastrostomy catheter removal. Malcolm Escoto MD Upper Extremity Ultrasound 12/27/16 0000 Signed Impressions: Service Date/Time: Tuesday, December 27, 2016 14:00 - CONCLUSION: Several nonspecific right axillary lymph nodes are demonstrated. Will Rankin MD PE at Discharge AAOx3 trach removed still vangie drain in right chest clear lungs BL S1S2 RRR no M, R, G] abdomen, soft, non tender, PEG removal site covered by dressing Pt Condition on Discharge: Stable Discharge Disposition: Rehab Inpatient Discharge Time: > 30 minutes Discharge Instructions DIET: Follow Instructions for: As Tolerated, No Restrictions Activities you can perform: See Additionl Instruction Other Activity Instructions: as per PT New Medications: Levetiracetam (Keppra) 500 Mg Tab 500 MG PO BID Control Seizures #60 Ref 0 TAB Acetaminophen (Eq Acetaminophen) 325 Mg Tab 650 MG PO Q6H PRN FEVER #30 TAB Clonidine (Catapres) 0.1 Mg Tab 0.1 MG PO Q8HR Blood Pressure Management #30 TAB Lisinopril (Lisinopril) 20 Mg Tab 20 MG PO BID Blood Pressure Management #60 TAB Metoprolol Tartrate (Metoprolol Tartrate) 25 Mg Tab 25 MG PO Q8HR Blood Pressure Management #93 TAB Nicotine (Eq Nicotine) 14 Mg/24 Hr Dis 1 PATCH T-DERMAL DAILY smoking cessation #14 PATCH Sennosides-Docusate Sodium (Senna Plus 8.6-50 mg) 1 Tab Tab 1 TAB PO BID Constipation #60 TAB Mat Hernandez MD Jan 24, 2017 17:07
== END 2017-01-24 17:50 | DRG 41 ==
LOC: N03B 16:14 → N05A 12-28 01:56 → N05B 01-23 14:00
PROVIDERS: ADMIT Hospitalist; ATTEND Hospitalist
PROC: 0HTT0ZZ Resection of Right Breast, Open Approach (ICD-10-PCS; 2017-01-12)
PROC: 0HBT0ZX Excision of Right Breast, Open Approach, Diagnostic (ICD-10-PCS; 2017-01-12)
PROC: 07T50ZZ Resection of Right Axillary Lymphatic, Open Approach (ICD-10-PCS; 2017-01-12)
PROC: 0KT Muscles, Resection (ICD-10-PCS; principal; 2017-01-12 10:33)
PROC: 0BP1XFZ Removal of Tracheostomy Device from Trachea, External Approach (ICD-10-PCS; 2017-01-15)
PROC: 0DP6XUZ Removal of Feeding Device from Stomach, External Approach (ICD-10-PCS; 2017-01-23)
DX: I60.9 Nontraumatic subarachnoid hemorrhage, unspecified (principal); N13.4 Hydroureter; I67.1 Cerebral aneurysm, nonruptured; J96.10 Chronic respiratory failure, unspecified whether with hypoxia or hypercapnia; E27.8 Other specified disorders of adrenal gland; C50.911 Malignant neoplasm of unspecified site of right female breast; I10 Essential (primary) hypertension; B96.1 Klebsiella pneumoniae [K. pneumoniae] as the cause of diseases classified elsewhere; N20.1 Calculus of ureter; Z93.0 Tracheostomy status; Z93.1 Gastrostomy status; Z98.2 Presence of cerebrospinal fluid drainage device; I61.9 Nontraumatic intracerebral hemorrhage, unspecified; Z87.442 Personal history of urinary calculi; Z87.891 Personal history of nicotine dependence; Z51.5 Encounter for palliative care; F41.9 Anxiety disorder, unspecified; R73.9 Hyperglycemia, unspecified; N30.90 Cystitis, unspecified without hematuria
CPT/HCPCS: 76882; 76937; 80048; 80053; 81001; 82948; 83036; 83735; 84100; 85025; 85027; 85610; 87070; 87077; 87086; 87186; 87205; 87493; 87641; 88305; 88309; 88331; 88361; 94640; 94664; 94762; 95819; 99213; A7520; G0463; J0131; J0696; J1170; J1644; J2250; J2270; J2405; J2710; J3010; J3370; J3480; J7050; J7120

== ENCOUNTER 2017-03-14 23:58 | Inpatient (IN) | payer OTHER ==
[~2017-03-14] VITALS: Ht 167.6 cm; Wt 59.1 kg
[~2017-03-14 23:58] MED LIST changes: +ACET1TAB86 PO; +AMLO5 PO; +BACI500O2 TOPICAL; -CIPR-9 PO; +CLON.1 PO; +COMMODE 3-IN-11 MIS; +FAMO20TA2 PO; +GETGO ROLLING W1 MI1; +GNP5TAB6 PO; -HYDR-3533 PO; +LEVE500 PO; +LISI-515 PO; +METO25TA3 PO; +NICO14DI23 T-DERMAL; +SENN1TAB PO; +TRAZ50TA12 PO; +WHEEMIS3
[2017-03-15] VITALS (15 sets, daily range): BP systolic 115–138; BP diastolic 67–80; PULSE 74–106; RESP 12–23; TEMP 98.1–99.2; O2SAT 95–100
[2017-03-15] MEDS ORDERED: ANAS1TAB PO (00:22)
[2017-03-15] MEDS ORDERED: RANI1TAB5 PO (00:22)
[2017-03-15] MEDS ORDERED: PROM12.54 PO (00:22)
[2017-03-15] MEDS ORDERED: SODIUM CHLORIDE 0.9% FLUSH 10 ML FLUSH IVF PRN ×2 (01:00→04:00)
[2017-03-15] MEDS ORDERED: SODIUM CHLORID 0.9% 500 ML INJ 500 ML IV ONE ×2 (01:00→03:15)
--- NOTE | 2017-03-15 01:03 | PD ---
HPI Chief Complaint: Syncope/Near-Syncope Time Seen by Provider: 00:47 Travel History International Travel<30 days: No Contact w/Intl Traveler<30days: No Traveled to known affect area: No History of Present Illness HPI 51-year-old female presents to the emergency department by EMS transport from home after a witnessed syncopal episode while attempting to have a bowel movement. According to the patient's and according to patient she has not felt well for the past few days and has been noted to have low blood pressure. Patient is on multiple medications including at bedtime a sleeping pill as well as nightly alcohol to assist with her insomnia. Patient reportedly had already had her sleeping pill and her glasses wine and was up out of bed to go to the bathroom using bedside commode and attempted to have a bowel movement when she was witnessed by her to have a syncopal episode. Patient was assisted to the floor without any injury or trauma witnessed or having occurred. No seizure activity was noted. states that the patient appeared to be unresponsive and not breathing for at least a minute so he attempted to do bystander CPR while talking to 911 on the phone. The patient reportedly grabbed his hand while he was attempting to do cardiac compressions and the breaking machine operator occurred just the to discontinue efforts with CPR. Shortly thereafter the patient did regain some consciousness but. Mildly confusional however by the time the EMS team arrived reportedly she was aware of all events except for the syncopal episode. Patient has extensive past medical history that includes right breast cancer with previous mastectomy and more recently since October 2016 ruptured aneurysm with requirement of transferred to [facility] neurosurgical service for clipping of the aneurysms as well as subsequently required a GIS TECHNICIAN shunt. Patient was return to the area and was placed in rehabilitation for protracted amount of time and more recently discharged since mid January back to home where she resides with her . has noted more recently over the past week or so that her blood pressures have continuously been lowering into the 90s systolic and 85 systolic range. has been attempting to decrease the use of the patient's antihypertensives. Patient normally has a blood pressure in the 140 range and does have history of hypertension. There is been no report of recent febrile illness. Patient denies fever or chills has had chronic headaches since being discharged from the hospital at [facility]. Patient has mild residual left-sided weakness from previous residua of stroke but has regained most of her functionality. Patient has had no episodes of chest pain palpitations shortness of breath pleuritic pain cough or other respiratory symptoms. Patient has chronic abdominal pain that she states is not new and is not worsened. Patient does not complain of increased abdominal pain at this time. Patient does have nausea and complaints of reflux at this time but has had no vomiting. Patient denies any urinary complaints. Patient denies any new skin rash joint pain or swelling and spouse is not noted any rash. Patient's had no change in mentation until this evening after a syncopal episode which was transient in nature and appears to have resolved this time according to and patient. Patient rates headache pain 7/10 in intensity. PFSH Past Medical History Narrative Medical Hypertension subarachnoid hemorrhage aneurysmal clipping BP shunt CVA left- sided residua breast cancer status post mastectomy hypertension alcohol use status post tracheostomy status post PEG tube with removal tobaccoism; nursing notes reviewed Asthma: No Autoimmune Disease: No Anxiety: Yes Depression: No Heart Rhythm Problems: No Cancer: Yes (Breast) Cardiovascular Problems: Yes High Cholesterol: No Chemotherapy: No Chest Pain: No Congestive Heart Failure: No COPD: No Cerebrovascular Accident: Yes Diabetes: No Diminished Hearing: No (UTO) Endocrine: No Gastrointestinal Disorders: Yes (PEG placed 12/13/16-removal 01/23/17) GERD: No Genitourinary: Yes (UTI ) Headaches: Yes Hiatal Hernia: No Hypertension: Yes Immune Disorder: No Implanted Vascular Access Dvce: Yes Kidney Stones: Yes (apr 2016 ) Medical other: Yes (shunt left side, right side clippings, left side aneurysm ) Musculoskeletal: No Neurologic: Yes Psychiatric: Yes Reproductive: No Respiratory: Yes (respiratory failure and tracheostomy- 12/12/16 - removed 01/15) Migraines: No Radiation Therapy: Yes Renal Failure: No Seizures: Yes Sleep Apnea: No Thyroid Disease: No Ulcer: No ?: Not Past Surgical History Abdominal Surgery: No AICD: No Arteriovenous Shunt: No Body Medical Devices: GIS TECHNICIAN shunt Cardiac Surgery: No Section: Yes Ear Surgery: No Endocrine Surgery: No Eye Surgery: No Genitourinary Surgery: No Gynecologic Surgery: No Insulin Pump: No Joint Replacement: No Mastectomy: Yes (rt side 01/12/17) Neurologic Surgery: Yes Oral Surgery: Yes (2016 ) Pacemaker: No Thoracic Surgery: No Other Surgery: Yes Social History Alcohol Use: Yes (DAILY) Tobacco Use: Yes (1 ppd) Substance Use: No Allergies-Medications (Allergen,Severity, Reaction): Coded Allergies: No Known Allergies (Unverified , 03/15/17) Reported Meds & Prescriptions Reported Meds & Active Scripts Active Keppra (Levetiracetam) 500 Mg Tab 500 Mg PO BID 30 Days Trazodone (Trazodone HCl) 50 Mg Tab 50 Mg PO HS 30 Days Norvasc (Amlodipine Besylate) 5 Mg Tab 5 Mg PO DAILY 30 Days Wheelchair (Device) 1 Mis Mis 1 Ea .ROUTE DIRECTED Metoprolol Tartrate 25 Mg Tab 25 Mg PO Q8HR Lisinopril 20 Mg Tab 20 Mg PO BID Eq Acetaminophen (Acetaminophen) 325 Mg Tab 650 Mg PO Q6H PRN Reported Ranitidine 75 (Ranitidine HCl) 75 Mg Tab 75 Mg PO DAILY Take 30 to 60 minutes before eating food or drinking beverages that cause heartburn. Promethazine (Promethazine HCl) 12.5 Mg Tab 25 Mg PO Q6H PRN Anastrozole 1 Mg Tab 1 Mg PO DAILY Review of Systems Except as stated in HPI: all other systems reviewed are Neg Physical Exam Narrative GENERAL: Well-developed well-nourished female in acute distress no respiratory distress GCS 15 SKIN: Warm and dry. HEAD: Atraumatic. Normocephalic. Right sided healing craniotomy scar EYES: Pupils equal and round. Extraocular muscles intact. No scleral icterus. No injection or drainage. ENT: No nasal bleeding or discharge. Mucous membranes pink and moist. NECK: Trachea midline. No JVD. Supple no nuchal rigidity. CARDIOVASCULAR: Regular rate and rhythm. RESPIRATORY: No accessory muscle use. Clear to auscultation. Breath sounds equal bilaterally. GASTROINTESTINAL: Abdomen soft, non-tender, nondistended. Hepatic and splenic margins not palpable. MUSCULOSKELETAL: Extremities without clubbing, cyanosis, or edema. No obvious deformities. NEUROLOGICAL: Awake and alert. No obvious cranial nerve deficits. Motor grossly within normal limits. Five out of 5 muscle strength in the arms and legs. Normal speech. PSYCHIATRIC: Appropriate mood and affect; insight and judgment normal. Data Data Last Documented VS Vital Signs Date Time Temp Pulse Resp B/P (MAP) Pulse Ox O2 Delivery O2 Flow Rate FiO2 03/15/17 03:54 91 16 116/73 (87) 95 Room Air 03/15/17 00:34 2.00 Orders Orders Electrocardiogram (03/15/17 00:47) Complete Blood Count With Diff (03/15/17 00:47) Comprehensive Metabolic Panel (03/15/17 00:47) Magnesium (Mg) (03/15/17 00:47) Ckmb (Isoenzyme) Profile (03/15/17 00:47) Troponin I (03/15/17 00:47) Act Partial Throm Time (Ptt) (03/15/17 00:47) Prothrombin Time / Inr (Pt) (03/15/17 00:47) Urinalysis - C+S If Indicated (03/15/17 00:47) Chest, Single Ap (03/15/17 00:47) Ct Brain W/O Iv Contrast(Rout) (03/15/17 00:47) Blood Glucose (03/15/17 00:47) Ecg Monitoring (03/15/17 00:47) Iv Access Insert/Monitor (03/15/17 00:47) Oximetry (03/15/17 00:47) Sodium Chloride 0.9% Flush (Ns Flush) (03/15/17 01:00) Shunt Series (03/15/17 ) Sodium Chlorid 0.9% 500 Ml Inj (Ns 500 M (03/15/17 01:00) Alcohol (Ethanol) (03/15/17 00:47) Blood Culture (03/15/17 00:47) Lactic Acid (03/15/17 00:47) Ammonia (03/15/17 00:47) Ondansetron Inj (Zofran Inj) (03/15/17 02:45) Pantoprazole Inj (Protonix Inj) (03/15/17 02:45) Sodium Chlorid 0.9% 500 Ml Inj (Ns 500 M (03/15/17 03:15) Admit Order (Ed Use Only) (03/15/17 ) ^ Saline Lock (03/15/17 03:58) Resp Oxygen Gregorio C Titrat 1-4 L (03/15/17 ) Notify Dr: Other (03/15/17 03:58) Sodium Chloride 0.9% Flush (Ns Flush) (03/15/17 09:00) Sodium Chloride 0.9% Flush (Ns Flush) (03/15/17 04:00) ^ For Further Orders (03/15/17 03:58) Labs Laboratory Tests Test 03/15/17 01:55 03/15/17 02:55 White Blood Count 6.1 TH/MM3 Red Blood Count 4.54 MIL/MM3 Hemoglobin 13.8 GM/DL Hematocrit 41.5 % Mean Corpuscular Volume 91.3 FL Mean Corpuscular Hemoglobin 30.3 PG Mean Corpuscular Hemoglobin Concent 33.2 % Red Cell Distribution Width 17.1 % Platelet Count 227 TH/MM3 Mean Platelet Volume 7.5 FL Neutrophils (%) (Auto) 71.5 % Lymphocytes (%) (Auto) 21.2 % Monocytes (%) (Auto) 5.9 % Eosinophils (%) (Auto) 1.1 % Basophils (%) (Auto) 0.3 % Neutrophils # (Auto) 4.4 TH/MM3 Lymphocytes # (Auto) 1.3 TH/MM3 Monocytes # (Auto) 0.4 TH/MM3 Eosinophils # (Auto) 0.1 TH/MM3 Basophils # (Auto) 0.0 TH/MM3 CBC Comment DIFF FINAL Differential Comment Prothrombin Time 11.1 SEC Prothromb Time International Ratio 1.0 RATIO Activated Partial Thromboplast Time 25.6 SEC Blood Urea Nitrogen 5 MG/DL Creatinine 0.63 MG/DL Random Glucose 74 MG/DL Total Protein 7.8 GM/DL Albumin 3.2 GM/DL Calcium Level 8.5 MG/DL Magnesium Level 1.9 MG/DL Alkaline Phosphatase 175 U/L Aspartate Amino Transf (AST/SGOT) 31 U/L Alanine Aminotransferase (ALT/SGPT) 25 U/L Total Bilirubin 0.2 MG/DL Sodium Level 130 MEQ/L Potassium Level 4.5 MEQ/L Chloride Level 99 MEQ/L Carbon Dioxide Level 19.4 MEQ/L Anion Gap 12 MEQ/L Estimat Glomerular Filtration Rate 100 ML/MIN Lactic Acid Level 2.5 mmol/L Ammonia 31 MCMOL/L Total Creatine Kinase 56 U/L Troponin I LESS THAN 0.02 NG/ML Ethyl Alcohol Level 170 MG/DL Urine Color LIGHT-YELLOW Urine Turbidity CLEAR Urine pH 5.5 Urine Specific [place] 1.004 Urine Protein NEG mg/dL Urine Glucose (UA) NEG mg/dL Urine Ketones NEG mg/dL Urine Occult Blood NEG Urine Nitrite NEG Urine Bilirubin NEG Urine Urobilinogen LESS THAN 2.0 MG/DL Urine Leukocyte Esterase TRACE Urine RBC 1 /hpf Urine WBC 2 /hpf Urine Squamous Epithelial Cells 1 /hpf Urine Bacteria RARE /hpf Urine Hyaline Casts 3 /lpf Microscopic Urinalysis Comment CULT NOT INDICATED MDM Medical Decision Making Medical Screen Exam Complete: Yes Emergency Medical Condition: Yes Medical Record Reviewed: Yes Interpretation(s) Last Impressions Head CT 03/15/1746 Signed Impressions: Service Date/Time: February 02:29 - CONCLUSION: 1. Tiny acute subdural hematoma overlying the right frontal lobe. 2. Small chronic subdural fluid collection overlying the right parietal lobe. 3. Areas of encephalomalacia involving the right cerebral hemisphere. 4. Intraperitoneal shunt. Ventricles are normal in size. Collin Crump Jr., MD Chest X-Ray 03/15/1746 Signed Impressions: Service Date/Time: February 01:16 - CONCLUSION: No acute disease. Collin Crump Jr., MD Shunt Study (Imaging) 03/15/17 0000 Signed Impressions: Service Date/Time: February 01:16 - CONCLUSION: Intact shunt. Coliln Crump Jr., MD EKG normal sinus rhythm rate [address] elevation or injury pattern change identified Vital Signs Date Time Temp Pulse Resp B/P (MAP) Pulse Ox O2 Delivery O2 Flow Rate FiO2 03/15/17 03:54 91 16 116/73 (87) 95 Room Air 03/15/17 00:34 79 16 115/68 (84) 100 Nasal Cannula 2.00 03/15/17 00:26 100 Nasal Cannula 2.00 03/15/17 00:02 79 16 115/68 (84) 100 CBC & BMP Diagram 03/15/17 01:55 Total Protein 7.8, Albumin 3.2 L, Calcium Level 8.5, Magnesium Level 1.9, Alkaline Phosphatase 175 H, Aspartate Amino Transf (AST/SGOT) 31, Alanine Aminotransferase (ALT/SGPT) 25, Total Bilirubin 0.2 Differential Diagnosis Syncope, seizure, CVA, arrhythmia, sepsis, hypovolemia Narrative Course Patient placed on cardiac rn IV access obtained EKG performed normal sinus rhythm rate of 81 axis intervals no acute ST elevation or ectopy or injury pattern Specimens collected and sent for resulting imaging studies ordered Patient resting comfortably GCS remains 15 Patient requesting medication for nausea and for reflux administered Zofran 4 mg IV and Protonix 40 mg IV Patient also given bolus of normal saline [address] brain noncontrast remains pending; chest x-ray reveals no acute abnormality and shunt series reveals shunt to be intact @3:[address] brain noncontrast resulted as small acute subdural hematoma overlying the right frontal lobe call placed to neurosurgery Patient will be admitted to Dr. Reis to the [facility]; patient and patient's has been informed of imaging results Physician Communication Physician Communication discussed with Dr Reis --admit [facility] to his service Diagnosis Primary Impression: Subdural hematoma, acute Admitting Information Admitting Physician Requests: Admit Nida Orta MD Mar 15, 2017 01:03
--- NOTE | 2017-03-15 01:56 | RADRPT ---
EXAM DATE/TIME: 03/15/2017 01:16 [facility] COMPARISON: CHEST SINGLE AP, November 21, 2016, 22:54. INDICATIONS : Headaches and palpitations. MEDICAL HISTORY : Hypertension. Carcinoma, breast. Aneurysm, intracranial. Subarachnoid bleed SURGICAL HISTORY : Craniotomy. section. Mastectomy ENCOUNTER: Initial ACUITY: 1 day PAIN SCORE: 6/10 LOCATION: Bilateral cranial FINDINGS: A single view of the chest demonstrates the lungs to be symmetrically aerated without evidence of mas s, infiltrate or effusion. Small calcified granuloma within the left upper lobe. The cardiomediastin al contours are unremarkable. Osseous structures are intact. CONCLUSION: No acute disease. Collin Crump Jr., MD on March 15, 2017 at 1:54 Board Certified Radiologist. This report was verified electronically.
--- NOTE | 2017-03-15 01:56 | RADRPT ---
EXAM DATE/TIME: 03/15/2017 01:16 [facility] COMPARISON: No previous studies available for comparison. INDICATIONS : Headaches and palpitations. MEDICAL HISTORY : Hypertension. Aneurysm, intracranial. Carcinoma, breast. Subarachnoid hemorrhage SURGICAL HISTORY : Craniotomy. section. Mastectomy ENCOUNTER: Initial ACUITY: 1 day PAIN SCORE: 6/10 LOCATION: Bilateral cranial FINDINGS: Radiograph of the skull, neck, chest and abdomen performed to evaluate shunt patency. The shunt cath eter is seen entering the left parietal region with its tip in the region of the body of the left lat eral ventricle. The catheter is continuous in its course terminating in the right upper quadrant of the abdomen No c atheter disruption is identified. The visualized heart, lungs and abdominal structures are intact. CONCLUSION: Intact shunt. Collin Crump Jr., MD on March 15, 2017 at 1:53 Board Certified Radiologist. This report was verified electronically.
[2017-03-15 02:12] LABS: AUTOMATED NEUTROPHIL # 4.4 TH/MM3 (1.8-7.7); BASOPHIL % 0.3 % (0.0-2.0); EOSINOPHIL # 0.1 TH/MM3 (0-0.4); EOSINOPHIL % 1.1 % (0.0-4.0); HEMATOCRIT 41.5 % (35.0-46.0); HEMO FLAGS DIFF FINAL; LYMPH % 21.2 % (9.0-44.0); LYMPHOCYTE # 1.3 TH/MM3 (1.0-4.8); MEAN CELL VOLUME 91.3 FL (80.0-100.0); MEAN CORPUSCULAR HEMOGLOBIN 30.3 PG (27.0-34.0); MEAN CORPUSCULAR HGB CONC 33.2 % (32.0-36.0); MONO % 5.9 % (0.0-8.0); NEUT % 71.5 % (16.0-70.0); PLATELET COUNT 227 TH/MM3 (150-450); RED BLOOD COUNT 4.54 MIL/MM3 (4.00-5.30); RED CELL DISTRIBUTION WIDTH 17.1 % (11.6-17.2); WHITE BLOOD COUNT 6.1 TH/MM3 (4.0-11.0)
[2017-03-15 02:21] LABS: APTT (PATIENT) 25.6 SEC (24.3-30.1); PROTHROMBIN TIME - PATIENT 11.1 SEC (9.8-11.6)
[2017-03-15 02:44] LABS: ALCOHOL 170 MG/DL (0-5); ALKALINE PHOSPHATASE 175 U/L (45-117); ALT (GPT) 25 U/L (10-53); ANION GAP 12 MEQ/L (5-15); AST (GOT) 31 U/L (15-37); BICARBONATE 19.4 MEQ/L (21.0-32.0); BLOOD UREA NITROGEN 5 MG/DL (7-18); CHLORIDE 99 MEQ/L (98-107); CREATINE KINASE 56 U/L (26-192); GLOMERULAR FILTRATION RATE 100 ML/MIN (>89); MAGNESIUM 1.9 MG/DL (1.5-2.5); POTASSIUM 4.5 MEQ/L (3.5-5.1); SODIUM (NA) 130 MEQ/L (136-145); TOTAL BILIRUBIN ADULT 0.2 MG/DL (0.2-1.0)
[2017-03-15] MEDS ORDERED: PANTOPRAZOLE SODIUM 40 MG VIAL IV PUSH ONE (02:45)
[2017-03-15] MEDS ORDERED: ONDANSETRON HCL 4 MG/2 ML VIAL IV PUSH ONE (02:45)
[2017-03-15 03:09] LABS: BACTERIA, URINE RARE /hpf; BLOOD, URINE NEG (NEG); COMMENT (UR) CULT NOT INDICATED; CULTURE IF INDICATED CULT NOT INDICATED; GLUCOSE,URINE NEG (NEG); HYALINE CAST, URINE 3 /lpf (RARE); KETONE, URINE NEG (NEG); NITRITE,URINE NEG (NEG); PH, URINE 5.5 (5.0-8.5); SQUAMOUS EPITHELIAL CELL URINE 1 /hpf (0-5); URINE COLOR LIGHT-YELLOW (YELLW/STRAW)
--- NOTE | 2017-03-15 03:38 | RADRPT ---
EXAM DATE/TIME: 03/15/2017 02:29 [facility] COMPARISON: CT BRAIN W/O CONTRAST, November 21, 2016, 22:20. INDICATIONS : Dizziness. Cephalgia. RADIATION DOSE: 32.52 CTDIvol (mGy) MEDICAL HISTORY : Cerebrovascular disease. Seizures. Hypertension. Aneurysm, intracranial. Carcinoma, breast. Subarachn oid hemmorhage. SURGICAL HISTORY : Craniotomy. Mastectomy, right.Shunt placement. ENCOUNTER: Initial ACUITY: 1 day PAIN SCALE: 4/10 LOCATION: cranial TECHNIQUE: Multiple contiguous axial images were obtained of the head. Using automated exposure control and adj ustment of the mA and/or kV according to patient size, radiation dose was kept as low as reasonably a chievable to obtain optimal diagnostic quality images. DICOM format image data is available electro nically for review and comparison. FINDINGS: CEREBRUM: And left sided ventriculostomy. Enters via frontal approach with the tip terminating in the ipsilater al lateral ventricle. There is encephalomalacia involving the right frontal lobe and right parietal l obe with more extensive encephalomalacia involving the right temporal lobe. A 4 mm subdural hematoma seen on the right. This is high in attenuation relative to his recent brain parenchyma. There is a sm all component of chronic subdural fluid involving the right parietal convexity. 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 The acute component is seen overlying the right frontal lobe. No midline shift or her niation. Ventricles are normal in size. POSTERIOR FOSSA: The cerebellum and brainstem are intact. The 4th ventricle is midline. The cerebellopontine angle i s unremarkable. EXTRACRANIAL: The visualized portion of the orbits is intact. SKULL: The calvaria is intact. No evidence of skull fracture. CONCLUSION: 1. Tiny acute subdural hematoma overlying the right frontal lobe. 2. Small chronic subdural fluid collection overlying the right parietal lobe. 3. Areas of encephalomalacia involving the right cerebral hemisphere. 4. Intraperitoneal shunt. Ventricles are normal in size. Collin Crump Jr., MD on March 15, 2017 at 3:33 Board Certified Radiologist. This report was verified electronically.
[2017-03-15] MEDS: NS + KCL 20 MEQ INJ 1,000 ML IV SCH ×2 (04:13→14:13)
[2017-03-15] MEDS ORDERED: LABETALOL HCL 100 MG/20 ML VIAL IV PRN (04:15)
[2017-03-15] MEDS ORDERED: ACETAMINOPHEN 325 MG TAB PO PRN (04:15)
[2017-03-15] MEDS ORDERED: MAGNESIUM SULFATE INJ 2 GM in SODIUM CHLORIDE 0.9% INJ 100 ML IV PRN (04:15)
[2017-03-15] MEDS ORDERED: ALUMINUM/MAGNESIUM/SIMETH 30 ML CUP PO PRN (04:15)
[2017-03-15] MEDS ORDERED: RESP: ALBUTEROL 2.5 MG/3 ML NEB (PRN) NEB (04:15)
[2017-03-15] MEDS ORDERED: cloNIDine HCL 0.1 MG TAB PO PRN (04:15)
[2017-03-15] MEDS ORDERED: ZOLPIDEM TARTRATE 5 MG TAB PO PRN (04:15)
[2017-03-15] MEDS ORDERED: MAGNESIUM HYDROXIDE SUSP 30 ML CUP PO PRN (04:15)
[2017-03-15] MEDS ORDERED: POTASSIUM CHLOR 20 MEQ PREMIX 100 ML IV PRN (04:15)
[2017-03-15] MEDS ORDERED: LORazepam 2 MG/ML VIAL IVP PRN (04:15)
[2017-03-15] MEDS ORDERED: ACETAMINOPHEN/HYDROcodone 325 MG/10 MG TAB PO PRN (04:15)
[2017-03-15] MEDS ORDERED: CALCIUM GLUCONATE INJ 1 GM in SODIUM CHLORIDE 0.9% INJ 100 ML IV PRN (04:15)
[2017-03-15] MEDS ORDERED: SODIUM CHLORIDE 0.9% FLUSH 10 ML FLUSH IV FLUSH PRN (04:15)
[2017-03-15] MEDS ORDERED: PROMETHAZINE HCL 25 MG TAB PO PRN (04:30)
[2017-03-15] MEDS: METOPROLOL TARTRATE 25 MG TAB PO SCH ×3 (05:51→22:00)
--- NOTE | 2017-03-15 08:51 | HHI.NSPN ---
History Chief Complaint: Intermittent nausea. Tiny right frontal SDH. Interval History 03/15/17: Pt awake and alert. Denies headache. She has had nausea but currently okay. Generalized weakness. Review of Systems General: Negative for: fever, chills, insomnia Respiratory: Negative for: shortness of breath, cough, sputum Cardiovascular: Negative for: chest pain Gastrointestinal: Positive for: nausea (Intermittent.), Negative for: vomitting , diarrhea, constipation Exam Results Vital Signs Date Time Temp Pulse Resp B/P (MAP) Pulse Ox O2 Delivery O2 Flow Rate FiO2 03/15/17 06:46 03/15/17 06:30 98.6 88 12 98 03/15/17 05:51 Nasal Cannula 2.00 Intake and Output 03/15/17 03/15/17 03/16/17 08:00 16:00 00:00 Intake Total 1000 ml 0 ml Balance 1000 ml 0 ml Physical Examination Resp: CTA bilaterally Heart: NSR no murmurs Abd: Soft positive bs Skin: No cyanosis or erythema Muscle: Moves all 4 extremities well. Pt goes from sit to stand with standby assistance. Neuro: Pt awake and alert. Follows commands. Speech clear but slow responses. Affect appears flat. Pupils 3mm bilaterally reactive bilaterally. Lab, Micro, Other Results Last Impressions Head CT 03/15/1746 Signed Impressions: Service Date/Time: February 02:29 - CONCLUSION: 1. Tiny acute subdural hematoma overlying the right frontal lobe. 2. Small chronic subdural fluid collection overlying the right parietal lobe. 3. Areas of encephalomalacia involving the right cerebral hemisphere. 4. Intraperitoneal shunt. Ventricles are normal in size. Collin Crump Jr., MD Chest X-Ray 03/15/1746 Signed Impressions: Service Date/Time: February 01:16 - CONCLUSION: No acute disease. Collin Crump Jr., MD Shunt Study (Imaging) 03/15/17 0000 Signed Impressions: Service Date/Time: February 01:16 - CONCLUSION: Intact shunt. Collin Crump Jr., MD Laboratory Tests Test 03/15/17 01:55 03/15/17 02:55 White Blood Count 6.1 TH/MM3 Red Blood Count 4.54 MIL/MM3 Hemoglobin 13.8 GM/DL Hematocrit 41.5 % Mean Corpuscular Volume 91.3 FL Mean Corpuscular Hemoglobin 30.3 PG Mean Corpuscular Hemoglobin Concent 33.2 % Red Cell Distribution Width 17.1 % Platelet Count 227 TH/MM3 Mean Platelet Volume 7.5 FL Neutrophils (%) (Auto) 71.5 % Lymphocytes (%) (Auto) 21.2 % Monocytes (%) (Auto) 5.9 % Eosinophils (%) (Auto) 1.1 % Basophils (%) (Auto) 0.3 % Neutrophils # (Auto) 4.4 TH/MM3 Lymphocytes # (Auto) 1.3 TH/MM3 Monocytes # (Auto) 0.4 TH/MM3 Eosinophils # (Auto) 0.1 TH/MM3 Basophils # (Auto) 0.0 TH/MM3 CBC Comment DIFF FINAL Differential Comment Prothrombin Time 11.1 SEC Prothromb Time International Ratio 1.0 RATIO Activated Partial Thromboplast Time 25.6 SEC Blood Urea Nitrogen 5 MG/DL Creatinine 0.63 MG/DL Random Glucose 74 MG/DL Total Protein 7.8 GM/DL Albumin 3.2 GM/DL Calcium Level 8.5 MG/DL Magnesium Level 1.9 MG/DL Alkaline Phosphatase 175 U/L Aspartate Amino Transf (AST/SGOT) 31 U/L Alanine Aminotransferase (ALT/SGPT) 25 U/L Total Bilirubin 0.2 MG/DL Sodium Level 130 MEQ/L Potassium Level 4.5 MEQ/L Chloride Level 99 MEQ/L Carbon Dioxide Level 19.4 MEQ/L Anion Gap 12 MEQ/L Estimat Glomerular Filtration Rate 100 ML/MIN Lactic Acid Level 2.5 mmol/L Ammonia 31 MCMOL/L Total Creatine Kinase 56 U/L Troponin I LESS THAN 0.02 NG/ML Ethyl Alcohol Level 170 MG/DL Urine Color LIGHT-YELLOW Urine Turbidity CLEAR Urine pH 5.5 Urine Specific [place] 1.004 Urine Protein NEG mg/dL Urine Glucose (UA) NEG mg/dL Urine Ketones NEG mg/dL Urine Occult Blood NEG Urine Nitrite NEG Urine Bilirubin NEG Urine Urobilinogen LESS THAN 2.0 MG/DL Urine Leukocyte Esterase TRACE Urine RBC 1 /hpf Urine WBC 2 /hpf Urine Squamous Epithelial Cells 1 /hpf Urine Bacteria RARE /hpf Urine Hyaline Casts 3 /lpf Microscopic Urinalysis Comment CULT NOT INDICATED 03/15/17 03/15/17 03/16/17 15:00 23:00 07:00 Intake Total 0 ml Balance 0 ml Other 0 ml Medical Decision Making Impression and Plan 51 y/o FM with a right frontal SDH. Alcohol abuse with an alcohol level of 170 on admission. P: Continue to monitor neuro exam. PT consulted. Possible transfer to floor today depending on progress this am. Bal Worthington Mar 15, 2017 8:51 am
[2017-03-15] MEDS ORDERED: SODIUM CHLORIDE 0.9% FLUSH 10 ML FLUSH IV FLUSH SCH (09:00)
[2017-03-15] MEDS: DOCUSATE SODIUM 100 MG CAP PO SCH ×2 (09:00→21:00)
[2017-03-15] MEDS: SODIUM CHLORIDE 0.9% FLUSH 10 ML FLUSH IV FLUSH SCH ×2 (09:00→21:00)
[2017-03-15] MEDS: PANTOPRAZOLE SOD 40 MG DELAYED RELEASE TAB PO SCH (10:05)
[2017-03-15] MEDS: LISINOPRIL 20 MG TAB PO SCH ×2 (10:05→21:02)
[2017-03-15] MEDS: levETIRAcetam 500 MG TAB PO SCH ×2 (10:05→21:02)
[2017-03-15] MEDS: amLODIPine BESYLATE 5 MG TAB PO SCH (10:06)
[2017-03-15] MEDS: ANASTROZOLE 1 MG TAB PO SCH (11:21)
--- NOTE | 2017-03-15 12:49 | PD.CONS ---
HPI Service [facility] Consult Requested By Reason for Consult medical management Primary Care Physician No Primary Care Physician Diagnoses: History of Present Illness patient is a 51 y/o female with history of subarachnoid hemorrhage- s/p clipping of the cerebral aneurysm few months ago was brought to ER after she passed out last night. the at the bedside says that she had her sleeping pill last night and had a glass of wine. she went to the bathroom but she fainted. she denies any prodromal symptoms prior to this event; no chest pain, sob or dizziness. but the noted that she takes a few blood pressure medications. she regained her consciousness in a minute. there's no history of fall. she was found to have subdural hematoma. she denies any headache, or nausea. d/w the RN at the bedside. Review of Systems Constitutional: DENIES: Fever, Weight loss, Chills, Night Sweats Eyes: DENIES: Blurred vision, Diplopia, Vision loss, Double Vision Ears, nose, mouth, throat: DENIES: Tinnitus, Vertigo, Throat pain, Epistaxis Respiratory: DENIES: Apneas, Cough, Snoring, Wheezing, Hemoptysis, Sputum production, Shortness of breath Cardiovascular: DENIES: Chest pain, Palpitations, Syncope, Dyspnea on Exertion , PND, Lower Extremity Edema, Orthopnea, Claudication Gastrointestinal: DENIES: Abdominal pain, Black stools, Bloody stools, Constipation, Diarrhea, Nausea, Vomiting, Difficulty Swallowing, Anorexia Genitourinary: DENIES: Urinary frequency, Urgency, Hematuria, Dysuria Musculoskeletal: DENIES: Joint pain, Muscle aches, Stiffness, Joint Swelling Integumentary: DENIES: Rash Neurologic: DENIES: Abnormal gait, Headache, Localized weakness, Paresthesias, Seizures, Speech Problems, Tremor, Poor Balance Psychiatric: DENIES: Anxiety, Confusion, Mood changes, Depression, Hallucinations, Agitation, Suicidal Ideation, Homicidal Ideation, Delusions Past Family Social History Allergies: Coded Allergies: No Known Allergies (Unverified , 03/15/17) Past Medical History subarachnoid hemorrhage hypertension breast cancer Past Surgical History cerebral aneurysm clipping/ SKOOG MACHINE OPERATOR shunt placement mastectomy Reported Medications Keppra (Levetiracetam) 500 Mg Tab 500 Mg PO BID 30 Days Trazodone (Trazodone HCl) 50 Mg Tab 50 Mg PO HS 30 Days Norvasc (Amlodipine Besylate) 5 Mg Tab 5 Mg PO DAILY 30 Days Wheelchair (Device) 1 Mis Mis 1 Ea .ROUTE DIRECTED Metoprolol Tartrate 25 Mg Tab 25 Mg PO Q8HR Lisinopril 20 Mg Tab 20 Mg PO BID Eq Acetaminophen (Acetaminophen) 325 Mg Tab 650 Mg PO Q6H PRN Ranitidine 75 (Ranitidine HCl) 75 Mg Tab 75 Mg PO DAILY Take 30 to 60 minutes before eating food or drinking beverages that cause heartburn. Promethazine (Promethazine HCl) 12.5 Mg Tab 25 Mg PO Q6H PRN Anastrozole 1 Mg Tab 1 Mg PO DAILY Active Ordered Medications Current Medications Sodium Chloride (NS Flush) 2 ml UNSCH PRN IVF FLUSH AFTER USING IV ACCESS; Start 03/15/17 at 01:00; Stop 03/15/17 at 04:01; Status DC Sodium Chloride 500 ml @ 500 mls/hr BOLUS ONCE IV Last administered on 02:00; Start 03/15/17 at 01:00; Stop 03/15/17 at 01:59; Status DC Ondansetron HCl (Zofran Inj) 4 mg ONCE ONCE IV PUSH Last administered on 03:45; Start 03/15/17 at 02:45; Stop 03/15/17 at 02:46; Status DC Pantoprazole Sodium (Protonix Inj) 40 mg ONCE ONCE IV PUSH Last administered on 03/15/17 03:45; Start 03/15/17 at 02:45; Stop 03/15/17 at 02:46; Status DC Sodium Chloride 500 ml @ 500 mls/hr BOLUS ONCE IV Last administered on 03:45; Start 03/15/17 at 03:15; Stop 03/15/17 at 04:14; Status DC Sodium Chloride (NS Flush) 2 ml BID IV FLUSH ; Start 03/15/17 at 09:00; Stop at 09:00; Status DC Sodium Chloride (NS Flush) 2 ml UNSCH PRN IVF FLUSH AFTER USING IV ACCESS; Start 03/15/17 at 04:00; Stop 03/15/17 at 04:33; Status DC Acetaminophen (Tylenol) 650 mg Q6H PRN PO FEVER; Start 03/15/17 at 04:15 Amlodipine Besylate (Norvasc) 5 mg DAILY PO Last administered on 03/15/17 10: 06; Start 03/15/17 at 09:00 Anastrozole (Arimidex) 1 mg DAILY PO Last administered on 03/15/17 11:21; Start 03/15/17 at 09:00 Levetriacetam (Keppra) 500 mg BID PO Last administered on 03/15/17 10:05; Start 03/15/17 at 09:00 Lisinopril (Prinivil) 20 mg BID PO Last administered on 03/15/17 10:05; Start 03/15/17 at 09:00 Metoprolol Tartrate (Lopressor) 25 mg Q8HR PO Last administered on 03/15/17 05 :51; Start 03/15/17 at 06:00 Trazodone HCl (Desyrel) 50 mg HS PO ; Start 03/15/17 at 21:00 Promethazine HCl (Phenergan) 25 mg Q6H PRN PO NAUSEA OR VOMITING; Start at 04:30 Potassium Chloride/Sodium Chloride 1,000 ml @ 100 mls/hr Q10H IV Last administered on 03/15/17 04:13; Start 03/15/17 at 04:13 Sodium Chloride (NS Flush) 2 ml UNSCH PRN IV FLUSH FLUSH AFTER USING IV ACCESS ; Start 03/15/17 at 04:15 Sodium Chloride (NS Flush) 2 ml BID IV FLUSH Last administered on 03/15/17 09: 00; Start 03/15/17 at 09:00 Lorazepam (Ativan Inj) 1 mg Q1H PRN IVP SEIZURES; Start 03/15/17 at 04:15 Docusate Sodium (Colace) 100 mg BID PO ; Start 03/15/17 at 09:00 Magnesium Hydroxide (Milk Of Magnesia Liq) 30 ml DAILY PRN PO CONSTIPATION; Start 03/15/17 at 04:15 Al Hydrox/Mg Hydrox/Simethicone (Mag-Al Plus Susp Liq) 30 ml Q6H PRN PO DYSPEPSIA; Start 03/15/17 at 04:15 Pantoprazole Sodium (Protonix) 40 mg DAILY PO Last administered on 03/15/17 10 :05; Start 03/15/17 at 09:00 Ondansetron HCl (Zofran Inj) 4 mg Q6H PRN IV NAUSEA OR VOMITING; Start at 04:15 Calcium Gluconate 1 gm/Sodium Chloride 110 ml @ 110 mls/hr UNSCH PRN IV SEE LABEL COMMENTS; Start 03/15/17 at 04:15 Potassium Chloride 100 ml @ 50 mls/hr UNSCH PRN IV POTASSIUM LESS THAN 4; Start 03/15/17 at 04:15 Magnesium Sulfate 2 gm/Sodium Chloride 104 ml @ 100 mls/hr UNSCH PRN IV MAGNESIUM LESS THAN 2; Start 03/15/17 at 04:15 Acetaminophen/ Hydrocodone Bitart ([place] 10-325 Mg) 1 tab Q4H PRN PO PAIN SCALE 1 TO 5; Start 03/15/17 at 04:15 Acetaminophen/ Hydrocodone Bitart ([place] 10-325 Mg) 2 tab Q4H PRN PO PAIN SCALE 6 TO 10; Start 03/15/17 at 04:15 Labetalol HCl (Trandate Inj) 10 mg Q1H PRN IV SYS BP GREATER THAN 170 MMHG; Start 03/15/17 at 04:15 Clonidine (Catapres) 0.1 mg Q6H PRN PO SYS BP GREATER THAN 170 MMHG; Start at 04:15 Zolpidem Tartrate (Ambien) 5 mg HS PRN PO INSOMNIA; Start 03/15/17 at 04:15 Albuterol Sulfate (Albuterol Neb) 2.5 mg Q4HR NEB PRN NEB WHEEZING; Start 03/15 at 04:15 Social History smokes a few cigarettes a day- drinks occasionally. Physical Exam Vital Signs Vital Signs Date Time Temp Pulse Resp B/P (MAP) Pulse Ox O2 Delivery O2 Flow Rate FiO2 03/15/17 12:00 98.4 99 23 138/80 (99) 95 03/15/17 12:00 101 03/15/17 10:00 106 03/15/17 08:00 74 03/15/17 08:00 99.0 94 15 120/67 (84) 97 03/15/17 06:46 03/15/17 06:30 98.6 88 12 129/74 (92) 98 03/15/17 05:51 80 14 116/73 (87) 100 Nasal Cannula 2.00 03/15/17 05:07 96 Nasal Cannula 2.00 03/15/17 03:54 91 16 116/73 (87) 95 Room Air 03/15/17 00:34 79 16 115/68 (84) 100 Nasal Cannula 2.00 03/15/17 00:26 100 Nasal Cannula 2.00 03/15/17 00:02 79 16 115/68 (84) 100 Physical Exam GENERAL: This is a well-nourished, well-developed patient, in no apparent distress. SKIN: No rashes, ecchymoses or lesions. Cool and dry. HEAD: Atraumatic. Normocephalic. No temporal or scalp tenderness. EYES: Pupils equal round and reactive. Extraocular motions intact. No scleral icterus. No injection or drainage. ENT: Nose without bleeding, purulent drainage or septal hematoma. Throat without erythema, tonsillar hypertrophy or exudate. Uvula midline. Airway patent. NECK: Trachea midline. No JVD or lymphadenopathy. Supple, nontender, no meningeal signs. CARDIOVASCULAR: Regular rate and rhythm without murmurs, gallops, or rubs. RESPIRATORY: Clear to auscultation. Breath sounds equal bilaterally. No wheezes , rales, or rhonchi. GASTROINTESTINAL: Abdomen soft, non-tender, nondistended. No hepato-splenomegaly , or palpable masses. No guarding. MUSCULOSKELETAL: Extremities without clubbing, cyanosis, or edema. No joint tenderness, effusion, or edema noted. No calf tenderness. Negative Homans sign bilaterally. NEUROLOGICAL: Awake and alert. Laboratory Laboratory Tests Test 03/15/17 01:55 03/15/17 02:55 White Blood Count 6.1 Red Blood Count 4.54 Hemoglobin 13.8 Hematocrit 41.5 Mean Corpuscular Volume 91.3 Mean Corpuscular Hemoglobin 30.3 Mean Corpuscular Hemoglobin Concent 33.2 Red Cell Distribution Width 17.1 Platelet Count 227 Mean Platelet Volume 7.5 Neutrophils (%) (Auto) 71.5 Lymphocytes (%) (Auto) 21.2 Monocytes (%) (Auto) 5.9 Eosinophils (%) (Auto) 1.1 Basophils (%) (Auto) 0.3 Neutrophils # (Auto) 4.4 Lymphocytes # (Auto) 1.3 Monocytes # (Auto) 0.4 Eosinophils # (Auto) 0.1 Basophils # (Auto) 0.0 CBC Comment DIFF FINAL Differential Comment Prothrombin Time 11.1 Prothromb Time International Ratio 1.0 Activated Partial Thromboplast Time 25.6 Blood Urea Nitrogen 5 Creatinine 0.63 Random Glucose 74 Total Protein 7.8 Albumin 3.2 Calcium Level 8.5 Magnesium Level 1.9 Alkaline Phosphatase 175 Aspartate Amino Transf (AST/SGOT) 31 Alanine Aminotransferase (ALT/SGPT) 25 Total Bilirubin 0.2 Sodium Level 130 Potassium Level 4.5 Chloride Level 99 Carbon Dioxide Level 19.4 Anion Gap 12 Estimat Glomerular Filtration Rate 100 Lactic Acid Level 2.5 Ammonia 31 Total Creatine Kinase 56 Troponin I LESS THAN 0.02 Ethyl Alcohol Level 170 Urine Color LIGHT-YELLOW Urine Turbidity CLEAR Urine pH 5.5 Urine Specific [place] 1.004 Urine Protein NEG Urine Glucose (UA) NEG Urine Ketones NEG Urine Occult Blood NEG Urine Nitrite NEG Urine Bilirubin NEG Urine Urobilinogen LESS THAN 2.0 Urine Leukocyte Esterase TRACE Urine RBC 1 Urine WBC 2 Urine Squamous Epithelial Cells 1 Urine Bacteria RARE Urine Hyaline Casts 3 Microscopic Urinalysis Comment CULT NOT INDICATED Date/Time Source Procedure Growth Status 03/15/17 01:55 Blood Peripheral Aerobic Blood Culture Pending Received 03/15/17 01:55 Blood Peripheral Anaerobic Blood Culture Pending Received Result Diagram: 03/15/1715403/15/17154 Imaging Last Impressions Head CT 03/15/1746 Signed Impressions: Service Date/Time: February 02:29 - CONCLUSION: 1. Tiny acute subdural hematoma overlying the right frontal lobe. 2. Small chronic subdural fluid collection overlying the right parietal lobe. 3. Areas of encephalomalacia involving the right cerebral hemisphere. 4. Intraperitoneal shunt. Ventricles are normal in size. Collin Crump Jr., MD Chest X-Ray 03/15/1746 Signed Impressions: Service Date/Time: February 01:16 - CONCLUSION: No acute disease. Collin Crump Jr., MD Shunt Study (Imaging) 03/15/17 0000 Signed Impressions: Service Date/Time: February 01:16 - CONCLUSION: Intact shunt. Collin Crump Jr., MD Assessment and Plan Assessment and Plan A/P - syncope/ subdural hematoma- with history of subarachnoid hemorrhage and SKOOG MACHINE OPERATOR shunt placement continue with neuro-checks- continue Keppra- PT consulted. management per neurosurgery -hypertension; home meds resumed- will monitor and adjust the regimen as needed -breast cancer- continue Arimidex- f/u as outpatient. -DVT prophylaxis with SCD's- no chemical prophylaxis due to cerebral bleed. thank you for the consult. Discussed Condition With the patient and her . DYLON. Darion Randle MD Mar 15, 2017 12:49
--- NOTE | 2017-03-15 16:25 | MH ---
cc: MISA CARR M.D., ROHIT K. M.D. DATE OF ADMISSION: 03/15/2017 ADMITTING DIAGNOSIS: Questionable subdural hemorrhage. PRESENT ILLNESS 51-year-old female with a very complicated medical history. 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 She was evaluated Dr. Carr from neurosurgery and transfer to the [facility] in [place] where she underwent a right craniotomy for aneurysm clipping. Subsequently she also underwent a left MAINTENANCE ENGINEER OIL FIELD shunt placement, tracheostomy and percutaneous endoscopic gastrostomy tube. She subsequently is transferred back to [facility] under the medical service, Dr. Carr was consulted. He recommended conservative treatment of the untreated left posterior communicating artery aneurysm. She unfortunately also was diagnosed with breast cancer and had mastectomy in the interim. She is on multiple blood pressure medications but according to the she has not been taking them because her blood pressure is running on low side, and she had a few drinks last evening and fell. It is unclear whether she had a syncopal episodes or hit her head, in any case she was brought to [facility] emergency room and a CT scan of the head was obtained which reveals a postoperative changes in the right frontal aspect along with a left-sided MAINTENANCE ENGINEER OIL FIELD shunt in place with normal ventricle side. The shunt series reveals tubing to be intact. There is some right frontal old hygromas changes as well as postop changes which radiologist felt could be a small subdural hemorrhage but in my opinion it reflects postop changes. She is admitted for observation. If she denies any headaches, or nausea or vomiting. She is confused. PAST MEDICAL HISTORY: A right craniotomy for aneurysm, completed at [facility] in [place] on November 22, 2016. 1. She had tracheostomy and December 20, 2016 2. and the peg tube placement on December 13, 2016. 3. Right cranioplasty and MAINTENANCE ENGINEER OIL FIELD shunt placement on 12/21/2078. 4. She had a mastectomy. 5. Left submandibular gland resection 6. Kidney stones. 7. Seizures MEDICATIONS medications are 1. Amlodipine 5 mg daily. 2. Anastrozole 1 mg daily. 3. Keppra 5 mg b.i.d. 4. Lisinopril 20 mg b.i.d. 5. Metoprolol 25 mg q.8 h. 6. Promethazine 25 mg q.6 h p.r.n. the. 7. Zantac 75 mg daily. 8. Trazodone 50 mg q.h.s. 9. Aspirin 650 mg q six hours as needed ALLERGIES NO KNOWN DRUG ALLERGIES. SOCIAL HISTORY: She is and her son and friend at the bedside. LABORATORY FINDINGS White blood cell count 6.1, hemoglobin 13.8, platelet count of 227, PT 11.1, INR 1.0, PTT 25.6, sodium 130, potassium 4.5, BUN five, creatinine 0.63, glucose 74. Toxicology screen is positive for alcohol level 170. PHYSICAL EXAMINATION VITAL SIGNS: Temperature 98.4, pulse is 94, respiratory rate 15, blood pressure 120/67, oxygen saturation 95% room air. HEAD, EYES, EARS, NOSE, AND THROAT: Head: No Estevez or raccoon sign, left shunt valve reservoir refills well and the right craniotomy site is well-healed. NECK: The neck is supple. CHEST: Clear bilaterally. HEART: Mild tachycardia, normal S1, S2. ABDOMEN: Soft, nontender. EXTREMITIES: No clubbing, cyanosis or edema. NEUROLOGIC: She is awake, alert. Cranial nerves II through XII grossly intact. Motor strength the upper or lower extremities 5/5. Negative Babinski. Speech is fluent but she is confused and not fully oriented. IMPRESSION 1. History of right craniotomy for ruptured posterior communicating artery aneurysm and subsequent to MAINTENANCE ENGINEER OIL FIELD shunt placement on left side with an unruptured left posterior communicating artery aneurysm. She is scheduled to follow up with a neurosurgeon in [facility] in next few months. I do not see any acute subdural hemorrhage in the right side and on there is some chronic subdural hygromas fluid and postoperative changes noted. 2. History of seizures on Keppra therapy. 3. History of hypertension, although this appears be well regulated. 4. Alcohol abuse. PLAN The patient be admitted for observation and we will also consult the medical team, for assistance and medical management. Followup scan will be obtained tomorrow morning to rule out any progression of the current findings which appear to be more chronic. If this is stable she could be discharged home and she could follow up with Dr. Carr and her neurosurgeon at [facility]. I have discussed this length over the phone with her . MD REYNOLD Ashley/mt /3:21 PM /3:53 PM
--- NOTE | 2017-03-15 17:14 | EKG ---
Date Performed: 03/15/2017 Time Performed: 00:11:49 PTAGE: 51 years EKG: Sinus rhythm NON-SPECIFIC ST/T WAVE CHANGES PREVIOUS TRACING : 11/21/2016 22.56 Compared to prior tracing no significant change DOCTOR: Abdirahman Johnson Interpretating Date/Time 03/15/2017 17:12:42
[2017-03-15] MEDS: ACETAMINOPHEN/HYDROcodone 325 MG/10 MG TAB PO PRN (17:45)
[2017-03-15] MEDS: traZODone HCL 50 MG TAB PO SCH (21:02)
[2017-03-15] MEDS: ONDANSETRON HCL 4 MG/2 ML VIAL IV PRN (21:03)
[2017-03-16] VITALS (11 sets, daily range): BP systolic 101–133; BP diastolic 60–87; PULSE 61–88; RESP 14–20; TEMP 97.6–98.7; O2SAT 95–99
[2017-03-16] MEDS: NS + KCL 20 MEQ INJ 1,000 ML IV SCH (00:13)
[2017-03-16] MEDS: ONDANSETRON HCL 4 MG/2 ML VIAL IV PRN (02:34)
[2017-03-16] MEDS: METOPROLOL TARTRATE 25 MG TAB PO SCH ×3 (05:55→21:47)
[2017-03-16 06:13] LABS: BICARBONATE 25.8 MEQ/L (21.0-32.0); POTASSIUM 4.6 MEQ/L (3.5-5.1)
--- NOTE | 2017-03-16 07:32 | RADRPT ---
EXAM DATE/TIME: 03/16/2017 04:09 [place] COMPARISON: CT BRAIN W/O CONTRAST, March 15, 2017, 2:29. INDICATIONS : Follow up subdural hematoma. RADIATION DOSE: 32.68 CTDIvol (mGy) MEDICAL HISTORY : Cerebrovascular disease. Seizures. Hypertension. Aneurysm, intracranial. SURGICAL HISTORY : Craniotomy. Mastectomy, right.Shunt placement. ENCOUNTER: Subsequent ACUITY: 2 days PAIN SCALE: 0/10 LOCATION: cranial TECHNIQUE: Multiple contiguous axial images were obtained of the head. Using automated exposure control and adj ustment of the mA and/or kV according to patient size, radiation dose was kept as low as reasonably a chievable to obtain optimal diagnostic quality images. DICOM format image data is available electro nically for review and comparison. FINDINGS: CEREBRUM: The overall appearance of the brain is very similar to 03/15/17. Left frontal ventriculostomy cathete r tip projects near the left foramen of Marcela. Large area of encephalomalacia involving the right te mporal and posterior parietal, stable. 4 mm mixed density subdural hematoma in the right parietal re gion deep to the craniotomy defect and a low density crescentic subdural fluid collection more radio operator ground ior in the right parietal region are both stable in appearance to prior. No intraparenchymal hemorrh age seen. No evidence of midline shift. POSTERIOR FOSSA: The cerebellum and brainstem are intact. The 4th ventricle is midline. The cerebellopontine angle i s unremarkable. EXTRACRANIAL: The visualized portion of the orbits is intact. SKULL: Good approximation of the craniotomy defect right temporal region CONCLUSION: No acute findings. Stable appearance to the small right anterior parietal subdural hematoma. Collin Granados MD on March 16, 2017 at 7:27 Board Certified Radiologist. This report was verified electronically.
[2017-03-16] MEDS: LISINOPRIL 20 MG TAB PO SCH ×2 (07:44→21:46)
[2017-03-16] MEDS: levETIRAcetam 500 MG TAB PO SCH ×2 (07:44→21:46)
[2017-03-16] MEDS: PANTOPRAZOLE SOD 40 MG DELAYED RELEASE TAB PO SCH (07:44)
[2017-03-16] MEDS: ANASTROZOLE 1 MG TAB PO SCH (07:44)
[2017-03-16] MEDS: amLODIPine BESYLATE 5 MG TAB PO SCH (07:45)
[2017-03-16] MEDS: DOCUSATE SODIUM 100 MG CAP PO SCH ×2 (07:45→21:46)
[2017-03-16] MEDS: SODIUM CHLORIDE 0.9% FLUSH 10 ML FLUSH IV FLUSH SCH ×2 (07:45→21:50)
--- NOTE | 2017-03-16 10:40 | HHI.NSPN ---
History Interval History 51-year-old female with a very complicated medical history. 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 She was evaluated Dr. Young from neurosurgery and transfer to the [facility] in [place] where she underwent a right craniotomy for aneurysm clipping. Subsequently she also underwent a left SEMICONDUCTOR PACKAGES TESTER shunt placement, tracheostomy and percutaneous endoscopic gastrostomy tube. She subsequently is transferred back to [facility] under the medical service, Dr. Young was consulted. He recommended conservative treatment of the untreated left posterior communicating artery aneurysm. She unfortunately also was diagnosed with breast cancer and had mastectomy in the interim. She is on multiple blood pressure medications but according to the she has not been taking them because her blood pressure is running on low side, and she had a few drinks last evening and fell. It is unclear whether she had a syncopal episodes or hit her head, in any case she was brought to [facility] emergency room and a CT scan of the head was obtained which reveals a postoperative changes in the right frontal aspect along with a left-sided SEMICONDUCTOR PACKAGES TESTER shunt in place with normal ventricle side. The shunt series reveals tubing to be intact. There is some right frontal old hygromas changes as well as postop changes which radiologist felt could be a small subdural hemorrhage but in my opinion it reflects postop changes. She is admitted for observation. If she denies any headaches, or nausea or vomiting. She is confused. 03/16/17: Awake and alert with flat affect and remains confused at times. Exam Results Vital Signs Date Time Temp Pulse Resp B/P (MAP) Pulse Ox O2 Delivery O2 Flow Rate FiO2 03/16/17 10:00 67 03/16/17 08:00 98.4 18 133/73 (93) 98 03/16/17 07:00 Room Air 03/15/17 20:21 21 03/15/17 05:51 2.00 Intake and Output 03/16/17 03/16/17 03/16/17 07:59 15:59 23:59 Intake Total 720 ml Balance 720 ml Physical Examination Resp: CTA bilaterally Heart: NSR no murmurs Abd: Soft positive bs Skin: No cyanosis or erythema Muscle: Moves all 4 extremities well. Pt goes from sit to stand with standby assistance. Neuro: Pt awake and alert. Follows commands. Speech clear but slow responses. Affect appears flat. Pupils 3mm bilaterally reactive bilaterally. Lab, Micro, Other Results Last [address] 03/16/17 0600 Signed Impressions: Service Date/Time: Thursday, March 16, 2017 04:09 - CONCLUSION: No acute findings. Stable appearance to the small right anterior parietal subdural hematoma. Collin Granados MD Laboratory Tests Test 03/16/17 05:11 Blood Urea Nitrogen 3 Creatinine 0.60 Random Glucose 89 Calcium Level 8.9 Sodium Level 132 Potassium Level 4.6 Chloride Level 100 Carbon Dioxide Level 25.8 Anion Gap 6 Estimat Glomerular Filtration Rate 106 Date/Time Source Procedure Growth Status 03/15/17 01:55 Blood Peripheral Aerobic Blood Culture Pending Worksheet 03/15/17 01:55 Blood Peripheral Anaerobic Blood Culture Pending Worksheet Medical Decision Making Impression and Plan 1. History of right craniotomy for ruptured posterior communicating artery aneurysm and subsequent to SEMICONDUCTOR PACKAGES TESTER shunt placement on left side with an unruptured left posterior communicating artery aneurysm. She is scheduled to follow up with a neurosurgeon in [facility] in next few months. I do not see any acute subdural hemorrhage in the right side and on there is some chronic subdural hygromas fluid and postoperative changes noted. 2. History of seizures on Keppra therapy. 3. History of hypertension, although this appears be well regulated. 4. Alcohol abuse. Stable follow-up CT scan the head in neurologic examination. Increase activity with physical therapy. Improving hyponatremia. Discharge home when medically stable likely in the next day or so. Petr Reis MD Mar 16, 2017 10:40
--- NOTE | 2017-03-16 11:47 | HHI.PR ---
Subjective Remarks in no acute distress. has minimal to mild abdominal discomfort. hoping that she would go home soon. d/w the RN and no acute issues over night. Objective Vitals Vital Signs Date Time Temp Pulse Resp B/P (MAP) Pulse Ox O2 Delivery O2 Flow Rate FiO2 03/16/17 10:00 67 03/16/17 08:00 61 03/16/17 08:00 98.4 61 18 133/73 (93) 98 03/16/17 07:00 98 Room Air 03/16/17 06:00 62 03/16/17 04:00 68 03/16/17 04:00 98.1 68 20 128/87 (101) 96 03/16/17 02:00 67 03/16/17 00:00 97.6 74 19 116/60 (78) 95 03/16/17 00:00 74 03/15/17 22:00 77 03/15/17 20:21 97 21 03/15/17 20:00 98.1 76 17 128/72 (90) 97 03/15/17 20:00 83 03/15/17 19:00 97 Room Air 03/15/17 19:00 17 03/15/17 18:00 96 03/15/17 16:00 99.2 98 18 124/78 (93) 97 03/15/17 16:00 98 03/15/17 14:00 94 03/15/17 12:00 98.4 99 23 138/80 (99) 95 03/15/17 12:00 101 I/O 03/15/17 03/15/17 03/15/17 03/16/17 03/16/17 03/16/17 07:00 15:00 23:00 07:00 15:00 23:00 Intake Total 1000 ml 0 ml 1900 ml 720 ml Balance 1000 ml 0 ml 1900 ml 720 ml Intake Oral 1900 ml 720 ml IV Total 1000 ml Other 0 ml 0 ml # Voids 10 8 Result Diagram: 03/15/17 0155 03/16/17 05 Imaging Last Impressions Head CT 03/16/17 06 Signed Impressions: Service Date/Time: Thursday, March 16, 2017 04:09 - CONCLUSION: No acute findings. Stable appearance to the small right anterior parietal subdural hematoma. Collin Granados MD Chest X-Ray 03/15/17 0047 Signed Impressions: Service Date/Time: February 01:16 - CONCLUSION: No acute disease. Collin Crump Jr., MD Shunt Study (Imaging) 03/15/17 0000 Signed Impressions: Service Date/Time: February 01:16 - CONCLUSION: Intact shunt. Collin Crump Jr., MD Objective Remarks GENERAL: This is a well-nourished, well-developed patient, in no apparent distress. CARDIOVASCULAR: Regular rate and regular rhythm without murmurs, gallops, or rubs. RESPIRATORY: Clear to auscultation. Breath sounds equal bilaterally. No wheezes , rales, or rhonchi. GASTROINTESTINAL: Abdomen soft, non-tender, nondistended. Normal, active bowel sounds MUSCULOSKELETAL: Extremities without clubbing, cyanosis, or edema. NEURO: Alert & Oriented x4 to person, place, time, situation. Moves all ext x4 Medications and IVs Current Medications Sodium Chloride (NS Flush) 2 ml UNSCH PRN IVF FLUSH AFTER USING IV ACCESS; Start 03/15/17 at 01:00; Stop 03/15/17 at 04:01; Status DC Sodium Chloride 500 ml @ 500 mls/hr BOLUS ONCE IV Last administered on 02:00; Start 03/15/17 at 01:00; Stop 03/15/17 at 01:59; Status DC Ondansetron HCl (Zofran Inj) 4 mg ONCE ONCE IV PUSH Last administered on 03:45; Start 03/15/17 at 02:45; Stop 03/15/17 at 02:46; Status DC Pantoprazole Sodium (Protonix Inj) 40 mg ONCE ONCE IV PUSH Last administered on 03/15/17 03:45; Start 03/15/17 at 02:45; Stop 03/15/17 at 02:46; Status DC Sodium Chloride 500 ml @ 500 mls/hr BOLUS ONCE IV Last administered on 03:45; Start 03/15/17 at 03:15; Stop 03/15/17 at 04:14; Status DC Sodium Chloride (NS Flush) 2 ml BID IV FLUSH ; Start 03/15/17 at 09:00; Stop at 09:00; Status DC Sodium Chloride (NS Flush) 2 ml UNSCH PRN IVF FLUSH AFTER USING IV ACCESS; Start 03/15/17 at 04:00; Stop 03/15/17 at 04:33; Status DC Acetaminophen (Tylenol) 650 mg Q6H PRN PO FEVER; Start 03/15/17 at 04:15 Amlodipine Besylate (Norvasc) 5 mg DAILY PO Last administered on 03/16/17 07: 45; Start 03/15/17 at 09:00 Anastrozole (Arimidex) 1 mg DAILY PO Last administered on 03/16/17 07:44; Start 03/15/17 at 09:00 Levetriacetam (Keppra) 500 mg BID PO Last administered on 03/16/17 07:44; Start 03/15/17 at 09:00 Lisinopril (Prinivil) 20 mg BID PO Last administered on 03/16/17 07:44; Start 03/15/17 at 09:00 Metoprolol Tartrate (Lopressor) 25 mg Q8HR PO Last administered on 03/15/17 05 :51; Start 03/15/17 at 06:00 Trazodone HCl (Desyrel) 50 mg HS PO Last administered on 03/15/17 21:02; Start 03/15/17 at 21:00 Promethazine HCl (Phenergan) 25 mg Q6H PRN PO NAUSEA OR VOMITING; Start at 04:30 Potassium Chloride/Sodium Chloride 1,000 ml @ 100 mls/hr Q10H IV Last administered on 03/15/17 04:13; Start 03/15/17 at 04:13; Stop 03/16/17 at 09:49 ; Status DC Sodium Chloride (NS Flush) 2 ml UNSCH PRN IV FLUSH FLUSH AFTER USING IV ACCESS ; Start 03/15/17 at 04:15 Sodium Chloride (NS Flush) 2 ml BID IV FLUSH Last administered on 03/16/17 07: 45; Start 03/15/17 at 09:00 Lorazepam (Ativan Inj) 1 mg Q1H PRN IVP SEIZURES; Start 03/15/17 at 04:15 Docusate Sodium (Colace) 100 mg BID PO ; Start 03/15/17 at 09:00 Magnesium Hydroxide (Milk Of Magnesia Liq) 30 ml DAILY PRN PO CONSTIPATION; Start 03/15/17 at 04:15 Al Hydrox/Mg Hydrox/Simethicone (Mag-Al Plus Susp Liq) 30 ml Q6H PRN PO DYSPEPSIA; Start 03/15/17 at 04:15 Pantoprazole Sodium (Protonix) 40 mg DAILY PO Last administered on 03/16/17 07 :44; Start 03/15/17 at 09:00 Ondansetron HCl (Zofran Inj) 4 mg Q6H PRN IV NAUSEA OR VOMITING Last administered on 03/16/17 02:34; Start 03/15/17 at 04:15 Calcium Gluconate 1 gm/Sodium Chloride 110 ml @ 110 mls/hr UNSCH PRN IV SEE LABEL COMMENTS; Start 03/15/17 at 04:15 Potassium Chloride 100 ml @ 50 mls/hr UNSCH PRN IV POTASSIUM LESS THAN 4; Start 03/15/17 at 04:15 Magnesium Sulfate 2 gm/Sodium Chloride 104 ml @ 100 mls/hr UNSCH PRN IV MAGNESIUM LESS THAN 2; Start 03/15/17 at 04:15 Acetaminophen/ Hydrocodone Bitart ([place] 10-325 Mg) 1 tab Q4H PRN PO PAIN SCALE 1 TO 5; Start 03/15/17 at 04:15 Acetaminophen/ Hydrocodone Bitart ([place] 10-325 Mg) 2 tab Q4H PRN PO PAIN SCALE 6 TO 10 Last administered on 03/15/17t 17:45; Start 03/15/17 at 04:15 Labetalol HCl (Trandate Inj) 10 mg Q1H PRN IV SYS BP GREATER THAN 170 MMHG; Start 03/15/17 at 04:15 Clonidine (Catapres) 0.1 mg Q6H PRN PO SYS BP GREATER THAN 170 MMHG; Start at 04:15 Zolpidem Tartrate (Ambien) 5 mg HS PRN PO INSOMNIA; Start 03/15/17 at 04:15 Albuterol Sulfate (Albuterol Neb) 2.5 mg Q4HR NEB PRN NEB WHEEZING; Start 03/15 at 04:15 A/P Assessment and Plan A/P - syncope/ subdural hematoma- with history of subarachnoid hemorrhage 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 repeated head CT stable- management per neurosurgery -hypertension;BP stable- home meds resumed- will monitor and adjust the regimen as needed -breast cancer- continue Arimidex- f/u as outpatient. -DVT prophylaxis with SCD's- no chemical prophylaxis due to cerebral bleed. for transfer to floor. Darion Randle MD Mar 16, 2017 11:47
[2017-03-16] MEDS: traZODone HCL 50 MG TAB PO SCH (21:46)
[2017-03-16] MEDS: ACETAMINOPHEN/HYDROcodone 325 MG/10 MG TAB PO PRN (21:49)
[2017-03-17] VITALS (7 sets, daily range): BP systolic 104–137; BP diastolic 60–88; PULSE 54–68; RESP 16–20; TEMP 97.5–98.4; O2SAT 92–98
[2017-03-17] MEDS: METOPROLOL TARTRATE 25 MG TAB PO SCH ×3 (06:00→20:53)
[2017-03-17] MEDS: LISINOPRIL 20 MG TAB PO SCH ×2 (08:08→20:53)
[2017-03-17] MEDS: levETIRAcetam 500 MG TAB PO SCH ×2 (08:08→20:52)
[2017-03-17] MEDS: PANTOPRAZOLE SOD 40 MG DELAYED RELEASE TAB PO SCH (08:08)
[2017-03-17] MEDS: amLODIPine BESYLATE 5 MG TAB PO SCH (08:09)
[2017-03-17] MEDS: ANASTROZOLE 1 MG TAB PO SCH (08:09)
[2017-03-17] MEDS: DOCUSATE SODIUM 100 MG CAP PO SCH ×2 (08:25→20:53)
[2017-03-17] MEDS: SODIUM CHLORIDE 0.9% FLUSH 10 ML FLUSH IV FLUSH SCH ×2 (08:25→21:08)
--- NOTE | 2017-03-17 11:06 | HHI.PR ---
Subjective Remarks in no distress. denies pain. no fever. result of blood cultures was noted . d/w the RN. Objective Vitals Vital Signs Date Time Temp Pulse Resp B/P (MAP) Pulse Ox O2 Delivery O2 Flow Rate FiO2 03/17/17 08:00 98.4 54 20 115/71 (86) 96 03/17/17 04:14 97.5 54 18 122/61 (81) 97 03/17/17 00:00 97.6 57 16 116/66 (83) 97 03/16/17 22:55 18 03/16/17 22:27 97 21 03/16/17 20:40 61 03/16/17 20:00 97.9 80 16 126/81 (96) 98 03/16/17 14:00 77 03/16/17 12:00 82 03/16/17 12:00 98.7 88 14 101/66 (78) 99 I/O 03/16/17 03/16/17 03/16/17 03/17/17 03/17/17 03/17/17 07:00 15:00 23:00 07:00 15:00 23:00 Intake Total 720 ml 620 ml Balance 720 ml 620 ml Intake Oral 720 ml 220 ml IV Total 400 ml # Voids 8 2 Result Diagram: 03/15/17 0155 03/16/17 0511 Imaging Last Impressions Head CT 03/16/17 0600 Signed Impressions: Service Date/Time: Thursday, March 16, 2017 04:09 - CONCLUSION: No acute findings. Stable appearance to the small right anterior parietal subdural hematoma. Collin Granados MD Chest X-Ray 03/15/17 0047 Signed Impressions: Service Date/Time: February 01:16 - CONCLUSION: No acute disease. Collin Crump Jr., MD Shunt Study (Imaging) 03/15/17 0000 Signed Impressions: Service Date/Time: February 01:16 - CONCLUSION: Intact shunt. Collin Crump Jr., MD Objective Remarks GENERAL: This is a well-nourished, well-developed patient, in no apparent distress. CARDIOVASCULAR: Regular rate and regular rhythm without murmurs, gallops, or rubs. RESPIRATORY: Clear to auscultation. Breath sounds equal bilaterally. No wheezes , rales, or rhonchi. GASTROINTESTINAL: Abdomen soft, non-tender, nondistended. Normal, active bowel sounds MUSCULOSKELETAL: Extremities without clubbing, cyanosis, or edema. NEURO: Alert & Oriented x4 to person, place, time, situation. Moves all ext x4 Medications and IVs Current Medications Sodium Chloride (NS Flush) 2 ml UNSCH PRN IVF FLUSH AFTER USING IV ACCESS; Start 03/15/17 at 01:00; Stop 03/15/17 at 04:01; Status DC Sodium Chloride 500 ml @ 500 mls/hr BOLUS ONCE IV Last administered on 02:00; Start 03/15/17 at 01:00; Stop 03/15/17 at 01:59; Status DC Ondansetron HCl (Zofran Inj) 4 mg ONCE ONCE IV PUSH Last administered on 03:45; Start 03/15/17 at 02:45; Stop 03/15/17 at 02:46; Status DC Pantoprazole Sodium (Protonix Inj) 40 mg ONCE ONCE IV PUSH Last administered on 03/15/17 03:45; Start 03/15/17 at 02:45; Stop 03/15/17 at 02:46; Status DC Sodium Chloride 500 ml @ 500 mls/hr BOLUS ONCE IV Last administered on 03:45; Start 03/15/17 at 03:15; Stop 03/15/17 at 04:14; Status DC Sodium Chloride (NS Flush) 2 ml BID IV FLUSH ; Start 03/15/17 at 09:00; Stop at 09:00; Status DC Sodium Chloride (NS Flush) 2 ml UNSCH PRN IVF FLUSH AFTER USING IV ACCESS; Start 03/15/17 at 04:00; Stop 03/15/17 at 04:33; Status DC Acetaminophen (Tylenol) 650 mg Q6H PRN PO FEVER; Start 03/15/17 at 04:15 Amlodipine Besylate (Norvasc) 5 mg DAILY PO Last administered on 03/17/17 08: 09; Start 03/15/17 at 09:00 Anastrozole (Arimidex) 1 mg DAILY PO Last administered on 03/17/17 08:09; Start 03/15/17 at 09:00 Levetriacetam (Keppra) 500 mg BID PO Last administered on 03/17/17 08:08; Start 03/15/17 at 09:00 Lisinopril (Prinivil) 20 mg BID PO Last administered on 03/17/17 08:08; Start 03/15/17 at 09:00 Metoprolol Tartrate (Lopressor) 25 mg Q8HR PO Last administered on 03/16/17 21 :47; Start 03/15/17 at 06:00 Trazodone HCl (Desyrel) 50 mg HS PO Last administered on 03/16/17 21:46; Start 03/15/17 at 21:00 Promethazine HCl (Phenergan) 25 mg Q6H PRN PO NAUSEA OR VOMITING; Start at 04:30 Potassium Chloride/Sodium Chloride 1,000 ml @ 100 mls/hr Q10H IV Last administered on 03/15/17 04:13; Start 03/15/17 at 04:13; Stop 03/16/17 at 09:49 ; Status DC Sodium Chloride (NS Flush) 2 ml UNSCH PRN IV FLUSH FLUSH AFTER USING IV ACCESS ; Start 03/15/17 at 04:15 Sodium Chloride (NS Flush) 2 ml BID IV FLUSH Last administered on 03/17/17 08: 25; Start 03/15/17 at 09:00 Lorazepam (Ativan Inj) 1 mg Q1H PRN IVP SEIZURES; Start 03/15/17 at 04:15 Docusate Sodium (Colace) 100 mg BID PO Last administered on 03/16/17 21:46; Start 03/15/17 at 09:00 Magnesium Hydroxide (Milk Of Magnesia Liq) 30 ml DAILY PRN PO CONSTIPATION; Start 03/15/17 at 04:15 Al Hydrox/Mg Hydrox/Simethicone (Mag-Al Plus Susp Liq) 30 ml Q6H PRN PO DYSPEPSIA; Start 03/15/17 at 04:15 Pantoprazole Sodium (Protonix) 40 mg DAILY PO Last administered on 03/17/17 08 :08; Start 03/15/17 at 09:00 Ondansetron HCl (Zofran Inj) 4 mg Q6H PRN IV NAUSEA OR VOMITING Last administered on 03/16/17 02:34; Start 03/15/17 at 04:15 Calcium Gluconate 1 gm/Sodium Chloride 110 ml @ 110 mls/hr UNSCH PRN IV SEE LABEL COMMENTS; Start 03/15/17 at 04:15 Potassium Chloride 100 ml @ 50 mls/hr UNSCH PRN IV POTASSIUM LESS THAN 4; Start 03/15/17 at 04:15 Magnesium Sulfate 2 gm/Sodium Chloride 104 ml @ 100 mls/hr UNSCH PRN IV MAGNESIUM LESS THAN 2; Start 03/15/17 at 04:15 Acetaminophen/ Hydrocodone Bitart ([place] 10-325 Mg) 1 tab Q4H PRN PO PAIN SCALE 1 TO 5; Start 03/15/17 at 04:15 Acetaminophen/ Hydrocodone Bitart ([place] 10-325 Mg) 2 tab Q4H PRN PO PAIN SCALE 6 TO 10 Last administered on 03/16/17t 21:49; Start 03/15/17 at 04:15 Labetalol HCl (Trandate Inj) 10 mg Q1H PRN IV SYS BP GREATER THAN 170 MMHG; Start 03/15/17 at 04:15 Clonidine (Catapres) 0.1 mg Q6H PRN PO SYS BP GREATER THAN 170 MMHG; Start at 04:15 Zolpidem Tartrate (Ambien) 5 mg HS PRN PO INSOMNIA; Start 03/15/17 at 04:15 Albuterol Sulfate (Albuterol Neb) 2.5 mg Q4HR NEB PRN NEB WHEEZING; Start 03/15 at 04:15 A/P Assessment and Plan A/P - syncope/ subdural hematoma- with history of subarachnoid hemorrhage 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 repeated head CT stable- management per neurosurgery -bacteremia with staph- with history of [employer]ER shunt- contamination?? repeat the blood cultures- - consult ID -hypertension;BP stable- home meds resumed- will monitor and adjust the regimen as needed -breast cancer- continue Arimidex- f/u as outpatient. -DVT prophylaxis with SCD's- no chemical prophylaxis due to cerebral bleed. Darion Randle MD Mar 17, 2017 11:06
--- NOTE | 2017-03-17 12:13 | HHI.NSPN ---
(Ivania Hussein) Note Status Status: Progress Note (Ivania Hussein) Interval History Interval History 51-year-old female with a very complicated medical history. 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 She was evaluated Dr. Young from neurosurgery and transfer to the [facility] in [place] where she underwent a right craniotomy for aneurysm clipping. Subsequently she also underwent a left NURSING CENTER TUTOR shunt placement, tracheostomy and percutaneous endoscopic gastrostomy tube. She subsequently is transferred back to [facility] under the medical service, Dr. Young was consulted. He recommended conservative treatment of the untreated left posterior communicating artery aneurysm. She unfortunately also was diagnosed with breast cancer and had mastectomy in the interim. She is on multiple blood pressure medications but according to the she has not been taking them because her blood pressure is running on low side, and she had a few drinks last evening and fell. It is unclear whether she had a syncopal episodes or hit her head, in any case she was brought to [facility] emergency room and a CT scan of the head was obtained which reveals a postoperative changes in the right frontal aspect along with a left-sided NURSING CENTER TUTOR shunt in place with normal ventricle side. The shunt series reveals tubing to be intact. There is some right frontal old hygromas changes as well as postop changes which radiologist felt could be a small subdural hemorrhage but in my opinion it reflects postop changes. She is admitted for observation. If she denies any headaches, or nausea or vomiting. She is confused. 03/16/17: Awake and alert with flat affect and remains confused at times. 03/17/17: nursing reports a positive blood cx, no fevers/chills. medical mgt aware - possible contamination - repeating cultures. no neuro changes to neuro checks. (Ivania Hussein) Labs, Micro, & Vital Signs Results Date Time Temp Pulse Resp B/P (MAP) Pulse Ox O2 Delivery O2 Flow Rate FiO2 03/17/17 08:00 98.4 54 20 115/71 (86) 96 03/17/17 04:14 97.5 54 18 122/61 (81) 97 03/17/17 00:00 97.6 57 16 116/66 (83) 97 03/16/17 22:55 18 03/16/17 22:27 97 21 03/16/17 20:40 61 03/16/17 20:00 97.9 80 16 126/81 (96) 98 03/16/17 14:00 77 Constitutional Vital Signs Date Time Temp Pulse Resp B/P (MAP) Pulse Ox O2 Delivery O2 Flow Rate FiO2 03/17/17 08:00 98.4 54 20 115/71 (86) 96 03/17/17 04:14 97.5 54 18 122/61 (81) 97 03/17/17 00:00 97.6 57 16 116/66 (83) 97 03/16/17 22:55 18 03/16/17 22:27 97 21 03/16/17 20:40 61 03/16/17 20:00 97.9 80 16 126/81 (96) 98 03/16/17 14:00 77 (Ivania Hussein) Physical Exam Alert, following commands. Conversing. Motor: moving all four extremities well CN: pupils equal, facial motor symmetric Neck: soft, supple Resp: CTA bilaterally Heart: NSR Abd: Soft, nontender (Ivania Hussein) Medications Current Medications Current Medications Medications (Trade) Dose Ordered Sig/Conor Route PRN Reason Start Time Stop Time Status Last Admin Dose Admin Acetaminophen (Tylenol) 650 mg Q6H PRN PO FEVER 03/15/17 04:15 Amlodipine Besylate (Norvasc) 5 mg DAILY PO 03/15/17 09:00 03/17/17 08:09 Anastrozole (Arimidex) 1 mg DAILY PO 03/15/17 09:00 03/17/17 08:09 Levetriacetam (Keppra) 500 mg BID PO 03/15/17 09:00 03/17/17 08:08 Lisinopril (Prinivil) 20 mg BID PO 03/15/17 09:00 03/17/17 08:08 Metoprolol Tartrate (Lopressor) 25 mg Q8HR PO 03/15/17 06:00 03/16/17 21:47 Trazodone HCl (Desyrel) 50 mg HS PO 03/15/17 21:00 03/16/17 21:46 Promethazine HCl (Phenergan) 25 mg Q6H PRN PO NAUSEA OR VOMITING 03/15/17 04:30 Sodium Chloride (NS Flush) 2 ml UNSCH PRN IV FLUSH FLUSH AFTER USING IV ACCESS 03/15/17 04:15 Sodium Chloride (NS Flush) 2 ml BID IV FLUSH 03/15/17 09:00 03/17/17 08:25 Lorazepam (Ativan Inj) 1 mg Q1H PRN IVP SEIZURES 03/15/17 04:15 Docusate Sodium (Colace) 100 mg BID PO 03/15/17 09:00 03/16/17 21:46 Magnesium Hydroxide (Milk Of Magnesia Liq) 30 ml DAILY PRN PO CONSTIPATION 03/15/17 04:15 Al Hydrox/Mg Hydrox/Simethicone (Mag-Al Plus Susp Liq) 30 ml Q6H PRN PO DYSPEPSIA 03/15/17 04:15 Pantoprazole Sodium (Protonix) 40 mg DAILY PO 03/15/17 09:00 03/17/17 08:08 Ondansetron HCl (Zofran Inj) 4 mg Q6H PRN IV NAUSEA OR VOMITING 03/15/17 04:15 03/16/17 02:34 Calcium Gluconate 1 gm/Sodium Chloride 110 ml @ 110 mls/hr UNSCH PRN IV SEE LABEL COMMENTS 03/15/17 04:15 Potassium Chloride 100 ml @ 50 mls/hr UNSCH PRN IV POTASSIUM LESS THAN 4 03/15/17 04:15 Magnesium Sulfate 2 gm/Sodium Chloride 104 ml @ 100 mls/hr UNSCH PRN IV MAGNESIUM LESS THAN 2 03/15/17 04:15 Acetaminophen/ Hydrocodone Bitart ([place] 10-325 Mg) 1 tab Q4H PRN PO PAIN SCALE 1 TO 5 03/15/17 04:15 Acetaminophen/ Hydrocodone Bitart ([place] 10-325 Mg) 2 tab Q4H PRN PO PAIN SCALE 6 TO 10 03/15/17 04:15 03/16/17 21:49 Labetalol HCl (Trandate Inj) 10 mg Q1H PRN IV SYS BP GREATER THAN 170 MMHG 03/15/17 04:15 Clonidine (Catapres) 0.1 mg Q6H PRN PO SYS BP GREATER THAN 170 MMHG 03/15/17 04:15 Zolpidem Tartrate (Ambien) 5 mg HS PRN PO INSOMNIA 03/15/17 04:15 Albuterol Sulfate (Albuterol Neb) 2.5 mg Q4HR NEB PRN NEB WHEEZING 03/15/17 04:15 (Ivania Hussein) Medical Decision Making MDM Remarks 51 year old female 1. History of right craniotomy for ruptured posterior communicating artery aneurysm and subsequent to NURSING CENTER TUTOR shunt placement on left side with an unruptured left posterior communicating artery aneurysm. She is scheduled to follow up with a neurosurgeon in [facility] in next few months. I do not see any acute subdural hemorrhage in the right side and on there is some chronic subdural hygromas fluid and postoperative changes noted. 2. History of seizures on Keppra therapy. 3. History of hypertension, although this appears be well regulated. 4. Alcohol abuse. 03/17 Positive Blood cultures, ?poss contamination (Ivania Hussein) Plan Plan Remarks cont medical mgt - repeating cultures- ID consulted cont therapy and rehab effort serial neuro checks dw nursing (Ivania Hussein) Attending Statement The exam, history, and the medical decision-making described in the above note were completed with the assistance of the mid-level provider. I reviewed and agree with the findings presented. I attest that I had a [id number] encounter with the patient on the same day, and personally performed and documented my assessment and findings in the medical record. (Tyler Young MD) Ivania Hussein Mar 17, 2017 12:13 Tyler Young MD Mar 17, 2017 22:36
--- NOTE | 2017-03-17 15:17 | PD.CONS ---
History of Present Illness Service Infectious disease Consult Requested By Dr Randle Reason for Consult Evaluate patient with positive blood culture Primary Care Physician No Primary Care Physician Diagnoses: History of Present Illness Patient seen and examined. Records reviewed. Patient is a 51-year-old female, brought into the hospital, after she passed out. She was first diagnosed in October 2016 with bilateral posterior communicating artery aneurysm when she presented with subarachnoid hemorrhage as well as intraparenchymal and subdural hemorrhage. She was transferred to [facility] and she underwent right craniotomy for aneurysm clipping and also underwent left CRM ARCHITECT shunt placement. During that hospitalization she had a tracheostomy and a PEG tube placed, and she has recovered and all discs were removed. Looks like the left posterior communicating artery aneurysm was not treated and it was being followed closely and being treated conservatively. In the interim she was found to have a breast cancer on the right, and underwent surgery for that, and undergoing chemotherapy with hormone simran under the care of Dr. Acosta. She went to [facility] for about 10 days, and she has been home since the second week of January. According to the patient has had persistent mild headaches and there has not been any change. She has recently established with a primary care physician, and her blood pressure medications were adjusted. She used to be on pre-blood pressure medicine, and she was cut down to Lopressor and lisinopril. Her checks her blood pressure regularly, and at times when her blood pressure is on the low side, he would skip some of her blood pressure medication. Patient apparently has had some decrease in her oral intake and fluid intake over the last several days and has not been feeling well. She's been having trouble sleeping, and according to the patient has not slept for a probably several days. On the day that she had the syncopal episode, her blood pressure was running low all day, and he did not give her her blood pressure medication. He has not noted any fever or chills or sweats. There has been no change in her headache. She did not have any nausea or vomiting, respiratory, or any urinary complaints. On evaluation in the emergency room she had a CT which showed postoperative changes in the right frontal aspect, and there are also some old hygromas in the right frontal region and some postoperative changes, possibly a small subdural hemorrhage versus more of a postoperative change. Her shunt was also evaluated and it was functioning well. 2 blood cultures were done in the emergency room. According to the she was a difficult stick, and the tried multiple times to get her blood work done. One blood culture came out positive yesterday, and it has staph epi. The other set came up positive today and it has gram-positive cocci impairs in clusters. She has not had any fever since admission. Her mental status seems to be back to baseline. Her WBC is normal. Repeat imaging studies of the brain showed stable findings, and no normal abnormalities seen. Patient has been ambulating in the hallway. Infectious disease consultation has been requested to make recommendation regarding the positive blood culture. Review of Systems Constitutional: COMPLAINS OF: Change in appetite, DENIES: Fever, Chills, Night Sweats Eyes: DENIES: Eye pain Ears, nose, mouth, throat: DENIES: Nasal discharge, Oral lesions, Throat pain Respiratory: DENIES: Cough, Shortness of breath Cardiovascular: COMPLAINS OF: Syncope, DENIES: Chest pain, Palpitations, Lower Extremity Edema Gastrointestinal: COMPLAINS OF: Constipation, DENIES: Abdominal pain, Nausea, Vomiting, Difficulty Swallowing Genitourinary: DENIES: Dysuria Musculoskeletal: DENIES: Joint pain, Joint Swelling Integumentary: DENIES: Rash Neurologic: COMPLAINS OF: Headache, DENIES: Localized weakness Psychiatric: COMPLAINS OF: Confusion, Depression, DENIES: Hallucinations Past Family Social History Allergies: Coded Allergies: No Known Allergies (Unverified , 03/15/17) Past Medical History subarachnoid hemorrhage hypertension breast cancer Ruptured cerebral aneurysm Past Surgical History cerebral aneurysm clipping/ CRM ARCHITECT shunt placement mastectomy Active Ordered Medications Tylenol [place] Timonium Antacids Albuterol Norvasc Arimidex Clonidine Colace Labetalol Keppra Prinivil Ativan MOM Magnesium Lopressor Zofran Protonix Potassium Phenergan Desyrel Ambien Family History Non-contributory Social History Smokes a few cigarettes a day Drinks wine at night No illicit drugs. Physical Exam Vital Signs Vital Signs Date Time Temp Pulse Resp B/P (MAP) Pulse Ox O2 Delivery O2 Flow Rate FiO2 03/17/17 09:14 92 21 03/17/17 08:00 98.4 54 20 115/71 (86) 96 03/17/17 04:14 97.5 54 18 122/61 (81) 97 03/17/17 00:00 97.6 57 16 116/66 (83) 97 03/16/17 22:55 18 03/16/17 22:27 97 21 03/16/17 20:40 61 03/16/17 20:00 97.9 80 16 126/81 (96) 98 Physical Exam GENERAL: Patient is a well-nourished, well-developed CF, awake, responding, has a flat affect, not in respiratory distress. SKIN: Warm and dry. No generalized rash, no ecchymoses and no evidence of embolic lesions. HEAD: Normocephalic. No temporal wasting, or tenderness. EYES: [place] conjunctiva. No petechia or hemorrhage. Pupils equal, round and reactive to light. Extraocular movements full and intact. No scleral icterus. No injection or drainage. EARS, NOSE AND THROAT: Nose without bleeding or purulent nasal discharge. No sinus tenderness. Mucous membranes pink and moist. No oral lesions noted. NECK: Trachea midline. Supple and not tender, no meningeal signs CARDIOVASCULAR: Regular rate and rhythm. No murmurs, rubs or gallops heard RESPIRATORY: Clear to auscultation. Breath sounds equal bilaterally. No rales , wheezing or rhonchi. Healed incision R chest from her previous mastectomy ABDOMEN: Soft, non-tender, nondistended. Bowel sounds present and normoactive. No guarding. No rebound. No organomegaly. Healed incision L upper quadrant from her CRM ARCHITECT shunt EXTREMITIES: No clubbing, cyanosis, or edema.No joint effusion, has good ROM. No calf tenderness. Well perfused and warm. NEUROLOGICAL: Awake and alert. Cranial nerves grossly intact. Motor grossly within normal limits. PSYCHIATRIC: Flat affect, calm and cooperative. Very emotional LINE: No evidence of infection Laboratory Date/Time Source Procedure Growth Status 03/17/17 13:20 Blood Peripheral Aerobic Blood Culture Pending Received 03/17/17 13:20 Blood Peripheral Anaerobic Blood Culture Pending Received Result Diagram: 03/15/17 0155 03/16/17 0511 Imaging RADIOLOGY STUDIES/FILMS REVIEWED Head CT 03/16/17 0600 Signed Impressions: Service Date/Time: Thursday, March 16, 2017 04:09 - CONCLUSION: No acute findings. Stable appearance to the small right anterior parietal subdural hematoma. Collin Granados MD Chest X-Ray 03/15/17 0047 Signed Impressions: Service Date/Time: February 01:16 - CONCLUSION: No acute disease. Collin Crump Jr., MD Shunt Study (Imaging) 03/15/17 0000 Signed Impressions: Service Date/Time: February 01:16 - CONCLUSION: Intact shunt. Collin Crump Jr., MD Assessment and Plan Assessment and Plan IMPRESSION Bacteremia, one with Staph epi, second one GPC no ID yet - ?significance, no lines, has L CRM ARCHITECT shunt - did have low BP on day of admission, elevated lactic acid (Unclear significance), not feeling well - ?contaminant - had difficult venipuncture Etiology of syncope, not clear - she was having BM, ?vagal; BP though was low all day according to Hx cerebral aneurysm S/P surgery on R; still with L untreated S/P CRM ARCHITECT shunt - shunt study ok Hypertension RECOMMENDATION Follow new (+) BC - if different Coag Neg Staph, she can be D/C tomorrow If same, will start Vanco and follow repeat BC - source for (+) BC will need to be looked into - she has CRM ARCHITECT shunt which seem to be functioning well For now, hold off on Abx I will follow along with you Thank you for this consultation Discussed Condition With Explained plan to patient, D/W Dasha Skinner MD Mar 17, 2017 15:17
[2017-03-17] MEDS: traZODone HCL 50 MG TAB PO SCH (20:53)
[2017-03-18] VITALS: BP 126/75; PULSE 56; RESP 18; TEMP 98.2; O2SAT 98
[2017-03-18 04:00] VITALS: BP 129/72; PULSE 57; RESP 18; TEMP 98.2; O2SAT 94
[2017-03-18] MEDS: METOPROLOL TARTRATE 25 MG TAB PO SCH ×2 (05:46→13:34)
[2017-03-18 08:18] VITALS: BP 128/71; PULSE 53; RESP 20; TEMP 98.1; O2SAT 95
[2017-03-18] MEDS: amLODIPine BESYLATE 5 MG TAB PO SCH (08:37)
[2017-03-18] MEDS: ANASTROZOLE 1 MG TAB PO SCH (08:37)
[2017-03-18] MEDS: PANTOPRAZOLE SOD 40 MG DELAYED RELEASE TAB PO SCH (08:37)
[2017-03-18] MEDS: LISINOPRIL 20 MG TAB PO SCH (08:37)
[2017-03-18] MEDS: levETIRAcetam 500 MG TAB PO SCH (08:37)
[2017-03-18] MEDS: SODIUM CHLORIDE 0.9% FLUSH 10 ML FLUSH IV FLUSH SCH (08:37)
[2017-03-18] MEDS: DOCUSATE SODIUM 100 MG CAP PO SCH (08:37)
--- NOTE | 2017-03-18 09:46 | HHI.PR ---
Subjective Remarks in no acute distress. remains afebrile. no new complaints. wants to go home today. Objective Vitals Vital Signs Date Time Temp Pulse Resp B/P (MAP) Pulse Ox O2 Delivery O2 Flow Rate FiO2 03/18/17 08:18 98.1 53 20 128/71 (90) 95 03/18/17 04:00 98.2 57 18 129/72 (91) 94 03/18/17 00:00 98.2 56 18 126/75 (92) 98 03/17/17 20:00 98.3 67 18 137/88 (104) 98 03/17/17 16:00 97.8 68 20 125/73 (90) 98 03/17/17 12:00 98.1 68 20 104/60 (75) 96 I/O 03/17/17 03/17/17 03/17/17 03/18/17 03/18/17 03/18/17 07:00 15:00 23:00 07:00 15:00 23:00 Intake Total 620 ml 720 ml Balance 620 ml 720 ml Intake Oral 220 ml 720 ml IV Total 400 ml # Voids 2 4 4 # Bowel Movements 0 1 Result Diagram: 03/15/17 0155 03/16/17 0511 Imaging Last Impressions Head CT 03/16/17 0600 Signed Impressions: Service Date/Time: Thursday, March 16, 2017 04:09 - CONCLUSION: No acute findings. Stable appearance to the small right anterior parietal subdural hematoma. Collin Granados MD Chest X-Ray 03/15/17 0047 Signed Impressions: Service Date/Time: February 01:16 - CONCLUSION: No acute disease. Collin Crump Jr., MD Shunt Study (Imaging) 03/15/17 0000 Signed Impressions: Service Date/Time: February 01:16 - CONCLUSION: Intact shunt. Collin Crump Jr., MD Objective Remarks GENERAL: This is a well-nourished, well-developed patient, in no apparent distress. CARDIOVASCULAR: Regular rate and regular rhythm without murmurs, gallops, or rubs. RESPIRATORY: Clear to auscultation. Breath sounds equal bilaterally. No wheezes , rales, or rhonchi. GASTROINTESTINAL: Abdomen soft, non-tender, nondistended. Normal, active bowel sounds MUSCULOSKELETAL: Extremities without clubbing, cyanosis, or edema. NEURO: Alert & Oriented x4 to person, place, time, situation. Moves all ext x4 Medications and IVs Current Medications Sodium Chloride (NS Flush) 2 ml UNSCH PRN IVF FLUSH AFTER USING IV ACCESS; Start 03/15/17 at 01:00; Stop 03/15/17 at 04:01; Status DC Sodium Chloride 500 ml @ 500 mls/hr BOLUS ONCE IV Last administered on 02:00; Start 03/15/17 at 01:00; Stop 03/15/17 at 01:59; Status DC Ondansetron HCl (Zofran Inj) 4 mg ONCE ONCE IV PUSH Last administered on 03:45; Start 03/15/17 at 02:45; Stop 03/15/17 at 02:46; Status DC Pantoprazole Sodium (Protonix Inj) 40 mg ONCE ONCE IV PUSH Last administered on 03/15/17 03:45; Start 03/15/17 at 02:45; Stop 03/15/17 at 02:46; Status DC Sodium Chloride 500 ml @ 500 mls/hr BOLUS ONCE IV Last administered on 03:45; Start 03/15/17 at 03:15; Stop 03/15/17 at 04:14; Status DC Sodium Chloride (NS Flush) 2 ml BID IV FLUSH ; Start 03/15/17 at 09:00; Stop at 09:00; Status DC Sodium Chloride (NS Flush) 2 ml UNSCH PRN IVF FLUSH AFTER USING IV ACCESS; Start 03/15/17 at 04:00; Stop 03/15/17 at 04:33; Status DC Acetaminophen (Tylenol) 650 mg Q6H PRN PO FEVER Last administered on 03/17/17 21:07; Start 03/15/17 at 04:15 Amlodipine Besylate (Norvasc) 5 mg DAILY PO Last administered on 03/18/17 08: 37; Start 03/15/17 at 09:00 Anastrozole (Arimidex) 1 mg DAILY PO Last administered on 03/18/17 08:37; Start 03/15/17 at 09:00 Levetriacetam (Keppra) 500 mg BID PO Last administered on 03/18/17 08:37; Start 03/15/17 at 09:00 Lisinopril (Prinivil) 20 mg BID PO Last administered on 03/18/17 08:37; Start 03/15/17 at 09:00 Metoprolol Tartrate (Lopressor) 25 mg Q8HR PO Last administered on 03/18/17 05 :46; Start 03/15/17 at 06:00 Trazodone HCl (Desyrel) 50 mg HS PO Last administered on 03/17/17 20:53; Start 03/15/17 at 21:00 Promethazine HCl (Phenergan) 25 mg Q6H PRN PO NAUSEA OR VOMITING; Start at 04:30 Potassium Chloride/Sodium Chloride 1,000 ml @ 100 mls/hr Q10H IV Last administered on 03/15/17 04:13; Start 03/15/17 at 04:13; Stop 03/16/17 at 09:49 ; Status DC Sodium Chloride (NS Flush) 2 ml UNSCH PRN IV FLUSH FLUSH AFTER USING IV ACCESS ; Start 03/15/17 at 04:15 Sodium Chloride (NS Flush) 2 ml BID IV FLUSH Last administered on 03/18/17 08: 37; Start 03/15/17 at 09:00 Lorazepam (Ativan Inj) 1 mg Q1H PRN IVP SEIZURES; Start 03/15/17 at 04:15 Docusate Sodium (Colace) 100 mg BID PO Last administered on 03/18/17 08:37; Start 03/15/17 at 09:00 Magnesium Hydroxide (Milk Of Magnesia Liq) 30 ml DAILY PRN PO CONSTIPATION; Start 03/15/17 at 04:15 Al Hydrox/Mg Hydrox/Simethicone (Mag-Al Plus Susp Liq) 30 ml Q6H PRN PO DYSPEPSIA; Start 03/15/17 at 04:15 Pantoprazole Sodium (Protonix) 40 mg DAILY PO Last administered on 03/18/17 08 :37; Start 03/15/17 at 09:00 Ondansetron HCl (Zofran Inj) 4 mg Q6H PRN IV NAUSEA OR VOMITING Last administered on 03/16/17 02:34; Start 03/15/17 at 04:15 Calcium Gluconate 1 gm/Sodium Chloride 110 ml @ 110 mls/hr UNSCH PRN IV SEE LABEL COMMENTS; Start 03/15/17 at 04:15 Potassium Chloride 100 ml @ 50 mls/hr UNSCH PRN IV POTASSIUM LESS THAN 4; Start 03/15/17 at 04:15 Magnesium Sulfate 2 gm/Sodium Chloride 104 ml @ 100 mls/hr UNSCH PRN IV MAGNESIUM LESS THAN 2; Start 03/15/17 at 04:15 Acetaminophen/ Hydrocodone Bitart ([place] 10-325 Mg) 1 tab Q4H PRN PO PAIN SCALE 1 TO 5; Start 03/15/17 at 04:15 Acetaminophen/ Hydrocodone Bitart ([place] 10-325 Mg) 2 tab Q4H PRN PO PAIN SCALE 6 TO 10 Last administered on 03/16/17t 21:49; Start 03/15/17 at 04:15 Labetalol HCl (Trandate Inj) 10 mg Q1H PRN IV SYS BP GREATER THAN 170 MMHG; Start 03/15/17 at 04:15 Clonidine (Catapres) 0.1 mg Q6H PRN PO SYS BP GREATER THAN 170 MMHG; Start at 04:15 Zolpidem Tartrate (Ambien) 5 mg HS PRN PO INSOMNIA; Start 03/15/17 at 04:15 Albuterol Sulfate (Albuterol Neb) 2.5 mg Q4HR NEB PRN NEB WHEEZING; Start 03/15 at 04:15 A/P Assessment and Plan A/P - syncope/ subdural hematoma- with history of subarachnoid hemorrhage and TALLOW PUMPER shunt placement continue with neuro-checks- continue Keppra- PT consulted. repeated head CT stable- management per neurosurgery -bacteremia with staph- with history of TALLOW PUMPER shunt- contamination?? repeated the blood cultures- - ID consult appreciated. -hypertension;BP stable- home meds resumed- will monitor and adjust the regimen as needed -breast cancer- continue Arimidex- f/u as outpatient. -DVT prophylaxis with SCD's- no chemical prophylaxis due to cerebral bleed. Discharge Planning dc home when ok with neurosurgery and ID. Darion Randle MD Mar 18, 2017 09:46
--- NOTE | 2017-03-18 11:16 | HHI.NSPN ---
(Ivania Hussein) Note Status Status: Progress Note (Ivania Hussein) Interval History Interval History 51-year-old female with a very complicated medical history. 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 She was evaluated Dr. Young from neurosurgery and transfer to the [facility] in [place] where she underwent a right craniotomy for aneurysm clipping. Subsequently she also underwent a left CRITICAL CARE PARAMEDIC shunt placement, tracheostomy and percutaneous endoscopic gastrostomy tube. She subsequently is transferred back to [facility] under the medical service, Dr. Young was consulted. He recommended conservative treatment of the untreated left posterior communicating artery aneurysm. She unfortunately also was diagnosed with breast cancer and had mastectomy in the interim. She is on multiple blood pressure medications but according to the she has not been taking them because her blood pressure is running on low side, and she had a few drinks last evening and fell. It is unclear whether she had a syncopal episodes or hit her head, in any case she was brought to [facility] emergency room and a CT scan of the head was obtained which reveals a postoperative changes in the right frontal aspect along with a left-sided CRITICAL CARE PARAMEDIC shunt in place with normal ventricle side. The shunt series reveals tubing to be intact. There is some right frontal old hygromas changes as well as postop changes which radiologist felt could be a small subdural hemorrhage but in my opinion it reflects postop changes. She is admitted for observation. If she denies any headaches, or nausea or vomiting. She is confused. 03/16/17: Awake and alert with flat affect and remains confused at times. 03/17/17: nursing reports a positive blood cx, no fevers/chills. medical mgt aware - possible contamination - repeating cultures. no neuro changes to neuro checks. 03/18/17: repeat blood cultures pending - patient feels well and very eager to go home. (Ivania Hussein) Labs, Micro, & Vital Signs Results Date Time Temp Pulse Resp B/P (MAP) Pulse Ox O2 Delivery O2 Flow Rate FiO2 03/18/17 08:18 98.1 53 20 128/71 (90) 95 03/18/17 04:00 98.2 57 18 129/72 (91) 94 03/18/17 00:00 98.2 56 18 126/75 (92) 98 03/17/17 20:00 98.3 67 18 137/88 (104) 98 03/17/17 16:00 97.8 68 20 125/73 (90) 98 03/17/17 12:00 98.1 68 20 104/60 (75) 96 Constitutional Vital Signs Date Time Temp Pulse Resp B/P (MAP) Pulse Ox O2 Delivery O2 Flow Rate FiO2 03/18/17 08:18 98.1 53 20 128/71 (90) 95 03/18/17 04:00 98.2 57 18 129/72 (91) 94 03/18/17 00:00 98.2 56 18 126/75 (92) 98 03/17/17 20:00 98.3 67 18 137/88 (104) 98 03/17/17 16:00 97.8 68 20 125/73 (90) 98 03/17/17 12:00 98.1 68 20 104/60 (75) 96 (Ivania Hussein) Physical Exam Alert, following commands. Conversing. Motor: moving all four extremities well CN: pupils equal, facial motor symmetric Neck: soft, supple Resp: CTA bilaterally Heart: NSR Abd: Soft, nontender (Ivania Hussein) Medications Current Medications Current Medications Medications (Trade) Dose Ordered Sig/Conor Route PRN Reason Start Time Stop Time Status Last Admin Dose Admin Acetaminophen (Tylenol) 650 mg Q6H PRN PO FEVER 03/15/17 04:15 03/17/17 21:07 Amlodipine Besylate (Norvasc) 5 mg DAILY PO 03/15/17 09:00 03/18/17 08:37 Anastrozole (Arimidex) 1 mg DAILY PO 03/15/17 09:00 03/18/17 08:37 Levetriacetam (Keppra) 500 mg BID PO 03/15/17 09:00 03/18/17 08:37 Lisinopril (Prinivil) 20 mg BID PO 03/15/17 09:00 03/18/17 08:37 Metoprolol Tartrate (Lopressor) 25 mg Q8HR PO 03/15/17 06:00 03/18/17 05:46 Trazodone HCl (Desyrel) 50 mg HS PO 03/15/17 21:00 03/17/17 20:53 Promethazine HCl (Phenergan) 25 mg Q6H PRN PO NAUSEA OR VOMITING 03/15/17 04:30 Sodium Chloride (NS Flush) 2 ml UNSCH PRN IV FLUSH FLUSH AFTER USING IV ACCESS 03/15/17 04:15 Sodium Chloride (NS Flush) 2 ml BID IV FLUSH 03/15/17 09:00 03/18/17 08:37 Lorazepam (Ativan Inj) 1 mg Q1H PRN IVP SEIZURES 03/15/17 04:15 Docusate Sodium (Colace) 100 mg BID PO 03/15/17 09:00 03/18/17 08:37 Magnesium Hydroxide (Milk Of [place]esia Liq) 30 ml DAILY PRN PO CONSTIPATION 03/15/17 04:15 Al Hydrox/Mg Hydrox/Simethicone (Mag-Al Plus Susp Liq) 30 ml Q6H PRN PO DYSPEPSIA 03/15/17 04:15 Pantoprazole Sodium (Protonix) 40 mg DAILY PO 03/15/17 09:00 03/18/17 08:37 Ondansetron HCl (Zofran Inj) 4 mg Q6H PRN IV NAUSEA OR VOMITING 03/15/17 04:15 03/16/17 02:34 Calcium Gluconate 1 gm/Sodium Chloride 110 ml @ 110 mls/hr UNSCH PRN IV SEE LABEL COMMENTS 03/15/17 04:15 Potassium Chloride 100 ml @ 50 mls/hr UNSCH PRN IV POTASSIUM LESS THAN 4 03/15/17 04:15 Magnesium Sulfate 2 gm/Sodium Chloride 104 ml @ 100 mls/hr UNSCH PRN IV MAGNESIUM LESS THAN 2 03/15/17 04:15 Acetaminophen/ Hydrocodone Bitart ([place] 10-325 Mg) 1 tab Q4H PRN PO PAIN SCALE 1 TO 5 03/15/17 04:15 Acetaminophen/ Hydrocodone Bitart ([place] 10-325 Mg) 2 tab Q4H PRN PO PAIN SCALE 6 TO 10 03/15/17 04:15 03/16/17 21:49 Labetalol HCl (Trandate Inj) 10 mg Q1H PRN IV SYS BP GREATER THAN 170 MMHG 03/15/17 04:15 Clonidine (Catapres) 0.1 mg Q6H PRN PO SYS BP GREATER THAN 170 MMHG 03/15/17 04:15 Zolpidem Tartrate (Ambien) 5 mg HS PRN PO INSOMNIA 03/15/17 04:15 Albuterol Sulfate (Albuterol Neb) 2.5 mg Q4HR NEB PRN NEB WHEEZING 03/15/17 04:15 (Ivania Hussein) Medical Decision Making MDM Remarks 51 year old female 1. History of right craniotomy for ruptured posterior communicating artery aneurysm and subsequent to CRITICAL CARE PARAMEDIC shunt placement on left side with an unruptured left posterior communicating artery aneurysm. She is scheduled to follow up with a neurosurgeon in [facility] in next few months. I do not see any acute subdural hemorrhage in the right side and on there is some chronic subdural hygromas fluid and postoperative changes noted. 2. History of seizures on Keppra therapy. 3. History of hypertension, although this appears be well regulated. 4. Alcohol abuse. 03/17 Positive Blood cultures, ?poss contamination, repeat cultures pending. clinically stable, afebrile. (Ivania Hussein) Plan Plan Remarks cont medical mgt - repeat cultures pending- ID following cont therapy Dr. Hector Lemos dc once cleared by ID and medicine (Ivania Hussein) Attending Statement The exam, history, and the medical decision-making described in the above note were completed with the assistance of the mid-level provider. I reviewed and agree with the findings presented. I attest that I had a [id number] encounter with the patient on the same day, and personally performed and documented my assessment and findings in the medical record. (Tyler Young MD) Ivania Hussein Mar 18, 2017 11:16 Tyler Young MD Mar 18, 2017 20:28
[2017-03-18 12:13] VITALS: BP 119/82; PULSE 67; RESP 20; TEMP 98.1; O2SAT 98
--- NOTE | 2017-03-18 13:30 | HHI.DS ---
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 the at the bedside says that she had her sleeping pill last night and had a glass of wine. she went to the bathroom but she fainted. she denies any prodromal symptoms prior to this event; no chest pain, sob or dizziness. but the noted that she takes a few blood pressure medications. she regained her consciousness in a minute. there's no history of fall. she was found to have subdural hematoma. she denies any headache, or nausea. d/w the RN at the bedside. CBC/BMP: 03/15/17 0155 03/16/17 0511 Significant Findings Laboratory Tests Test 03/16/17 05:11 Blood Urea Nitrogen 3 MG/DL (7-18) Sodium Level 132 MEQ/L (136-145) PE at Discharge GENERAL: This is a well-nourished, well-developed patient, in no apparent distress. CARDIOVASCULAR: Regular rate and regular rhythm without murmurs, gallops, or rubs. RESPIRATORY: Clear to auscultation. Breath sounds equal bilaterally. No wheezes , rales, or rhonchi. GASTROINTESTINAL: Abdomen soft, non-tender, nondistended. Normal, active bowel sounds MUSCULOSKELETAL: Extremities without clubbing, cyanosis, or edema. NEURO: Alert & Oriented x4 to person, place, time, situation. Moves all ext x4 Hospital Course - syncope/ subdural hematoma- with history of subarachnoid hemorrhage and TECTONOPHYSICIST shunt placement continue with neuro-checks- continue Keppra- PT consulted. repeated head CT stable- management per neurosurgery -bacteremia with staph- with history of TECTONOPHYSICIST shunt- contamination?? repeated the blood cultures- - ID consult appreciated. -hypertension;BP stable- home meds resumed- will monitor and adjust the regimen as needed -breast cancer- continue Arimidex- f/u as outpatient. -DVT prophylaxis with SCD's- no chemical prophylaxis due to cerebral bleed. Pt Condition on Discharge: Fair Discharge Disposition: Discharge Home Discharge Time: <= 30 minutes Discharge Instructions DIET: Follow Instructions for: Heart Healthy Diet Activities you can perform: Regular-No Restrictions Follow up Referrals: Neurosurgery PCP Follow-up Continued Medications: Acetaminophen (Eq Acetaminophen) 325 Mg Tab 650 MG PO Q6H PRN for FEVER, #30 TAB Amlodipine (Norvasc) 5 Mg Tab 5 MG PO DAILY for Blood Pressure Management for 30 Days, TAB 1 Refill Anastrozole (Anastrozole) 1 Mg Tab 1 MG PO DAILY for Breast Cancer, #30 TAB 0 Refills Levetiracetam (Keppra) 500 Mg Tab 500 MG PO BID for Seizure Control for 30 Days, TAB 1 Refill Lisinopril (Lisinopril) 20 Mg Tab 20 MG PO BID for Blood Pressure Management, #60 TAB Metoprolol Tartrate (Metoprolol Tartrate) 25 Mg Tab 25 MG PO Q8HR for Blood Pressure Management, #93 TAB Promethazine (Promethazine) 12.5 Mg Tab 25 MG PO Q6H PRN for NAUSEA OR VOMITING, TAB 0 Refills Ranitidine (Ranitidine 75) 75 Mg Tab 75 MG PO DAILY for Heartburn, TAB 0 Refills Take 30 to 60 minutes before eating food or drinking beverages that cause heartburn. Trazodone (Trazodone) 50 Mg Tab 50 MG PO HS for Insomnia for 30 Days, TAB 1 Refill Wheelchair (Wheelchair) 1 Mis Mis 1 EA .ROUTE DIRECTED, #1 EA 0 Refills Darion Randle MD Mar 18, 2017 13:30
== END 2017-03-18 15:46 | disposition home or self-care (01) | DRG 312 ==
LOC: NEPC 23:58 → NEDA 03-15 04:00 → N03A 03-15 06:27 → N05A 03-16 14:50
PROVIDERS: ADMIT Neurological Surgery; ATTEND Neurological Surgery
DX: R55 Syncope and collapse (principal); I67.1 Cerebral aneurysm, nonruptured; I69.354 Hemiplegia and hemiparesis following cerebral infarction affecting left non-dominant side; I10 Essential (primary) hypertension; G47.00 Insomnia, unspecified; Z85.3 Personal history of malignant neoplasm of breast; Z90.10 Acquired absence of unspecified breast and nipple; Z98.2 Presence of cerebrospinal fluid drainage device; F41.9 Anxiety disorder, unspecified; Z87.442 Personal history of urinary calculi; F17.210 Nicotine dependence, cigarettes, uncomplicated; Y90.6 Blood alcohol level of 120-199 mg/100 ml; G40.909 Epilepsy, unspecified, not intractable, without status epilepticus; F10.10 Alcohol abuse, uncomplicated
CPT/HCPCS: 70250; 70450; 71010; 72040; 74000; 76937; 80048; 80053; 80307; 81001; 82140; 82550; 83605; 83735; 84484; 85025; 85610; 85730; 86403; 87040; 87077; 87186; 87205; 93005; 94150; 96361; 96374; 96375; C9113; J2405; J3480; J7040

== ENCOUNTER 2017-07-20 22:21 | Inpatient (IN) | payer OTHER ==
[~2017-07-20 22:21] MED LIST changes: -ACET1TAB86 PO; +ACET325T15 PO; +ANAS1TAB PO; -BACI500O2 TOPICAL; -CLON.1 PO; -COMMODE 3-IN-11 MIS; -FAMO20TA2 PO; -GETGO ROLLING W1 MI1; -GNP5TAB6 PO; -NICO14DI23 T-DERMAL; +PROM12.54 PO; +RANI1TAB5 PO; -SENN1TAB PO
[2017-07-20 22:47] VITALS: BP 140/83; PULSE 97; RESP 26; TEMP 98.6; O2SAT 98
--- NOTE | 2017-07-20 23:35 | PD ---
HPI Chief Complaint: Medical Clearance Time Seen by Provider: 22:49 Travel History International Travel<30 days: No Contact w/Intl Traveler<30days: No Traveled to known affect area: No History of Present Illness HPI Patient is a 52-year-old female residing in a correction rehabilitation for short time . She had a hemorrhagic aneurysm bleed early in 2016 she is now bedbound and nonverbal most of the time, she has a PEG tube that recently was placed but he questions if it is working , she has been deteriorating as according to her , He is very attentive and bedside .he said he was told by the neurosurgeon at [facility] that there is another aneurysm that needs to be coiled but her other medical issues were interfering with next surgery. apparently echocardiogram was done preoperative to give cardiac clearance done and it was found that she had a poor ejection fraction < 35% and it was assume that she had an TX in last months all per reporting to this MD ... thinks she is worse in the last few days but no specific complaints are elicited from him....patient is awake alert she has moments where she'll speak starting a thought but midway in a sentence , she'll stops mcfp. Mostly she is nonverbal verbal .. BP is slightly elevated her pressure is 139/100 Her heart rate is 93 oxygen sat is 98. Her feels something has gotten worse with her in last week , but steady decline since may.. He reports she was home with him for a period january to april but then in [facility] rehab since. Pt does not appear toxic nor septic PFSH Past Medical History Asthma: No Autoimmune Disease: No Anxiety: Yes Depression: No Heart Rhythm Problems: No Cancer: Yes (Breast) Cardiovascular Problems: Yes High Cholesterol: No Chemotherapy: No Chest Pain: No Congestive Heart Failure: No COPD: No Cerebrovascular Accident: Yes Diabetes: No Diminished Hearing: No (UTO) Endocrine: No Gastrointestinal Disorders: Yes (PEG placed 12/13/16-removal 01/23/17) GERD: No Genitourinary: Yes (UTI ) Headaches: Yes Hiatal Hernia: No Hypertension: Yes Immune Disorder: No Implanted Vascular Access Dvce: Yes Kidney Stones: Yes (apr 2016 ) Musculoskeletal: No Neurologic: Yes Psychiatric: Yes Reproductive: No Respiratory: Yes (respiratory failure and tracheostomy- 12/12/16 - removed 01/15) Migraines: No Radiation Therapy: Yes Renal Failure: No Seizures: Yes Sleep Apnea: No Thyroid Disease: No Ulcer: No Tetanus Vaccination: Unknown ?: Not Past Surgical History Abdominal Surgery: No AICD: No Arteriovenous Shunt: No Body Medical Devices: EDITORIAL DIRECTOR shunt Cardiac Surgery: No Section: Yes Ear Surgery: No Endocrine Surgery: No Eye Surgery: No Genitourinary Surgery: No Gynecologic Surgery: No Insulin Pump: No Joint Replacement: No Mastectomy: Yes (rt side 01/12/17) Neurologic Surgery: Yes Oral Surgery: Yes (2017 ) Pacemaker: No Thoracic Surgery: No Other Surgery: Yes Social History Alcohol Use: Yes (DAILY) Tobacco Use: Yes (1 ppd) Substance Use: No Allergies-Medications (Allergen,Severity, Reaction): Coded Allergies: No Known Allergies (Unverified , 03/15/17) Reported Meds & Prescriptions Reported Meds & Active Scripts Active Keppra (Levetiracetam) 500 Mg Tab 500 Mg PO BID 30 Days Wheelchair (Device) 1 Mis Mis 1 Ea .ROUTE DIRECTED Eq Acetaminophen (Acetaminophen) 325 Mg Tab 650 Mg PO Q6H PRN Reported Sodium Chloride 1 Gram Tab 1 Gm G-TUBE TID Probiotic (Lactobacillus Acidophilus) 10 Billion Cell Cap 1 Cap PO DAILY Milk of Magnesia Liq (Magnesium Hydroxide) 400 Mg/5 Ml Susp 30 Ml PO Q6H PRN Milk of Magnesia Liq (Magnesium Hydroxide) 400 Mg/5 Ml Susp 60 Ml PO DAILY PRN Metoprolol Tartrate 75 Mg Tab 75 Mg PO DAILY Metoprolol Tartrate 50 Mg Tab 50 Mg PO HS Megestrol (Megestrol Acetate) 20 Mg Tab 10 Mg PO DAILY Lisinopril 10 Mg Tab 10 Mg PO DAILY Lansoprazole 30 Mg Capdr 30 Mg PO BID Keflex (Cephalexin) 500 Mg Cap 500 Mg PO Q12H Dulcolax Supp (Bisacodyl) 10 Mg Supp 10 Mg RECTAL DAILY PRN Atorvastatin (Atorvastatin Calcium) 10 Mg Tab 10 Mg PO HS Aspirin Low Dose (Aspirin) 81 Mg Chew 81 Mg CHEW DAILY Promethazine (Promethazine HCl) 12.5 Mg Tab 25 Mg PO Q6H PRN Anastrozole 1 Mg Tab 1 Mg PO DAILY Review of Systems ROS Limitations: Speech Impaired, Poor Historian Physical Exam Narrative GENERAL: non febrile non toxic appearing female thin body habitus SKIN: Warm and dry. HEAD: Atraumatic. Normocephalic. EYES: Pupils round. No scleral icterus. No injection or drainage. large pupils , 4mm ENT: No nasal bleeding or discharge. Mucous membranes pink and moist. NECK: Trachea midline. No JVD. CARDIOVASCULAR: Regular rate and rhythm. RESPIRATORY: No accessory muscle use. Clear to auscultation. Breath sounds equal bilaterally. GASTROINTESTINAL: Abdomen has sutures where her PEG tube was but PEG tube is out , No signs of infection , nondistended. Hepatic and splenic margins not palpable. MUSCULOSKELETAL: Extremities , thin legs muscle wasting without clubbing, cyanosis, or edema. No obvious deformities. NEUROLOGICAL: Awake and alert. mostly non verbal no obvious focal deficits Psych :It appears that Novel stimulus makes her initiate a sentence then half way thru she stops , seems unable to complete a thought Data Data Last Documented VS Vital Signs Date Time Temp Pulse Resp B/P (MAP) Pulse Ox O2 Delivery O2 Flow Rate FiO2 07/21/17 00:45 98 16 167/110 (129) 99 Room Air 07/20/17 22:47 98.6 Orders Orders Urinalysis - C+S If Indicated (07/20/17 23:21) Ct Brain W/O Iv Contrast(Rout) (07/20/17 ) Complete Blood Count With Diff (07/20/17 23:21) Comprehensive Metabolic Panel (07/20/17 23:21) Lipase (07/20/17 23:21) Labetalol Inj (Trandate Inj) (07/21/17 00:45) Urine Culture (07/21/17 00:05) Admit Order (Ed Use Only) (07/21/17 01:25) Labs Laboratory Tests Test 07/20/17 23:50 07/21/17 00:05 White Blood Count 7.2 TH/MM3 Red Blood Count 2.63 MIL/MM3 Hemoglobin 9.4 GM/DL Hematocrit 26.4 % Mean Corpuscular Volume 100.5 FL Mean Corpuscular Hemoglobin 35.7 PG Mean Corpuscular Hemoglobin Concent 35.6 % Red Cell Distribution Width 13.4 % Platelet Count 355 TH/MM3 Mean Platelet Volume 7.0 FL Neutrophils (%) (Auto) 52.2 % Lymphocytes (%) (Auto) 29.8 % Monocytes (%) (Auto) 13.8 % Eosinophils (%) (Auto) 3.4 % Basophils (%) (Auto) 0.8 % Neutrophils # (Auto) 3.8 TH/MM3 Lymphocytes # (Auto) 2.2 TH/MM3 Monocytes # (Auto) 1.0 TH/MM3 Eosinophils # (Auto) 0.2 TH/MM3 Basophils # (Auto) 0.1 TH/MM3 CBC Comment DIFF FINAL Differential Comment Blood Urea Nitrogen 12 MG/DL Creatinine 0.29 MG/DL Random Glucose 86 MG/DL Total Protein 7.2 GM/DL Albumin 3.0 GM/DL Calcium Level 9.2 MG/DL Alkaline Phosphatase 94 U/L Aspartate Amino Transf (AST/SGOT) 24 U/L Alanine Aminotransferase (ALT/SGPT) 24 U/L Total Bilirubin 0.3 MG/DL Sodium Level 128 MEQ/L Potassium Level 4.3 MEQ/L Chloride Level 97 MEQ/L Carbon Dioxide Level 21.6 MEQ/L Anion Gap 9 MEQ/L Estimat Glomerular Filtration Rate 244 ML/MIN Lipase 94 U/L Urine Color YELLOW Urine Turbidity HAZY Urine pH 6.0 Urine Specific [place] 1.024 Urine Protein TRACE mg/dL Urine Glucose (UA) NEG mg/dL Urine Ketones TRACE mg/dL Urine Occult Blood NEG Urine Nitrite POS Urine Bilirubin NEG Urine Urobilinogen 4.0 MG/DL Urine Leukocyte Esterase LARGE Urine RBC 2 /hpf Urine WBC 39 /hpf Urine Squamous Epithelial Cells 13 /hpf Urine Bacteria MANY /hpf Microscopic Urinalysis Comment CULTURE INDICATED MDM Medical Decision Making Medical Screen Exam Complete: Yes Emergency Medical Condition: Yes Medical Record Reviewed: Yes Differential Diagnosis UTI sepsis , worsening neurologic situation, , GI issues , rupture of pre- existing aneurysm other Narrative Course pt. has UTI and needs Meropenem for hospital acquired Urosepsis and she also has pulled out her G-tube . Pt needs GI to replace her G tube. ER replacement not attempted due to PEG gastric percutaneous tract is so fresh that blind ER replacement is contraindicated LABETOLOL FOR HTN IN ER Diagnosis Primary Impression: PEG tube malfunction Additional Impression: UTI (urinary tract infection) Jonny Giles MD Jul 20, 2017 23:35
[2017-07-21] VITALS (26 sets, daily range): BP systolic 132–192; BP diastolic 88–110; PULSE 86–118; RESP 16–20; TEMP 97.8–98.2; O2SAT 96–99
--- NOTE | 2017-07-21 00:01 | RADRPT ---
EXAM DATE/TIME: 07/20/2017 23:30 [facility] COMPARISON: CT BRAIN W/O CONTRAST, March 16, 2017, 4:09. INDICATIONS : Altered mental status. RADIATION DOSE: 35.89 CTDIvol (mGy) MEDICAL HISTORY : Cerebrovascular disease. SURGICAL HISTORY : Non-responsive. ENCOUNTER: Initial ACUITY: 1 day PAIN SCALE: 0/10 LOCATION: cranial TECHNIQUE: Multiple contiguous axial images were obtained of the head. Using automated exposure control and adj ustment of the mA and/or kV according to patient size, radiation dose was kept as low as reasonably a chievable to obtain optimal diagnostic quality images. DICOM format image data is available electro nically for review and comparison. FINDINGS: CEREBRUM: There is a left ventriculostomy tube placed from the left frontal approach. There is some persistent pleural thickening seen at the right fronta and temporal l region measuring up to 4 mm. This is uncha nged. There is areas of encephalomalacia involving much of the right temporal lobe and a smaller area involving the right frontal and parietal lobe. There is an aneurysm clip seen in the right suprasell ar cistern region. The patient is status post right craniotomy. The ventricles are mildly distended. They're unchanged from the prior exam. No evidence of midline shift, mass lesion, hemorrhage or acute infarction. No extra-axial fluid collections are seen. POSTERIOR FOSSA: The cerebellum and brainstem are intact. The 4th ventricle is midline. The cerebellopontine angle i s unremarkable. EXTRACRANIAL: The visualized portion of the orbits is intact. SKULL: The calvaria is intact. No evidence of skull fracture. CONCLUSION: 1. Status post right craniotomy with aneurysm clip in the right suprasellar cistern region. 2. Encephalomalacia involving much of the right temporal lobe and portions of the right frontal and p arietal lobes. 3. Chronic appearing dural thickening over the right frontal and temporal lobes. 4. Left ventriculostomy tube in place BILLET RECORDER shunt in place Igor Wiseman MD on July 20, 2017 at 23:53 Board Certified Radiologist. This report was verified electronically.
[2017-07-21 00:19] LABS: AUTOMATED NEUTROPHIL # 3.8 TH/MM3 (1.8-7.7); BASOPHIL # 0.1 TH/MM3 (0-0.2); BASOPHIL % 0.8 % (0.0-2.0); EOSINOPHIL # 0.2 TH/MM3 (0-0.4); EOSINOPHIL % 3.4 % (0.0-4.0); HEMATOCRIT 26.4 % (35.0-46.0); HEMOGLOBIN 9.4 GM/DL (11.6-15.3); LYMPH % 29.8 % (9.0-44.0); LYMPHOCYTE # 2.2 TH/MM3 (1.0-4.8); MEAN CELL VOLUME 100.5 FL (80.0-100.0); MEAN CORPUSCULAR HEMOGLOBIN 35.7 PG (27.0-34.0); MEAN CORPUSCULAR HGB CONC 35.6 % (32.0-36.0); MONO % 13.8 % (0.0-8.0); NEUT % 52.2 % (16.0-70.0); PLATELET COUNT 355 TH/MM3 (150-450); RED BLOOD COUNT 2.63 MIL/MM3 (4.00-5.30); RED CELL DISTRIBUTION WIDTH 13.4 % (11.6-17.2); WHITE BLOOD COUNT 7.2 TH/MM3 (4.0-11.0)
[2017-07-21 00:36] LABS: ALT (GPT) 24 U/L (10-53)
[2017-07-21 00:39] LABS: ALKALINE PHOSPHATASE 94 U/L (45-117); TOTAL BILIRUBIN ADULT 0.3 MG/DL (0.2-1.0); TOTAL PROTEIN 7.2 GM/DL (6.4-8.2)
[2017-07-21] MEDS ORDERED: LABETALOL HCL 100 MG/20 ML VIAL IV PUSH ONE ×2 (00:45→21:30)
[2017-07-21 00:47] LABS: BACTERIA, URINE MANY /hpf; BILIRUBIN, URINE NEG (NEG); BLOOD, URINE NEG (NEG); GLUCOSE,URINE NEG (NEG); KETONE, URINE TRACE mg/dL (NEG); NITRITE,URINE POS (NEG); SQUAMOUS EPITHELIAL CELL URINE 13 /hpf (0-5); URINE COLOR YELLOW (YELLW/STRAW); URINE LEUKOCYTE ESTERASE LARGE (NEG)
[2017-07-21 00:50] LABS: AST (GOT) 24 U/L (15-37); BICARBONATE 21.6 MEQ/L (21.0-32.0); BLOOD UREA NITROGEN 12 MG/DL (7-18); CALCIUM 9.2 MG/DL (8.5-10.1); CHLORIDE 97 MEQ/L (98-107); CREATININE 0.29 MG/DL (0.50-1.00); GLOMERULAR FILTRATION RATE 244 ML/MIN (>89); GLUCOSE,RANDOM 86 MG/DL (74-106); SODIUM (NA) 128 MEQ/L (136-145)
[2017-07-21] MEDS ORDERED: IOHEXOL 350 MG/ML 50 ML BTL (for RAD DIAG) J-TUBE ONE (01:28)
[2017-07-21] MEDS ORDERED: SENNOSIDES 8.6 MG TAB PO PRN (01:30)
[2017-07-21] MEDS ORDERED: MEROPENEM 1000 MG VIAL IV ONE (01:30)
[2017-07-21] MEDS ORDERED: ONDANSETRON HCL 4 MG/2 ML VIAL IVP PRN (01:30)
[2017-07-21] MEDS ORDERED: MEROPENEM 1000 MG/NS 100 ML IV ONE ×2 (01:30)
[2017-07-21] MEDS ORDERED: BISACODYL 10 MG SUPP RECTAL PRN (01:30)
[2017-07-21] MEDS ORDERED: MORPHINE SULFATE 2 MG/ML INJ IV PUSH PRN ×2 (01:30)
[2017-07-21] MEDS ORDERED: LACTULOSE SYRUP 20 GM/30 ML CUP PO PRN (01:30)
[2017-07-21] MEDS ORDERED: SODIUM CHLORIDE 0.9% FLUSH 10 ML FLUSH IV FLUSH PRN (01:30)
[2017-07-21] MEDS ORDERED: SODIUM CHLOR 0.9% 1000 ML INJ 1,000 ML IV SCH (01:30)
[2017-07-21] MEDS ORDERED: MAGNESIUM HYDROXIDE SUSP 30 ML CUP PO PRN (01:30)
[2017-07-21] MEDS ORDERED: ACETAMINOPHEN 1000 MG/100 ML 100 ML IV PRN (01:30)
[2017-07-21] MEDS ORDERED: LISI10TA3 PO (01:42)
[2017-07-21] MEDS ORDERED: ATOR10TA15 PO (01:42)
[2017-07-21] MEDS ORDERED: MEGE20TA PO (01:42)
[2017-07-21] MEDS ORDERED: MILKSUS PO ×2 (01:42)
[2017-07-21] MEDS ORDERED: CEPH-460 PO (01:42)
[2017-07-21] MEDS ORDERED: LACTCAP8 PO (01:42)
[2017-07-21] MEDS ORDERED: SODI1TAB G-TUBE (01:42)
[2017-07-21] MEDS ORDERED: METO50TA PO (01:42)
[2017-07-21] MEDS ORDERED: DULC10SU3 RECTAL (01:42)
[2017-07-21] MEDS ORDERED: METO-426 PO (01:42)
[2017-07-21] MEDS ORDERED: ASPI81CH6 CHEW (01:42)
[2017-07-21] MEDS ORDERED: LANS30CA PO (01:42)
[2017-07-21] MEDS ORDERED: RESP: ALBUTEROL 2.5 MG/IPRATROPIUM 0.5 MG NEB (PRN) NEB (02:00)
[2017-07-21] MEDS: SODIUM CHLOR 0.9% 1000 ML INJ 1,000 ML IV SCH ×3 (02:11→21:18)
--- NOTE | 2017-07-21 02:24 | RADRPT ---
EXAM DATE/TIME: 07/21/2017 02:18 [facility] COMPARISON: CHEST SINGLE AP, March 15, 2017, 1:16. INDICATIONS : Chest pain and lethargy MEDICAL HISTORY : Hypertension. Carcinoma, breast. CVA SURGICAL HISTORY : section. Mastectomy, right. ENCOUNTER: Initial ACUITY: 1 day PAIN SCORE: 7/10 LOCATION: Bilateral chest FINDINGS: The heart size is normal. The lungs are clear. There is elevation of the left hemidiaphragm. Shunt tu gary is seen over the left chest. CONCLUSION: No acute disease. Igor Wiseman MD on July 21, 2017 at 2:21 Board Certified Radiologist. This report was verified electronically.
--- NOTE | 2017-07-21 02:36 | HHI.HP ---
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 History provided from as pt is minimally conversive and poor historian. Per and review of records, pt has Unruptured Left Post Communicating Aneurysm, pending repair by Dr. Kendall in [facility], however states she's been unable to follow up due to "GI problems". Per , pt recently admitted to [facility] for UTI, had Cardiac Cath which was reportedly normal, and underwent PEG Tube placement. Was d/c'd to Rehab in [place] approx 10 days ago. notes elevated BP and tachypnea x2 days, states pt reported chest pain earlier. As above, unable to obtain history from patient as she is largely nonverbal. On arrival, BP 192/106, HR 99, O2 sat 98% on RA, Afebrile. S/p Labetalol in ER w/ improvement. CBC unremarkable except for hemoglobin 9.4, previously 13.8 on 03/15/17. Chemistry unremarkable except for Na 128. UA positive for UTI. CT Head with previous right craniotomy and aneurysm clip, encephalomalacia right temporal lobe and portions of right frontal/parietal lobes, chronic appearing dural thickening over right frontal and temporal lobes and left ventriculostomy tube in place. S/p IV Abx in ER. Pt noted to have dislodged PEG Tube at bedside. Review of Systems Except as stated in HPI: all other systems reviewed are Neg ROS: Unable to obtain this patiently minimally verbal. 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 No h/o DM or CAD Social History PAST SOCIAL HISTORY: H/o Alcohol Abuse. +tobacco. Negative for drugs. Physical Exam Vital Signs Vital Signs Date Time Temp Pulse Resp B/P (MAP) Pulse Ox O2 Delivery O2 Flow Rate FiO2 07/21/17 02:06 98 07/21/17 01:30 98 16 149/93 (111) 98 Room Air 07/21/17 00:45 98 16 167/110 (129) 99 Room Air 07/21/17 00:30 99 16 192/106 (134) 98 Room Air 07/20/17 22:53 26 07/20/17 22:47 98.6 97 26 140/83 (102) 98 Physical Exam PE: GENERAL: Middle-aged white female in no acute distress. at bedside. HEENT: PERRLA, EOMI. No scleral icterus or conjunctival pallor. No lid lag or facial droop. CARDIOVASCULAR: Regular rate and rhythm. No obvious murmurs to auscultation. No chest tenderness to palpation. RESPIRATORY: No obvious rhonchi or wheezing. Clear to auscultation. Breath sounds equal bilaterally. GASTROINTESTINAL: Abdomen soft, non-tender, nondistended. BS normal. PEG tube dislodged and at bedside, sutures in place. MUSCULOSKELETAL: Extremities without clubbing, cyanosis, or edema. No obvious deformities. NEUROLOGICAL: Awake, alert, falls asleep easily, not answering questions appropriately, minimally conversive. No focal neurologic deficits. Moving both upper and lower extremities spontaneously. Laboratory Laboratory Tests Test 07/20/17 23:50 07/21/17 00:05 White Blood Count 7.2 Red Blood Count 2.63 Hemoglobin 9.4 Hematocrit 26.4 Mean Corpuscular Volume 100.5 Mean Corpuscular Hemoglobin 35.7 Mean Corpuscular Hemoglobin Concent 35.6 Red Cell Distribution Width 13.4 Platelet Count 355 Mean Platelet Volume 7.0 Neutrophils (%) (Auto) 52.2 Lymphocytes (%) (Auto) 29.8 Monocytes (%) (Auto) 13.8 Eosinophils (%) (Auto) 3.4 Basophils (%) (Auto) 0.8 Neutrophils # (Auto) 3.8 Lymphocytes # (Auto) 2.2 Monocytes # (Auto) 1.0 Eosinophils # (Auto) 0.2 Basophils # (Auto) 0.1 CBC Comment DIFF FINAL Differential Comment Blood Urea Nitrogen 12 Creatinine 0.29 Random Glucose 86 Total Protein 7.2 Albumin 3.0 Calcium Level 9.2 Alkaline Phosphatase 94 Aspartate Amino Transf (AST/SGOT) 24 Alanine Aminotransferase (ALT/SGPT) 24 Total Bilirubin 0.3 Sodium Level 128 Potassium Level 4.3 Chloride Level 97 Carbon Dioxide Level 21.6 Anion Gap 9 Estimat Glomerular Filtration Rate 244 Lipase 94 Urine Color YELLOW Urine Turbidity HAZY Urine pH 6.0 Urine Specific [place] 1.024 Urine Protein TRACE Urine Glucose (UA) NEG Urine Ketones TRACE Urine Occult Blood NEG Urine Nitrite POS Urine Bilirubin NEG Urine Urobilinogen 4.0 Urine Leukocyte Esterase LARGE Urine RBC 2 Urine WBC 39 Urine Squamous Epithelial Cells 13 Urine Bacteria MANY Microscopic Urinalysis Comment CULTURE INDICATED Date/Time Source Procedure Growth Status 07/21/17 00:05 Urine Clean Catch Urine Culture Pending Received Result Diagram: 07/20/17234907/20/172349 Caprini VTE Risk Assessment Caprini VTE Risk Assessment: No/Low Risk (score <= 1) Caprini Risk Assessment Model Point Value = 1 Point Value = 2 Point Value = 3 Point Value = 5 Age 41-60 Minor surgery BMI > 25 kg/m2 Swollen legs Varicose veins or History of unexplained or recurrent spontaneous Oral contraceptives or hormone replacement Sepsis (< 1 month) Serious lung disease, including pneumonia (< 1 month) Abnormal pulmonary function Acute myocardial infarction Congestive heart failure (< 1 month) History of inflammatory bowel disease Medical patient at bed rest Age 61-74 Arthroscopic surgery Major open surgery (> 45 min) Laparoscopic surgery (> 45 min) Malignancy Confined to bed (> 72 hours) Immobilizing plaster cast Central venous access Age >= 75 History of VTE Family history of VTE Factor V Leiden Prothrombin [id number] Lupus anticoagulant Anticardiolipin antibodies Elevated serum homocysteine Heparin-induced thrombocytopenia Other congenital or acquired thrombophilia Stroke (< 1 month) Elective arthroplasty Hip, pelvis, or leg fracture Acute spinal cord injury (< 1 month) Prophylaxis Regimen Total Risk Factor Score Risk Level Prophylaxis Regimen 0-1 Low Early ambulation 2 Moderate Order ONE of the following: *Sequential Compression Device (SCD) *Heparin 5000 units SQ BID 3-4 Higher Order ONE of the following medications: *Heparin 5000 units SQ TID *Enoxaparin/Lovenox 40 mg SQ daily (WT < 150 kg, CrCl > 30 mL/min) *Enoxaparin/Lovenox 30 mg SQ daily (WT < 150 kg, CrCl > 10-29 mL/min) *Enoxaparin/Lovenox 30 mg SQ BID (WT < 150 kg, CrCl > 30 mL/min) AND/OR *Sequential Compression Device (SCD) 5 or more Highest Order ONE of the following medications: *Heparin 5000 units SQ TID (Preferred with Epidurals) *Enoxaparin/Lovenox 40 mg SQ daily (WT < 150 kg, CrCl > 30 mL/min) *Enoxaparin/Lovenox 30 mg SQ daily (WT < 150 kg, CrCl > 10-29 mL/min) *Enoxaparin/Lovenox 30 mg SQ BID (WT < 150 kg, CrCl > 30 mL/min) AND *Sequential Compression Device (SCD) Assessment and Plan Problem List: (1) Encephalopathy ICD Code: G93.40 - Encephalopathy, unspecified (2) UTI (urinary tract infection) ICD Code: N39.0 - Urinary tract infection, site not specified (3) Chest pain ICD Code: R07.9 - Chest pain, unspecified (4) HTN (hypertension) ICD Code: I10 - Essential (primary) hypertension (5) PEG tube malfunction ICD Code: K94.23 - Gastrostomy malfunction Assessment and Plan A/P: 1. Encephalopathy: per , pt w/ deteriorating condition for several months, pt minimally conversive on exam, appears to be baseline. Possibly compounded by acute UTI. CT Head w/ right craniotomy with aneurysm clip, encephalomalacia right temporal lobe and right frontal/parietal lobes, left ventriculostomy tube in place, images reviewed by me. Extensive neuro history w / previous ruptured aneurysm, has unruptured left post comm artery aneurysm, pending intervention by Dr. Irizarry in [facility]. Recommended follow up w/ Dr. Kendall for further evaluation. Neuro Checks q4. 2. UTI: U/a w/ UTI, S/p Rocephin IV, continue w/ IV Abx, IVF for hydration, follow up cultures. 3. Chest Pain: per , pt reported c/o chest pain earlier this evening. Check troponin, Check EKG, Check CXR to eval for underlying respiratory pathology. No complaints from patient at this time, minimally conversive. reports recent Cardiac Cath at [facility], will request records. 4. HTN: Uncontrolled. BP 192/106, HR 99 on arrival, s/p Labetalol w/ improvement. Bp 149/93, HR 98. Will monitor, antihypertensives as needed, resume home medications. 5. PEG Tube Malfunction: s/p PEG placement at [facility] on recent admit per , PEG noted to be dislodged. Will consult IR for replacement. 6. DVT Prophylaxis: SCD/Teds. 7. Social work for d/c planning as needed. 8. Labs/records/imaging reviewed by me, case discussed w/ ER physician at length. Nuria Ramirez MD Jul 21, 2017 02:36
[2017-07-21] MEDS: DOCUSATE SODIUM 50 MG/SENNA 8.6 MG TAB PO SCH ×2 (09:00→21:00)
[2017-07-21] MEDS: levETIRAcetam INJ 500 MG in SODIUM CHLORIDE 0.9% INJ 100 ML IV SCH ×2 (11:00→21:54)
[2017-07-21] MEDS: SODIUM CHLORIDE 0.9% FLUSH 10 ML FLUSH IV FLUSH SCH ×2 (11:06→21:55)
[2017-07-21] MEDS: ASPIRIN 81 MG CHEW TAB CHEW SCH (11:09)
[2017-07-21] MEDS: METOPROLOL TARTRATE 25 MG TAB PO SCH (11:09)
[2017-07-21] MEDS: PANTOPRAZOLE SOD 40 MG DELAYED RELEASE TAB PO SCH ×2 (11:09→21:54)
[2017-07-21] MEDS: LISINOPRIL 10 MG TAB PO SCH (11:09)
[2017-07-21] MEDS: ANASTROZOLE 1 MG TAB PO SCH (11:20)
--- NOTE | 2017-07-21 13:36 | EKG ---
Date Performed: 07/21/2017 Time Performed: 03:09:08 PTAGE: 52 years EKG: SINUS TACHYCARDIA NONSPECIFIC ST & T-WAVE ABNORMALITY ABNORMAL ECG PREVIOUS TRACING : 07/21/17 @ 0220 DOCTOR: Ferny Mike Interpretating Date/Time 07/21/2017 13:36:02
--- NOTE | 2017-07-21 13:55 | EKG ---
Date Performed: 07/21/2017 Time Performed: 02:20:14 PTAGE: 52 years EKG: Sinus rhythm ST DEVIATION AND MODERATE T-WAVE ABNORMALITY, CONSIDER LATERAL ISCHEMIA ABNORMAL ECG PREVIOUS TRACING : 03/15/[address]-T wave changes are new since prior tracing, possible isc hemia. Clinical correlation recommended. DOCTOR: Ferny Mike Interpretating Date/Time 07/21/2017 13:54:01
--- NOTE | 2017-07-21 15:47 | HHI.PR ---
Subjective Remarks f/u for cp and hypertension. Patient is nonverbal and does not speak. Unsure she follows any commands either. She stares a lot. This seems to be her baseline. Per she is complaining about chest pain but she cannot express herself. She is also very comfortable. But tells me that she is here because of neurological symptoms. He stated that patient was not like this in May and was walking and speaking. She was brought to multiple hospitals and he stated that no explanation was given. Otherwise no other concerns. Patient's nurse at the bedside during the interview. Objective Vitals Vital Signs Date Time Temp Pulse Resp B/P (MAP) Pulse Ox O2 Delivery O2 Flow Rate FiO2 07/21/17 07:00 107 07/21/17 06:00 102 07/21/17 05:00 98.1 99 20 150/90 (110) 98 07/21/17 05:00 99 07/21/17 02:39 98.1 98 16 149/88 (108) 99 07/21/17 02:35 07/21/17 02:06 98 07/21/17 01:30 98 16 149/93 (111) 98 Room Air 07/21/17 00:45 98 16 167/110 (129) 99 Room Air 07/21/17 00:30 99 16 192/106 (134) 98 Room Air 07/20/17 22:53 26 07/20/17 22:47 98.6 97 26 140/83 (102) 98 I/O 07/20/17 07/20/17 07/20/17 07/21/17 07/21/17 07/21/17 07:00 15:00 23:00 07:00 15:00 23:00 Intake Total 1105 ml Balance 1105 ml Intake IV Total 1105 ml Result Diagram: 07/20/17 2350 07/20/17 2350 Objective Remarks GENERAL: in NAD NECK: Supple, trachea midline. No JVD or lymphadenopathy. CARDIOVASCULAR: Regular rate and rhythm without murmurs, gallops, or rubs. RESPIRATORY: Breath sounds equal bilaterally. No accessory muscle use. GASTROINTESTINAL: Abdomen soft, non-tender, nondistended. Dislodged GJ NEURO patient AAO 0. She is nonverbal. She does seems to stare and track. Doesn't really follow commands. Medications and IVs Current Medications Labetalol HCl (Trandate Inj) 20 mg ONCE ONCE IV PUSH Last administered on 07/21at 00:47; Start 07/21/17 at 00:45; Stop 07/21/17 at 00:46; Status DC Meropenem (Merrem Inj) 1,000 mg STAT ONCE IV ; Start 07/21/17 at 01:30; Stop at 01:31; Status Cancel Sodium Chloride 1,000 ml @ 125 mls/hr Q8H IV ; Start 07/21/17 at 01:30; Status Cancel Levetriacetam 500 mg/Sodium Chloride 105 ml @ 420 mls/hr Q12HR IV Last administered on 07/21/17at 11:00; Start 07/21/17 at 09:00 Ceftriaxone Sodium 1000 mg/ Sodium Chloride 100 ml @ 200 mls/hr Q24H IV ; Start 07/21/17 at 23:00 Sodium Chloride 1,000 ml @ 100 mls/hr Q10H IV Last administered on 07/21/17at 14:13; Start 07/21/17 at 01:18 Sodium Chloride (NS Flush) 2 ml UNSCH PRN IV FLUSH FLUSH AFTER USING IV ACCESS ; Start 07/21/17 at 01:30 Sodium Chloride (NS Flush) 2 ml BID IV FLUSH Last administered on 07/21/17at 11: 06; Start 07/21/17 at 09:00 Ondansetron HCl (Zofran Inj) 4 mg Q6H PRN IVP NAUSEA OR VOMITING; Start at 01:30 Morphine Sulfate (Morphine Inj) 1 mg Q3H PRN IV PUSH Pain 3-5; Start 07/21/17 at 01:30 Morphine Sulfate (Morphine Inj) 2 mg Q3H PRN IV PUSH Pain 6-10; Start 07/21/17 at 01:30 Acetaminophen 100 ml @ 400 mls/hr Q6H PRN IV FEVER; Start 07/21/17 at 01:30 Senna/Docusate Sodium (Belen-Colace) 1 tab BID PO ; Start 07/21/17 at 09:00 Magnesium Hydroxide (Milk Of Magnesia Liq) 30 ml Q12H PRN PO Mild constipation ; Start 07/21/17 at 01:30 Sennosides (Senokot) 17.2 mg Q12H PRN PO Moderate constipation; Start 07/21/17 at 01:30 Bisacodyl (Dulcolax Supp) 10 mg DAILY PRN RECTAL SEVERE CONSITIPATION; Start at 01:30 Lactulose (Lactulose Liq) 30 ml DAILY PRN PO SEVERE CONSITIPATION; Start at 01:30 Meropenem 1000 mg/ Sodium Chloride 100 ml @ 200 mls/hr ONCE ONCE IV Last administered on 07/21/17at 02:11; Start 07/21/17 at 01:30; Stop 07/21/17 at 01:59 ; Status DC Albuterol/ Ipratropium (Duoneb Neb) 1 ampule Q4HR NEB PRN NEB SOB/WHEEZING; Start 07/21/17 at 02:00 Anastrozole (Arimidex) 1 mg DAILY PO Last administered on 07/21/17at 11:20; Start 07/21/17 at 09:00 Aspirin (Aspirin Chew) 81 mg DAILY CHEW Last administered on 07/21/17at 11:09; Start 07/21/17 at 09:00 Lisinopril (Prinivil) 10 mg DAILY PO Last administered on 07/21/17at 11:09; Start 07/21/17 at 09:00 Metoprolol Tartrate (Lopressor) 50 mg HS PO ; Start 07/21/17 at 21:00 Metoprolol Tartrate (Lopressor) 75 mg DAILY PO Last administered on 07/21/17at 11:09; Start 07/21/17 at 09:00 Pantoprazole Sodium (Protonix) 40 mg BID PO Last administered on 07/21/17at 11: 09; Start 07/21/17 at 09:00 Amlodipine Besylate (Norvasc) 5 mg DAILY PO ; Start 07/21/17 at 16:00 A/P Problem List: (1) Encephalopathy ICD Code: G93.40 - Encephalopathy, unspecified (2) UTI (urinary tract infection) ICD Code: N39.0 - Urinary tract infection, site not specified (3) Chest pain ICD Code: R07.9 - Chest pain, unspecified (4) HTN (hypertension) ICD Code: I10 - Essential (primary) hypertension (5) PEG tube malfunction ICD Code: K94.23 - Gastrostomy malfunction Assessment and Plan This is a 52-year-old female who is nonverbal complain of chest pain per history from Encephalopathy: per , pt w/ deteriorating condition for several months, pt minimally conversive on exam, appears to be baseline. Possibly compounded by acute UTI. CT Head w/ right craniotomy with aneurysm clip, encephalomalacia right temporal lobe and right frontal/parietal lobes, left ventriculostomy tube in place. Extensive neuro history w/ previous ruptured aneurysm, has unruptured left post comm artery aneurysm, pending intervention by Dr. Irizarry in [facility]. Recommended follow up w/ Dr. Kendall for further evaluation. Neuro Checks q4. -This seems to be her recent baseline. Patient needs to follow-up at [facility] with Dr. Irizarry. -There may be minimal contribution from her UTI so will treat for UTI pending urine cultures. UTI: U/a w/ UTI, - S/p Rocephin IV, continue w/ IV Abx, IVF for hydration, follow up cultures. Chest Pain: -Per patient was complaint chest pain but patient is nonverbal. She is very comfortable and does not complain of any chest pain. Troponins are negative. does report patient her recent cart catheterization at [facility]. Pending medical records. HTN: -Uncontrolled. BP 192/106, HR 99 on arrival, s/p Labetalol w/ improvement. Bp 149/93, HR 98. -Better control. Home medication resumed. Will add amlodipine. PEG Tube Malfunction: -s/p PEG placement at [facility] on recent admit per , PEG noted to be dislodged. IR consulted for replacement. DVT Prophylaxis: SCD/Teds. Theresa Acevedo MD Jul 21, 2017 15:47
[2017-07-21] MEDS: amLODIPine BESYLATE 5 MG TAB PO SCH (17:27)
[2017-07-21] MEDS: METOPROLOL TARTRATE 50 MG TAB PO SCH (21:00)
[2017-07-21] MEDS: cefTRIAXone INJ 1,000 MG in SODIUM CHLORIDE 0.9% INJ 100 ML IV SCH (22:58)
[2017-07-22] VITALS (26 sets, daily range): BP systolic 141–156; BP diastolic 94–106; PULSE 80–108; RESP 17–18; TEMP 97.5–98.3; O2SAT 96–99
[2017-07-22] MEDS ORDERED: METOPROLOL TARTRATE 50 MG TAB PO ONE (02:45)
[2017-07-22] MEDS ORDERED: LABETALOL HCL 100 MG/20 ML VIAL IV PUSH ONE (04:15)
[2017-07-22] MEDS: SODIUM CHLOR 0.9% 1000 ML INJ 1,000 ML IV SCH ×2 (04:20→18:09)
[2017-07-22] MEDS: DOCUSATE SODIUM 50 MG/SENNA 8.6 MG TAB PO SCH ×2 (09:00→21:45)
[2017-07-22] MEDS: SODIUM CHLORIDE 0.9% FLUSH 10 ML FLUSH IV FLUSH SCH ×2 (09:00→21:45)
[2017-07-22] MEDS: ASPIRIN 81 MG CHEW TAB CHEW SCH (10:20)
[2017-07-22] MEDS: METOPROLOL TARTRATE 25 MG TAB PO SCH (10:23)
[2017-07-22] MEDS: LISINOPRIL 10 MG TAB PO SCH (10:25)
[2017-07-22] MEDS: amLODIPine BESYLATE 5 MG TAB PO SCH (10:26)
[2017-07-22] MEDS: PANTOPRAZOLE SOD 40 MG DELAYED RELEASE TAB PO SCH ×2 (10:28→21:00)
[2017-07-22] MEDS: ANASTROZOLE 1 MG TAB PO SCH (10:32)
[2017-07-22] MEDS: levETIRAcetam INJ 500 MG in SODIUM CHLORIDE 0.9% INJ 100 ML IV SCH ×2 (10:44→21:45)
[2017-07-22 11:56] LABS: AUTOMATED NEUTROPHIL # 3.5 TH/MM3 (1.8-7.7); BASOPHIL % 0.8 % (0.0-2.0); EOSINOPHIL # 0.2 TH/MM3 (0-0.4); EOSINOPHIL % 3.4 % (0.0-4.0); HEMATOCRIT 25.1 % (35.0-46.0); HEMOGLOBIN 8.8 GM/DL (11.6-15.3); LYMPH % 21.7 % (9.0-44.0); LYMPHOCYTE # 1.2 TH/MM3 (1.0-4.8); MEAN CELL VOLUME 100.7 FL (80.0-100.0); MEAN CORPUSCULAR HEMOGLOBIN 35.1 PG (27.0-34.0); MEAN CORPUSCULAR HGB CONC 34.8 % (32.0-36.0); MEAN PLATELET VOLUME 6.9 FL (7.0-11.0); MONO % 11.6 % (0.0-8.0); MONOCYTE # 0.7 TH/MM3 (0-0.9); NEUT % 62.5 % (16.0-70.0); PLATELET COUNT 292 TH/MM3 (150-450); RED CELL DISTRIBUTION WIDTH 13.2 % (11.6-17.2); WHITE BLOOD COUNT 5.6 TH/MM3 (4.0-11.0)
[2017-07-22 12:17] LABS: ALBUMIN 2.9 GM/DL (3.4-5.0); ALKALINE PHOSPHATASE 82 U/L (45-117); ALT (GPT) 23 U/L (10-53); AST (GOT) 16 U/L (15-37); BLOOD UREA NITROGEN 5 MG/DL (7-18); CALCIUM 8.7 MG/DL (8.5-10.1); CHLORIDE 96 MEQ/L (98-107); CREATININE 0.33 MG/DL (0.50-1.00); GLOMERULAR FILTRATION RATE 210 ML/MIN (>89); GLUCOSE,RANDOM 91 MG/DL (74-106); SODIUM (NA) 127 MEQ/L (136-145); TOTAL BILIRUBIN ADULT 0.4 MG/DL (0.2-1.0); TOTAL PROTEIN 6.6 GM/DL (6.4-8.2)
[2017-07-22] MEDS ORDERED: hydrALAZINE HCL 20 MG/ML VIAL IV PUSH PRN (14:15)
[2017-07-22] MEDS ORDERED: amLODIPine BESYLATE 5 MG TAB PO ONE (14:15)
--- NOTE | 2017-07-22 15:34 | HHI.PR ---
Subjective Remarks Follow-up for questionable altered mental status Patient is not consistent with her exam. When I asked patient questions she was able to answer them appropriately. She denies any pain or chest pain. I asked her first last name she was able to tell me this. When her walked her eyes got bigger and with then she stated " I dont know" or stared at me for every questioned at asked. then I will give her commands and she would not follow them. She would just stare. Her arms were to her chest so I tried to examine her range of motion and she would not let me extend her arm and gave me a lot of assistance. Despite this I asked patient to relax and then I was able to extend her arm without any problems. Per nurse when was not around patient was answering questions. Per physical therapist patient was not following any commands with him. No acute events over monitor. Objective Vitals Vital Signs Date Time Temp Pulse Resp B/P (MAP) Pulse Ox O2 Delivery O2 Flow Rate FiO2 07/22/17 12:00 98.3 87 18 141/94 (110) 98 07/22/17 10:05 98.3 94 18 141/97 (112) 97 07/22/17 07:00 92 07/22/17 05:29 95 154/95 (114) 07/22/17 05:00 92 07/22/17 04:00 97.7 100 18 156/106 (123) 99 07/22/17 04:00 101 07/22/17 03:00 106 07/22/17 02:00 108 07/22/17 01:00 104 07/22/17 00:00 103 07/22/17 00:00 97.5 105 18 148/95 (112) 96 07/21/17 23:00 100 07/21/17 22:00 132/89 (103) 07/21/17 22:00 92 07/21/17 21:00 161/101 (121) 07/21/17 21:00 100 07/21/17 20:00 101 07/21/17 20:00 98.2 100 18 159/104 (122) 98 07/21/17 19:00 98 07/21/17 18:00 94 07/21/17 17:00 94 07/21/17 16:00 90 07/21/17 15:45 98.2 90 18 158/106 (123) 98 I/O 07/21/17 07/21/17 07/21/17 07/22/17 07/22/17 07/22/17 06:59 14:59 22:59 06:59 14:59 22:59 Intake Total 1105 ml 155 ml 1300 ml 105 ml Balance 1105 ml 155 ml 1300 ml 105 ml Intake Oral 50 ml 120 ml IV Total 1105 ml 105 ml 1180 ml 105 ml # Voids 3 2 # Bowel Movements 1 2 Result Diagram: 07/22/17 1055 07/22/17 1055 Objective Remarks GENERAL: in NAD NECK: Supple, trachea midline. No JVD or lymphadenopathy. CARDIOVASCULAR: Regular rate and rhythm without murmurs, gallops, or rubs. RESPIRATORY: Breath sounds equal bilaterally. No accessory muscle use. GASTROINTESTINAL: Abdomen soft, non-tender, nondistended. Dislodged GJ NEURO patient AAO 1. Patient able to speak now. It seems like she has selective mutism depending on if her is nearby. She does have a 5/5 upper strength. LE strength unknown since he selectively follows commands. Medications and IVs Current Medications Labetalol HCl (Trandate Inj) 20 mg ONCE ONCE IV PUSH Last administered on 07/21at 00:47; Start 07/21/17 at 00:45; Stop 07/21/17 at 00:46; Status DC Meropenem (Merrem Inj) 1,000 mg STAT ONCE IV ; Start 07/21/17 at 01:30; Stop at 01:31; Status Cancel Sodium Chloride 1,000 ml @ 125 mls/hr Q8H IV ; Start 07/21/17 at 01:30; Status Cancel Levetriacetam 500 mg/Sodium Chloride 105 ml @ 420 mls/hr Q12HR IV Last administered on 07/22/17at 10:44; Start 07/21/17 at 09:00 Ceftriaxone Sodium 1000 mg/ Sodium Chloride 100 ml @ 200 mls/hr Q24H IV Last administered on 07/21/17at 22:58; Start 07/21/17 at 23:00 Sodium Chloride 1,000 ml @ 70 mls/hr [id number] IV Last administered on at 04:20; Start 07/21/17 at 01:18 Sodium Chloride (NS Flush) 2 ml UNSCH PRN IV FLUSH FLUSH AFTER USING IV ACCESS ; Start 07/21/17 at 01:30 Sodium Chloride (NS Flush) 2 ml BID IV FLUSH Last administered on 07/21/17at 21: 55; Start 07/21/17 at 09:00 Ondansetron HCl (Zofran Inj) 4 mg Q6H PRN IVP NAUSEA OR VOMITING; Start at 01:30 Morphine Sulfate (Morphine Inj) 1 mg Q3H PRN IV PUSH Pain 3-5; Start 07/21/17 at 01:30 Morphine Sulfate (Morphine Inj) 2 mg Q3H PRN IV PUSH Pain 6-10; Start 07/21/17 at 01:30 Acetaminophen 100 ml @ 400 mls/hr Q6H PRN IV FEVER; Start 07/21/17 at 01:30 Senna/Docusate Sodium (Belen-Colace) 1 tab BID PO ; Start 07/21/17 at 09:00 Magnesium Hydroxide (Milk Of Magnesia Liq) 30 ml Q12H PRN PO Mild constipation ; Start 07/21/17 at 01:30 Sennosides (Senokot) 17.2 mg Q12H PRN PO Moderate constipation; Start 07/21/17 at 01:30 Bisacodyl (Dulcolax Supp) 10 mg DAILY PRN RECTAL SEVERE CONSITIPATION; Start at 01:30 Lactulose (Lactulose Liq) 30 ml DAILY PRN PO SEVERE CONSITIPATION; Start at 01:30 Meropenem 1000 mg/ Sodium Chloride 100 ml @ 200 mls/hr ONCE ONCE IV Last administered on 07/21/17at 02:11; Start 07/21/17 at 01:30; Stop 07/21/17 at 01:59 ; Status DC Albuterol/ Ipratropium (Duoneb Neb) 1 ampule Q4HR NEB PRN NEB SOB/WHEEZING; Start 07/21/17 at 02:00 Anastrozole (Arimidex) 1 mg DAILY PO Last administered on 07/22/17at 10:32; Start 07/21/17 at 09:00 Aspirin (Aspirin Chew) 81 mg DAILY CHEW Last administered on 07/22/17at 10:20; Start 07/21/17 at 09:00 Lisinopril (Prinivil) 10 mg DAILY PO Last administered on 07/22/17at 10:25; Start 07/21/17 at 09:00 Metoprolol Tartrate (Lopressor) 50 mg HS PO ; Start 07/21/17 at 21:00 Metoprolol Tartrate (Lopressor) 75 mg DAILY PO Last administered on 07/22/17at 10:23; Start 07/21/17 at 09:00 Pantoprazole Sodium (Protonix) 40 mg BID PO Last administered on 07/22/17at 10: 28; Start 07/21/17 at 09:00 Amlodipine Besylate (Norvasc) 5 mg DAILY PO Last administered on 07/22/17at 10: 26; Start 07/21/17 at 16:00; Stop 07/22/17 at 14:08; Status DC Labetalol HCl (Trandate Inj) 20 mg ONCE ONCE IV PUSH Last administered on 07/21at 21:54; Start 07/21/17 at 21:30; Stop 07/21/17 at 21:46; Status DC Metoprolol Tartrate (Lopressor) 50 mg ONCE ONCE PO Last administered on at 02:45; Start 07/22/17 at 02:45; Stop 07/22/17 at 02:53; Status DC Labetalol HCl (Trandate Inj) 10 mg ONCE ONCE IV PUSH Last administered on 07/22at 04:15; Start 07/22/17 at 04:15; Stop 07/22/17 at 04:18; Status DC Amlodipine Besylate (Norvasc) 5 mg ONCE ONCE PO Last administered on at 15:14; Start 07/22/17 at 14:15; Stop 07/22/17 at 14:16; Status DC Amlodipine Besylate (Norvasc) 10 mg DAILY PO ; Start 07/23/17 at 09:00 Hydralazine HCl (Apresoline Inj) 20 mg Q4H PRN IV PUSH SBP>160 or DBP>100; Start 07/22/17 at 14:15 A/P Problem List: (1) Encephalopathy ICD Code: G93.40 - Encephalopathy, unspecified (2) UTI (urinary tract infection) ICD Code: N39.0 - Urinary tract infection, site not specified (3) Chest pain ICD Code: R07.9 - Chest pain, unspecified (4) HTN (hypertension) ICD Code: I10 - Essential (primary) hypertension (5) PEG tube malfunction ICD Code: K94.23 - Gastrostomy malfunction Assessment and Plan This is a 52-year-old female who is nonverbal complain of chest pain per history from Encephalopathy: per , pt w/ deteriorating condition for several months, pt minimally conversive on exam, appears to be baseline. Possibly compounded by acute UTI. CT Head w/ right craniotomy with aneurysm clip, encephalomalacia right temporal lobe and right frontal/parietal lobes, left ventriculostomy tube in place. Extensive neuro history w/ previous ruptured aneurysm, has unruptured left post comm artery aneurysm, pending intervention by Dr. Irizarry in [facility]. Recommended follow up w/ Dr. Kendall for further evaluation. Neuro Checks q4. - Patient needs to follow-up at [facility] with Dr. Irizarry. -Reviewing medical records from [facility] which only has the H&P. I requested complete consult note especially neurologist and cardiac catheterization results. -Patient is not consistent with her exam and seems to be speaking more but her is not present. Unsure if there is a social issue going on. Neurological exam is also not consistent. Consult neurologist. UTI: U/a w/ UTI, - Continue with Rocephin pending urine cultures. Chest Pain: -Per patient was complaint chest pain but patient is nonverbal. She is very comfortable and does not complain of any chest pain. Troponins are negative. does report patient her recent cart catheterization at [facility]. Pending medical records. HTN: -Uncontrolled but improved. -Since diastolic is elevated will increase amlodipine to 10 mg by mouth daily. Continue with lisinopril and metoprolol. GJ Tube Malfunction: -s/p GJ placement at [facility] on recent admit per , which was dislodged. IR consulted for replacement. -GJ was placed at [facility] due to decreased oral intake. -Will consult speech for swallow eval. -On IV fluids. DVT Prophylaxis: SCD/Teds. Discharge Planning Once patient medical stable will need to be discharged to SNF. discussed in MDR. Theresa Acevedo MD Jul 22, 2017 15:34
[2017-07-22] MEDS ORDERED: POTASSIUM CHLORIDE 10 MEQ CONTROLLED RELEASE TAB PO ONE (15:45)
[2017-07-22] MEDS ORDERED: POTASSIUM CHLOR 10 MEQ PREMIX 100 ML IV ONE (16:30)
[2017-07-22 17:50] LABS: BICARBONATE 21.6 MEQ/L (21.0-32.0); CALCIUM 8.9 MG/DL (8.5-10.1); CREATININE 0.3 MG/DL (0.50-1.00)
--- NOTE | 2017-07-22 17:50 | MB ---
cc: TREVER PEREZ M.D. DATE OF CONSULTATION: 07/22/2017. REASON FOR CONSULTATION: She is a 52-year-old seen in neurological consultation in regards to her neurologic status. 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 It appears that after that she developed a breast cancer. She had another unruptured left posterior communicating aneurysm. This information is through the chart that I was able to review here. She is in the hospital apparently for a malfunction of a G-tube and a urinary tract infection. She was at the [facility] recently and her boyfriend showed me the records of her discharge medications, which apparently included Vimpat. According to him, that medication seems to have made her much more nonfunctional, she was much more lethargic and unresponsive. Subsequently she was placed back on Keppra a couple of days ago and she is now on Keppra 500 mg twice a day. The history is a bit limited. The boyfriend was at bedside and apparently the patient has an ex- who is the decision making person and he is in and out of the room as well. The patient was noted to be intermittently responding better and the question for these changes in the level of responsiveness has been unclear. According to the boyfriend, after the brain surgery the patient was doing well at home for four months when she was apparently even walking and talking and texting, et cetera. In the past six weeks or so, her condition has declined substantially. On exam, she is awake and in one instance I saw an unusual behavior when she brought her right hand towards her face and she moved her left head to the left. This certainly raises the possibility of a partial seizure. She did verbalize some few words but not much at all to me. Her eyes were often closed. She has some right facial flattening, though mild. She has quadriparesis with increased muscle tone and intermittently seemed to move one side better than the other. Her reflexes were essentially absent and plantar responses probably extensor bilaterally. She withdrew to stimulation. Pupils appear to be about same size and reactive. She would not count fingers and when I tried to examine her pupils or eyes, in more detail, she strongly closed them. The CT brain was reviewed; it shows no acute abnormality. The left frontotemporal area of encephalomalacia is noted with ventriculostomy present, no midline shift for any obvious mass effect noted. She has some laboratory data. The sodium was low at 128 a couple of days ago, and today is 127. Potassium 3.40 today. BUN and creatinine normal. Glucose was normal 91. WBC is 5.6, hemoglobin 8.8, platelets 292,000. 39 WBCs in the urine. ASSESSMENT: 1. Status post right cerebral aneurysm clipping with an extensive area of encephalomalacia on the frontotemporal region. 2. History of unruptured left posterior communicating aneurysm. 3. Breast cancer history. 4. Feeding tube malfunction. 5. Urinary tract infection, acute. 6. Altered level of responsiveness. It is of concern that she might be having some intermittent seizures. This has been going on for six weeks or so. I am going to arrange for an EEG study to evaluate this. Apparently she was recently switched to Vimpat but that medication made her stuporous and worse and she is back on Keppra 500 mg IV twice a day. We will await on the EEG before making any further comments. This patient apparently has follow-up scheduled for the neurosurgical evaluation at [facility] in [place]. The CT brain is not showing any acute process. I will follow the neurological course. Thank you for asking us to assist in her care. MD TIMUR Leon/[facility] /5:22 PM /5:36 PM
[2017-07-22] MEDS: METOPROLOL TARTRATE 50 MG TAB PO SCH (21:45)
[2017-07-22] MEDS: cefTRIAXone INJ 1,000 MG in SODIUM CHLORIDE 0.9% INJ 100 ML IV SCH (22:25)
[2017-07-23] VITALS (18 sets, daily range): BP systolic 106–146; BP diastolic 74–93; PULSE 70–119; RESP 16–20; TEMP 97.8–99.3; O2SAT 96–99
[2017-07-23] MEDS: SODIUM CHLOR 0.9% 1000 ML INJ 1,000 ML IV SCH ×2 (08:58→23:37)
[2017-07-23] MEDS: DOCUSATE SODIUM 50 MG/SENNA 8.6 MG TAB PO SCH ×2 (09:00→21:00)
[2017-07-23] MEDS: ANASTROZOLE 1 MG TAB PO SCH (09:00)
[2017-07-23] MEDS: SODIUM CHLORIDE 0.9% FLUSH 10 ML FLUSH IV FLUSH SCH ×2 (09:00→23:04)
[2017-07-23] MEDS: levETIRAcetam INJ 500 MG in SODIUM CHLORIDE 0.9% INJ 100 ML IV SCH ×2 (09:00→23:04)
[2017-07-23] MEDS: LISINOPRIL 10 MG TAB PO SCH (09:00)
[2017-07-23] MEDS: PANTOPRAZOLE SOD 40 MG DELAYED RELEASE TAB PO SCH ×2 (09:00→21:00)
[2017-07-23] MEDS: METOPROLOL TARTRATE 25 MG TAB PO SCH (09:00)
[2017-07-23] MEDS: ASPIRIN 81 MG CHEW TAB CHEW SCH (09:00)
--- NOTE | 2017-07-23 09:04 | HHI.PR ---
Subjective Remarks Going for tube placement by IR. Patient in bed appears at baseline. family at bedside wants to talk with neurology as says she needs to go to [facility]. Objective Vitals Vital Signs Date Time Temp Pulse Resp B/P (MAP) Pulse Ox O2 Delivery O2 Flow Rate FiO2 07/23/17 06:00 104 07/23/17 05:00 106 07/23/17 04:00 98.1 106 18 106/75 (85) 97 07/23/17 04:00 102 07/23/17 03:00 101 07/23/17 02:00 105 07/23/17 01:00 90 07/23/17 00:00 97.9 90 18 116/75 (89) 98 07/23/17 00:00 70 07/22/17 23:00 90 07/22/17 22:00 88 07/22/17 21:00 100 07/22/17 20:00 97 07/22/17 19:00 96 07/22/17 19:00 98.0 97 18 147/100 (116) 97 07/22/17 18:00 94 07/22/17 17:00 90 07/22/17 16:00 84 07/22/17 15:22 97.9 87 17 151/99 (116) 98 07/22/17 15:00 82 07/22/17 14:00 80 07/22/17 13:00 86 07/22/17 12:00 98.3 87 18 141/94 (110) 98 07/22/17 12:00 86 07/22/17 11:00 87 07/22/17 10:05 98.3 94 18 141/97 (112) 97 07/22/17 10:00 96 I/O 07/22/17 07/22/17 07/22/17 07/23/17 07/23/17 07/23/17 07:00 15:00 23:00 07:00 15:00 23:00 Intake Total 1300 ml 105 ml 60 ml 0 ml Output Total 700 ml 400 ml Balance 1300 ml 105 ml -640 ml -400 ml Intake Oral 120 ml 60 ml 0 ml IV Total 1180 ml 105 ml Output Urine Total 700 ml 400 ml # Voids 2 1 # Bowel Movements 2 0 Result Diagram: 07/22/17 1055 07/22/17 1719 Imaging Last Impressions Chest X-Ray 07/21/17 0000 Signed Impressions: Service Date/Time: Friday, July 21, 2017 02:18 - CONCLUSION: No acute disease. Igor Wiseman MD Head CT 07/20/17 0000 Signed Impressions: Service Date/Time: Thursday, July 20, 2017 23:30 - CONCLUSION: 1. Status post right craniotomy with aneurysm clip in the right suprasellar cistern region. 2. Encephalomalacia involving much of the right temporal lobe and portions of the right frontal and parietal lobes. 3. Chronic appearing dural thickening over the right frontal and temporal lobes. 4. 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 No JVD or lymphadenopathy. CARDIOVASCULAR: Regular rate and rhythm without murmurs, gallops, or rubs. RESPIRATORY: Breath sounds equal bilaterally. No accessory muscle use. GASTROINTESTINAL: Abdomen soft, non-tender, nondistended. Dislodged GJ NEURO patient AAO 1. Patient able to speak now. It seems like she has selective mutism depending on if her is nearby. She does have a 5/5 upper strength. LE strength unknown since he selectively follows commands. A/P Problem List: (1) Encephalopathy ICD Code: G93.40 - Encephalopathy, unspecified (2) UTI (urinary tract infection) ICD Code: N39.0 - Urinary tract infection, site not specified (3) Chest pain ICD Code: R07.9 - Chest pain, unspecified (4) HTN (hypertension) ICD Code: I10 - Essential (primary) hypertension (5) PEG tube malfunction ICD Code: K94.23 - Gastrostomy malfunction Assessment and Plan This is a 52-year-old female who is nonverbal complain of chest pain per history from Encephalopathy: per , pt w/ deteriorating condition for several months, pt minimally conversive on exam, appears to be baseline. Possibly compounded by acute UTI. CT Head w/ right craniotomy with aneurysm clip, encephalomalacia right temporal lobe and right frontal/parietal lobes, left ventriculostomy tube in place. Extensive neuro history w/ previous ruptured aneurysm, has unruptured left post comm artery aneurysm, pending intervention by Dr. Kendall in [facility]. Recommended follow up w/ Dr. Kendall for further evaluation. Neuro Checks q4. - Patient needs to follow-up at [facility] with Dr. Irizarry. -Reviewing medical records from [facility] which only has the H&P. I requested complete consult note especially neurologist and cardiac catheterization results. -Patient is not consistent with her exam and seems to be speaking more but her is not present. Unsure if there is a social issue going on. Neurological exam is also not consistent. Consult neurologist. UTI: U/a w/ UTI, - Continue with Rocephin pending urine cultures. Chest Pain: -Per patient was complaint chest pain but patient is nonverbal. She is very comfortable and does not complain of any chest pain. Troponins are negative. does report patient her recent cart catheterization at [facility]. Pending medical records. HTN: -Uncontrolled but improved. -Since diastolic is elevated will increase amlodipine to 10 mg by mouth daily. Continue with lisinopril and metoprolol. GJ Tube Malfunction: -s/p GJ placement at [facility] on recent admit per , which was dislodged. IR consulted for replacement. Plan for placement 07/23/17 by IR -GJ was placed at [facility] due to decreased oral intake. -Will consult speech for swallow eval. -On IV fluids. DVT Prophylaxis: SCD/Teds. Discharge Planning Once patient medical stable will need to be discharged to SNF. Plan for feeding tube replacement today. Melissa Suarez MD Jul 23, 2017 09:04
[2017-07-23 13:16] LABS: INTERNATIONAL NORMALIZED RATIO 1.1 RATIO; PROTHROMBIN TIME - PATIENT 11.1 SEC (9.8-11.6)
[2017-07-23] MEDS ORDERED: MIDAZOLAM HCL 2 MG/2 ML VIAL ONE (16:32)
[2017-07-23] MEDS ORDERED: fentaNYL CITRATE 250 MCG/5 ML AMP ONE (16:32)
--- NOTE | 2017-07-23 17:39 | PD.RAD ---
Post Procedure Progress Note Pre Procedure Diagnosis: (1) PEG tube malfunction Post Procedure Diagnosis: (1) PEG tube malfunction Procedure Date: Jul 23, 2017 Supervising Radiologist: Collin Crump JR Proceduralist/Assist: Vineet Rossi, RT(R), Migel Wolf RT(R) Anesthesia: Conscious Sedation Plan of Activity Patient to Unit: PACU Patient Condition: Good See PACS Report for procedural detail/treatment Feeding Tube Gastro/Jejunostomy Replacement Gibraltarian: 18 Findings: Original 18F GJ tube fell out. Placed new 18F GJ tube. In good position. Functions well. Jr. Theron,Collin Garcia MD Jul 23, 2017 17:39
[2017-07-23] MEDS: METOPROLOL TARTRATE 50 MG TAB PO SCH (22:54)
[2017-07-23] MEDS: cefTRIAXone INJ 1,000 MG in SODIUM CHLORIDE 0.9% INJ 100 ML IV SCH (23:07)
[2017-07-24] VITALS (11 sets, daily range): BP systolic 149–165; BP diastolic 77–94; PULSE 86–109; RESP 20–21; TEMP 97–99.1; O2SAT 94–98
--- NOTE | 2017-07-24 05:58 | MG ---
cc: EVERETTE LACEY MD Lab No: [id number] Date: 07/23/2017 Age: 52 Sex: F Race: DATE OF 1965 INDICATIONS A 52-year-old with history of lethargy. History of right hemispheric encephalomalacia. FINDINGS Muscle tension artifact off and on, more prominent on the right-sided. Posterior rhythm showing 3-5 Hz activity, 20-50 microvolts. Asymmetric right posterior slowing. Rhythmic delta activity occurring right posterior region seen on epoch 88. Reasonably good EEG variability reactivity. Reduced driving with photic stimulation. Significant artifact frontal left hemispheric channels. Single lead EKG showing sinus rhythm. INTERPRETATION [id number] encephalopathy with asymmetric right hemispheric slowing and myogenic artifact as noted above. Clinical correlation. Everette Lacey MD MG/SSB /8:47 PM /5:52 AM MTDRaudel
[2017-07-24] MEDS: SODIUM CHLORIDE 0.9% FLUSH 10 ML FLUSH IV FLUSH SCH ×2 (09:00→21:26)
[2017-07-24] MEDS: ASPIRIN 81 MG CHEW TAB CHEW SCH (09:01)
[2017-07-24] MEDS: DOCUSATE SODIUM 50 MG/SENNA 8.6 MG TAB PO SCH ×2 (09:01→21:25)
[2017-07-24] MEDS: levETIRAcetam INJ 500 MG in SODIUM CHLORIDE 0.9% INJ 100 ML IV SCH ×2 (09:01→21:25)
[2017-07-24] MEDS: METOPROLOL TARTRATE 25 MG TAB PO SCH (09:02)
[2017-07-24] MEDS: LISINOPRIL 10 MG TAB PO SCH (09:02)
[2017-07-24] MEDS: PANTOPRAZOLE SOD 40 MG DELAYED RELEASE TAB PO SCH ×2 (09:02→21:28)
[2017-07-24] MEDS: ANASTROZOLE 1 MG TAB PO SCH (09:02)
--- NOTE | 2017-07-24 09:53 | RADRPT ---
EXAM DATE/TIME: 07/23/2017 18:04 [place] COMPARISON: No previous studies available for comparison. INDICATIONS : Patient presents with inadvertent removal of the gastrojejunal tube in need of re-placement for nutri tion. 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 LOCATION: N/A FLUORO TIME: 9.7 minutes IMAGE SERIES: 4 SEDATION TIME: 30 minutes CONTRAST: 10 cc Omnipaque (iohexol) 350 MEDICATION(S): 1.) 1 mg midazolam (Versed) IV 2.) 50 mcg Fentanyl (Sublimaze) IV DEVICE(S): 1.) 18 Fr gastrojejunostomy tube PROCEDURE : 1. Fluoroscopically guided gastrojejunostomy tube placement. 2. Conscious sedation with continuous EKG and oximetry monitoring. The risks, benefits and alternatives to the procedure were explained and verbal and written consent w as obtained. The site was prepped in sterile fashion. Full sterile technique was used, including ca p, mask, sterile gloves and gown and a large sterile sheet. Hand hygiene and 2% chlorhexidine and/or betadine/alcohol prep was utilized per protocol for cutaneous antisepsis. The skin and subcutaneous tissues were infiltrated with local anesthetic solution. Three percutaneous fasteners were still in place from prior placement at an outlying institution.. I was able to pass a 4 Norwegian dilator down the existing tract and into the stomach lumen. Contrast wa s injected to confirm the appropriate position. An 0.035 wire was advanced into the small bowel. The tract was dilated. The gastrojejunostomy tube was introduced through a peel-away sheath. The positi on was confirmed with an injection of contrast in both the gastric and jejunal lumens. Conscious sedation was performed with the prescribed dosages and duration as above in the presence of an independent trained radiology nurse to assist in the monitoring of the patient. EKG and oximetry remained stable throughout the procedure. The patient tolerated the procedure well and there were n o complications. The patient was sent to post anesthesia recovery in stable condition. CONCLUSION: Uncomplicated gastrojejunostomy tube re-placement as above. Collin Crump Jr., MD on July 24, 2017 at 9:48 Board Certified Radiologist. This report was verified electronically.
[2017-07-24] MEDS: cloNIDine HCL 0.1 MG TAB PO PRN (12:26)
--- NOTE | 2017-07-24 13:55 | HHI.PR ---
Subjective Remarks seen with family friend at bedside patient is awake and alert, opened mouth to speak in soft tone ff some commands tracks and nods she is here for PEG replacement Objective Vitals Vital Signs Date Time Temp Pulse Resp B/P (MAP) Pulse Ox O2 Delivery O2 Flow Rate FiO2 07/24/17 12:31 98.6 94 20 165/88 (113) 96 07/24/17 12:00 93 07/24/17 08:08 99.1 109 20 150/81 (104) 95 07/24/17 05:57 98.2 98 20 150/77 (101) 97 07/24/17 04:14 93 07/24/17 01:33 98.3 90 21 164/94 (117) 94 07/24/17 01:20 92 07/23/17 23:21 112 07/23/17 21:22 97.8 119 20 146/91 (109) 98 07/23/17 18:58 99 Nasal Cannula 2.00 07/23/17 18:06 113 16 163/94 (117) 99 Room Air 07/23/17 17:59 112 16 168/91 (116) 98 Room Air 07/23/17 17:50 97.8 112 16 112/67 (82) 97 2 07/23/17 15:00 98.9 89 18 127/74 (91) 98 07/23/17 15:00 88 07/23/17 14:00 114 I/O 07/23/17 07/23/17 07/23/17 07/24/17 07/24/17 07/24/17 07:00 15:00 23:00 07:00 15:00 23:00 Intake Total 0 ml 0 ml 60 ml Output Total 400 ml Balance -400 ml 0 ml 60 ml Intake Oral 0 ml 0 ml Other 60 ml Output Urine Total 400 ml # Voids 1 1 # Bowel Movements 0 1 Result Diagram: 07/22/17 1055 07/22/17 1719 Imaging Last Impressions Gastrostomy Tube Placement 07/23/17 0000 Signed Impressions: Service Date/Time: Sunday, July 23, 2017 18:04 - CONCLUSION: Uncomplicated gastrojejunostomy tube re-placement as above. Collin Crump Jr., MD Chest X-Ray 07/21/17 0000 Signed Impressions: Service Date/Time: Friday, July 21, 2017 02:18 - CONCLUSION: No acute disease. Igor Wiseman MD Head CT 07/20/17 0000 Signed Impressions: Service Date/Time: Thursday, July 20, 2017 23:30 - CONCLUSION: 1. Status post right craniotomy with aneurysm clip in the right suprasellar cistern region. 2. Encephalomalacia involving much of the right temporal lobe and portions of the right frontal and parietal lobes. 3. Chronic appearing dural thickening over the right frontal and temporal lobes. 4. Left ventriculostomy tube in place TAG MARKER shunt in place Igor Wiseman MD Objective Remarks awake and alert but opened mouth to state her name- aphasic likely + tracking gripped when hands held lungs- no rales regular rhythm abdomen soft, nontender- PEG in place extremities no edema both EU- mild flexion contractures- starting to have some resistance on full extension on exam Procedures 07/23- GJ tube replacement A/P Problem List: (1) Encephalopathy ICD Code: G93.40 - Encephalopathy, unspecified (2) UTI (urinary tract infection) ICD Code: N39.0 - Urinary tract infection, site not specified (3) Chest pain ICD Code: R07.9 - Chest pain, unspecified (4) HTN (hypertension) ICD Code: I10 - Essential (primary) hypertension (5) PEG tube malfunction ICD Code: K94.23 - Gastrostomy malfunction Assessment and Plan This is a 52-year-old female who is nonverbal complain of chest pain per history from Encephalopathy: History of SAH . per , pt w/ deteriorating condition for several months, pt minimally conversive on exam, appears to be baseline. Possibly compounded by acute UTI. CT Head w/ right craniotomy with aneurysm clip, encephalomalacia right temporal lobe and right frontal/parietal lobes, left ventriculostomy tube in place. Extensive neuro history w/ previous ruptured aneurysm, has unruptured left post comm artery aneurysm, pending intervention by Dr. Kendall in [facility]. Recommended follow up w/ Dr. Kendall for further evaluation. Neuro Checks q4. R/O SZ - EEG pending - on IV Keppra currently - Dr. Landaverde ff- he will review EEG and will give final recommendations - Patient needs to follow-up at [facility] with Dr. Irizarry. -Reviewing medical records from [facility] which only has the H&P. I requested complete consult note especially neurologist and cardiac catheterization results. - Neurology ff PT/OT/speech therapy consulted UTI: U/a w/ UTI, - culture growing 2 bacterias- resistant to Rocephin. FF final sensitivities - DC rocephin and change to po ciprofloxacin bid today 07/24 x 7 days GJ Tube Malfunction: - S/P GJ tube replacement 07/23- start tube feedings- -s/p GJ placement at [facility] on recent admit per , which was dislodged. -GJ was placed at [facility] due to decreased oral intake. -Will consult speech for swallow eval.and cognitive eval. - per friend at bedside- she was still eating - which I doubt - reviewed records- was on Isosource 1.5 65 cc/hr a 15 hours - we dont have that roduct here available on [employer]- - will start Jevity for now till seen by Dietitian - consult dietitian for equivalent and recommendation HTN:- -Per patient was complaint chest pain but patient is nonverbal. She is very comfortable and does not complain of any chest pain. Troponins are negative. does report patient her recent cart catheterization at [facility]. Pending medical records. -Uncontrolled but improved. - increase amlodipine to 10 mg by mouth daily. Continue with lisinopril Increase Metorpolol to 75 mg bid/PEG clonidine prn HYpnatremia Hypokalemia - recheck BMP now DVT Prophylaxis: SCD/Teds. Discharge Planning came from [facility]- sounds like they dont want to go back there- d/w Skye Power MD Jul 24, 2017 13:55
[2017-07-24 16:35] LABS: BICARBONATE 21.2 MEQ/L (21.0-32.0); BLOOD UREA NITROGEN 4 MG/DL (7-18); CALCIUM 8.8 MG/DL (8.5-10.1); CHLORIDE 95 MEQ/L (98-107); CREATININE LESS THAN 0.15 MG/DL (0.50-1.00); GLOMERULAR FILTRATION RATE 522 ML/MIN (>89); GLUCOSE,RANDOM 81 MG/DL (74-106); SODIUM (NA) 127 MEQ/L (136-145)
--- NOTE | 2017-07-24 20:59 | HHI.PR ---
Review/Management Daily Summary 07/24 very much unchanged neuro [facility] spoke with pt, she is nonverbal to me boyfriend at bedside and he called her ex- for me to go over neuro assessment i saw her eeg, no ongoing seizures I explained what i could and suggest she follows with [facility] neurosurgery for aneurysm could have keppra d/c'd and 24 hr eeg monitoring at [facility] as well otherwise keep keppra for the time being Subjective Subjective Comments No change Active Medications Current Medications Medications (Trade) Dose Ordered Sig/Conor Route Start Time Stop Time Status Last Admin Levetriacetam 500 mg/Sodium Chloride 105 ml @ 420 mls/hr Q12HR IV 07/21/17 09:00 07/24/17 09:01 Sodium Chloride 1,000 ml @ 42 mls/hr [id number] IV 07/21/17 01:18 07/23/17 23:37 (NS Flush) 2 ml UNSCH PRN IV FLUSH 07/21/17 01:30 (NS Flush) 2 ml BID IV FLUSH 07/21/17 09:00 07/23/17 23:04 (Zofran Inj) 4 mg Q6H PRN IVP 07/21/17 01:30 (Morphine Inj) 1 mg Q3H PRN IV PUSH 07/21/17 01:30 (Morphine Inj) 2 mg Q3H PRN IV PUSH 07/21/17 01:30 Acetaminophen 100 ml @ 400 mls/hr Q6H PRN IV 07/21/17 01:30 (Belen-Colace) 1 tab BID PO 07/21/17 09:00 07/24/17 09:01 (Milk Of Magnesia Liq) 30 ml Q12H PRN PO 07/21/17 01:30 (Senokot) 17.2 mg Q12H PRN PO 07/21/17 01:30 (Dulcolax Supp) 10 mg DAILY PRN RECTAL 07/21/17 01:30 (Lactulose Liq) 30 ml DAILY PRN PO 07/21/17 01:30 (Duoneb Neb) 1 ampule Q4HR NEB PRN NEB 07/21/17 02:00 (Arimidex) 1 mg DAILY PO 07/21/17 09:00 07/24/17 09:02 (Aspirin Chew) 81 mg DAILY CHEW 07/21/17 09:00 07/24/17 09:01 (Prinivil) 10 mg DAILY PO 07/21/17 09:00 07/24/17 09:02 (Protonix) 40 mg BID PO 07/21/17 09:00 07/24/17 09:02 (Norvasc) 10 mg DAILY PO 07/23/17 09:00 07/24/17 09:01 (Catapres) 0.1 mg Q6H PRN PO 07/24/17 02:30 07/24/17 12:26 (Lopressor) 75 mg Q12HR G-TUBE 07/24/17 21:00 (Cipro) 500 mg Q12HR PO 07/24/17 21:00 07/31/17 20:59 Allergies Allergies Coded Allergies No Known Allergies (Unverified03/15/17) Exam I&O / VS 07/24/17 07/24/17 07/25/17 15:00 23:00 07:00 # Voids 3 # Bowel Movements 1 1 Vital Signs Date Time Temp Pulse Resp B/P (MAP) Pulse Ox O2 Delivery O2 Flow Rate FiO2 07/24/17 20:37 97.7 102 20 159/92 (114) 96 07/24/17 18:00 99 07/24/17 15:34 97.0 86 20 149/81 (103) 98 07/24/17 12:31 98.6 94 20 165/88 (113) 96 07/24/17 12:00 93 07/24/17 08:08 99.1 109 20 150/81 (104) 95 07/24/17 05:57 98.2 98 20 150/77 (101) 97 07/24/17 04:14 93 07/24/17 01:33 98.3 90 21 164/94 (117) 94 07/24/17 01:20 92 07/23/17 23:21 112 07/23/17 21:22 97.8 119 20 146/91 (109) 98 Respiratory: Lungs CTA, Non-labored respirations, BS equal Cardiology: Normal rate, Regular Rhythm Musculoskeletal: Tenderness, Swelling Objective Micro and Labs Laboratory Tests Test 07/24/17 15:42 Blood Urea Nitrogen 4 Creatinine LESS THAN 0.15 Random Glucose 81 Calcium Level 8.8 Sodium Level 127 Potassium Level 2.9 Chloride Level 95 Carbon Dioxide Level 21.2 Anion Gap 11 Estimat Glomerular Filtration Rate 522 Date/Time Source Procedure Growth Status 07/21/17 00:05 Urine Clean Catch Urine Culture - Final Citrobacter Youngae Gram Negative Yair Complete Jessica Landaverde MD Jul 24, 2017 20:59
[2017-07-24] MEDS ORDERED: METOPROLOL TARTRATE 25 MG TAB PO SCH (21:00)
[2017-07-24] MEDS: CIPROFLOXACIN 500 MG TAB PO SCH (21:25)
[2017-07-24] MEDS: METOPROLOL TARTRATE 25 MG TAB G-TUBE SCH (21:26)
[2017-07-24] MEDS: SODIUM CHLOR 0.9% 1000 ML INJ 1,000 ML IV SCH ×2 (21:28→21:34)
[2017-07-25] VITALS (10 sets, daily range): BP systolic 119–161; BP diastolic 72–90; PULSE 82–98; RESP 17–19; TEMP 97.4–99.5; O2SAT 94–100
[2017-07-25] MEDS: cloNIDine HCL 0.1 MG TAB PO PRN (03:41)
[2017-07-25 07:26] LABS: HEMATOCRIT 25.2 % (35.0-46.0); HEMOGLOBIN 9.1 GM/DL (11.6-15.3); MEAN CELL VOLUME 98.1 FL (80.0-100.0); MEAN CORPUSCULAR HEMOGLOBIN 35.4 PG (27.0-34.0); MEAN PLATELET VOLUME 6.9 FL (7.0-11.0); PLATELET COUNT 312 TH/MM3 (150-450); RED BLOOD COUNT 2.56 MIL/MM3 (4.00-5.30); RED CELL DISTRIBUTION WIDTH 13.3 % (11.6-17.2); WHITE BLOOD COUNT 5.9 TH/MM3 (4.0-11.0)
[2017-07-25 07:30] LABS: MEAN CORPUSCULAR HGB CONC 36.1 % (32.0-36.0)
[2017-07-25 07:33] LABS: ALBUMIN 2.8 GM/DL (3.4-5.0); ALKALINE PHOSPHATASE 82 U/L (45-117); ALT (GPT) 21 U/L (10-53); AST (GOT) 19 U/L (15-37); BICARBONATE 23.8 MEQ/L (21.0-32.0); BLOOD UREA NITROGEN 5 MG/DL (7-18); CALCIUM 8.5 MG/DL (8.5-10.1); CHLORIDE 94 MEQ/L (98-107); CREATININE 0.27 MG/DL (0.50-1.00); GLOMERULAR FILTRATION RATE 265 ML/MIN (>89); GLUCOSE,RANDOM 102 MG/DL (74-106); SODIUM (NA) 126 MEQ/L (136-145); TOTAL BILIRUBIN ADULT 0.3 MG/DL (0.2-1.0); TOTAL PROTEIN 6.4 GM/DL (6.4-8.2)
[2017-07-25] MEDS: METOPROLOL TARTRATE 25 MG TAB G-TUBE SCH (08:17)
[2017-07-25] MEDS: levETIRAcetam INJ 500 MG in SODIUM CHLORIDE 0.9% INJ 100 ML IV SCH ×2 (08:17→20:57)
[2017-07-25] MEDS: CIPROFLOXACIN 500 MG TAB PO SCH ×2 (08:17→20:57)
[2017-07-25] MEDS: LISINOPRIL 10 MG TAB PO SCH (08:17)
[2017-07-25] MEDS: PANTOPRAZOLE SOD 40 MG DELAYED RELEASE TAB PO SCH ×2 (08:17→20:58)
[2017-07-25] MEDS: ANASTROZOLE 1 MG TAB PO SCH (08:17)
[2017-07-25] MEDS: ASPIRIN 81 MG CHEW TAB CHEW SCH (08:18)
[2017-07-25] MEDS: DOCUSATE SODIUM 50 MG/SENNA 8.6 MG TAB PO SCH ×2 (08:18→20:57)
[2017-07-25] MEDS: SODIUM CHLORIDE 0.9% FLUSH 10 ML FLUSH IV FLUSH SCH ×2 (08:29→20:58)
[2017-07-25] MEDS ORDERED: POTASSIUM CHLOR 40 MEQ PREMIX 100 ML IV ONE (10:00)
--- NOTE | 2017-07-25 10:04 | HHI.PR ---
Subjective Remarks patient resting in bed , she was able to mention her name and the months otherwise she is not answering question, partially follow command, she was able to grasp finger in the left hand but not in the right Objective Vitals Vital Signs Date Time Temp Pulse Resp B/P (MAP) Pulse Ox O2 Delivery O2 Flow Rate FiO2 07/25/17 08:33 Room Air 07/25/17 07:49 98.4 96 18 147/84 (105) 94 07/25/17 05:03 97.4 90 19 161/90 (113) 100 07/25/17 02:41 96 Room Air 07/25/17 01:15 83 07/25/17 01:14 99.5 82 18 146/86 (106) 97 07/24/17 20:37 97.7 102 20 159/92 (114) 96 07/24/17 20:13 102 07/24/17 18:00 99 07/24/17 15:34 97.0 86 20 149/81 (103) 98 07/24/17 12:31 98.6 94 20 165/88 (113) 96 07/24/17 12:00 93 I/O 07/24/17 07/24/17 07/24/17 07/25/17 07/25/17 07/25/17 07:00 15:00 23:00 07:00 15:00 23:00 Intake Total 60 ml 1000 ml 650 ml Output Total 700 ml 1 ml Balance 60 ml 300 ml -1 ml 650 ml IV Total 1000 ml 105 ml Tube Feeding 245 ml Other 60 ml 300 ml Output Urine Total 700 ml 1 ml # Voids 1 3 # Bowel Movements 1 1 1 Result Diagram: 07/25/1761207/25/17612 Objective Remarks GENERAL: Thisfrail 52 years old in no apparent distress. CARDIOVASCULAR: Regular rate and rhythm without murmurs, gallops, or rubs. RESPIRATORY: Clear to auscultation. Breath sounds equal bilaterally. No wheezes , rales, or rhonchi. GASTROINTESTINAL: Abdomen soft, non-tender, nondistended. Normal active bowel sounds MUSCULOSKELETAL: Extremities without clubbing, cyanosis, or edema. NEURO: awake alert oriented to person and time, able to weakly grasp finger with a left hands, able to move her bilateral feet Procedures 07/23- GJ tube replacement A/P Problem List: (1) Encephalopathy ICD Code: G93.40 - Encephalopathy, unspecified (2) UTI (urinary tract infection) ICD Code: N39.0 - Urinary tract infection, site not specified (3) Chest pain ICD Code: R07.9 - Chest pain, unspecified (4) HTN (hypertension) ICD Code: I10 - Essential (primary) hypertension (5) PEG tube malfunction ICD Code: K94.23 - Gastrostomy malfunction Assessment and Plan This is a 52-year-old female who is nonverbal complain of chest pain per history from Encephalopathy: History of SAH . CT Head w/ right craniotomy with aneurysm clip , encephalomalacia right temporal lobe and right frontal/parietal lobes, left ventriculostomy tube in place. Extensive neuro history w/ previous ruptured aneurysm, has unruptured left post comm artery aneurysm, pending intervention by Dr. Kendall in [facility]. Recommended follow up w/ Dr. Kendall for further evaluation. Neuro Checks q4. R/O SZ - EEG no seizure activity - on IV Keppra currently - Dr. Landaverde ff-recommended either continue with Keppra or try to stop and recheck EEG for 24 hours - Patient needs to follow-up at [facility] with Dr. Irizarry. PT/OT/speech therapy consulted UTI: U/a w/ UTI, - culture growing Citrobacter and gram-negative rods- resistant to Rocephin. - DC rocephin and change to po ciprofloxacin bid 07/24 x 7 days - S/P GJ tube replacement 07/23- start tube feedings- -s/p GJ placement at [facility] on recent admit per , which was dislodged. -GJ was placed at [facility] due to decreased oral intake. - speech for swallow eval.and cognitive eval. - Start Jevity consult dietitian HTN:-Not optimized - amlodipine to 10 mg by mouth daily. Continue with lisinopril cautiously due to hypo-natremia and hyperkalemia Pradip Increase Metorpolol to 100 mg bid/PEG clonidine prn Hyponatremia Hypokalemia -Replace potassium iv, check magnesium level and replace if needed DVT Prophylaxis: SCD/Teds. Severo Valderrama MD Jul 25, 2017 10:04
[2017-07-25] MEDS: POTASSIUM CHLOR 20 MEQ PREMIX 100 ML IV SCH ×2 (11:22→14:24)
[2017-07-25] MEDS: METOPROLOL TARTRATE 100 MG TAB G-TUBE SCH (20:58)
[2017-07-25] MEDS: SODIUM CHLOR 0.9% 1000 ML INJ 1,000 ML IV SCH (20:59)
[2017-07-26] VITALS (12 sets, daily range): BP systolic 113–164; BP diastolic 56–93; PULSE 79–95; RESP 17–20; TEMP 97.5–98.7; O2SAT 94–98
[2017-07-26] MEDS: cloNIDine HCL 0.1 MG TAB PO PRN (06:15)
[2017-07-26] MEDS: METOPROLOL TARTRATE 100 MG TAB G-TUBE SCH ×2 (07:36→21:26)
[2017-07-26] MEDS: DOCUSATE SODIUM 50 MG/SENNA 8.6 MG TAB PO SCH ×2 (07:37→21:00)
[2017-07-26] MEDS: ASPIRIN 81 MG CHEW TAB CHEW SCH (07:37)
[2017-07-26] MEDS: LISINOPRIL 10 MG TAB PO SCH (07:37)
[2017-07-26] MEDS: SODIUM CHLORIDE 0.9% FLUSH 10 ML FLUSH IV FLUSH SCH ×2 (07:37→21:00)
[2017-07-26] MEDS: CIPROFLOXACIN 500 MG TAB PO SCH ×2 (07:37→21:26)
[2017-07-26] MEDS: levETIRAcetam INJ 500 MG in SODIUM CHLORIDE 0.9% INJ 100 ML IV SCH (07:38)
[2017-07-26] MEDS: PANTOPRAZOLE SOD 40 MG DELAYED RELEASE TAB PO SCH ×2 (07:42→21:26)
[2017-07-26] MEDS: ANASTROZOLE 1 MG TAB PO SCH (07:42)
[2017-07-26] MEDS: SODIUM CHLOR 0.9% 1000 ML INJ 1,000 ML IV SCH ×3 (07:48→22:37)
[2017-07-26] MEDS: MAGNESIUM SULFATE 1 GM PREMIX 100 ML IV SCH ×2 (10:40→12:07)
[2017-07-26 12:32] LABS: BICARBONATE 24.5 MEQ/L (21.0-32.0); CALCIUM 8.7 MG/DL (8.5-10.1); CREATININE 0.27 MG/DL (0.50-1.00)
--- NOTE | 2017-07-26 13:15 | HHI.PR ---
Subjective Remarks Patient resting in bed open eyes at bedside, he requested consulting oncology No acute issue overnight Objective Vitals Vital Signs Date Time Temp Pulse Resp B/P (MAP) Pulse Ox O2 Delivery O2 Flow Rate FiO2 07/26/17 11:47 98.4 81 20 117/72 (87) 94 07/26/17 09:33 87 07/26/17 07:55 98.4 95 19 131/75 (93) 98 07/26/17 04:00 98.6 93 17 164/93 (116) 97 07/26/17 01:00 80 07/26/17 00:00 98.1 80 18 132/78 (96) 96 07/25/17 20:00 98.0 98 17 136/85 (102) 95 07/25/17 18:24 93 07/25/17 16:00 97.6 91 18 136/79 (98) 96 07/25/17 15:20 86 I/O 07/25/17 07/25/17 07/25/17 07/26/17 07/26/17 07/26/17 07:00 15:00 23:00 07:00 15:00 23:00 Intake Total 850 ml 205 ml 475 ml 300 ml Output Total 1 ml 500 ml 750 ml 1000 ml Balance -1 ml 350 ml -545 ml -525 ml 300 ml IV Total 105 ml 205 ml 300 ml Tube Feeding 245 ml 375 ml Other 500 ml 100 ml Output Urine Total 1 ml 500 ml 750 ml 1000 ml # Bowel Movements 1 Result Diagram: 07/25/17 0613 07/26/17 1125 Objective Remarks GENERAL: This is frail 52 years old in no apparent distress. CARDIOVASCULAR: Regular rate and rhythm without murmurs, gallops, or rubs. RESPIRATORY: Clear to auscultation. Breath sounds equal bilaterally. No wheezes , rales, or rhonchi. GASTROINTESTINAL: Abdomen soft, non-tender, nondistended. Normal active bowel sounds MUSCULOSKELETAL: Extremities without clubbing, cyanosis, or edema. NEURO: awake alert oriented to person and time, able to weakly grasp finger with a left hands, able to move her bilateral feet Procedures 07/23- GJ tube replacement A/P Problem List: (1) Encephalopathy ICD Code: G93.40 - Encephalopathy, unspecified (2) UTI (urinary tract infection) ICD Code: N39.0 - Urinary tract infection, site not specified (3) Chest pain ICD Code: R07.9 - Chest pain, unspecified (4) HTN (hypertension) ICD Code: I10 - Essential (primary) hypertension (5) PEG tube malfunction ICD Code: K94.23 - Gastrostomy malfunction Assessment and Plan 07/26: Hypokalemia and hypomagnesemia 1.6 was checked yesterday I will give 2 g of magnesium sulfate 11 and repeat BMP with magnesium in a.m. Repeated potassium today is 3 we'll give KClpo 2 of 40 mEq This is a 52-year-old female who is nonverbal complain of chest pain per history from Encephalopathy: History of SAH . CT Head w/ right craniotomy with aneurysm clip , encephalomalacia right temporal lobe and right frontal/parietal lobes, left ventriculostomy tube in place. Extensive neuro history w/ previous ruptured aneurysm, has unruptured left post comm artery aneurysm, pending intervention by Dr. Kendall in [facility]. Recommended follow up w/ Dr. Kendall for further evaluation. Neuro Checks q4. R/O SZ - EEG no seizure activity - on IV Keppra currently - Dr. Landaverde ff-recommended either continue with Keppra or try to stop and recheck EEG for 24 hours - Patient needs to follow-up at [facility] with Dr. Irizarry. PT/OT/speech therapy consulted UTI: U/a w/ UTI, - culture growing Citrobacter and gram-negative rods- resistant to Rocephin. - DC rocephin and change to po ciprofloxacin bid 07/24 x 7 days - S/P GJ tube replacement 07/23- start tube feedings- -s/p GJ placement at [facility] on recent admit per , which was dislodged. -GJ was placed at [facility] due to decreased oral intake. - speech for swallow eval.and cognitive eval. - Start Jevity consult dietitian HTN:-Not optimized - amlodipine to 10 mg by mouth daily. Continue with lisinopril cautiously due to hypo-natremia and hyperkalemia Pradip Increase Metorpolol to 100 mg bid/PEG clonidine prn Hyponatremia Hypokalemia -Replace potassium iv, check magnesium level and replace if needed DVT Prophylaxis: SCD/Teds. Discharge Planning In a.m. to [facility] Severo Valderrama MD Jul 26, 2017 13:15
[2017-07-26] MEDS ORDERED: CIPR-9 PO (13:17)
[2017-07-26] MEDS ORDERED: AMLO10 PO (13:17)
[2017-07-26] MEDS ORDERED: METO-338 G-TUBE (13:17)
--- NOTE | 2017-07-26 13:24 | HHI.DS ---
Discharge Summary Admission Date Jul 23, 2017 at 13:17 Discharge Date: Jul 27, 2017 Admitting Diagnosis UTI altered Mental status (1) Encephalopathy ICD Code: G93.40 - Encephalopathy, unspecified (2) UTI (urinary tract infection) ICD Code: N39.0 - Urinary tract infection, site not specified (3) Chest pain ICD Code: R07.9 - Chest pain, unspecified (4) HTN (hypertension) ICD Code: I10 - Essential (primary) hypertension (5) PEG tube malfunction ICD Code: K94.23 - Gastrostomy malfunction Procedures 07/23- GJ tube replacement Brief History - From Admission This is a 52-year-old female with a PMH of Anxiety, 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 History provided from as pt is minimally conversive and poor historian. Per and review of records, pt has Unruptured Left Post Communicating Aneurysm, pending repair by Dr. Kendall in [facility], however states she's been unable to follow up due to "GI problems". Per , pt recently admitted to [facility] for UTI, had Cardiac Cath which was reportedly normal, and underwent PEG Tube placement. Was d/c'd to Rehab in [place] approx 10 days ago. notes elevated BP and tachypnea x2 days, states pt reported chest pain earlier. As above, unable to obtain history from patient as she is largely nonverbal. On arrival, BP 192/106, HR 99, O2 sat 98% on RA, Afebrile. S/p Labetalol in ER w/ improvement. CBC unremarkable except for hemoglobin 9.4, previously 13.8 on 03/15/17. Chemistry unremarkable except for Na 128. UA positive for UTI. CT Head with previous right craniotomy and aneurysm clip, encephalomalacia right temporal lobe and portions of right frontal/parietal lobes, chronic appearing dural thickening over right frontal and temporal lobes and left ventriculostomy tube in place. S/p IV Abx in ER. Pt noted to have dislodged PEG Tube at bedside. CBC/BMP: 07/25/17 0613 07/26/17 1125 Significant Findings Laboratory Tests Test 07/24/17 15:42 07/25/17 06:13 07/26/17 11:25 Blood Urea Nitrogen 4 MG/DL (7-18) 5 MG/DL (7-18) 3 MG/DL (7-18) Creatinine LESS THAN 0.15 MG/DL 0.27 MG/DL (0.50-1.00) 0.27 MG/DL (0.50-1.00) Sodium Level 127 MEQ/L (136-145) 126 MEQ/L (136-145) 128 MEQ/L (136-145) Potassium Level 2.9 MEQ/L (3.5-5.1) 2.8 MEQ/L (3.5-5.1) 3.0 MEQ/L (3.5-5.1) Chloride Level 95 MEQ/L (98-107) 94 MEQ/L (98-107) 95 MEQ/L (98-107) Red Blood Count 2.56 MIL/MM3 (4.00-5.30) Hemoglobin 9.1 GM/DL (11.6-15.3) Hematocrit 25.2 % (35.0-46.0) Mean Corpuscular Hemoglobin 35.4 PG (27.0-34.0) Mean Corpuscular Hemoglobin Concent 36.1 % (32.0-36.0) Mean Platelet Volume 6.9 FL (7.0-11.0) Albumin 2.8 GM/DL (3.4-5.0) Random Glucose 132 MG/DL (74-106) PE at Discharge GENERAL: This is frail 52 years old in no apparent distress. CARDIOVASCULAR: Regular rate and rhythm without murmurs, gallops, or rubs. RESPIRATORY: Clear to auscultation. Breath sounds equal bilaterally. No wheezes , rales, or rhonchi. GASTROINTESTINAL: Abdomen soft, non-tender, nondistended. Normal active bowel sounds MUSCULOSKELETAL: Extremities without clubbing, cyanosis, or edema. NEURO: awake alert oriented to person and time, able to weakly grasp finger with a left hands, able to move her bilateral feet Hospital Course 52 years old female who is nonverbal admitted for chest pain, UTI, DJD tube replacement because of this functionality, patient also had electrolyte imbalance, rule out ACS per protocol, neurology consulted, Keppra 500 by mouth twice a day, electrolyte replacement and correction, amlodipine lisinopril and metoprolol for hypertension, PT OT recommended rehabilitation, patient got stabilized for SNF transfer and follow up as an outpatient Lengthy discussion with the patient's boyfriend on the day of discharge he insisted on the need of hospital to hospital transfer as this was the intention of the neurologist, therefore I called Dr. Landaverde and he confirmed that does not need such a transfer and patient's family can schedule an appointment with [facility] as an outpatient, I have to explain that again to the patient's boyfriend and finally he agreed with the discharge [id number] encounter performed with the patient on discharge day, as well as physical exam, summary of hospitalization course and postdischarge plan has been D/W the patient family D/W nurse D/W manager rn case. Discharge medications reviewed and printed and signed, post discharge follow up visit with PCP and other specialist as well as Brief hospital course and discharge summary has been placed. Pt Condition on Discharge: Stable Discharge Disposition: Discharge to SNF Discharge Time: > 30 minutes Discharge Instructions DIET: Follow Instructions for: Heart Healthy Diet Speech Therapy-Diet Recommends: Other Activities you can perform: See Additionl Instruction Other Activity Instructions: per PT Follow up Referrals: Neurology - 1 Week with Jessica Landaverde MD Oncology/Hematology - 1 Week with Ahsan Acosta MD New Medications: Amlodipine (Norvasc) 10 Mg Tab 10 MG PO DAILY for htn, #30 TAB Ciprofloxacin (Cipro) 500 Mg Tab 500 MG PO Q12HR for uti, #10 TAB Metoprolol Tartrate (Lopressor) 100 Mg Tab 100 MG G-TUBE Q12HR for htn, #60 TAB Continued Medications: Acetaminophen (Eq Acetaminophen) 325 Mg Tab 650 MG PO Q6H PRN for FEVER, #30 TAB Anastrozole (Anastrozole) 1 Mg Tab 1 MG PO DAILY for Breast Cancer, #30 TAB 0 Refills Aspirin (Aspirin Low Dose) 81 Mg Chew 81 MG CHEW DAILY, TAB 0 Refills Atorvastatin (Atorvastatin) 10 Mg Tab 10 MG PO HS for Cholesterol Management, #30 TAB 0 Refills Lactobacillus Acidophilus (Probiotic) 10 Billion Cell Cap 1 CAP PO DAILY for Nutritional Supplement, #90 CAP 0 Refills Lansoprazole (Lansoprazole) 30 Mg Capdr 30 MG PO BID, CAP 0 Refills Levetiracetam (Keppra) 500 Mg Tab 500 MG PO BID for Seizure Control for 30 Days, TAB 1 Refill Lisinopril (Lisinopril) 10 Mg Tab 10 MG PO DAILY, #30 TAB 0 Refills Megestrol (Megestrol) 20 Mg Tab 10 MG PO DAILY, TAB 0 Refills Sodium Chloride (Sodium Chloride) 1 Gram Tab 1 GM G-TUBE TID for Electrolyte Replacement, TAB 0 Refills Severo Valderrama MD Jul 26, 2017 13:24
[2017-07-26] MEDS ORDERED: POTASSIUM CHLORIDE 10 MEQ CONTROLLED RELEASE TAB PO SCH (14:00)
[2017-07-26] MEDS: POTASSIUM CHLORIDE 20 MEQ PWD PACKET PEG SCH ×3 (15:25→22:30)
[2017-07-26] MEDS: levETIRAcetam 500 MG/5 ML UDC PO SCH (21:26)
[2017-07-27] VITALS (7 sets, daily range): BP systolic 125–149; BP diastolic 70–80; PULSE 69–93; RESP 17–19; TEMP 97.6–98.8; O2SAT 96–99
[2017-07-27] MEDS: SODIUM CHLORIDE 0.9% FLUSH 10 ML FLUSH IV FLUSH SCH (07:39)
[2017-07-27] MEDS: ANASTROZOLE 1 MG TAB PO SCH (07:41)
[2017-07-27] MEDS: PANTOPRAZOLE SOD 40 MG DELAYED RELEASE TAB PO SCH (07:41)
[2017-07-27] MEDS: DOCUSATE SODIUM 50 MG/SENNA 8.6 MG TAB PO SCH (07:43)
[2017-07-27] MEDS: levETIRAcetam 500 MG/5 ML UDC PO SCH (07:43)
[2017-07-27] MEDS: CIPROFLOXACIN 500 MG TAB PO SCH (07:43)
[2017-07-27] MEDS: METOPROLOL TARTRATE 100 MG TAB G-TUBE SCH (07:43)
[2017-07-27] MEDS: ASPIRIN 81 MG CHEW TAB CHEW SCH (07:43)
[2017-07-27] MEDS: LISINOPRIL 10 MG TAB PO SCH (07:43)
[2017-07-27 08:01] LABS: BICARBONATE 22.2 MEQ/L (21.0-32.0); CALCIUM 9.1 MG/DL (8.5-10.1); CREATININE 0.26 MG/DL (0.50-1.00); MAGNESIUM 2.1 MG/DL (1.5-2.5)
[2017-07-27] MEDS ORDERED: INFLUENZA VIRUS VACCINE (QUADRIVALENT) 0.5 ML SYR IM ONE (09:00)
--- NOTE | 2017-07-27 12:25 | HHI.PR ---
Subjective Remarks LENGTHY DISCUSSION WITH THE PATIENT'S BOYFRIEND/last significant other He is telling me Dr. Frederick neurologist told him he wants to transfer the patient to [facility] I discussed with the case picker we put a call for Dr. Seymour Objective Vitals Vital Signs Date Time Temp Pulse Resp B/P (MAP) Pulse Ox O2 Delivery O2 Flow Rate FiO2 07/27/17 12:00 98.8 77 18 129/71 (90) 99 07/27/17 08:48 93 07/27/17 08:00 98.7 93 18 149/70 (96) 96 07/27/17 06:45 97.6 69 17 125/80 (95) 99 07/27/17 04:00 86 07/27/17 00:00 72 07/27/17 00:00 98.6 80 19 129/75 (93) 98 07/26/17 21:30 97.5 89 18 133/76 (95) 98 07/26/17 20:00 88 07/26/17 18:34 96 07/26/17 18:31 82 07/26/17 16:19 98.7 86 20 113/56 (75) 96 I/O 07/26/17 07/26/17 07/26/17 07/27/17 07/27/17 07/27/17 07:00 15:00 23:00 07:00 15:00 23:00 Intake Total 475 ml 300 ml 782 ml 0 ml Output Total 1000 ml 500 ml 400 ml Balance -525 ml 300 ml 282 ml -400 ml Intake Oral 200 ml 0 ml IV Total 300 ml 378 ml Tube Feeding 375 ml 204 ml Other 100 ml Output Urine Total 1000 ml 500 ml 400 ml # Voids 1 # Bowel Movements 3 2 Result Diagram: 07/25/17 0613 07/27/17 0630 Objective Remarks GENERAL: This is frail 52 years old in no apparent distress. CARDIOVASCULAR: Regular rate and rhythm without murmurs, gallops, or rubs. RESPIRATORY: Clear to auscultation. Breath sounds equal bilaterally. No wheezes , rales, or rhonchi. GASTROINTESTINAL: Abdomen soft, non-tender, nondistended. Normal active bowel sounds MUSCULOSKELETAL: Extremities without clubbing, cyanosis, or edema. NEURO: awake alert oriented to person and time, able to weakly grasp finger with a left hands, able to move her bilateral feet Procedures 07/23- GJ tube replacement A/P Problem List: (1) Encephalopathy ICD Code: G93.40 - Encephalopathy, unspecified (2) UTI (urinary tract infection) ICD Code: N39.0 - Urinary tract infection, site not specified (3) Chest pain ICD Code: R07.9 - Chest pain, unspecified (4) HTN (hypertension) ICD Code: I10 - Essential (primary) hypertension (5) PEG tube malfunction ICD Code: K94.23 - Gastrostomy malfunction Assessment and Plan 07/26: Hypokalemia and hypomagnesemia 1.6 was checked yesterday I will give 2 g of magnesium sulfate 11 and repeat BMP with magnesium in a.m. Repeated potassium today is 3 we'll give KClpo 2 of 40 mEq 07/27: Discussion with the significant other he refused discharge, he claim neurologist recommended transfer to [facility], I put a call for the neurologist to verify this issue, discussed with the case picker Addendum: Received a call from Dr. Landaverde , he reconfirmed what I already told the patient's boyfriend that he can schedule an appointment which and hospital, but patient does not need urgent hospital to hospital transfer A/P: This is a 52-year-old female who is nonverbal complain of chest pain per history from Encephalopathy: History of SAH . CT Head w/ right craniotomy with aneurysm clip , encephalomalacia right temporal lobe and right frontal/parietal lobes, left ventriculostomy tube in place. Extensive neuro history w/ previous ruptured aneurysm, has unruptured left post comm artery aneurysm, pending intervention by Dr. Kendall in [facility]. Recommended follow up w/ Dr. Kendall for further evaluation. Neuro Checks q4. R/O SZ - EEG no seizure activity - on IV Keppra currently - Dr. Landaverde ff-recommended either continue with Keppra or try to stop and recheck EEG for 24 hours - Patient needs to follow-up at [facility] with Dr. Irizarry. PT/OT/speech therapy consulted UTI: U/a w/ UTI, - culture growing Citrobacter and gram-negative rods- resistant to Rocephin. - DC rocephin and change to po ciprofloxacin bid 07/24 x 7 days - S/P GJ tube replacement 07/23- start tube feedings- -s/p GJ placement at [facility] on recent admit per , which was dislodged. -GJ was placed at [facility] due to decreased oral intake. - speech for swallow eval.and cognitive eval. - Start Jevity consult dietitian HTN:-Not optimized - amlodipine to 10 mg by mouth daily. Continue with lisinopril cautiously due to hypo-natremia and hyperkalemia Pradip Increase Metorpolol to 100 mg bid/PEG clonidine prn Hyponatremia Hypokalemia -Replace potassium iv, check magnesium level and replace if needed DVT Prophylaxis: SCD/Teds. Discharge Planning In a.m. to [facility] Severo Valderrama MD Jul 27, 2017 12:25
== END 2017-07-27 14:34 | DRG 689 ==
LOC: NEPE 22:21 → NEDA 07-21 01:27 → NEPHCDU 07-21 02:38 → HCIS 07-21 05:00 → OBSVTOIN 07-23 13:17 → N05A 07-23 18:25
PROVIDERS: ADMIT Hospitalist; ATTEND Hospitalist
PROC: 0D2DXUZ Change Feeding Device in Lower Intestinal Tract, External Approach (ICD-10-PCS; principal; 2017-07-23)
DX: N39.0 Urinary tract infection, site not specified (principal); G93.49 Other encephalopathy; I67.1 Cerebral aneurysm, nonruptured; G93.89 Other specified disorders of brain; K94.23 Gastrostomy malfunction; E87.1 Hypo-osmolality and hyponatremia; E83.42 Hypomagnesemia; I10 Essential (primary) hypertension; E87.6 Hypokalemia; I69.020 Aphasia following nontraumatic subarachnoid hemorrhage; B96.89 Other specified bacterial agents as the cause of diseases classified elsewhere; R07.9 Chest pain, unspecified; G40.909 Epilepsy, unspecified, not intractable, without status epilepticus; I69.198 Other sequelae of nontraumatic intracerebral hemorrhage; Z85.3 Personal history of malignant neoplasm of breast; Z98.2 Presence of cerebrospinal fluid drainage device; Z74.01 Bed confinement status; Z23 Encounter for immunization; Z87.891 Personal history of nicotine dependence
CPT/HCPCS: 49440; 49446; 70450; 71045; 80048; 80053; 81001; 83690; 83735; 84100; 84484; 85025; 85027; 85610; 85730; 87077; 87086; 87186; 90686; 93005; 95819; 96361; 96365; 96366; 96375; 96376; 99152; 99153; C1769; C1887; C1894; G0378; G8987-GO; G8987-GP; G8988-GO; G8988-GP; G8996-GN; G8997-GN; J0360; J0696; J1953; J2185; J2250; J3010; J3475; J3480; J7030; Q2038; Q9967

== ENCOUNTER 2017-11-12 13:09 | Emergency (ER) | payer OTHER ==
[~2017-11-12] VITALS: Ht 162.6 cm; Wt 56.0 kg
[~2017-11-12 13:09] MED LIST changes: +AMLO10 PO; -AMLO5 PO; +ASPI81CH6 CHEW; +ATOR10TA15 PO; +CEPH-460 PO; +CIPR-9 PO; +DULC10SU3 RECTAL; +LACTCAP8 PO; +LANS30CA PO; -LISI-515 PO; +LISI10TA3 PO; +MEGE20TA PO; +METO-338 G-TUBE; +METO-426 PO; -METO25TA3 PO; +METO50TA PO; +MILKSUS PO; -RANI1TAB5 PO; +SODI1TAB G-TUBE; -TRAZ50TA12 PO
--- NOTE | 2017-11-12 13:26 | PD ---
HPI Chief Complaint: GJ-tube issues Time Seen by Provider: 13:26 Travel History International Travel<30 days: No Contact w/Intl Traveler<30days: No Traveled to known affect area: No History of Present Illness HPI Patient was sent from the alf for her GJ tube replacement. She came with paperwork and that is all the paperwork says. Her is there with her and he says that he got a phone call from the alf saying that the tube was leaking. Patient has history of ruptured aneurysm leading to neurologic deficit and hence she has been in the alf. says that she had the GJ tube inserted 3-4 months ago since at that time she was having some failure to thrive issues. However currently the feeding has been good. Last night she ate baked CT and PEs and finish 95% of her food. He is questioning whether the tube needs to be there at all especially if it means reinserting it. Patient is unable to give any history given her medical condition. Otherwise no issues from ER standpoint regarding this visit. [facility] Past Medical History Narrative Medical List of her past medical, surgical, social and family history is reviewed from the nursing note. Asthma: No Autoimmune Disease: No Anxiety: Yes Depression: No Heart Rhythm Problems: No Cancer: Yes (Breast) Cardiovascular Problems: Yes High Cholesterol: No Chemotherapy: No Chest Pain: No Congestive Heart Failure: No COPD: No Cerebrovascular Accident: Yes Diabetes: No Diminished Hearing: No (UTO) Endocrine: No Gastrointestinal Disorders: Yes (PEG placed 12/13/16-removal 01/23/17) GERD: No Genitourinary: Yes (UTI ) Headaches: Yes Hiatal Hernia: No Hypertension: Yes Immune Disorder: No Implanted Vascular Access Dvce: Yes Kidney Stones: Yes (apr 2016 ) Musculoskeletal: No Neurologic: Yes Psychiatric: Yes Reproductive: No Respiratory: Yes (respiratory failure and tracheostomy- 12/12/16 - removed 01/15) Migraines: No Radiation Therapy: Yes Renal Failure: No Seizures: Yes Sleep Apnea: No Thyroid Disease: No Ulcer: No Past Surgical History Abdominal Surgery: No AICD: No Arteriovenous Shunt: No Body Medical Devices: SERVER MANAGER 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 Reported Meds & Prescriptions Reported Meds & Active Scripts Active Norvasc (Amlodipine Besylate) 10 Mg Tab 10 Mg PO DAILY Lopressor (Metoprolol Tartrate) 100 Mg Tab 100 Mg G-TUBE Q12HR Cipro (Ciprofloxacin HCl) 500 Mg Tab 500 Mg PO Q12HR Keppra (Levetiracetam) 500 Mg Tab 500 Mg PO BID 30 Days Wheelchair (Device) 1 Mis Mis 1 Ea .ROUTE DIRECTED Eq Acetaminophen (Acetaminophen) 325 Mg Tab 650 Mg PO Q6H PRN Reported Sodium Chloride 1 Gram Tab 1 Gm G-TUBE TID Probiotic (Lactobacillus Acidophilus) 10 Billion Cell Cap 1 Cap PO DAILY Milk of Magnesia Liq (Magnesium Hydroxide) 400 Mg/5 Ml Susp 30 Ml PO Q6H PRN Milk of Magnesia Liq (Magnesium Hydroxide) 400 Mg/5 Ml Susp 60 Ml PO DAILY PRN Metoprolol Tartrate 75 Mg Tab 75 Mg PO DAILY Metoprolol Tartrate 50 Mg Tab 50 Mg PO HS Megestrol (Megestrol Acetate) 20 Mg Tab 10 Mg PO DAILY Lisinopril 10 Mg Tab 10 Mg PO DAILY Lansoprazole 30 Mg Capdr 30 Mg PO BID Keflex (Cephalexin) 500 Mg Cap 500 Mg PO Q12H Dulcolax Supp (Bisacodyl) 10 Mg Supp 10 Mg RECTAL DAILY PRN Atorvastatin (Atorvastatin Calcium) 10 Mg Tab 10 Mg PO HS Aspirin Low Dose (Aspirin) 81 Mg Chew 81 Mg CHEW DAILY Promethazine (Promethazine HCl) 12.5 Mg Tab 25 Mg PO Q6H PRN Anastrozole 1 Mg Tab 1 Mg PO DAILY Narrative Medication List of her home medications reviewed from the nursing note. Review of Systems Except as stated in HPI: all other systems reviewed are Neg Physical Exam Narrative GENERAL: Awake, alert, no obvious distress, bedbound SKIN: Focused skin assessment warm/dry. HEAD: Atraumatic. Normocephalic. EYES: Pupils equal and round. No scleral icterus. No injection or drainage. ENT: No nasal bleeding or discharge. Mucous membranes pink and moist. NECK: Trachea midline. No JVD. CARDIOVASCULAR: Regular rate and rhythm. No murmur appreciated. RESPIRATORY: No accessory muscle use. Clear to auscultation. Breath sounds equal bilaterally. GASTROINTESTINAL: Abdomen soft, non-tender, nondistended. Hepatic and splenic margins not palpable. G-tube MUSCULOSKELETAL: No obvious deformities. No clubbing. No cyanosis. No edema. Contracture of the upper extremity NEUROLOGICAL: Awake and alert. No obvious cranial nerve deficits. upper extremity contracture PSYCHIATRIC: Appropriate mood and affect; insight and judgment normal. Data Data Orders Orders Ed Discharge Order (11/12/17 14:34) [facility] Medical Decision Making Medical Screen Exam Complete: Yes Emergency Medical Condition: Yes Medical Record Reviewed: Yes Differential Diagnosis GJ tube malfunction Narrative Course 1:51 PM IM unsure of the exact nature of the malfunction. The tube and the site itself looks okay. I have asked the nurse to call the alf and find out the exact reason they want the GJ tube to be replaced. Also as per the I need to find out the amount of oral intake patient has and the requirement of the GJ tube for feeds. 2:34 PM the nurse called the alf and was told that the tubing itself was leaking and based on this she tested putting 60 cc of water through the tubing and did not find any leak. I went and repeated the process and once again did not find any leak. Based on this I am comfortable sending her back to the alf. Also, as per the NH, her diet mainly consists of the feeds from the GJ tube. Procedures EKG Prior to Arrival: No Diagnosis Primary Impression: Malfunctioning jejunostomy tube Additional Instructions: Follow-up with your primary care. Return to ER if condition worsens any other new concerns. Med/Other Pt SpecificInfo: No Change to Meds Disposition: 01 DISCHARGE HOME Condition: Stable Brian Ramachandran MD November 12, 2017 13:26
[2017-11-12 14:30] VITALS: BP 108/64; PULSE 70; RESP 16; TEMP 98.4; O2SAT 99
== END 2017-11-12 17:07 | disposition home or self-care (01) ==
LOC: NEPD 13:09
DX: K94.13 Enterostomy malfunction (principal)
CPT/HCPCS: 99281